=== PATIENT | female | born 1970 | race Caucasian/White ===

== ENCOUNTER → 2017-11-30 14:57 | Outpatient (CLI) | payer OTHER, SELFPAY ==
--- NOTE | 2017-11-30 14:59 | BI_ITS ---
MAMMOGRAPHY - BILATERAL DIAGNOSTIC REASON FOR EXAM: Female, 47 years old. History of left breast lump. Decrease in size since recent menses. PERTINENT HISTORY: Aunt with breast cancer. TECHNIQUE: Digital bilateral breast geovanna (3D mammographic acquisition) in the CC and MLO projections. 2-D mediolateral oblique (MLO) and craniocaudad (CC) views of both breasts were obtained. CAD: Full Field Digital Mammography with Computer Added Detection was performed. COMPARISON: Comparison is made with prior study dated December 21, 2016 and December 12, 2015. FINDINGS: Breast Composition: The breasts are heterogeneously dense, which may obscure small masses. There is a 3 cm x 2.2 cm well-defined nodular density in the inferior medial retroareolar region of the left breast. This is essentially unchanged. Prior sonogram demonstrated this to be a cyst. Follow-up sonogram is recommended. No other significant abnormalities are identified. There has been no significant change since the prior study. BI/DIAG MAMM W/CAD, BILAT IMPRESSION: Stable bilateral diagnostic mammogram. Follow-up ultrasound of the left breast is recommended. ASSESSMENT CATEGORY: BIRADS Category 0: Incomplete. Need additional imaging evaluation. A letter regarding these results will be sent to the patient by the facility within 30 days. Approximately 10% of breast cancers are not detected by mammography. A normal mammogram should not delay biopsy of a clinically suspicious abnormality. Electronically Signed: Ilir Lyon MD at 8:35 EDT Tel [phone], Service support ,
--- NOTE | 2017-11-30 16:05 | US_ITS ---
STUDY: ULTRASOUND BREAST - LEFT REASON FOR EXAM: Female, 47 years old. Palpable lump left breast. TECHNIQUE: Axial and longitudinal images of the LEFT breast were performed with a high resolution ultrasound transducer. COMPARISON: Comparison is made with prior mammogram done earlier in the day as well as prior ultrasound of the left breast dated December 24, 2016. FINDINGS: LEFT Breast: 3 cysts are seen in the lower half of the left breast. The largest measures 2.1 cm x 3.1 cm x 1.5 cm. This is at the 7:00 position breast at 3 cm from the nipple. This also evidence of a 1 cm x 0.9 cm x 1 cm cyst at the 9:00 position breast at 3 cm from nipple as well as a 0.8 cm x 0.8 cm x 0.6 m cyst at the 5:00 position breast at 1 cm from nipple. US/Breast Limited Unilateral IMPRESSION: 3 cysts seen in the inferior aspect of the left breast. Routine annual mammographic follow-up is recommended. ASSESSMENT CATEGORY: BIRADS Category 2: Benign. A letter regarding these results will be sent to the patient by the facility within 30 days. Electronically Signed: Ilir Lyon MD at 8:45 EDT Tel [phone], Service support ,
== END ==
PROVIDERS: Family Provider Family Medicine; PCP Family Medicine; Visit Provider Advanced Practice Midwife
DX: N63.20 Unspecified lump in the left breast, unspecified quadrant (principal)
CPT/HCPCS: 76642; 77062; 77066; G0279

== ENCOUNTER → 2018-02-21 10:35 | Outpatient (CLI) | payer OTHER, SELFPAY ==
[2018-02-21 11:40] LABS: Hemoglobin A1c 6.3 % (4.2-6.3)
== END ==
PROVIDERS: Family Provider Family Medicine; PCP Family Medicine; Visit Provider Nurse Practitioner
DX: E10.9 Type 1 diabetes mellitus without complications (principal)
CPT/HCPCS: 36415; 83036

== ENCOUNTER → 2018-05-08 10:33 | Outpatient (CLI) | payer OTHER, SELFPAY ==
[2018-05-08 12:29] LABS: AST(SGOT) 18 U/L (15-37); Alanine Aminotransfer ALT/SGPT 19 U/L (13-56); Albumin, Serum 3.5 g/dL (3.2-5.0); Alkaline Phosphatase 54 U/L (45-117); Anion Gap 4 (5-15); BUN 11 mg/dL (7-18); BUN/Creat Ratio 14.6 RATIO (10-20); Calcium,Total 8.7 mg/dL (8.5-10.1); Chloride 103 mmol/L (98-107); Creatinine, Serum 0.75 mg/dL (0.55-1.02); EST Glomerular Filtration Rate 87 mL/min (>60); Est Glom Filt Rate - Afr Amer 105 mL/min (>60); Globulin 3.4 g/dL (2.2-4.2); Glucose 143 mg/dL (74-106); Potassium 3.9 mmol/L (3.5-5.1); Protein, Total 6.9 g/dL (6.4-8.2); Sodium Level 138 mmol/L (136-145)
[2018-05-08 12:39] LABS: Hemoglobin A1c 6.4 % (4.2-6.3)
== END ==
PROVIDERS: Family Provider Family Medicine; PCP Family Medicine; Referring Provider Nurse Practitioner; Visit Provider Nurse Practitioner
DX: E10.9 Type 1 diabetes mellitus without complications (principal)
CPT/HCPCS: 36415; 80053; 83036

== ENCOUNTER → 2018-12-01 13:54 | Outpatient (CLI) | payer OTHER, SELFPAY ==
[2018-09-12 16:00] VITALS: BMI 30.9
--- NOTE | 2018-12-01 14:01 | BI_ITS ---
MAMMOGRAPHY - BILATERAL SCREENING REASON FOR EXAM: Female, 48 years old. Routine annual screening examination. PERTINENT HISTORY: Aunt with breast cancer. History of bilateral breast cysts. TECHNIQUE: Digital bilateral breast geovanna (3D mammographic acquisition) in the CC and MLO projections. 2-D mediolateral oblique (MLO) and craniocaudad (CC) views of both breasts were obtained. CAD: Full Field Digital Mammography with Computer Added Detection was performed. COMPARISON: Comparison is made with prior study dated December 21, 2016 and November 30, 2017. FINDINGS: Breast Composition: The breasts are heterogeneously dense, which may obscure small masses. There are no dominant masses or suspicious calcifications. The previously seen well-defined nodule in the inferior medial aspect of the left breast has decreased in size. No new mass lesion or clustering calcification is seen. No other significant abnormalities are identified. BI/SCREENING MAMM (CAD), BILAT IMPRESSION: Interval decrease in size of the previously seen nodule in the left breast.. Yearly follow-up mammogram recommended. (A) ASSESSMENT CATEGORY: BIRADS Category 2: Benign. A letter regarding these results will be sent to the patient by the facility within 30 days. Approximately 10% of breast cancers are not detected by mammography. A normal mammogram should not delay biopsy of a clinically suspicious abnormality. [id number] Electronically Signed: Ilir Lyon, at 8:30 EDT , Service support ,
== END ==
PROVIDERS: Family Provider Family Medicine; PCP Family Medicine; Referring Provider Advanced Practice Midwife; Visit Provider Advanced Practice Midwife
DX: Z12.31 Encounter for screening mammogram for malignant neoplasm of breast (principal)
CPT/HCPCS: 77063; 77067

== ENCOUNTER 2019-10-27 12:06 | Emergency (ER) | payer OTHER, SELFPAY ==
[2018-09-12 16:00] VITALS: BMI 30.9
[2019-10-27 12:09] VITALS: BP 131/77; PULSE 102; RESP 17; TEMP 36.7; O2SAT 98; BMI 31.4
--- NOTE | 2019-10-27 12:34 | EKG12_ITS ---
Test Reason : UPPER EXTEMETY Blood Pressure : / mmHG Vent. Rate : 077 BPM Atrial Rate : 077 BPM P-R Int : 166 ms QRS Dur : 088 ms QT Int : 392 ms P-R-T Axes : 061 048 058 degrees QTc Int : 443 ms Normal sinus rhythm Normal ECG Confirmed by YUDELKA BERKOWITZ, OKSANA ([id number]), acquisitions editor RITA ROBINS ([id number]) on 10/30/2019 1:52:57 PM Referred By: KATT Confirmed By:OKSANA JHA MD
[2019-10-27 12:51] VITALS: BP 123/80; PULSE 80; RESP 12; O2SAT 99
[2019-10-27 12:59] LABS: Absolute Lymphocyte Count 1.14 X10^3/uL (0.83-4.51); Absolute Neutrophil Count 4.4 X10^3/uL (2.0-7.7); Basophil# 0.06 X10^3/uL; Eosinophil# 0.07 X10^3/uL; Eosinophils% 1.1 % (0-5); Hematocrit 41.3 % (37-47); Hemoglobin 13.6 g/dL (12.0-15.0); Lymphocyte # 1.14 X10^3/ul (4.0); Lymphocyte % 18.1 % (19-41); Mean Corp Hgb Conc 32.9 g/dL (32-36); Mean Corpuscular Volume 88.1 fL (81-99); Mean Platelet Vol. 10.6 fl (6.2-12.0); Monocyte% 9.5 % (0-10); NRBC Flagged by Analyzer 0 % (0-5); Neutrophil # 4.41 X10^3/uL (2.7-7.7); Neutrophil % 69.8 % (47-70); Platelet Count 267 K/mm3 (150-450); RBC Distribution Width CV 14.4 % (11.6-14.6); RBC Distribution Width SD 45.9 fl (35.1-43.9); Red Blood Count 4.69 M/mm3 (4.2-5.4); White Blood Count 6.3 K/mm3 (4.4-11.0)
--- NOTE | 2019-10-27 13:06 | RAD_ITS ---
STUDY: X-RAY - CERVICAL SPINE REASON FOR EXAM: Female, 49 years old. Neck pain, NKI, radiating down left arm TECHNIQUE: 3 view(s) of the cervical spine were obtained. COMPARISON: None FINDINGS: Normal anterior atlantoaxial articulation. Normal odontoid process. Normal cervical lordosis. Normal vertebral bodies and endplates. Normal disc space heights. There is no acute fracture. The soft tissue structures are unremarkable. RAD/Cerv Spine 2 or 3 Views IMPRESSION: Normal x-ray examination of the visualized cervical spine. Electronically Signed: Ant Sapp MD at 13:51 EDT , Service support ,
--- NOTE | 2019-10-27 13:06 | RAD_ITS ---
STUDY: X-RAY CHEST REASON FOR EXAM: Female, 49 years old. Neck pain, NKI, radiating down left arm TECHNIQUE: Single AP portable view of the chest. COMPARISON: August 14, 2013. FINDINGS: There are monitoring devices. The lungs are clear and expanded. There is no demonstrated pleural abnormality. Normal size heart. Normal mediastinum and michael. Normal visualized pulmonary arteries. Normal visualized aortic arch and descending thoracic aorta. Normal visualized thoracic spine. Normal visualized ribs, clavicles, and shoulders. There is no demonstrated abnormality of the visualized soft tissue structures of the upper abdomen. RAD/Chest 1 View (Portable) IMPRESSION: Normal x-ray examination of the chest. Electronically Signed: Ant Sapp MD at 13:50 EDT , Service support ,
[2019-10-27 13:11] LABS: Anion Gap 4 (5-15); BUN 14 mg/dL (7-18); BUN/Creat Ratio 17.5 RATIO (10-20); Calcium,Total 9.8 mg/dL (8.5-10.1); Chloride 104 mmol/L (98-107); EST Glomerular Filtration Rate 80 mL/min (>60); Est Glom Filt Rate - Afr Amer 97 mL/min (>60); Estimated Creatinine Clearance 74.86 ml/min; Glucose 158 mg/dL (74-106); Potassium 3.7 mmol/L (3.5-5.1); Sodium Level 140 mmol/L (136-145)
--- NOTE | 2019-10-27 15:29 | ED.DCSUM_ITS ---
- ER Visit Summary Date of Service: 10/27/19 Chief Complaint: Left arm and neck pain History of Present Illness: The patient is a 49 F who presents with left neck, arm, and shoulder pain that is been constant for the past 6 days. Patient states it is gradually gotten worse. Patient describes the pain is aching. Patient states the pain started in the left side of her neck and left trapezius area. Patient states she had noted some bruising and swelling over the lateral aspect of her left upper arm. Patient states her pain is worse with movement. Patient denies any paresthesias. Patient states her arm feels weak whenever she tries to use it. Patient denies any numbness or tingling. Patient denies any chest pain or shortness of breath. Patient denies any nausea or vomiting. Patient states she talked to the nurse at her primary care physician's office and was referred to the emergency department for possible cardiac evaluation. Physical Examination: Vital signs are stable. Patient is afebrile. Patient is in no acute distress. Oral mucosa is pink and moist. Neck is supple. Trachea is midline. There is no JVD noted. Heart was regular rate and rhythm. Lungs are clear and equal bilaterally. Abdomen is soft. Bowel sounds are normal. There is no tenderness. There is no rebound or guarding noted. Skin is warm dry. Cranial nerves II through XII are intact. There are no focal motor or sensory deficits noted. Musculoskeletal exam reveals tenderness and spasm of the left cervical paraspinal muscles and left trapezius muscle. There is also some tenderness with mild edema and ecchymosis over the lateral aspect of the left upper arm. There is no bony crepitance or step-off. There is good range of motion. There is no laxity appreciated. Radial pulses are equal bilaterally. Test Results: EKG showed a normal sinus rhythm with a rate of 77. There are no acute ST or T wave changes. Portable chest x-ray was obtained. There is no acute cardiopulmonary process. X-rays of the cervical spine were obtained. There is no acute fracture or spondylolisthesis. These were interpreted by the radiologist and reviewed by myself. CBC, basic metabolic profile, and troponin were obtained and were all within normal limits. Emergency Department Course and Treatment: Patient was feeling somewhat better on reevaluation. Patient was given a prescription for ibuprofen. Patient was instructed use ice to the area. Patient was instructed to do range of motion exercises. Patient was instructed to follow-up with her primary care physician in 5 to 7 days. Patient understood and was agreeable with the plan. All questions were answered. Disposition: Discharge home Impression: Muscle strain left shoulder This note was generated with [employer] dictation software. It may contain incorrect words, spelling, and punctuation that were not noted in review of the chart prior to signing ED Disposition - Plan for ED Patient: Disposition: Home or Assisted Living Diagnosis: Muscle strain of left shoulder Instructions: ED Strain Muscle Ext Prescriptions: Ibuprofen [Motrin] 800 mg PO TID PRN PRN #20 tab PRN Reason: Pain Score 1-10/10 Prescription Printed Referrals: Bob aPtel III, MD [Primary Care Provider] - 5-7 Days
[2019-10-27 15:46] VITALS: BP 113/78; PULSE 66; RESP 15; O2SAT 97
== END 2019-10-27 15:47 | disposition home or self-care (01) ==
PROVIDERS: Emergency Provider Emergency Medicine; PCP Family Medicine
DX: S46.912A Strain of unspecified muscle, fascia and tendon at shoulder and upper arm level, left arm, initial encounter (principal); X58.XXXA Exposure to other specified factors, initial encounter; Y93.9 Activity, unspecified; Y99.9 Unspecified external cause status; E10.9 Type 1 diabetes mellitus without complications; E03.9 Hypothyroidism, unspecified; K21.9 Gastro-esophageal reflux disease without esophagitis; Z79.4 Long term (current) use of insulin; Z79.899 Other long term (current) drug therapy
CPT/HCPCS: 71045; 72040; 80048; 84484; 85025; 93005; 99285; A4216

== ENCOUNTER → 2020-01-11 12:51 | Outpatient (CLI) | payer OTHER, SELFPAY ==
[2019-12-17 19:48] VITALS: BMI 31.4
--- NOTE | 2020-01-11 12:58 | BI_ITS ---
MAMMOGRAPHY - BILATERAL SCREENING REASON FOR EXAM: Female, 49 years old. Routine annual screening examination. PERTINENT HISTORY: Aunt with breast cancer. TECHNIQUE: Digital bilateral breast greer (3D mammographic acquisition) in the CC and MLO projections. 2-D mediolateral oblique (MLO) and craniocaudad (CC) views of both breasts were obtained. CAD: Full Field Digital Mammography with Computer Added Detection was performed. COMPARISON: Comparison is made with prior examination dated December 01, 2018 and November 30, 2017. FINDINGS: Breast Composition: The breasts are heterogeneously dense, which may obscure small masses. There are no dominant masses or suspicious calcifications. Stable benign appearing bilateral axillary lymph nodes. No other significant abnormalities are identified. There has been no significant change since the prior study. BI/SCREEN MAMM (CAD) W/GREER BILAT IMPRESSION: Stable bilateral screening mammogram. Yearly follow-up mammogram recommended. (A) ASSESSMENT CATEGORY: BIRADS Category 2: Benign. A letter regarding these results will be sent to the patient by the facility within 30 days. Approximately 10% of breast cancers are not detected by mammography. A normal mammogram should not delay biopsy of a clinically suspicious abnormality. [id number] Electronically Signed: Ilir Lyon, at 14:16 EDT , Service support ,
== END ==
PROVIDERS: PCP Family Medicine; Referring Provider Advanced Practice Midwife; Visit Provider Advanced Practice Midwife
DX: Z12.31 Encounter for screening mammogram for malignant neoplasm of breast (principal)
CPT/HCPCS: 77063; 77067

== ENCOUNTER → 2021-01-27 16:00 | Outpatient (CLI) | payer OTHER, SELFPAY ==
[2020-06-16 16:15] VITALS: BMI 30.7
--- NOTE | 2021-01-27 16:03 | BI_ITS ---
MAMMOGRAPHY - BILATERAL SCREENING REASON FOR EXAM: Female, 50 years old. Routine annual screening examination. PERTINENT HISTORY: Aunt with breast cancer. TECHNIQUE: Digital bilateral breast greer (3D mammographic acquisition) in the CC and MLO projections. 2-D mediolateral oblique (MLO) and craniocaudad (CC) views of both breasts were obtained. CAD: Full Field Digital Mammography with Computer Added Detection was performed. COMPARISON: Comparison is made with prior study dated the 2019 and 12/01/2018. FINDINGS: Breast Composition: The breasts are heterogeneously dense, which may obscure small masses. There are no dominant masses or suspicious calcifications. No other significant abnormalities are identified. There has been no significant change since the prior study. BI/SCRN MAMM (CAD)W/GREER BILAT IMPRESSION: Stable bilateral screening mammogram. Yearly follow-up mammogram recommended. (A) ASSESSMENT CATEGORY: BIRADS Category 1: Negative. A letter regarding these results will be sent to the patient by the facility within 30 days. Approximately 10% of breast cancers are not detected by mammography. A normal mammogram should not delay biopsy of a clinically suspicious abnormality. [id number] Electronically Signed: Ilir Lyon MD at 8:02 EDT , Service support ,
== END ==
PROVIDERS: PCP Family Medicine; Referring Provider Nurse Practitioner Family; Visit Provider Nurse Practitioner Family
DX: Z12.31 Encounter for screening mammogram for malignant neoplasm of breast (principal)
CPT/HCPCS: 77063; 77067

== ENCOUNTER 2021-02-26 10:01 | Day surgery (SDC) | payer OTHER, SELFPAY ==
[2021-02-09 16:06] VITALS: BMI 30.7
--- NOTE | 2021-02-25 12:10 | HP.PCM_ITS ---
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 Signed Encounter Date: 02/25/2021 Expand AllCollapse All Expand All by Default Hide copied text Hover for details Pre-Op History and Physical ? HPI: The patient is a 50 year old female presenting for discussion regarding endometrial polyp. Patient was scheduled with me to discuss surgical intervention. Patient states her last menstrual period was February 2020. Patient states prior to that time she had some irregular bleeding. Patient states that on her Pap smear endometrial cells were present so she had an endometrial biopsy performed which showed likely endometrial polyp. Ultrasound showed endometrial polyp as well. Patient here for discussion about removal of this polyp. Patient offers no other concerns today. ? Pre-operative visit. She is scheduled for Hysteroscopy D&C, polypectomy for endometrial polyp on 02/26/21. Procedure discussed along with risks, benefits and complications. Other alternatives discussed for management. Consent form signed? Yes. ? ? PAST MEDICAL HISTORY PAST MEDICAL HISTORY Diagnosis Date ? Esophageal reflux ? ? Gastroesophageal reflux ? Hyperlipidemia LDL goal < 100 07/17/2013 ? Type I (juvenile type) diabetes mellitus without mention of complication, not stated as uncontrolled (HCC) ? ? Dx age 24 ? Unspecified asthma(493.90) ? ? prn albuterol ? Unspecified hypothyroidism ? ? Hypothyroidism ? ? PAST SURGICAL HISTORY PAST SURGICAL HISTORY Procedure Laterality Date ? 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 1992 ? For abn pap and paps since normal ? COLONOSCOPY ? 07/20/2018 ? 5 yr interval, benign polyp ? EGD ? 07/20/2018 ? EGD W/O OR W/BRUSH/WASH ? ? ? EGD done 2 times ? [facility] COVID-19 VACCINE ? 10/02/2020 ? ? ? CURRENT MEDICATIONS Current Outpatient Medications Medication Sig Dispense Refill ? albuterol HFA (PROAIR HFA) 90 mcg/actuation inhaler Inhale 2 Puffs as instructed every 4 hours as needed. 18 g 5 ? pantoprazole DR (PROTONIX) 40 mg tablet Take 1 tablet by mouth daily before breakfast. Take on empty stomach, 1/2 hr before meal. 90 tablet 3 ? montelukast (SINGULAIR) 10 mg tablet Take 1 tablet by mouth once daily. 90 tablet 3 ? levothyroxine (LEVOXYL) 125 mcg tablet Take by mouth, 6 days per week. Skip dose on 7th day. Take on empty stomach. Fill as generic, not CHERELLE 90 tablet 3 ? SYNTHROID 125 mcg tablet 6 per week, CHERELLE 78 tablet 3 ? cyclobenzaprine (FLEXERIL) 10 mg tablet Take 1 tablet by mouth three times daily as needed. 30 tablet 4 ? nystatin-triamcinolone (MYCOLOG II) cream Apply 1 application to affected area twice daily as needed. 30 g 1 ? insulin aspart U-100 (NOVOLOG U-100 INSULIN ASPART) 100 unit/mL use as directed with insulin pump up to 60 units daily 6 Vial 3 ? cranberry fruit extract (CRANBERRY EXTRACT ORAL) Take by mouth. ? ? ? COMPOUNDED PRESCRIPTION one touch ultra test strips blue 50's test 8 times daily 15 Container 4 ? rosuvastatin (CRESTOR) 5 mg tablet Take 1 tablet by mouth daily at bedtime. (Patient taking differently: Take 5 mg by mouth daily before breakfast.) 90 tablet 3 ? enalapril (VASOTEC) 5 mg tablet Take 1 tablet by mouth once daily. 90 tablet 3 ? Magnesium 250 mg tab Take 250 mg by mouth once daily. ? ? ? UBIDECARENONE (COQ-10 ORAL) Take by mouth. ? ? ? FLAXSEED OIL (OMEGA 3 ORAL) Take by mouth as directed. ? ? ? COMPOUNDED PRESCRIPTION Ultimate eye support, with zeaxanthin ? ? ? MULTIVITAMIN TAB Take one(1) tablet daily. ? 0 ? VITAMIN D 400 UNIT CAP ? ? 0 ? miSOPROStol (CYTOTEC) 200 mcg tablet Insert 2 tablets vaginally night prior to procedure and 2 tablets morning of procedure. Each dose should be in vagina for 6-8 hours. (Patient not taking: Reported on 02/20/2021 ) 4 tablet 0 ? ASPIRIN 81 MG TAB Take one (1) tablet daily . (Patient not taking: ) ? 0 ? No current facility-administered medications for this visit. ? ? ALLERGIES: Apples, Bactrim [Sulfamethoxazole-Trimethoprim], Bananas [Other], Environmental [Other], and Lovastatin ? PERSONAL HISTORY: SOCIAL HISTORY Social History ? Tobacco Use ? Smoking status: Former Smoker ? ? Quit date: 05/11/1999 ? ? Years since quittin.8 ? Smokeless tobacco: Never Used Vaping Use ? Vaping Use: Never used Substance Use Topics ? Alcohol use: No ? Drug use: No ? FAMILY HISTORY: FAMILY HISTORY FAMILY HISTORY Problem Relation Age of Onset ? Cancer Mother ? ? leukemia ? Diabetes Father ? ? Type 2 ? No Known Problems Sister ? ? other (Dementia) Maternal Grandmother ? ? No Known Problems Paternal Grandmother ? ? No Known Problems Paternal Grandfather ? ? Arthritis Son ? ? other (epilepsy) Son ? ? other (ADHD) Son ? ? other (Asperger's) Son ? ? Breast Cancer Paternal Aunt ? ? ? REVIEW OF SYMPTOMS: negative except as noted above PHYSICAL EXAMINATION: ? VITALS: Blood pressure 102/64, height 5' 5 (1.651 m), weight 194 lb (88 kg), last menstrual period 02/23/2020. ? GENERAL: The patient is well nourished, well hydrated in no acute distress. , The patient is oriented to time, place, and person. NECK: full range of motion NEURO: alert and oriented x 3 ? IMPRESSION: Endometrial polyp ? PLAN: Hysteroscopy, D&C, Polypectomy ? Pt has been counseled on risks/benefits and alternatives of surgery including but not limited to anesthesia, bleeding, infection, uterine perforation with injury to pelvic structures including bowel, bladder, ureters and vessels. Pt wishes to proceed with surgery at this time. ? I discussed with the patient that if she has no irregular bleeding and she does not want to proceed with the procedure that is her decision. We discussed that endometrial polyps later could cause postmenopausal bleeding. Patient at this time would like to proceed with removal of the endometrial polyp. ? Pre and Post op instructions reviewed EKG to be done prior to surgery- h/o DM, HGA1c controlled 6.5 . CBC and BMP ordered Motrin for post op pain- can use OTC. ? ? ? I have reviewed and updated past medical and surgical history, medications and allergies Tigist Botello MD Office Visit on 02/25/2021 Office Visit on 02/25/2021 Note shared with patient
[2021-02-26 10:34] LABS: Internal QC Validated? YES +Cl - CLEAR BKGD; Pregnancy, Urine Negative Negative
--- NOTE | 2021-02-26 10:52 | EKG12_ITS ---
Test Reason : PREOP Blood Pressure : / mmHG Vent. Rate : 077 BPM Atrial Rate : 077 BPM P-R Int : 168 ms QRS Dur : 092 ms QT Int : 382 ms P-R-T Axes : 035 042 055 degrees QTc Int : 432 ms Normal sinus rhythm Normal ECG Confirmed by KB BERKOWITZ, TEMI ([id number]), state editor MACIEL NAZARIO ([id number]) on 03/04/2021 10:50:04 AM Referred By: Tigist Cruz Confirmed By:TEMI QUILES MD
[2021-02-26 10:58] VITALS: BP 119/64; PULSE 78; RESP 18; TEMP 37.3; O2SAT 98; BMI 32.3
[2021-02-26 11:08] LABS: Hematocrit 40.2 % (37-47); Hemoglobin 13.2 g/dL (12.0-15.0); Mean Corp Hgb Conc 32.8 g/dL (32-36); Mean Corpuscular Hgb 28.3 pg (27.0-32.0); Mean Corpuscular Volume 86.1 fL (81-99); Mean Platelet Vol. 10.5 fl (6.2-12.0); Platelet Count 274 K/mm3 (150-450); RBC Distribution Width CV 13.2 % (11.6-14.6); RBC Distribution Width SD 40.9 fl (35.1-43.9); Red Blood Count 4.67 M/mm3 (4.2-5.4); White Blood Count 5.2 K/mm3 (4.4-11.0)
[2021-02-26] MEDS: Lactated Ringers 1,000 ML 100 ML IV (11:08)
[2021-02-26 11:21] LABS: Anion Gap 7 (5-15); BUN 13 mg/dL (7-18); BUN/Creat Ratio 17.4 RATIO (10-20); Calcium,Total 9.5 mg/dL (8.5-10.1); Chloride 104 mmol/L (98-107); Creatinine, Serum 0.75 mg/dL (0.55-1.02); EST Glomerular Filtration Rate 86 mL/min (>60); Est Glom Filt Rate - Afr Amer 104 mL/min (>60); Estimated Creatinine Clearance 78.96 ml/min; Glucose 131 mg/dL (74-106); Sodium Level 141 mmol/L (136-145)
--- NOTE | 2021-02-26 11:30 | EMB_PTH ---
PATIENT: RICHIE KELLEY LOC: [facility] U#:[id number] AGE/SX: 50/F ROOM: RE02/26/[address]: Dr. Tigist Cruz, MDDOB: 1970 BED: DIS: 02/26/2021 SPEC #: [id number] RECD: 02/26/21 12:03 STATUS: SEVERINO RILEY #: [id number] SANGEETA: 02/26/21 11:[address]: Tigist Cruz DEPT: SURGICAL PATHOLOGY RECD BY: Sola Stephenson ENTERED: 02/26/21 12:26 SP TYPE: ENDOM BX/C YESSI DR: No Primary Care Phys Tissues: Endometrium, NOS Procedures: Surgery Specimen Level IV HEADER OPERATION: Hysteroscopy, D & C Symphion, polypectomy PRE-OP DIAGNOSIS: Benign polyp TISSUE SUBMITTED: Endometrial curettings MICROSCOPIC DIAGNOSIS Endometrial curettings: Proliferative endometrium. See comment. SARABJIT:marcin 02/27/2021 COMMENT Obvious changes consistent with polyp are not seen. MICROSCOPIC DESCRIPTION Slides are reviewed. GROSS DESCRIPTION Received in fixative is one container labeled with the patient's name and designated endometrial curettings. The specimen consists of multiple fragments of hemorrhagic soft tissue that in aggregate measure 1.5 x 1 x 0.1 cm. The specimen is totally submitted in one cassette. / SARABJIT:maricn 02/26/21 TC:4 CPT: 81039
--- NOTE | 2021-02-26 11:38 | OP.PCM_ITS ---
Problems Associated Problem List Diagnoses (1) Endometrial polyp: Report of Operation Date of Procedure: 02/26/21 Pre-Operative Diagnosis: Endometrial polyp Post-Operative Diagnosis: normal Endometrium Surgery/Procedure Performed:: Hysteroscopy, D&C Description of Surgical Findings:: Normal endometrium, one area of tissue noted on fundal aspect. no polyps. both tubal ostia visualized. Surgeon: Tigist Cruz Type of Anesthesia: MAC Specimen's removed: endometrial curettings Drains: none Estimated Blood Loss (mL): <5cc Fluids Replaced: 600 Description of Procedure: Informed consent was obtained the patient was taken the operating room she was placed in supine position. She was given anesthesia. She was then placed in the [facility] where she was prepped and draped in the normal sterile fashion. bladder drained prior to start of procedure. At this time the weighted speculum was placed in the posterior fornix of vagina. Single-tooth tenaculum was used to gently grasp the anterior lip the cervix. At this time the uterine cavity was sounded to approximately 7 cm. Gentle dilatation was performed once adequate dilatation of the cervix was achieved the hysteroscope using normal saline as a distention medium was placed. Tubal ostia visualized no gross abnormalities, no polypoid tissue. one area on fundal aspect with tissue present. This time hysteroscopy was complete. gentle sharp curettage performed. small amount of tissue was evacuated when using aspiration on symphion this too will be sent for evaluation. Tissue will be sent to pathology for evaluation. Tenaculum removed. Good hemostasis. Instrument, lap count correct x 2. Vaginal Sweep was negative. Grafts/Implants Used: none Procedure Start Time: 11:33 Procedure Stop Time: 11:38 Complications none Admit VTE Documentation VTE Present on Admission: Yes VTE Mechan Device Prophylaxis: SCD's VTE Pharm Prophylaxis ordered?: No
--- NOTE | 2021-02-26 11:43 | EX.PCM.DISCH ---
Discharge Instructions Procedure D&C Diet Discharge Diet: No restrictions Activity May resume sexual activity in: 1 week Dressing / Incision Call your doctor if you observe: Fever of 101 or Higher, Inability to urinate, Using more than 1 pad per hour and Uncontrolled pain Follow Up Care Please Follow Up With: Tigist Cruz MD When: 1-2 weeks post OP if you need an appointment please call [phone] Test Results: Test results from this visit will be discussed in further detail at your follow-up appointment, if applicable. Discharge Plan Admission Attending Provider: Tigist Cruz Primary Care Provider: Care Physician,No Primary Discharge Orders/Prescriptions Prescriptions: No Action albuterol sulfate 90 mcg/actuation HFA aerosol inhaler 2 puff INHALATION Q4H PRN (Reason: Sob &/Or Wheezing) RF: 0 multivitamin Tablet 1 tab PO DAILY RF: 0 pantoprazole 40 mg tablet,delayed release (DR/EC) 40 mg PO DAILY RF: 0 cyclobenzaprine 10 mg tablet 10 tablet PO DAILY PRN PRN (Reason: muscle spasms) RF: 0 rosuvastatin 5 mg tablet 5 mg PO DAILY Qty: 90 RF: 3 levothyroxine 125 mcg capsule 125 mcg capsule See Rx Instructions PO .6 pills q week Qty: 90 RF: 3 insulin aspart U-100 [Novolog U-100 Insulin aspart] 100 unit/mL solution 100 unit subcut DAILY Qty: 90 RF: 3 montelukast 10 MG tablet 10 mg PO QHS RF: 0 ibuprofen 800 MG tablet 800 mg PO TID PRN PRN (Reason: Pain Score 1-10/10) Qty: 20 RF: 0 enalapril maleate 5 mg tablet 5 mg PO QHS RF: 0 Disposition Discharge Orders: Discharge Patient (Routine); Ordered 02/26/21 Ordered By: Dr. Tigist Cruz
[2021-02-26 11:48] VITALS: BP 114/73; BP 119/64; PULSE 79; RESP 16; TEMP 36.6; O2SAT 92
[2021-02-26 11:55] VITALS: BP 119/64; BP 121/74; PULSE 79; RESP 16; O2SAT 93
[2021-02-26 12:00] VITALS: BP 113/73; BP 119/64; PULSE 72; RESP 16; O2SAT 94
[2021-02-26 12:06] VITALS: BP 116/70; BP 119/64; PULSE 68; RESP 16; TEMP 36.1; O2SAT 93
[2021-02-26 13:01] VITALS: BP 119/64; BP 127/67; PULSE 59; RESP 16; TEMP 36.7; O2SAT 100
== END 2021-02-26 13:04 | disposition home or self-care (01) ==
LOC: SDC 10:03 → AC 10:05
PROVIDERS: Referring Provider Obstetrics & Gynecology; Visit Provider Obstetrics & Gynecology
PROC: 0UB98ZZ Excision of Uterus, Via Natural or Artificial Opening Endoscopic (ICD-10-PCS; CPT 58558; principal; 2021-02-26 11:15)
DX: N84.0 Polyp of corpus uteri (principal); E10.9 Type 1 diabetes mellitus without complications; E78.5 Hyperlipidemia, unspecified; E03.9 Hypothyroidism, unspecified; J45.909 Unspecified asthma, uncomplicated; K21.9 Gastro-esophageal reflux disease without esophagitis; E66.9 Obesity, unspecified; Z96.41 Presence of insulin pump (external) (internal); Z79.4 Long term (current) use of insulin; Z79.82 Long term (current) use of aspirin; Z79.890 Hormone replacement therapy; Z79.899 Other long term (current) drug therapy; Z86.73 Personal history of transient ischemic attack (TIA), and cerebral infarction without residual deficits; Z87.891 Personal history of nicotine dependence
CPT/HCPCS: 00952; 58558; 80048; 81025; 85027; 88305; 93005; J7120; J2405

== ENCOUNTER → 2022-01-23 | Outpatient (CLI) | payer OTHER, SELFPAY ==
[2022-01-23 09:17] LABS: Hemoglobin A1c 6.1 % (3.8-5.6)
[2022-01-23 09:29] LABS: Microalbumin,Random Urine < 5.0 mg/L (NO RANGE EST.)
[2022-01-23 09:35] LABS: ALB/GLOB Ratio 1.1 RATIO (0.9-2.4); AST(SGOT) 21 U/L (15-37); Alanine Aminotransfer ALT/SGPT 24 U/L (13-56); Albumin, Serum 3.5 g/dL (3.2-5.0); Alkaline Phosphatase 53 U/L (45-117); BUN 11 mg/dL (7-18); Calcium,Total 9.2 mg/dL (8.5-10.1); Cholesterol 165 mg/dL (200); Creatinine, Serum 0.78 mg/dL (0.55-1.02); EST Glomerular Filtration Rate 82 mL/min (>60); Est Glom Filt Rate - Afr Amer 99 mL/min (>60); Globulin 3.3 g/dL (2.2-4.2); Glucose 136 mg/dL (74-106); Protein, Total 6.8 g/dL (6.4-8.2); Sodium Level 139 mmol/L (136-145); Triglycerides 64 mg/dL
[2022-01-23 09:36] LABS: Anion Gap 6 (5-15); Chloride 104 mmol/L (98-107); High Density Lipoprotein 60 mg/dL; Thyroid Stim Hormone (TSH) 1.09 uIU/mL (0.358-3.74); Very Low Density Lipoprotein 13 mg/dL (5-40)
[2022-01-25 08:07] LABS: Vitamin D,25 Hydroxy 54.8 ng/mL
== END | disposition home or self-care (01) ==
LOC: RAD 08:16
PROVIDERS: PCP Family Medicine; Referring Provider Internal Medicine Endocrinology, Diabetes & Metabolism; Visit Provider Internal Medicine Endocrinology, Diabetes & Metabolism
DX: E10.9 Type 1 diabetes mellitus without complications (principal); E03.9 Hypothyroidism, unspecified; E78.5 Hyperlipidemia, unspecified; E55.9 Vitamin D deficiency, unspecified
CPT/HCPCS: 36415; 80053; 80061; 82043; 82306; 82570; 83036; 84443

== ENCOUNTER → 2022-01-27 | Outpatient (CLI) | payer OTHER, SELFPAY ==
--- NOTE | 2022-01-27 13:51 | BI_ITS ---
MAMMOGRAPHY - BILATERAL SCREENING REASON FOR EXAM: Female, 51 years old. Routine annual screening examination. PERTINENT HISTORY: Aunt with breast cancer. TECHNIQUE: Digital bilateral breast greer (3D mammographic acquisition) in the CC and MLO projections. 2-D mediolateral oblique (MLO) and craniocaudad (CC) views of both breasts were obtained. CAD: Full Field Digital Mammography with Computer Added Detection was performed. COMPARISON: Comparison is made with prior study dated 01/27/2021 and 01/11/2020. FINDINGS: Breast Composition: The breasts are heterogeneously dense, which may obscure small masses. There are no dominant masses or suspicious calcifications. Stable small benign-appearing bilateral axillary lymph nodes. No other significant abnormalities are identified. There has been no significant change since the prior study. BI/SCRN MAMM (CAD)W/GREER BILAT IMPRESSION: Stable bilateral screening mammogram. Yearly follow-up mammogram recommended. (A) ASSESSMENT CATEGORY: BIRADS Category 2: Benign. A letter regarding these results will be sent to the patient by the facility within 30 days. Approximately 10% of breast cancers are not detected by mammography. A normal mammogram should not delay biopsy of a clinically suspicious abnormality. [id number] Electronically Signed: Ilir Lyon MD at 14:42 EDT ,
== END | disposition home or self-care (01) ==
LOC: OPBI 13:49
PROVIDERS: PCP Family Medicine; Referring Provider Nurse Practitioner Family; Visit Provider Nurse Practitioner Family
DX: Z12.31 Encounter for screening mammogram for malignant neoplasm of breast (principal)
CPT/HCPCS: 77063; 77067

== ENCOUNTER → 2023-01-28 | Outpatient (CLI) | payer OTHER, SELFPAY ==
--- NOTE | 2023-01-28 15:02 | BI_ITS ---
MAMMOGRAPHY - BILATERAL SCREENING REASON FOR EXAM: Female, 52 years old. Routine annual screening examination. PERTINENT HISTORY: Aunt with breast cancer. TECHNIQUE: Digital bilateral breast greer (3D mammographic acquisition) in the CC and MLO projections. 2-D mediolateral oblique (MLO) and craniocaudad (CC) views of both breasts were obtained. CAD: Full Field Digital Mammography with Computer Added Detection was performed. COMPARISON: Comparison is made with prior study dated January 27, 2022 and January 27, 2021. FINDINGS: Breast Composition: The breasts are heterogeneously dense, which may obscure small masses. There are no dominant masses or suspicious calcifications. Stable small benign-appearing bilateral axillary lymph nodes. No other significant abnormalities are identified. There has been no significant change since the prior study. BI/SCRN MAMM (CAD)W/GREER BILAT IMPRESSION: Stable bilateral screening mammogram. Yearly follow-up mammogram recommended. (A) ASSESSMENT CATEGORY: BIRADS Category 2: Benign. A letter regarding these results will be sent to the patient by the facility within 30 days. Approximately 10% of breast cancers are not detected by mammography. A normal mammogram should not delay biopsy of a clinically suspicious abnormality. [id number] Electronically Signed: Ilir Lyon MD at 8:52 EDT ,
== END | disposition home or self-care (01) ==
LOC: OPBI 15:00
PROVIDERS: PCP Family Medicine; Referring Provider Nurse Practitioner Family; Visit Provider Nurse Practitioner Family
DX: Z12.31 Encounter for screening mammogram for malignant neoplasm of breast (principal)
CPT/HCPCS: 77063; 77067

== ENCOUNTER → 2023-02-05 | Outpatient (CLI) | payer OTHER, SELFPAY ==
[2023-02-05 08:46] LABS: Hemoglobin A1c 6.6 % (3.8-5.6)
[2023-02-05 08:49] LABS: Microalbumin,Random Urine < 5.0 mg/L (NO RANGE EST.)
[2023-02-05 09:10] LABS: AST(SGOT) 19 U/L (15-37); Alanine Aminotransfer ALT/SGPT 19 U/L (13-56); Albumin, Serum 3.3 g/dL (3.2-5.0); Alkaline Phosphatase 62 U/L (45-117); Anion Gap 3 (5-15); BUN 12 mg/dL (7-18); BUN/Creat Ratio 14.8 RATIO (10-20); Calcium,Total 9.1 mg/dL (8.5-10.1); Chloride 104 mmol/L (98-107); Cholesterol 142 mg/dL (200); Creatinine, Serum 0.81 mg/dL (0.55-1.02); EST Glomerular Filtration Rate 78 mL/min (>60); Est Glom Filt Rate - Afr Amer 94 mL/min (>60); Globulin 3.3 g/dL (2.2-4.2); Glucose 69 mg/dL (74-106); High Density Lipoprotein 59 mg/dL; Potassium 3.6 mmol/L (3.5-5.1); Protein, Total 6.6 g/dL (6.4-8.2); Sodium Level 139 mmol/L (136-145); T4 Free Direct 1.32 ng/dL (0.76-1.46); Thyroid Stim Hormone (TSH) 2.11 uIU/mL (0.358-3.74); Triglycerides 24 mg/dL; Very Low Density Lipoprotein 5 mg/dL (5-40)
[2023-02-07 08:05] LABS: Vitamin D,25 Hydroxy 69.8 ng/mL
== END | disposition home or self-care (01) ==
LOC: LAB 08:02
PROVIDERS: PCP Family Medicine; Referring Provider Nurse Practitioner Family; Visit Provider Nurse Practitioner Family
DX: E10.9 Type 1 diabetes mellitus without complications (principal); E03.9 Hypothyroidism, unspecified
CPT/HCPCS: 36415; 80053; 80061; 82043; 82306; 82570; 83036; 84439; 84443

== ENCOUNTER → 2024-01-27 | Outpatient (CLI) | payer OTHER, SELFPAY ==
[2024-01-27 18:51] LABS: Microalbumin,Random Urine < 5.0 mg/L (NO RANGE EST.)
== END | disposition home or self-care (01) ==
LOC: LAB 16:17
PROVIDERS: PCP Family Medicine; Referring Provider Internal Medicine Endocrinology, Diabetes & Metabolism; Visit Provider Internal Medicine Endocrinology, Diabetes & Metabolism
DX: E10.9 Type 1 diabetes mellitus without complications (principal); E78.2 Mixed hyperlipidemia; E03.9 Hypothyroidism, unspecified
CPT/HCPCS: 82043; 82570

== ENCOUNTER → 2024-01-30 | Outpatient (CLI) | payer OTHER, SELFPAY ==
--- NOTE | 2024-01-30 07:39 | BI_ITS ---
MAMMOGRAPHY - BILATERAL SCREENING REASON FOR EXAM: Female, 53 years old. Routine annual screening examination. PERTINENT HISTORY: Aunt with breast cancer. TECHNIQUE: Digital bilateral breast greer (3D mammographic acquisition) in the CC and MLO projections. 2-D mediolateral oblique (MLO) and craniocaudad (CC) views of both breasts were obtained. CAD: Full Field Digital Mammography with Computer Added Detection was performed. COMPARISON: Comparison is made with prior study dated January 28, 2023 and January 27, 2022. FINDINGS: Breast Composition: The breasts are heterogeneously dense, which may obscure small masses. There are no dominant masses or suspicious calcifications. Stable small benign-appearing lateral axillary lymph nodes. No other significant abnormalities are identified. There has been no significant change since the prior study. BI/SCRN MAMM (CAD)W/GREER BILAT IMPRESSION: Stable bilateral screening mammogram. Yearly follow-up mammogram recommended. (A) ASSESSMENT CATEGORY: BIRADS Category 2: Benign. A letter regarding these results will be sent to the patient by the facility within 30 days. Approximately 10% of breast cancers are not detected by mammography. A normal mammogram should not delay biopsy of a clinically suspicious abnormality. [id number] Electronically Signed: Ilir Lyon MD at 9:33 EDT ,
== END | disposition home or self-care (01) ==
LOC: OPBI 07:37
PROVIDERS: PCP Family Medicine; Referring Provider Nurse Practitioner Family; Visit Provider Nurse Practitioner Family
DX: Z12.31 Encounter for screening mammogram for malignant neoplasm of breast (principal); Z80.3 Family history of malignant neoplasm of breast
CPT/HCPCS: 77063; 77067

== ENCOUNTER → 2024-07-11 | Outpatient (CLI) | payer OTHER, SELFPAY ==
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
== END | disposition home or self-care (01) ==
PROVIDERS: PCP Family Medicine; Referring Provider Nurse Practitioner Acute Care; Visit Provider Nurse Practitioner Acute Care
DX: K21.9 Gastro-esophageal reflux disease without esophagitis (principal); R10.13 Epigastric pain
CPT/HCPCS: 76705

== ENCOUNTER 2024-09-07 12:17 | Day surgery (SDC) | payer OTHER, SELFPAY ==
[2024-09-07] VITALS (8 sets, daily range): BP systolic 101–123; BP diastolic 67–88; PULSE 85–89; RESP 16; TEMP 36.6–37.2; O2SAT 95–100; BMI 23.4
--- NOTE | 2024-09-07 13:15 | EGD_PTH ---
PATIENT: RICHIE KELLEY LOC: EN U#:[id number] AGE/SX: 54/F ROOM: RE09/07/[address]: Dr. Rambo Martin DO : 1970 BED: DIS: 09/07/2024 SPEC #: [id number] RECD: 09/07/24 16:42 STATUS: SEVERINO REMihir #: [id number] SANGEETA: 09/07/24 13:[address]: Rambo Martin DEPT: SURGICAL PATHOLOGY RECD BY: Shantel Adams ENTERED: 09/10/24 09:30 SP TYPE: EGD BIOPSY YESSI DR: Dr. Sánchez Posada MD Tissues: Esophagus, NOS Procedures: Special Stain Group I Surgery Specimen Level IV Alcian Blue/PAS (control) HEADER OPERATION: EGD and biopsy PRE-OP DIAGNOSIS: Epigastric pain and GERD TISSUE SUBMITTED: Distal esophagus biopsy MICROSCOPIC DIAGNOSIS Distal esophagus, biopsy: Squamous and glandular mucosa with focal chronic inflammation. Fragment of squamous mucosa, minute and showing no significant pathologic findings. No definitive intestinal metaplasia / Morton's esophagus. Negative for dysplasia. Negative for eosinophilic esophagitis. See comment. 09/11/2024 COMMENT Alcian blue/PAS stain with matched control is used in the evaluation of the specimen. Deeper sections are done interpreted. MICROSCOPIC DESCRIPTION Slides are reviewed. GROSS DESCRIPTION Received in fixative is one container labeled with the patient's name and designated Distal esophagus biopsy. The specimen consists of multiple irregular fragments of light trotter soft tissue that in aggregate measure 1.2 x 0.4 x 0.1 cm. The specimen is totally submitted in one cassette. 09/10/2024 TC:3 CPT:55174,21608
--- NOTE | 2024-09-07 13:28 | PCM.PRE.AN2 ---
ASA Classification* ASA Classification ASA Classification: 2 Assessment & Plan Anesthesia* Anesthesia Assessment Anesthesia Assessment: Discussed sedation and/or anesthesia options, risks, benefits, and alternatives with patient/parents/legal guardian/POA. Questions invited. The patient/parents/legal guardian/POA seems to understand and agrees to proceed with anesthesia plan. Reviewed the physical assessment, medical history, allergy history and patient home medications list prior to surgery/procedure/anesthetic and documented any changes. Performed airway and anesthesia risk assessments. Anesthesia Type Anesthesia Type: MAC History Source History Obtained from:: Patient and Chart Anesthesia Focused Assessment* Temperature: 97.8 F Pulse Rate: 89 Blood Pressure: 123/82 Respiratory Rate: 16 Pulse Ox: 100 Oxygen Delivery Method: Room Air Airway Assessment Mouth opens: >3 cm Mallampati Score: I Teeth Condition: Intact Neck Range of motion (ROM): Full ROM Focused Labs Anesthesia Preop lab: CBC WBC 5.2 K/mm3 (4.4-11.0) 02/26/21 10:30 02/26/21 RBC 4.67 M/mm3 (4.2-5.4) 02/26/21 10:30 02/26/21 Hgb 13.2 g/dL (12.0-15.0) 02/26/21 10:30 02/26/21 Hct 40.2 % (37-47) 02/26/21 10:30 02/26/21 Plt Count 274 K/mm3 (150-450) 02/26/21 10:30 02/26/21 CHEMISTRY Potassium 3.6 mmol/L (3.5-5.1) 02/05/23 08:04 02/05/23 Sodium 139 mmol/L (136-145) 02/05/23 08:04 02/05/23 BUN 12 mg/dL (7-18) 02/05/23 08:04 02/05/23 Creatinine 0.81 mg/dL (0.55-1.02) 02/05/23 08:04 02/05/23 Glucose 69 mg/dL (74-106) L 02/05/23 08:04 02/05/23 POC Glucose 140 mg/dL (70-110) H 08/15/13 11:27 08/15/13 TSH 2.11 uIU/mL (0.358-3.74) 02/05/23 08:04 02/05/23 COAG Urine Test Negative Negative 02/26/21 10:00 02/26/21 Pre-Assessment Diagnosis/Proposed Procedure Planned Operative Procedure(s): EGD Anesthesia History 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 When Was Last Pacemaker Check QUESTION #4 FULL TEXT: You/Your Family Experience fever (hyperthermia) with Anesthesia Last Oral Intake Last Oral intake: Last Oral Intake NPO since 08:15 09/07/24 12:44 Meds taken in AM with sips of water? Meds patient instructed to take am of surgery Any additional information?: Yes NPO since: 08:15 (Patient water 8:15 AM.) PONV PONV - help desk engineer: PONV - help desk engineer Female Yes 09/05/24 13:09 HX of Motion Sickness No 09/05/24 13:09 HX of N/V After Surgery No 09/05/24 13:09 Non-Smoker Yes 09/05/24 13:09 Duration of Surgery greater No 09/05/24 13:09 than 60 minutes Number of Risk Factors 2 09/05/24 13:09 PONV Score Moderate Risk 09/05/24 13:09 Height & Weight Height & Weight: Anesthesia: Height & Weight Height 5 ft 5 in 09/07/24 12:44 Weight: 63.957 kg 09/07/24 12:44 Body Mass Index (BMI) 23.4 09/07/24 12:44 Respiratory Assessment Respiratory Assessment - help desk engineer: Respiratory Tract Infection Hx - help desk engineer Hx Respiratory Tract Infection No 09/05/24 13:09 STOP Sleep Apnea STOP Sleep Apnea - help desk engineer: STOP Sleep Apnea - help desk engineer Hx Hypertension No 09/05/24 13:09 Hx Sleep Apnea No 09/05/24 13:09 CPAP No 08/14/13 13:09 BIPAP No 08/14/13 13:09 Do you snore loudly (louder No 09/05/24 13:09 than talking or can be heard Do you often feel tired/ No 09/05/24 13:09 fatigued/ sleepy during daytime? Has anyone observed you stop No 09/05/24 13:09 breathing during sleep? STOP Results Negative 09/05/24 13:09 QUESTION #5 FULL TEXT : Do you snore loudly (louder than talking or can be heard through closed doors)? 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 Specify any problems Hx of Preganancy in last 3 N/A 09/05/24 13:09 Months Nurse Filling Out Transfusion NBUCHER 09/05/24 13:09 & Questions: Date: 09/05/24 09/05/24 13:09 Time: 13:11 09/05/24 13:09 Patient unable to answer at this time (ie. confused, unrespo /Reproduction History /Reproductive History - help desk engineer: /Reproductive Hx- help desk engineer Hx Now No 09/05/24 13:09 Gestational Age (in weeks): EDC: Hx Hx Para Hx Section SAB No 09/05/24 13:09 PFSH Medical History Post-menopausal History of echocardiogram Arthritis Insulin dependent diabetes mellitus Diabetes High cholesterol History of IBS Mixed hyperlipidemia Wears contact lenses Bite from insect TIA (transient ischemic attack) History of hiatal hernia Hives History of breast lump Thyroid disorder IBS (irritable bowel syndrome) Hypoglycemia Hyperlipidemia Breast lump UTI (urinary tract infection) Back problem GERD (gastroesophageal reflux disease) Diabetes type 1, controlled Asthma Seasonal allergies Home Medications ?Medication ?Instructions ?Recorded ?Last Taken ?Type montelukast 10 mg tablet 10 mg PO QHS 08/14/13 10/27/19 History albuterol sulfate 90 mcg/actuation 2 puff inhalation Q4H PRN Sob &/Or 07/20/17 Unknown History aerosol inhaler Wheezing multivitamin 1 tab PO DAILY 12/14/19 Unknown History pantoprazole 40 mg tablet,delayed 40 mg PO DAILY 02/09/21 09/07/24 History release Novolog U-100 Insulin aspart 100 100 unit subcut DAILY #90 mL 01/27/24 Unknown Rx unit/mL subcutaneous solution (insulin aspart U-100) enalapril maleate 5 mg tablet 5 mg PO QHS #90 tabs 01/27/24 Unknown Rx Green Foods complex PO 07/02/24 Unknown History Healthy hairs, skin, nails PO 07/02/24 Unknown History PC liver and brain PO 07/02/24 Unknown History beet powder human N PO 07/02/24 Unknown History calcium 300 mg-D3 20 mcg-magnesium 1 tab PO QDAY 07/02/24 Unknown History 25 mg-coppr 0.5 [id number] tablet cholestacar PO 07/02/24 Unknown History elderberry fruit 350 mg capsule mg PO 07/02/24 Unknown History free range tommy peptides PO 07/02/24 Unknown History fruitful antioxidants PO 07/02/24 Unknown History glutathione 500 mg capsule mg PO 07/02/24 Unknown History glyciine 600 PO 07/02/24 Unknown History greens blend amazing Grass PO 07/02/24 Unknown History memory and brain PO 07/02/24 Unknown History vitamin K2 MK-7 PO 07/02/24 Unknown History rosuvastatin 5 mg tablet 5 mg PO DAILY #90 tabs 08/13/24 09/06/24 Rx levothyroxine 125 mcg tablet 125 mcg PO MOTUWETHFRSA 09/05/24 09/07/24 History Allergy/AdvReac Type Severity Reaction Status Date / Time banana Allergy Severe Anaphylaxis Verified 09/07/24 12:43 lovastatin Allergy PT UNSURE Verified 09/07/24 12:43 OF REACTION Family History Mother Cancer Father Diabetes Grandmother Arthritis Aunt Breast cancer Son Arthritis Epilepsy ADHD Aspergers' syndrome Surgical History History of wisdom tooth extraction History of cervical polypectomy H/O endoscopy H/O colonoscopy Social History Smoking Status: Former smoker second hand exposure: No alcohol intake: never substance use type: does not use what type of physical activity do you participate in: walking and bicycling frequency: daily Review of Systems (Anesthesia) ROS Narrative System reviewed and no additional complaints, except as documented.
[2024-09-07 13:44] LABS: Bedside Glucose 123 mg/dL (74-106)
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
--- NOTE | 2024-09-07 15:02 | PCM.POST.ANE ---
Anesthesia: Postop Eval I Current Vital Signs Temperature: 98 F Pulse Rate: 86 Blood Pressure: 101/67 Respiratory Rate: 16 Pulse Ox: 97 Oxygen Delivery Method: Room Air Assessment Airway patent: Yes Spontaneous unlabored respirations: Yes Mental status: Awake and Calm nausea: No Vomiting: No Anesthesia Complication: No Fluid Hydration Crystalloid volume administer (ml): 30 Total IV fluid infused: 30 Progress Note Anesthesia document: Postop Eval 1 completed: Yes
--- NOTE | 2024-09-07 15:04 | OP.EGD_ITS ---
Patient Name: Earline Hernandez Procedure Date: 09/07/2024 2:48 PM Date of : 1970 Age: 54 Procedure: Upper GI endoscopy Indications: Heartburn Providers: Rambo Martin DO Medicines: Monitored Anesthesia Care Patient Profile: This is a 54 year old female. Refer to note in patient chart for documentation of history and physical. Patient has symptoms of acute heartburn. Complications: No immediate complications. Procedure: Pre-Anesthesia Assessment: - Prior to the procedure, a History and Physical was performed, and patient medications and allergies were reviewed. The patient is competent. The risks and benefits of the procedure and the sedation options and risks were discussed with the patient. All questions were answered and informed consent was obtained. Patient identification and proposed procedure were verified by the physician in the pre-procedure area. Mental Status Examination: alert and oriented. Airway Examination: normal oropharyngeal airway and neck mobility. Respiratory Examination: clear to auscultation. CV Examination: normal. Prophylactic Antibiotics: The patient does not require prophylactic antibiotics. Prior Anticoagulants: The patient has taken no anticoagulant or antiplatelet agents except for NSAID medication. ASA Grade Assessment: II - A patient with mild systemic disease. After reviewing the risks and benefits, the patient was deemed in satisfactory condition to undergo the procedure. The anesthesia plan was to use monitored anesthesia care (MAC). Immediately prior to administration of medications, the patient was re-assessed for adequacy to receive sedatives. The heart rate, respiratory rate, oxygen saturations, blood pressure, adequacy of pulmonary ventilation, and response to care were monitored throughout the procedure. The physical status of the patient was re-assessed after the procedure. After obtaining informed consent, the endoscope was passed under direct vision. Throughout the procedure, the patient's blood pressure, pulse, and oxygen saturations were monitored continuously. The gastroscope was introduced through the mouth, and advanced to the second part of duodenum. The upper GI endoscopy was accomplished without difficulty. The patient tolerated the procedure well. Scope In: 2:51:45 PM Scope Out: 2:54:34 PM Total Procedure Duration Time 0 hours 2 minutes 49 seconds Findings: The Z-line was irregular and was found 40 cm from the incisors. Biopsies were taken with a cold forceps for histology. Verification of patient identification for the specimen was done. Estimated blood loss was minimal. No gross lesions were noted in the entire examined stomach. The second portion of the duodenum was normal. Impression: - Z-line irregular, 40 cm from the incisors. Biopsied. - No gross lesions in the entire stomach. - Normal second portion of the duodenum. Recommendation: - Discharge patient to home. - Resume previous diet. - Continue present medications. - Await pathology results. Procedure Code(s): --- Professional --- 34991, Esophagogastroduodenoscopy, flexible, transoral; with biopsy, single or multiple CPT copyright 2021 [employer]. All rights reserved. The codes documented in this report are preliminary and upon crane crew supervisor review may be revised to meet current compliance requirements. Rambo Martin DO 09/07/2024 3:03:43 PM This report has been signed electronically. Number of Addenda: 0 Note Initiated On: 09/07/2024 2:48 PM
--- NOTE | 2024-09-07 15:04 | OP.CCLET_ITS ---
09/07/2024 Sánchez Posada Re : Upper GI endoscopy procedure for Earline Hernandez Dear Albino This procedure was performed on Saturday, September 07, 2024. My impressions and recommendations are as follows: Impressions : - Z-line irregular, 40 cm from the incisors. Biopsied. - No gross lesions in the entire stomach. - Normal second portion of the duodenum. Recommendations : - Discharge patient to home. - Resume previous diet. - Continue present medications. - Await pathology results. My findings are described in the full procedure note, which is enclosed. If I can be of further assistance, please feel free to contact me at . Sincerely, Rambo Martin, 09/07/2024 3:03:43 PM This report has been signed electronically.
--- NOTE | 2024-09-07 21:28 | PCM.POSTANE2 ---
Anesthesia Postop Eval I Sum Postop Eval Completion status Anesthesia document: Postop Eval 1 completed: Yes Anesthesia Postop Eval I Summary Anesthesia Postop Eval I Summary: Anesthesia Postop Eval I: Assessment Summary Airway patent Yes 09/07/24 15:03 [email or web address] Spontaneous unlabored Yes 09/07/24 15:03 [email or web address] respirations Mental status Awake,Calm 09/07/24 15:03 [email or web address] nausea No 09/07/24 15:03 [email or web address] Vomiting No 09/07/24 15:03 [email or web address] Anesthesia Postop Eval I: Fluid Summary Crystalloid volume administer 30 09/07/24 15:03 [email or web address] (ml) Colloids volume administered ( ml) Blood Product volume administered (ml) Total IV fluid infused 30 09/07/24 15:03 [email or web address] Anesthesia Postop Eval I: Summary Notes Anesthesia Complication No 09/07/24 15:03 [email or web address] Anesthesia Complication Comment: Post-operative progress note Anesthesia: Postop Eval II Evaluation Mental status: Awake and Calm Pain Level: 0 nausea: No Vomiting: No Complications Anesthesia Complication: No
== END 2024-09-07 15:37 | disposition home or self-care (01) ==
LOC: EN 12:18 → AC 12:20
PROVIDERS: PCP Family Medicine; Referring Provider Family Medicine; Visit Provider Internal Medicine Gastroenterology
PROC: 0DJ08ZZ Inspection of Upper Intestinal Tract, Via Natural or Artificial Opening Endoscopic (ICD-10-PCS; CPT 43235; principal; 2024-09-07 13:10)
DX: K21.9 Gastro-esophageal reflux disease without esophagitis (principal); E10.9 Type 1 diabetes mellitus without complications; Z79.4 Long term (current) use of insulin; R10.13 Epigastric pain; J45.909 Unspecified asthma, uncomplicated; E78.2 Mixed hyperlipidemia; Z78.0 Asymptomatic menopausal state; Z79.890 Hormone replacement therapy; Z79.899 Other long term (current) drug therapy; Z87.891 Personal history of nicotine dependence; Z86.73 Personal history of transient ischemic attack (TIA), and cerebral infarction without residual deficits
CPT/HCPCS: 43239; 82962; 88305; 88312; A4216; J2405

== ENCOUNTER → 2024-09-20 | Outpatient (CLI) | payer OTHER, SELFPAY ==
[2024-09-21 05:07] LABS: Hepatitis A AB, Total Negative (Negative); Hepatitis B Core Ab Total Negative (Negative)
== END | disposition home or self-care (01) ==
LOC: LAB 08:46
PROVIDERS: PCP Family Medicine; Referring Provider Nurse Practitioner Acute Care; Visit Provider Nurse Practitioner Acute Care
DX: K76.0 Fatty (change of) liver, not elsewhere classified (principal); E10.9 Type 1 diabetes mellitus without complications; R10.13 Epigastric pain; E03.9 Hypothyroidism, unspecified; E78.2 Mixed hyperlipidemia; K21.9 Gastro-esophageal reflux disease without esophagitis
CPT/HCPCS: 86704; 86708

== ENCOUNTER 2025-01-11 06:30 | Outpatient (CLI) | payer OTHER, SELFPAY ==
--- OUTSIDE RECORDS SUMMARY | 2025-01-11 06:34 | XMS RPT_ITS | CCD ---
Author Organization [facility] Care Team Providers Care Forestry Extension Specialist Name Role Phone Marco Antonio Dave Unavailable Sánchez Tabares MD Primary Care Provider DANAE HERNANDEZ Admitting Unavailable DANAE HERNANDEZ Attending Unavailable MACIEL MAE Referring Unavailable SÁNCHEZ TABARES Primary Care Unavailable Marco Antonio Dave Unavailable Sánchez Tabares MD Primary Care Provider Sánchez Tabares MD Primary Care Provider SÁNCHEZ TABARES Primary Care Unavailable CHINTAN RAMIREZ Referring Unavailable Amanda WOLF MD, Bob Flores Primary Care Provider Alecia vailable Karina COMPOSITION TILE LAYER.Nargis HOWELL Unavailable Petr COMPOSITION TILE LAYER.Karolyn HOWELL Unavailable 1( [phone] SÁNCHEZ TABARES Primary Care Unavailable JUSTIN BURROWS Attending Unavailable DESHAWN BARON Referring Unavailable SÁNCHEZ TABARES Primary Care Unavailable JUSTIN BURROWS Attending Unavailable DESHAWN BARON Referring Unavailable SÁNCHEZ TABARES Primary Care Unavailable SÁNCHEZ TABARES Attending Unavailable SÁNCHEZ TABARES Attending Unavailable RAYSA, SÁNCHEZ Clay Primary Care Unavailable Raysa, Sánchez Primary Care Unavailable Raysa, Sánchez Referring Unavailable Rambo Martin Attending Unavailable Antonieta Hernandez Referring Unavailable Raysa, Sánchez Primary Care Unavailable Antonieta Hernandez Attending Unavailable DavidAntonieta alvares Referring Unavailable Raysa, Sánchez Primary Care Unavailable Antonieta Hernandez Attending Unavailable Raysa, Sánchez Primary Care Unavailable Chintan Ramirez Attending Unavailable Raysa, Sánchez Referring Unavailable Antonieta Hernandez Attending Unavailable Raysa, Sánchez Referring Unavailable Raysa, Sánchez Primary Care Unavailable Chintan Ramirez Attending Unavailable Raysa, Sánchez Referring Unavailable Raysa, Sánchez Primary Care Unavailable Chintan Ramirez Attending Unavailable Chintan Ramirez Referring Unavailable [place], Sánchez Primary Care Unavailable Jesús OUTSOLES CHANNEL OPENER, Shira Attending Unavailable Jesús OUTSOLES CHANNEL OPENER, Shira Referring Unavailable Raysa, Sánchez Referring Unavailable [place], Sánchez Primary Care Unavailable Antonieta Hernandez Attending Unavailable Raysa, Sánchez Referring Unavailable [place], Sánchze Primary Care Unavailable Friend, Rambo Consulting Unavailable Friend, Rambo Attending Unavailable Suppan COMPOSITION TILE LAYER.POLE INCISOR OPERATOR, Karolyn A Unavailable Allergies Allergy Classification Reported Allergen(s) Allergy Type Date of Onset Reaction(s) Facility (20 sources) Apples; Translations: [APPLES] Propensity to adverse reactions 05-03-20 05 [facility] Work Phone: (20 sources) Lovastatin; Translations: [LOVASTATIN] Drug Allergy 05-11-20 05 Other: See Comments [facility] (20 sources) Sulfamethoxazole / Trimethoprim; Translations: [SULFAMETHOXAZOLE-T RIMETHOPRIM] Drug Allergy 05-24-20 18 Diarrhea [facility] (16 sources) bananas [Other] Propensity to adverse reactions 05-03-20 05 [facility] Work Phone: (16 sources) environmental [Other] Propensity to adverse reactions 05-03-20 05 [facility] Work Phone: (18 sources) Banana Extract; Translations: [BANANA] Drug Allergy 02-25-20 21 Swelling [facility] (15 sources) Seasonal allergy; Translations: [SEASONAL ALLERGIES] Propensity to adverse reactions (disorder) 06-02-20 23 Itching [facility] Other [facility] (1 source) Banana Extract Drug Allergy 09-20-19 25 [facility] Repository (1 source) Lovastatin Drug Allergy 09-20-19 25 [facility] Repository Medications Current Medications Medication Drug Class(es) Dates Sig (Normalized) Sig (Original) COMPOUNDED PRESCRIPTION (20 sources) COMPOUNDED PRESC RIPTION Ultimate eye support, with zeaxanthin Active COMPOUNDED PRESC RIPTION Ultimate eye support, with zeaxanthin 0 Active Comment on above: Ultimate eye support , with zeaxanthin cranberry fruit extract (CRANBERRY EXTRACT ORAL) (20 sources) cranberry fruit extract (CRANBERRY EXTRACT ORAL) Take by mouth. Active cranberry fruit extract (CRANBERRY EXTRACT ORAL) Take by mouth. 0 Active Comment on above: Take by mouth. cyclobenzaprine hydrochloride 10 mg oral tablet (20 sources) Muscle Relaxant Start: 02-10-20 take 1 tablet by mouth once daily as needed Cyclobenzaprine Active 10 TAB PO DAILY NEEDED February 09, 2021 12:00am Start: 04-21-2020 take 1 tablet by jacqueline th three times daily as needed cyclobenzaprine (FLEXERIL) 10 mg tablet Indications: Cervical radiculopathy Take 1 tablet by mouth three times daily as needed. 30 tablet 4 04/21/2020 Active Comment on above: Take 1 tablet by jacqueline th three times daily as needed. enalapril maleate 5 mg oral tablet (20 sources) Angiotensin Converting Enzyme Inhibitor Start: 02-16-2016 End: 08-10-2022 take 1 tablet by mouth once daily enalapril (VASOTEC) 5 mg tablet Take 1 tablet by mouth once daily. 90 tablet 3 02/16/2016 Active Start: 08-14-2013 End: 07-20-2017 take 10 mg by mouth once daily Enalapril Maleate Disco ntinued 10 MG PO DAILY August 14, 2013 1:00am July 20, 2017 9:06am Comment on above: Take 1 tablet by jacqueline th once daily. Ergocalciferol (20 sources) Provitamin D2 Compound Start: 05-03-2005 VITAMIN D 400 UNIT CAP 0 05/03/2005 Active Start: 05-03-2005 VITAMIN D 400 UNIT CAP ferrous fumarate/ascorbic ac id (LILLIAN-SEQUELS, IRON-VIT C, ORAL) (3 sources) ferrous fumarate /ascorbic acid (LILLIAN-SEQUELS, IRON-VIT C, ORAL) Take by mouth. Iron with Vitamin C Active FLAXSEED OIL (OMEGA 3 ORAL) (20 sources) FLAXSEED OIL (OM EGA 3 ORAL) Take by mouth as directed. Active FLAXSEED OIL (OM EGA 3 ORAL) Take by mouth as directed. 0 Active Comment on above: Take by mouth as dir ected. ibuprofen 800 mg oral tablet (3 sources) Nonsteroidal Anti-inflammatory Drug Start: 10-27-2019 take 800 mg by mouth three times daily as needed Ibuprofen Active 800 MG PO 3 TIMES DAILY NEEDED October 27, 2019 12:00am insulin aspart, human 100 unt/ml injectable solution (20 sources) Insulin Analog Start: 11-18-2020 End: 08-10-2022 Insulin Aspart U-100 (Novolog U-100 Insulin Aspart) 100 unit/mL solution Active 100 UNIT SC DAILY August 10, 2022 5:53pm via insulin pump Start: 11-08-2019 insulin aspart U-100 (NOVOLOG U-100 INSULIN ASPART) 100 unit/mL Indications: Diabetes mellitus type 1, controlled, without complications (HCC) use as directed with insulin pump up to 60 units daily 6 Vial 3 11/08/2019 Active Start: 09-25-2018 End: 11-18-2020 Insulin Aspart U-100 (Novolo g U-100 Insulin Aspart) 100 unit/mL solution Discontinued 0 SC daily 60 September 25, 2018 9:31am November 18, 2020 1:07pm uses 15U daily as background and bolus with meals in pump SC QDAY Start: 09-25-2018 End: 09-25-2018 Insulin Aspart U-100 (Novolo g U-100 Insulin Aspart) 100 unit/mL solution Discontinued 0 SC daily 60 September 25, 2018 9:26am September 25, 2018 9:31am uses 60U daily in pump SC QDAY Start: 12-14-2017 End: 09-25-2018 Insulin Aspart U-100 (Novolo g U-100 Insulin Aspart) 100 unit/mL solution Discontinued 0 SC daily 60 February 21, 2018 2:21pm September 25, 2018 9:28am uses 60U daily in pump SC QDAY Start: 07-20-2017 End: 12-14-2017 Insulin Aspart U-100 (Novolo g U-100 Insulin Aspart) 100 unit/mL solution Discontinued 0 SC daily July 20, 2017 1:00am December 14, 2017 10:42am uses 60U daily in pump SC QDAY Comment on above: use as directed with insulin pump up to 60 units daily levothyroxine sodium 0.125 mg oral tablet (20 sources) l-Thyroxine Start: 0 End: 3 take 1 tablet by mouth six times weekly levothyroxine (LEVOXYL) 125 mcg tablet Take by mouth, 6 days per week. Skip dose on 7th day. Take on empty stomach. Fill as generic, not CHERELLE 90 tablet 3 05/26/2020 Active Start: 05-05-2020 End: 11-26-2022 SYNTHROID 125 mcg tablet Ind ications: Unspecified hypothyroidism 6 per week, CHERELLE 78 tablet 3 05/05/2020 11/26/2022 Discontinued Start: 09-21-2017 End: 09-24-2021 levothyroxine 125 mcg capsul e Discontinued 0 PO .6 pills q week 90 July 12, 2018 5:01pm February 09, 2021 4:52pm Take one pill daily except, Do not take one on Tuesday Start: 09-21-2017 End: 09-21-2017 take 0.6 capsule by mouth every week levothyroxine 125 mcg capsule Discontinued PO .6 pills q week September 21, 2017 1:00am September 21, 2017 6:32pm Start: 08-14-2013 End: 09-21-2017 take 125 ug by mouth once daily Synthroid Discontinued 125 MCG PO DAILY August 14, 2013 1:00am September 21, 2017 4:57pm Comment on above: 6 per week, CHERELLE Take by mouth, 6 day s per week. Skip dose on 7th day. Take on empty stomach. Fill as generic, not CHERELLE Magnesium (20 sources) take 1 tablet by mouth once daily Magnesium 250 mg tab Take 250 mg by mouth once daily. Active take 1 tablet by mouth once helena y Magnesium 250 mg tab Take 250 mg by mouth once daily. 0 Active Comment on above: Take 250 mg by mouth once daily. montelukast 10 mg oral tablet (20 sources) Leukotriene Receptor Antagonist Start: 014 End: 025 take 1 tablet by mouth once daily montelukast (SINGULAIR) 10 mg tablet Indications: Mild intermittent asthma without complication (HCC) Take 1 tablet by mouth once daily. 90 tablet 1 12/05/2024 Active Comment on above: Take 1 tablet by jacqueline th once daily. Multivitamin preparation (3 sources) Start: 020 take 1 tablet by mouth once daily Multivitamin Active 1 TABLET PO DAILY December 14, 2019 12:00am MULTIVITAMIN TAB (20 sources) Start: 005 MULTIVITAMIN TAB Take one(1) tablet daily. 0 05/03/2005 Active Comment on above: Take one(1) tablet d aily. nystatin [id number] unt/ml / triamcinolone acetonide 1 mg/ml topical cream (20 sources) Polyene Antifungal, Corticosteroid Start: End: nystatin-triamcinolon e (MYCOLOG II) cream Indications: Vulvovaginitis Apply 1 application to affected area twice daily as needed. 30 g 1 06/08/2022 Active Comment on above: Apply 1 application to affected area twice daily as needed. pantoprazole 40 mg delayed release oral tablet (20 sources) Proton Pump Inhibitor Start: 023 End: take 1 tablet by mouth once daily before breakfast pantoprazole DR (PROTONIX) 40 mg tablet Take 1 tablet by mouth daily before breakfast. Take on empty stomach, 1/2 hr before meal. 90 tablet 3 04/09/2024 Active Start: 08-06-2020 End: 07-02-2021 take 1 tablet by mouth once daily before breakfast pantoprazole DR (PROTONIX) 40 mg tablet Take 1 tablet by mouth daily before breakfast. Take on empty stomach, 1/2 hr before meal. 90 tablet 3 03/09/2022 Active Start: 08-14-2013 End: 05-22-2018 take 20 mg by mouth once daily Protonix Discontinued 2 0 MG PO DAILY August 14, 2013 1:00am May 22, 2018 1:26pm Comment on above: Take 1 tablet by jacqueline th daily before breakfast. Take on empty stomach, 1/2 hr before meal. rosuvastatin calcium 5 mg oral tablet (20 sources) HMG-CoA Reductase Inhibitor Start: 016 End: take 1 tablet by mouth once daily at bedtime rosuvastatin (CRESTOR) 5 mg tablet Indications: Pure hypercholesterolemia Take 1 tablet by mouth daily at bedtime. 90 tablet 3 02/16/2016 Active Start: 08-14-2013 End: 09-25-2018 take 5 mg by mouth once daily Crestor Discontinued 5 M G PO DAILY 90 December 14, 2017 4:25pm September 25, 2018 9:27am Comment on above: Take 1 tablet by jacqueline th daily at bedtime. UBIDECARENONE (COQ-10 ORAL) (20 sources) UBIDECARENONE (C OQ-10 ORAL) Take by mouth. Active UBIDECARENONE (C OQ-10 ORAL) Take by mouth. 0 Active Comment on above: Take by mouth. Completed/Discontinued Medications Medication Drug Class(es) Dates Sig (Normalized) Sig (Original) [id number] 200 actuat albuterol 0.09 mg/actuat metered dose inhaler (20 sources) beta2-Adrenergic Agonist Start: 08-07-2020 End: 11-01-2023 take 2 puff(s) by inhalation every four hours as needed albuterol HFA (PROAIR HFA) 90 mcg/actuation inhaler Inhale 2 Puffs as instructed every 4 hours as needed. 18 g 5 08/07/2020 11/01/2023 Discontinued Start: 07-20-2017 take 1 puff(s) by in halation every four hours Albuterol Sulfate Active 2 PUFF INHALATION Q4H July 20, 2017 1:00am Comment on above: Inhale 2 Puffs as in structed every 4 hours as needed. amoxicillin 500 mg / clavulanate 125 mg oral tablet (3 sources) Penicillin-class Antibacterial Start: 08-24-19 18 End: 07-31-19 19 take 1 tablet by mouth twice daily Amoxicillin-Pot Clavulanate (Augmentin) 500-125 mg tablet Discontinued 1 TABLET PO TWICE A DAY August 24, 2017 1:00am July 31, 2018 5:06pm aspirin 81 mg oral tablet (1 source) Platelet Aggregation Inhibitor, Nonsteroidal Anti-inflammatory Drug Start: 01-13-20 06 End: 09-24-19 22 ASPIRIN 81 MG TAB Take one (1) tablet daily . 0 01/12/2006 09/23/2021 Discontinued insulin, regular, human 100 unt/ml injectable solution (3 sources) Insulin Start: 08-14-19 14 End: 07-20-20 17 Insulin Regular Human Discontinued 0 UNIT SC August 14, 2013 1:00am July 20, 2017 9:06am raNITIdine 150 mg oral tablet (3 sources) Histamine-2 Receptor Antagonist Start: 05-22-20 18 End: 07-31-19 19 take 1 capsule by mouth once daily ranitidine 150 mg capsule Discontinued 150 MG PO DAILY May 22, 2018 12:00am July 31, 2018 5:06pm Start: 05-22-2018 End: 07-31-2018 take 1 capsule by mouth once daily ranitidine 150 mg capsule Discontinued 150 MG PO DAILY May 22, 2018 12:00am July 31, 2018 5:06pm Problems Active Problems Problem Classification Problem Date Documented Date Episodic/Chronic Abdominal pain (2 sources) Epigastric pain; Translations: [Epigastric pain] Onset: 09-19-2024 Episodic Acquired foot deformities (20 sources) Acquired right hallux valgus; Translations: [Hallux valgus (acquired), right foot] Onset: 02-23-2021 02-23-2021 Chronic Acquired foot deformities (1 source) Hallux valgus; Translations: [Hallux valgus (acquired), left foot] Chronic Anxiety disorders (20 sources) Anxiety; Translations: [Other specified anxiety disorders] Onset: 09-02-2018 09-02-2018 Chronic Asthma (20 sources) Asthma; Translations: [Unspecified asthma, uncomplicated] Onset: 06-04-2016 06-04-2016 Chronic Conditions associated with dizziness or vertigo (3 sources) Vertigo; Translations: [Dizziness and giddiness] 08-14-2013 Episodic Diabetes mellitus without complication (20 sources) Type 1 diabetes mellitus without complication; Translations: [Type 1 diabetes mellitus without complications] Onset: 06-04-2016 09-23-2021 Chronic Diabetes mellitus without complication (4 sources) Insulin pump present; Translations: [Presence of insulin pump (external) (internal)] Onset: 08-13-2024 12-17-2019 Episodic Disorders of lipid metabolism (20 sources) Hyperlipidemia; Translations: [Hyperlipidemia, unspecified] Onset: 02-12-2006 Resolved: 07-15-2014 02-19-2015 Chronic Esophageal disorders (20 sources) Gastroesophageal reflux disease; Translations: [Gastro-esophageal reflux disease without esophagitis] Onset: 09-19-2024 05-20-2005 Chronic Genitourinary symptoms and ill-defined conditions (20 sources) Incontinence; Translations: [Mixed incontinence] Onset: 06-24-2005 06-24-2005 Chronic Inflammatory diseases of female pelvic organs (1 source) Vulvovaginitis; Translations: [Acute vaginitis] Episodic Menopausal disorders (2 sources) Atrophic vaginitis; Translations: [Postmenopausal atrophic vaginitis] Chronic Nausea and vomiting (3 sources) Nausea and vomiting; Translations: [Nausea with vomiting, unspecified] 08-14-2013 Episodic Other and unspecified benign neoplasm (1 source) Personal history of colonic polyps; Translations: [History of colonic polyps] Onset: 06-02-2023 Episodic Other congenital anomalies (1 source) Porokeratosis; Translations: [Other specified congenital malformations of skin] 03-01-2023 Chronic Other connective tissue disease (1 source) Tibialis posterior tendinitis ; Translations: [Posterior tibial tendinitis, unspecified leg] Episodic Other ear and sense organ disorders (1 source) Impacted cerumen of bilateral ears; Translations: [Impacted cerumen, bilateral] 11-01-2023 Episodic Other female genital disorders (3 sources) Polyp of corpus uteri; Translations: [Polyp of corpus uteri] 02-26-2021 Episodic Other female genital disorders (1 source) Burning sensation of vagina; Translations: [Unspecified condition associated with female genital organs and menstrual cycle] Episodic Other injuries and conditions due to external causes (1 source) Other injury of unspecified muscle, fascia and tendon at shoulder and upper arm level, unspecified arm, initial encounter; Translations: [Shoulder and upper arm injury] 09-15-2020 Episodic Other liver diseases (1 source) Fatty (change of) liver, not elsewhere classified; Translations: [Fatty (change of) liver, not elsewhere classified] Onset: 10-02-2024 Chronic Other non-traumatic joint disorders (1 source) Chronic pain of right upper limb; Translations: [Pain in right shoulder] 09-15-2020 Episodic Other nutritional; endocrine; and metabolic disorders (20 sources) Obese class I; Translations: [Obesity, unspecified] Onset: 11-26-2022 Chronic Other nutritional; endocrine; and metabolic disorders (1 source) Obesity, unspecified; Translations: [Obesity, Class I, BMI 30-34.9] Onset: 11-26-2022 Chronic Other screening for suspected conditions (not mental disorders or infectious disease) (3 sources) Encounter for screening for malignant neoplasm of colon; Translations: [Encounter for screening mammogram for malignant neoplasm of breast] Onset: 06-02-2023 01-09-2025 Episodic Prolapse of female genital organs (20 sources) Midline cystocele; Translations: [Cystocele, midline] Onset: 03-08-2012 03-08-2012 Chronic Sprains and strains (3 sources) Strain of muscle of upper limb; Translations: [Strain of unspecified muscle, fascia and tendon at shoulder and upper arm level, left arm, initial encounter] 10-28-2019 Episodic Syncope (3 sources) Syncope; Translations: [Syncope and collapse] 08-14-2013 Episodic Thyroid disorders (20 sources) Acquired hypothyroidism; Translations: [Hypothyroidism, unspecified] Onset: 09-15-2015 Resolved: 09-15-2015 09-15-2015 Chronic Past or Other Problems Problem Classification Problem Date Documented Date Episodic/Chronic Diabetes mellitus with complications (11 sources) Type 1 diabetes mellitus; Translations: [Uncontrolled type 1 diabetes mellitus] Onset: 05-03-2005 Resolved: 01-28-2016 01-28-2016 Chronic Other and unspecified benign neoplasm (12 sources) History of polyp of colon; Translations: [Personal history of colonic polyps] Onset: 06-02-2023 06-02-2023 Episodic Other connective tissue disease (20 sources) Tendinitis of right supraspinatus tendon; Translations: [Shoulder lesion, unspecified, right shoulder] Onset: 09-08-2009 08-11-2020 Episodic Other connective tissue disease (20 sources) Tendinitis of bilateral posterior tibialis muscles; Translations: [Posterior tibial tendinitis, right leg] Onset: 02-23-2021 02-23-2021 Episodic Other connective tissue disease (11 sources) Plantar fascial fibromatosis; Translations: [Plantar fascial fibromatosis] Onset: 01-28-2010 Resolved: 03-01-2017 03-01-2017 Episodic Other ear and sense organ disorders (1 source) Impacted cerumen, bilateral; Translations: [Bilateral impacted cerumen] Onset: 11-01-2023 Episodic Other female genital disorders (11 sources) Postcoital bleeding; Translations: [Postcoital and contact bleeding] Onset: 05-23-2012 Resolved: 03-01-2017 03-01-2017 Chronic Spondylosis; intervertebral disc disorders; other back problems (20 sources) Cervical radiculopathy; Translations: [Radiculopathy, cervical region] Onset: 11-12-2019 11-12-2019 Episodic Unclassified (1 source) Patient encounter status 01-09-2025 Results Test Name Value Interpretation Reference Range Facility Hepatitis A AB, Totalon - HEPATITIS A,TOT Negative Normal Negative [facility] Comment on above: Result Comment: Comm ent: The HAV total antibody assay detects both IgG and IgM but does not differentiate between them. A negative result suggests susceptibility to infection. A positive result could be due to vaccination, previously resolved infection or active infection. Testing for HAV IgM should be performed if active HAV infection is suspected. [facility] offers profiles that will automatically reflex positive HAV total antibody results to IgM (e.g., panel #[id number] HAV Antibody w/ Rfx). Performed at: [address] [id number] Blood Bank Order Control Clerk: Lon Manzo PhD, Phone: [phone] Performed By: #### L 500.4050, L100.0100, L3100.0300, L3100.0460 #### [facility] [address] [place], [address] Hepatitis B Core Ab Totalon 09-21-2024 HEP B CORE,TOT Negative Normal Negative [facility] Comment on above: Performed By: #### L 500.4050, L100.0100, L3100.0300, L3100.0460 #### [facility] [address] [place], [address] CBC W/Diff, Automatedon 02- Absolute Neut Normal 2.0-7.7 [facility] Comment on above: Result Comment: PT R EFUSED AF Performed By: #### L 500.4050, L100.0100, L3100.0300, [id number] #### [facility] [address] [place], [address] HCT Normal 37-47 [facility] Comment on above: Result Comment: PT R EFUSED AF Performed By: #### L 500.4050, L100.0100, L3100.0300, [id number] #### [facility] [address] [place], [address] HGB Normal 12.0-15.0 [facility] Comment on above: Result Comment: PT R EFUSED AF Performed By: #### L 500.4050, L100.0100, L3100.0300, [id number] #### [facility] [address] [place], [address] MCH Normal 27.0-32.0 [facility] Comment on above: Result Comment: PT R EFUSED AF Performed By: #### L [id number], L100.0100, L3100.0300, [id number] #### [facility] [address] [place], [address] MCHC Normal 32-36 [facility] Comment on above: Result Comment: PT R EFUSED AF Performed By: #### L 500.4050, L100.0100, L3100.0300, [id number] #### [facility] [address] [place], [address] MCV Normal 81-99 [facility] Comment on above: Result Comment: PT R EFUSED AF Performed By: #### L [id number], L100.0100, L3100.0300, [id number] #### [facility] [address] [place], [address] NEUT% Normal 47-70 [facility] Comment on above: Result Comment: PT R EFUSED AF Performed By: #### L 500.4050, L100.0100, L3100.0300, [id number] #### [facility] [address] [place], [address] PLT Normal 150-450 [facility] Comment on above: Result Comment: PT R EFUSED AF Performed By: #### L 500.4050, L100.0100, L3100.0300, [id number] #### [facility] [address] [place], [address] RBC Normal 4.2-5.4 [facility] Comment on above: Result Comment: PT R EFUSED AF Performed By: #### L 500.4050, L100.0100, L3100.0300, [id number] #### [facility] [address] [place], [address] RDW CV Normal 11.6-14.6 [facility] Comment on above: Result Comment: PT R EFUSED AF Performed By: #### L 500.4050, L100.0100, L3100.0300, [id number] #### [facility] [address] [place], [address] RDW SD Normal 35.1-43.9 [facility] Comment on above: Result Comment: PT R EFUSED AF Performed By: #### L 500.4050, L100.0100, L3100.0300, [id number] #### [facility] [address] [place], [address] WBC Normal 4.4-11.0 [facility] Comment on above: Result Comment: PT R EFUSED AF Performed By: #### L 500.4050, L100.0100, L3100.0300, L3100.0460 #### [facility] [address] [place], [address] Comprehensive Metabolic Prof ilon 09-20-2024 ALB Normal 3.5-5.0 [facility] Comment on above: Result Comment: PT R EFUSED AF Performed By: #### L 500.4050, L100.0100, L3100.0300, L3100.0460 #### [facility] [address] [place], [address] ALK PHOS Normal 35-104 [facility] Comment on above: Result Comment: PT R EFUSED AF Performed By: #### L 500.4050, L100.0100, L3100.0300, L3100.0460 #### [facility] [address] [place], [address] ALT Normal <=34 [facility] Comment on above: Result Comment: PT R EFUSED AF Performed By: #### L 500.4050, L100.0100, L3100.0300, L3100.0460 #### [facility] [address] [place], [address] Anion Gap Normal 5-15 [facility] Comment on above: Result Comment: PT R EFUSED AF Performed By: #### L 500.4050, L100.0100, L3100.0300, L3100.0460 #### [facility] [address] [place], [address] AST Normal <=31 [facility] Comment on above: Result Comment: PT R EFUSED AF Performed By: #### L 500.4050, L100.0100, L3100.0300, L3100.0460 #### [facility] [address] [place], [address] BUN Normal 4-19 [facility] Comment on above: Result Comment: PT R EFUSED AF Performed By: #### L 500.4050, L100.0100, L3100.0300, L3100.0460 #### [facility] [address] [place], [address] BUN/CRE Normal 10-20 [facility] Comment on above: Result Comment: PT R EFUSED AF Performed By: #### L 500.4050, L100.0100, L3100.0300, L3100.0460 #### [facility] [address] [place], [address] Calcium Normal 7.6-11.0 [facility] Comment on above: Result Comment: PT R EFUSED AF Performed By: #### L 500.4050, L100.0100, L3100.0300, L3100.0460 #### [facility] [address] [place], [address] Chloride Normal 96-108 [facility] Comment on above: Result Comment: PT R EFUSED AF Performed By: #### L 500.4050, L100.0100, L3100.0300, L3100.0460 #### [facility] [address] [place], [address] CO2 Normal 22.0-29.0 [facility] Comment on above: Result Comment: PT R EFUSED AF Performed By: #### L 500.4050, L100.0100, L3100.0300, L3100.0460 #### [facility] [address] [place], [address] CREAT,SERUM Normal 0.6-1.0 [facility] Comment on above: Result Comment: PT R EFUSED AF Performed By: #### L 500.4050, L100.0100, L3100.0300, L3100.0460 #### [facility] [address] [place], [address] eGFR Normal >60 [facility] Comment on above: Result Comment: PT R EFUSED AF Performed By: #### L 500.4050, L100.0100, L3100.0300, L3100.0460 #### [facility] [address] [place], [address] GLU Normal 70-99 [facility] Comment on above: Result Comment: PT R EFUSED AF Performed By: #### L 500.4050, L100.0100, L3100.0300, L3100.0460 #### [facility] [address] [place], [address] Potassium Normal 3.3-5.1 [facility] Comment on above: Result Comment: PT R EFUSED AF Performed By: #### L 500.4050, L100.0100, L3100.0300, L3100.0460 #### [facility] [address] [place], [address] Sodium Normal 133-145 [facility] Comment on above: Result Comment: PT R EFUSED AF Performed By: #### L 500.4050, L100.0100, L3100.0300, L3100.0460 #### [facility] [address] [place], [address] T BILI Normal 0.00-1.30 [facility] Comment on above: Result Comment: PT R EFUSED AF Performed By: #### L 500.4050, L100.0100, L3100.0300, L3100.0460 #### [facility] [address] [place], [address] T PROT Normal 5.9-8.4 [facility] Comment on above: Result Comment: PT R EFUSED AF Performed By: #### L 500.4050, L100.0100, L3100.0300, L3100.0460 #### [facility] [address] [place], [address] Gastroenterology Visit Repor ton 09-20-2024 Gastroenterology Visit Report [facility] [address] 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 Is patient in pain?: No Allergies banana Allergy (Severe, Verified 09/20/24 08:03) Anaphylaxis lovastatin Allergy (Verified 09/20/24 08:03) PT UNSURE OF REACTION Medications ???Medication ???Instructions ???Recorded ???Confirmed ???Type montelukast 10 mg tablet 10 mg PO QHS 08/14/13 09/20/24 His tory albuterol sulfate 90 mcg/actuation 2 puff inhalation Q4H PRN Sob / Or 07/20/17 09/20/24 History aerosol inhaler Wheezing multivitamin 1 tab PO DAILY 12/14/19 09/20/24 H istory pantoprazole 40 mg tablet,delayed 40 mg PO DAILY 02/09/21 09/20/24 History release Novolog U-100 Insulin aspart 100 100 unit subcut DAILY #90 mL 01/2609/20/24 Rx unit/mL subcutaneous solution (insulin aspart U-100) enalapril maleate 5 mg tablet 5 mg PO QHS #90 tabs 01/27/2408/26 Rx Green Foods complex PO 07/02/24 09/20/24 History Healthy hairs, skin, nails PO 07/02/24 09/20/24 History PC liver and brain PO 07/02/24 09/20/24 History beet powder human N PO 07/02/24 09/20/24 History calcium 300 mg-D3 20 mcg-magnesium 1 tab PO QDAY 07/02/24 09/20/24 History 25 mg-coppr 0.5 fa-tfil-pkzs tablet cholestacar PO 07/02/24 09/20/24 History elderberry fruit 350 mg capsule mg PO 07/02/24 09/20/24 History free range tommy peptides PO 07/02/24 09/20/24 History fruitful antioxidants PO 07/02/24 09/20/24 History glutathione 500 mg capsule mg PO 07/02/24 09/20/24 History glyciine 600 PO 07/02/24 09/20/24 History greens blend amazing Grass PO 07/02/24 09/20/24 History memory and brain PO 07/02/24 09/20/24 History vitamin K2 MK-7 PO 07/02/24 09/20/24 History levothyroxine 125 mcg tablet 125 mcg PO MOTUWETHFRSA 09/05/24 0 09/20/24 History rosuvastatin 5 mg tablet 5 mg PO DAILY #90 tabs 09/14/24 Rx PFSH Medical History (Updated 09/20/24 @ 08:32 by Antonieta Hernandez NP-C) GERD (gastroesophageal reflux disease) Steatosis, liver Post-menopausal History of echocardiogram Arthritis Insulin dependent diabetes mellitus Diabetes High cholesterol History of IBS Mixed hyperlipidemia Wears contact lenses Bite from insect TIA (transient ischemic attack) History of hiatal hernia Hives History of breast lump Thyroid disorder IBS (irritable bowel syndrome) Hypoglycemia Hyperlipidemia Breast lump UTI (urinary tract infection) Back problem GERD (gastroesophageal reflux disease) Diabetes type 1, controlled Asthma Seasonal allergies Surgical History History of wisdom tooth extraction History of cervical polypectomy H/O endoscopy H/O colonoscopy Family History Mother Cancer Father Diabetes Grandmother Arthritis Aunt Breast cancer Son Arthritis Epilepsy ADHD Aspergers' syndrome Social History Smoking Status: Former smoker second hand exposure: No alcohol intake: never substance use type: does not use what type of physical activity do you participate in: walking and bicycling frequency: daily HPI HPI Chief Complaint: DM Details: EARLINE HERNANDEZ, is a 54 F who presents to the office today for OV 07/02/2024 54y/o female presents for consultation with complaints of GERD despite taking pantoprazole 40mg daily. She reports EGD's in the past revealed HH, gastritis, negative for H. pylori. She complains of constant epigastric burning over the past few weeks. She denies any weight loss, N/V or dysphagia. She reports taking naproxen on occasion for shoulder pain which she believes may of benefitted epigastric pain as well. I have scheduled her for an ABD US an EGD. We will keep you apprised of our findings. Patient Instructions: 1. Schedule ABD US 2. Schedule EGD 3. Continue pantoprazole 40mg Qday 4. Limit use of NSAIDS EGD: 09/07/2024 biopsies consistent with mild esophagitis, negative for Morton's and EoE HAV Total Ab: HBVsAg: HBVsAb: HBV Core Ab Total: HCV Ab: CBC: CMP: ELF: ABD US: 07/11/2024 liver steatosis and multiple gallstones FibroScan: 07/24/2024 (more content not included)... Normal [facility] Bedside Glucoseon 09-07-2024 FINGERSTICK GLU 123 mg/dL High 74-106 [facility] Comment on above: Result Comment: JOCELINE SLATER OF PATIENT CARE PER NURSING PROTOCOL Performed By: #### L 501.080 #### [facility] [address] [place], [address] EGD Reporton 09-07-2024 EGD Report [facility] Medical Records Department [address] [place] [address] EGD Report MR#: [id number] Acct: [id number] Name: EARLINE HERNANDEZ Rep #: [id number] : 1970 54 From: Rambo Martin DO PCP: Dr. Sánchez Tabares MD Status:[facility] Patient Name: Earline Hernandez Procedure Date: 09/07/2024 2:48 PM Date of : 1970 Age: 54 Procedure: Upper GI endoscopy Indications: Heartburn Providers: Rambo Martin DO Medicines: Monitored Anesthesia Care Patient Profile: This is a 54 year old female. Refer to note in patient chart for documentation of history and physical. Patient has symptoms of acute heartburn. Complications: No immediate complications. Procedure: Pre-Anesthesia Assessment: - Prior to the procedure, a History and Physical was performed, and patient medications and allergies were reviewed. The patient is competent. The risks and benefits of the procedure and the sedation options and risks were discussed with the patient. All questions were answered and informed consent was obtained. Patient identification and proposed procedure were verified by the physician in the pre-procedure area. Mental Status Examination: alert and oriented. Airway Examination: normal oropharyngeal airway and neck mobility. Respiratory Examination: clear to auscultation. CV Examination: normal. Prophylactic Antibiotics: The patient does not require prophylactic antibiotics. Prior Anticoagulants: The patient has taken no anticoagulant or antiplatelet agents except for NSAID medication. ASA Grade Assessment: II - A patient with mild systemic disease. After reviewing the risks and benefits, the patient was deemed in satisfactory condition to undergo the procedure. The anesthesia plan was to use monitored anesthesia care (MAC). Immediately prior to administration of medications, the patient was re-assessed for adequacy to receive sedatives. The heart rate, respiratory rate, oxygen saturations, blood pressure, adequacy of pulmonary ventilation, and response to care were monitored throughout the procedure. The physical status of the patient was re-assessed after the procedure. After obtaining informed consent, the endoscope was passed under direct vision. Throughout the procedure, the patient's blood pressure, pulse, and oxygen saturations were monitored continuously. The gastroscope was introduced through the mouth, and advanced to the second part of duodenum. The upper GI endoscopy was accomplished without difficulty. The patient tolerated the procedure well. Scope In: 2:51:45 PM Scope Out: 2:54:34 PM Total Procedure Duration Time 0 hours 2 minutes 49 seconds Findings: The Z-line was irregular and was found 40 cm from the incisors. Biopsies were taken with a cold forceps for histology. Verification of patient identification for the specimen was done. Estimated blood loss was minimal. No gross lesions were noted in the entire examined stomach. The second portion of the duodenum was normal. Impression: - Z-line irregular, 40 cm from the incisors. Biopsied. - No gross lesions in the entire stomach. - Normal second portion of the duodenum. Recommendation: - Discharge patient to home. - Resume previous diet. - Continue present medications. - Await pathology results. Procedure Code(s): --- Professional --- 69300, Esophagogastroduodeno scopy, flexible, transoral; with biopsy, single or multiple CPT copyright 2021 [employer]. All rights reserved. The codes documented in this report are preliminary and upon poultry hatchery laborer review may be revised to meet current compliance requirements. Rambo Martin DO 09/07/2024 3:03:43 PM This report has been signed electronically. Number of Addenda: 0 Note Initiated On: 09/07/2024 2:48 PM 09/07/24 1504 Date Rambo Johnson Signature: Date (if indicated) CC: Dr. Sánchez Tabares MD; Rambo Martin DO Date Dictated: 09/07/24 1448 Date Transcribed: Cardiac Sonographer: RF Signed [facility] MR/POSTOP.ANEon 09-07-2024 MR/POSTOP.[facility] Medical Records Department [address] [place] [address] Anesthesia Postop Eval I 09/07/24 1502 MR#: [id number] Acct: [id number] Name: EARLINE HERNANDEZ Rep #: [id number] : 1970 54 From: Nader Elizalde PCP: Dr. Sánchez Tabares MD Status:REG [facility] Y Race: C Location: [place] [address] Anesthesia: Postop Eval I Current Vital Signs Temperature: 98 F Pulse Rate: 86 Blood Pressure: 101/67 Respiratory Rate: 16 Pulse Ox: 97 Oxygen Delivery Method: Room Air Assessment Airway patent: Yes Spontaneous unlabored respirations: Yes Mental status: Awake and Calm nausea: No Vomiting: No Anesthesia Complication: No Fluid Hydration Crystalloid volume administer (ml): 30 Total IV fluid infused: 30 Progress Note Anesthesia document: Postop Eval 1 completed: Yes 09/07/241502 Date Nader Jenkinsignmonica Signature: Date CC: Signed [facility] MR/NBBRESPR1ak 09-07-2024 MR/POST[address] Medical Records Department [address] [place] [address] Anesthesia Postop Eval II 09/07/242127 MR#: [id number] Acct: [id number] Name: EARLINE HERNANDEZ Rep #: [id number] : 1970 54 From: Nilson Puga MD PCP: Dr. Sánchez Tabares MD Status:DEP [facility] Y Race: C Location: EN Anesthesia Postop Eval I Sum Postop Eval Completion status Anesthesia document: Postop Eval 1 completed: Yes Anesthesia Postop Eval I Summary Anesthesia Postop Eval I Summary: Anesthesia Postop Eval I: Assessment Summary Airway patent Yes 09/07/24 15:03 [email or web address] Spontaneous unlabored Yes 09/07/24 15:03 [email or web address] respirations Mental status Awake,Calm 09/07/24 15:03 [email or web address] nausea No 09/07/24 15:03 [email or web address] Vomiting No 09/07/24 15:03 [email or web address] Anesthesia Postop Eval I: Fluid Summary Crystalloid volume administer 30 09/07/24 15:03 [email or web address] (ml) Colloids volume administered ( ml) Blood Product volume administered (ml) Total IV fluid infused 30 09/07/24 15:03 [email or web address] Anesthesia Postop Eval I: Summary Notes Anesthesia Complication No 09/07/24 15:03 [email or web address] Anesthesia Complication Comment: Post-operative progress note Anesthesia: Postop Eval II Evaluation Mental status: Awake and Calm Pain Level: 0 nausea: No Vomiting: No Complications Anesthesia Complication: No 09/07/242128 Date Nilson Puga MD Cosigner Signature: Date CC: Signed Normal [facility] Special Stain Group Ion 08-25 Special Stain Group I --- -------- Patient Age/Sex Location Account Attending Physician -------- EARLINE HERNANDEZ 54/F EN [id number] Rambo Martin DO -------- Specimen: [id number] Received: 09/07/24 Status: SEVERINO Barton Num: [id number] Spec Type: EGD BIOPSY Subm Dr: Rambo Martin DO HEADER OPERATION: EGD and biopsy PRE-OP DIAGNOSIS: Epigastric pain and GERD TISSUE SUBMITTED: Distal esophagus biopsy -------- MICROSCOPIC DIAGNOSIS Distal esophagus, biopsy: Squamous and glandular mucosa with focal chronic inflammation. Fragment of squamous mucosa, minute and showing no significant pathologic findings. No definitive intestinal metaplasia / Morton's esophagus. Negative for dysplasia. Negative for eosinophilic esophagitis. See comment. 09/11/2024 COMMENT Alcian blue/PAS stain with matched control is used in the evaluation of the specimen. Deeper sections are done interpreted. MICROSCOPIC DESCRIPTION Slides are reviewed. GROSS DESCRIPTION Received in fixative is one container labeled with the patient's name and designated Distal esophagus biopsy. The specimen consists of multiple irregular fragments of light trotter soft tissue that in aggregate measure 1.2 x 0.4 x 0.1 cm. The specimen is totally submitted in one cassette. 09/10/2024 TC:3 [facility]:[id number] -------- Patient Age/Sex Location Account Attending Physician -------- EARLINE HERNANDEZ 54/F EN [id number] Rambo Martin, DO -------- Signed (signature on file) Dr. Madhuri Crum MD 09/11/24 1346 -------- [facility] Comment on above: Performed By: #### P SSI #### [facility] [address] [place], [place], [address] Endocrinology Visit Reporton 08-13-2024 Endocrinology Visit Report [facility] [address] [place] [address] OFFICE VISIT Date of Service: 08/13/24 MR#: [id number] Acct: [id number] Name: EARLINE HERNANDEZ Rep #: [id number] : 1970 Provider: Raghavendra Corcoran Age/Sex: 54/F Location: [facility] Status: Signed Intake Vital Signs 08/09/23 16:02 01/27/24 15:24 08/13/24 08:58 Height 5 ft 5 in 5 ft 5 in 5 ft 5 in Weight: 195 lb 8 oz BMI 32.5 BP 121/79 H Blood Pressure Location Lt brachial Position Sitting Pulse 80 Pulse Source Monitor Pulse Oximetry (%) 98 Oxygen Delivery Method room air Intake Visit Reasons: 6 M FU Chief Complaint: DM Is patient in pain?: No Allergies banana Allergy (Severe, Verified 08/13/24 09:04) Anaphylaxis lovastatin Allergy (Verified 08/13/24 09:04) PT UNSURE OF REACTION Medications ???Medication ???Instructions ???Recorded ???Confirmed ???Type montelukast 10 mg tablet 10 mg PO QHS 08/14/13 08/13/24 History albuterol sulfate 90 mcg/actuation 2 puff inhalation Q4H PRN Sob /Or 07/20/17 08/13/24 History aerosol inhaler Wheezing multivitamin 1 tab PO DAILY 12/14/19 08/13/24 History pantoprazole 40 mg tablet,delayed 40 mg PO DAILY 02/09/21 08/13/24 History release Novolog U-100 Insulin aspart 100 100 unit subcut DAILY #90 mL 01/27/24 08/13/24 Rx unit/mL subcutaneous solution (insulin aspart U-100) enalapril maleate 5 mg tablet 5 mg PO QHS #90 tabs 01/27/24 08/13/24 Rx levothyroxine 125 mcg tablet 125 mcg PO .Mon-Sat #90 tabs 01/27/24 08/13/24 Rx Green Foods complex PO 07/02/24 08/13/24 History Healthy hairs, skin, nails PO 07/02/24 08/13/24 History PC liver and brain PO 07/02/24 08/13/24 History beet powder human N PO 07/02/24 08/13/24 History calcium 300 mg-D3 20 mcg-magnesium 1 tab PO QDAY 07/02/24 08/13/24 History 25 mg-coppr 0.5 xy-lhjm-cxls tablet cholestacar PO 07/02/24 08/13/24 History elderberry fruit 350 mg capsule mg PO 07/02/24 08/13/24 History free range tommy peptides PO 07/02/24 08/13/24 History fruitful antioxidants PO 07/02/24 08/13/24 History glutathione 500 mg capsule mg PO 07/02/24 08/13/24 History glyciine 600 PO 07/02/24 08/13/24 History greens blend amazing Grass PO 07/02/24 08/13/24 History memory and brain PO 07/02/24 08/13/24 History vitamin K2 MK-7 PO 07/02/24 08/13/24 History rosuvastatin 5 mg tablet 5 mg PO DAILY #90 tabs 08/13/24 08/13/24 Rx PFSH Medical History Mixed hyperlipidemia Wears contact lenses Bite from insect TIA (transient ischemic attack) History of hiatal hernia Hives History of breast lump Thyroid disorder IBS (irritable bowel syndrome) Hypoglycemia Hyperlipidemia Breast lump UTI (urinary tract infection) Back problem GERD (gastroesophageal reflux disease) Diabetes type 1, controlled Asthma Seasonal allergies Surgical History H/O endoscopy H/O colonoscopy Family History Mother Cancer Father Diabetes Grandmother Arthritis Aunt Breast cancer Son Arthritis Epilepsy ADHD Aspergers' syndrome Social History Smoking Status: Former smoker second hand exposure: No alcohol intake: never substance use type: does not use what type of physical activity do you participate in: walking and bicycling frequency: daily HPI HPI Chief Complaint: DM Details: EARLINE HERNANDEZ, is a 54 F who presents to the office today for follow up. A1C is 5.9% She is using Medtronic 780G insulin pump with Guardian CGM and auto mode. Upload shows controlled blood sugars. She has hypothyroidism and is taking levothyroxine. She is on statin and JOSE. She is feeling well Labs are up to date. She has endoscopy scheduled due to chronic GERD. ROS Const Constitutional: No fatigue, weight change or change in appetite Eyes Eyes: No change in vision ENT ENT: No dizziness/vertigo or difficulty swallowing Cardio Cardiology: No chest pain at rest, chest pain with exertion, shortness of breath or palpitations Musc Musculoskeletal: No abnormal gait, joint pain, numbness or tingling Neuro Neurology: No abnormal gait, memory loss, numbness or tingling Psych Psychiatric: No change in appetite, No memory loss and No Thoughts of harming yourself/Others Resp Respiratory: No cough, chest congestion or shortness of breath Gastro GI: No abdominal pain, constipation, diarrhea or difficulty swallowing Genitourinary-Female: No burning urination Skin Skin: No itchy eyes or wounds Endo Endocrine: No fatigue or weight change Aller/Imm Allergy/Immunolog (more content not included)... Normal [facility] Abdomen Limitedon 07-11-2024 Abdomen Limited [facility] Imaging Services [address] [place] [address] Abdomen Limited MR#: [id number] Acct: [id number] Name: EARLINE HERNANDEZ Rep #: [id number] : 1970 F 54 From: Ilir mccarthy MD PCP: Dr. Sánchez Tabares MD Status: REG CLI Study: Abdomen Limited Date of Exam: 07/11/24 Exam# [id number] Ordering Dr: Antonieta Hernandez OUTSOLES CHANNEL OPENER- C [id number] STUDY: ABDOMINAL ULTRASOUND - RIGHT UPPER QUADRANT REASON FOR VISIT: Female, 54 years old epigastric pain -- HEARTBURN TECHNIQUE: Ultrasound evaluation of the right upper quadrant was performed with real-time and static washburn-scale imaging. TECHNICAL QUALITY: Adequate. COMPARISON: None. FINDINGS: Liver: The liver measures 14.3 cm. There is increased echogenicity consistent with fatty infiltration. The bile ducts are within normal limits. There is hepatic color flow. The direction of portal flow is hepatopetal. There is no demonstrated mass lesion. Gallbladder: Normal distended gallbladder. The gallbladder wall measures 2.5 mm. There is a negative sonographic Franco''s sign. There is no pericholecystic fluid. There are multiple echogenic structures within the gallbladder, consistent with multiple small gallstones. Sludge is also seen in the gallbladder lumen. Common Bile Duct (C.B.D.): The common bile duct measures 3.7 mm. Pancreas: Normal size of the head, body and tail of the pancreas. There is normal echogenicity of the pancreas. There is no demonstrated pancreatic mass or cyst. Right Kidney: Normal size of the right kidney. The right kidney measures 10.8 cm x 5.4 cm x 6 cm. Normal renal cortex. The right cortex measures 1.4 cm. There is no demonstrated renal mass or cyst. There is no right hydronephrosis. US/Abdomen Limited IMPRESSION: Fatty infiltration of the liver. Multiple small gallstones with sludge. Electronically Signed: Ilir Lyon MD at 14:18 [facility] , CC: MILAGROS Hernandez; Dr. Sánchez Tabares MD Cardiac Sonographer: Signed Normal [facility] CNOVon 07-09-2024 CNOV Office Visit (FAMPWS ) EARLINE HERNANDEZ ([id number]) 1970 F Date Time Provider Department 07/09/24 7:40 PM SÁNCHEZ TABARES During your visit today, we recorded the following information about you: Pulse Blood pressure Weight 93/minute 112/72 88.5 kg Sánchez Tabares MD 07/09/2024 8:22 PM Signed Patient presents with: 6 Month Exam HPI: Patient presents today for office visit for follow up . Endo: Per Dr Ramirez. She watches her Vitamin D as well as her diabetes and thyroid. She is managing most of her issues. She would like seen once a year. Saw Dr Martin's office. Having reflux. Is getting a ruq us. No bloody stools. Is on protonix. A1c is 6.0. Patient denies chest pain, shortness of breath, headaches, or dizziness. MEDICATIONS: Current Outpatient Medications Medication Sig montelukast (SINGULAIR) 10 mg tablet Take 1 tablet by mouth once daily. pantoprazole DR (PROTONIX) 40 mg tablet Take 1 tablet by mouth daily before breakfast. Take on empty stomach, 1/2 hr before meal. levothyroxine (LEVOXYL) 125 mcg tablet Take by mouth, 6 days per week. Skip dose on 7th day. Take on empty stomach. Fill as generic, not CHERELLE insulin aspart U-100 (NOVOLOG U-100 INSULIN ASPART) 100 unit/mL use as directed with insulin pump up to 60 units daily cranberry fruit extract (CRANBERRY EXTRACT ORAL) Take by mouth. rosuvastatin (CRESTOR) 5 mg tablet Take 1 tablet by mouth daily at bedtime. (Patient taking differently: Take 5 mg by mouth daily before breakfast.) enalapril (VASOTEC) 5 mg tablet Take 1 tablet by mouth once daily. UBIDECARENONE (COQ-10 ORAL) Take by mouth. FLAXSEED OIL (OMEGA 3 ORAL) Take by mouth as directed. COMPOUNDED PRESCRIPTION Ultimate eye support, with zeaxanthin MULTIVITAMIN TAB Take one(1) tablet daily. nystatin-triamcinolon e (MYCOLOG II) cream Apply 1 application to affected area twice daily as needed. cyclobenzaprine (FLEXERIL) 10 mg tablet Take 1 tablet by mouth three times daily as needed. COMPOUNDED PRESCRIPTION one touch ultra test strips blue 50's test 8 times daily Magnesium 250 mg tab Take 250 mg by mouth once daily. VITAMIN D 400 UNIT CAP No current facility-administered medications for this visit. ALLERGIES: ALLERGIES Allergen Reactions Apples Bactrim [Sulfametho* Diarrhea Banana Swelling Lovastatin Other: See Comments poor sleep, excessive dreaming Seasonal Allergies Itching PAST MEDICAL HISTORY Diagnosis Date Esophageal reflux Gastroesophageal reflux Hyperlipidemia LDL goal < 100 07/17/2013 Type I (juvenile type) diabetes mellitus without mention of complication, not stated as uncontrolled (HCC) Dx age 24 Unspecified asthma(493.90) prn albuterol Unspecified hypothyroidism Hypothyroidism PAST SURGICAL HISTORY Procedure Laterality Date CAUTERY CERVIX CRYOCAUTERY INITIAL/REPEAT 1992 For abn pap and paps since normal COLONOSCOPY 07/20/2018 5 yr interval, benign polyp DILATION AND CURETTAGE DXAND/THER NONOBSTETRIC 02/26/2021 hysteroscopy DANDC EGD 07/20/2018 ESOPHAGOGASTRODUODENO SCOPY TRANSORAL DIAGNOSTIC EGD done 2 times [facility] COVID-19 VACCINE, AGE 12+ YR (PURPLE TOP) 10/02/2020 FAMILY HISTORY Problem Relation Age of Onset Cancer Mother leukemia Diabetes Father Type 2 No Known Problems Sister other (Dementia) Maternal Grandmother No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 Speci men Type: BLOOD SPECIMEN Ordering Facility: [facility] Address: [address] [place] [address] Performed By: #### 5 7021-8 #### [facility] CLIA [id number] [address] [place] [address] [place] RBC (Bld) [#/Vol] 3.97 10*6/uL Normal 3.90-5.20 [facility] Comment on above: Order Comment: Speci men Type: BLOOD SPECIMEN Ordering Facility: [facility] Address: [address] [place] [address] Performed By: #### 5 7021-8 #### [facility] CLIA [id number] [address] [place] WBC (Bld) [#/Vol] 4.57 10*3/uL Normal 3.70-11.00 [facility] Comment on above: Order Comment: Speci men Type: BLOOD SPECIMEN Ordering Facility: [facility] Address: [address] [place] [address] Performed By: #### 5 7021-8 #### [facility] CLIA [id number] [address] OF [facility] Comprehensive metabolic 2000 panelon 01-21-2024 Albumin [Mass/Vol] 4.3 g/dL Normal 3.9-4.9 [facility] Comment on above: Order Comment: Speci men Type: BLOOD SPECIMEN Ordering Facility: [facility] Address: [address] [place] [address] Performed By: #### 2 4323-8, 3016-3, 02302-1 #### [facility] CLIA [id number] [address] OF [facility] ALP [Catalytic activity/Vol] 69 U/L Normal 34-123 [facility] Comment on above: Order Comment: Speci men Type: BLOOD SPECIMEN Ordering Facility: [facility] Address: [address] [place] [address] Performed By: #### 2 4323-8, 3016-3, 43572-3 #### [facility] CLIA [id number] [address] ALT [Catalytic activity/Vol] 15 U/L Normal 7-38 [facility] Comment on above: Order Comment: Speci men Type: BLOOD SPECIMEN Ordering Facility: [facility] Address: [address] [facility], [place] [address] Performed By: #### 2 4323-8, 3016-3, 01870-4 #### [facility] CLIA [id number] [address] [place] [address] [place] [facility] Anion gap [Moles/Vol] 7 mmol/L Low 8-15 [facility] Comment on above: Order Comment: Speci men Type: BLOOD SPECIMEN Ordering Facility: [facility] Address: [address] [facility], [place] [address] Performed By: #### 2 4323-8, 6-3, 17951-5 #### [facility] CLIA [id number] [address] [place] AST [Catalytic activity/Vol] 21 U/L Normal 13-35 [facility] Comment on above: Order Comment: Speci men Type: BLOOD SPECIMEN Ordering Facility: [facility] Address: [address] [place] [address], [place] [address] Performed By: #### 2 4323-8, 3, 23456-6 #### [facility] CLIA [id number] [address] [place] Bilirubin [Mass/Vol] 0.3 mg/dL Normal 0.2-1.3 [facility] Comment on above: Order Comment: Speci men Type: BLOOD SPECIMEN Ordering Facility: [facility] Address: [address] [place] [address], [place] [address] Performed By: #### 2 4323-8, 63, 63468-1 #### [facility] CLIA [id number] [address] [place] Calcium [Mass/Vol] 9.7 mg/dL Normal 8.5-10.2 [facility] Comment on above: Order Comment: Speci men Type: BLOOD SPECIMEN Ordering Facility: [facility] Address: [address] [facility], [place] [address] Performed By: #### 2 4323-8, 6-3, 45383-8 #### [facility] CLIA [id number] [address] [place] Chloride [Moles/Vol] 102 mmol/L Normal 98-107 [facility] Comment on above: Order Comment: Laci gandhi Type: BLOOD SPECIMEN Ordering Facility: [facility] Address: [address] [place] [address] Performed By: #### 2 4323-8, 3016-3, 04679-2 #### [facility] CLIA [id number] [address] CO2 [Moles/Vol] 31 mmol/L High 22-30 [facility] Comment on above: Order Comment: Laci gandhi Type: BLOOD SPECIMEN Ordering Facility: [facility] Address: [address] [place] [address] Performed By: #### 2 4323-8, 3016-3, 44417-6 #### [facility] CLIA [id number] [address] Creatinine [Mass/Vol] 0.83 mg/dL Normal 0.58-0.96 [facility] Comment on above: Order Comment: Laci gandhi Type: BLOOD SPECIMEN Ordering Facility: [facility] Address: [address] [place] [address] Performed By: #### 2 4323-8, 6-3, 74378-5 #### [facility] CLIA [id number] [address] Creatinine and Glomerular filtration rate.predicted panel (S/P/Bld) 83 mL/min/1.73m??? Normal >=60 [facility] Comment on above: Order Comment: Laci gandhi Type: BLOOD SPECIMEN Ordering Facility: [facility] Address: [address] [place] [address] Result Comment: Marion mated Glomerular Filtration Rate (eGFR) is calculated using the 2020 CKD-EPI creatinine equation. This equation utilizes serum creatinine, sex, and age as parameters. The creatinine assay has traceable calibration to isotope dilution-mass spectrometry. Refer to KDIGO guidelines for clinical interpretation. In patients with unstable renal function, e.g. those with acute kidney injury, the eGFR may not accurately reflect actual GFR. Performed By: #### 2 4323-8, 3016-3, 97030-1 #### [facility] CLIA [id number] [address] [place] [address] [place] Glucose [Mass/Vol] 116 mg/dL High 74-99 [facility] Comment on above: Order Comment: Laci gandhi Type: BLOOD SPECIMEN Ordering Facility: [facility] Address: [address] [place] [address] Result Comment: The [employer] Diabetes Association (ADA) provides guidance for cutoff values for fasting glucose and random glucose. The ADA defines fasting as no caloric intake for at least 8 hours. Fasting plasma glucose results between 100 to 125 mg/dL indicate increased risk for diabetes (prediabetes). Fasting plasma glucose results greater than or equal to 126 mg/dL meet the criteria for diagnosis of diabetes. In the absence of unequivocal hyperglycemia, results should be confirmed by repeat testing. In a patient with classic symptoms of hyperglycemia or hyperglycemic crisis, random plasma glucose results greater than or equal to 200 mg/dL meet the criteria for diagnosis of diabetes. Reference: Standards of Medical Care in Diabetes 2016, Indian Diabetes Association. Diabetes Care. 2016.39(Suppl 1). Performed By: #### 2 4323-8, 3016-3, 92464-5 #### [facility] CLIA [id number] [address] [place] [address] [place] Potassium [Moles/Vol] 4.8 mmol/L Normal 3.7-5.1 [facility] Comment on above: Order Comment: Laci gandhi Type: BLOOD SPECIMEN Ordering Facility: [facility] Address: [address] [place] [address] Performed By: #### 2 4323-8, 3016-3, 03519-9 #### [facility] CLIA [id number] [address] [place] [address] [place] Protein [Mass/Vol] 6.6 g/dL Normal 6.3-8.0 [facility] Comment on above: Order Comment: Laci gandhi Type: BLOOD SPECIMEN Ordering Facility: [facility] Address: [address] [place] [address] Performed By: #### 2 4323-8, 3016-3, 75574-3 #### [facility] CLIA [id number] [address] [place] [address] [place] Sodium [Moles/Vol] 140 mmol/L Normal 136-144 [facility] Comment on above: Order Comment: Speci men Type: BLOOD SPECIMEN Ordering Facility: [facility] Address: [address] [place] [address] Performed By: #### 2 4323-8, 3016-3, 36348-7 #### [facility] CLIA [id number] [address] [place] [address] [place] Urea nitrogen [Mass/Vol] 17 mg/dL Normal 7-21 [facility] Comment on above: Order Comment: Speci men Type: BLOOD SPECIMEN Ordering Facility: [facility] Address: [address] [place] [address] Performed By: #### 2 4323-8, 3016-3, 26311-2 #### [facility] CLIA [id number] [address] [place] [address] [place] Creatinine Unsp time (U) [Ma ss/Vol]on 01-21-2024 Creatinine (U) [Mass/Vol] 48.4 mg/dL Normal 20.0-300.0 [facility] Comment on above: Order Comment: Speci men Type: URINE SPECIMEN Ordering Facility: [facility] Address: [address] [place] [address] Performed By: #### 3 5674-1 #### [facility] CLIA [id number] [address] [place] [address] [place] Lipid 1996 panelon 4 Cholesterol [Mass/Vol] 152 mg/dL Normal <200 [facility] Comment on above: Order Comment: Speci men Type: BLOOD SPECIMEN Ordering Facility: [facility] Address: [address] [place] [address] Result Comment: <200 mg/dL, Desirable 200-239 mg/dL, Borderline high >239 mg/dL, High Performed By: #### 2 4323-8, 3016-3, 23480-0 #### [facility] CLIA [id number] [address] [place] [address] [place] Cholesterol in HDL [Mass/Vol] 56 mg/dL Normal >39 [facility] Comment on above: Order Comment: Speci men Type: BLOOD SPECIMEN Ordering Facility: [facility] Address: [address] [place], [place] [address] Result Comment: 40-5 9 mg/dL, Acceptable >59 mg/dL, High: Negative risk factor for coronary heart disease <40 mg/dL, Low: Positive risk factor for coronary heart disease Performed By: #### 2 4323-8, 6-3, 99180-1 #### [facility] CLIA [id number] [address] Cholesterol in LDL [Mass/Vol] 84 mg/dL Normal <100 [facility] Comment on above: Order Comment: Laci gandhi Type: BLOOD SPECIMEN Ordering Facility: [facility] Address: [address] [place] [address] Result Comment: <100 mg/dL, Optimal 100-129 mg/dL, Near optimal/above optimal 130-159 mg/dL, Borderline high 160-189 mg/dL, High >189 mg/dL, Very high Secondary prevention optimal LDL Cholesterol levels are recommended to be < 70 mg/dL Performed By: #### 2 4323-8, 6-3, 35017-7 #### [facility] CLIA [id number] [address] Cholesterol in LDL/Cholesterol in HDL [Mass ratio] 1.50 {ratio} Normal <2.54 [facility] Comment on above: Order Comment: Laci gandhi Type: BLOOD SPECIMEN Ordering Facility: [facility] Address: [address] [place] [address] Result Comment: Refe rence: 1. National Cholesterol Education Program ATP III Guideline At-A-Glance Quick Desk Reference: National Heart, Lung, and Blood [place]. National Institutes of Health. 2001: NIH Publication No. 01-3305. 2. An International Atherosclerosis Society position paper: global recommendations for the management of dyslipidemia: executive summary, Atherosclerosis. 2014: 232(2):410-413. Performed By: #### 2 4323-8, 6-3, 14956-2 #### [facility] CLIA [id number] [address] Cholesterol in VLDL [Mass/Vol] 12 mg/dL Normal <30 [facility] Comment on above: Order Comment: Laci gandhi Type: BLOOD SPECIMEN Ordering Facility: [facility] Address: [address] [place] [address] Performed By: #### 2 4323-8, 3016-3, 44939-3 #### [facility] CLIA [id number] [address] Cholesterol non HDL [Mass/Vol] 96 mg/dL Normal <130 [facility] Comment on above: Order Comment: Speci men Type: BLOOD SPECIMEN Ordering Facility: [facility] Address: [address] [place] [address] Result Comment: <130 mg/dL, Optimal 130-159 mg/dL, Near optimal/above optimal 160-189 mg/dL, Borderline high 190-219 mg/dL, High >219 mg/dL, Very high Secondary prevention optimal non HDL Cholesterol levels are recommended to be <100 mg/dL Performed By: #### 2 4323-8, 3016-3, 73622-6 #### [facility] CLIA [id number] [address] Cholesterol.total/Chasity sterol in HDL [Mass ratio] 2.71 {ratio} Normal <5.10 [facility] Comment on above: Order Comment: Speci men Type: BLOOD SPECIMEN Ordering Facility: [facility] Address: [address] [place] [address] Performed By: #### 2 4323-8, 6-3, 27124-4 #### [facility] CLIA [id number] [address] FASTING TIME 8 hrs Normal [facility] Comment on above: Order Comment: Speci men Type: BLOOD SPECIMEN Ordering Facility: [facility] Address: [address] [place] [address] Performed By: #### 2 4323-8, 3016-3, 67644-7 #### [facility] CLIA [id number] [address] Triglyceride [Mass/Vol] 59 mg/dL Normal <150 [facility] Comment on above: Order Comment: Lexusi men Type: BLOOD SPECIMEN Ordering Facility: [facility] Address: [address] [place] [address] Result Comment: <150 mg/dL, Normal 150-199 mg/dL, Borderline high 200-499 mg/dL, High >499 mg/dL, Very high Performed By: #### 2 4323-8, 3016-3, 72574-5 #### [facility] CLIA [id number] [address] [place] [id number] [facility] [place] TSH SerPl-aCncon 01-21-2024 TSH Qn 2.200 m[IU]/L Normal 0.270-4.200 [facility] Comment on above: Order Comment: Speci men Type: BLOOD SPECIMEN Ordering Facility: [facility] Address: [address] [place] [address] Performed By: #### 2 4323-8, 3016-3, 39059-6 #### [facility] CLIA [id number] [address] [place] [id number] [facility] CNOVon 11-01-2023 CNOV Office Visit (FAMWS ) EARLINE HERNANDEZ ([id number]) 1970 Date Time Provider Department 11/01/23 4:40 PM SÁNCHEZ [facility] During your visit today, we recorded the following information about you: Pulse Respiration Blood pressure Weight 89/minute 16/minute 122/78 88.7 kg Sánchez Tabares MD 11/02/2023 8:03 AM Signed Patient presents with: Follow Up: Pressure is right ear HPI: Patient presents today for office visit for follow up. Complains of stuffiness in her ears on and off in alternating ears. Last week both ears were stuffy. Used an ear wax softening kit. Did not get any results. No drainage. No fever or chills. Right side is still congested. No fever No sore throat or cough. Seeing Dr Ramirez. Sugars have been good. A1c was 7.0 on her machine. She things her CGM was close to 6.5 She was told she was fabulous. She will be doing labs in December or January. Will likely be done her at [facility]. They will be checking her lipids and thyroid as well. Thyroid is doing well. Energy is good. Rare gerd. No issues with crestor. Breathing is doing well. Not using albuterol. Singulair is doing well. No chest pain or shortness of breath. Seeing [facility] for her shoulder. MEDICATIONS: Current Outpatient Medications Medication Sig montelukast (SINGULAIR) 10 mg tablet Take 1 tablet by mouth once daily. pantoprazole DR (PROTONIX) 40 mg tablet Take 1 tablet by mouth daily before breakfast. Take on empty stomach, 1/2 hr before meal. nystatin-triamcinolon e (MYCOLOG II) cream Apply 1 application to affected area twice daily as needed. albuterol HFA (PROAIR HFA) 90 mcg/actuation inhaler Inhale 2 Puffs as instructed every 4 hours as needed. levothyroxine (LEVOXYL) 125 mcg tablet Take by mouth, 6 days per week. Skip dose on day. Take on empty stomach. Fill as generic, not CHERELLE cyclobenzaprine (FLEXERIL) 10 mg tablet Take 1 tablet by mouth three times daily as needed. insulin aspart U-100 (NOVOLOG U-100 INSULIN ASPART) 100 unit/mL use as directed with insulin pump up to 60 units daily cranberry fruit extract (CRANBERRY EXTRACT ORAL) Take by mouth. COMPOUNDED PRESCRIPTION one touch ultra test strips blue 50's test 8 times daily rosuvastatin (CRESTOR) 5 mg tablet Take 1 tablet by mouth daily at bedtime. (Patient taking differently: Take 5 mg by mouth daily before breakfast.) enalapril (VASOTEC) 5 mg tablet Take 1 tablet by mouth once daily. Magnesium 250 mg tab Take 250 mg by mouth once daily. UBIDECARENONE (COQ-10 ORAL) Take by mouth. FLAXSEED OIL (OMEGA 3 ORAL) Take by mouth as directed. COMPOUNDED PRESCRIPTION Ultimate eye support, with zeaxanthin MULTIVITAMIN TAB Take one(1) tablet daily. VITAMIN D 400 UNIT CAP No current facility-administered medications for this visit. ALLERGIES: ALLERGIES Allergen Reactions Apples Bactrim [Sulfametho* Diarrhea Banana Swelling Lovastatin Other: See Comments poor sleep, excessive dreaming Seasonal Allergies Itching PAST MEDICAL HISTORY Diagnosis Date Esophageal reflux Gastroesophageal reflux Hyperlipidemia LDL goal < 100 07/17/2013 Type I (juvenile type) diabetes mellitus without mention of complication, not stated as uncontrolled (HCC) Dx age 24 Unspecified asthma(493.90) prn albuterol Unspecified hypothyroidism Hypothyroidism PAST SURGICAL HISTORY Procedure Laterality Date CAUTERY CERVIX CRYOCAUTERY INITIAL/REPEAT 1992 For abn pap and paps since normal COLONOSCOPY 07/20/2018 5 yr interval, benign polyp DILATION AND CURETTAGE DXAND/THER NONOBSTETRIC 02/26/2021 hysteroscopy DANDC EGD 07/20/2018 ESOPHAGOGASTRODUODENO SCOPY TRANSORAL DIAGNOSTIC EGD done 2 times [facility] COVID-19 VACCINE, AGE 12+ YR (PURPLE TOP) 10/02/2020 FAMILY HISTORY Problem Relation Age of Onset Cancer Mother leukemia Diabetes Father Type 2 No Known Problems Sister other (Dementia) Maternal Grandmother No Known Problems Paternal Grandmother No Known Problems Paternal Grandfather Arthritis Son other (epilepsy) Son other (ADHD) Son other (Asperger's) Son Breast Cancer Paternal Aunt Social History Tobacco Use Smoking status: Former Types: Cigarettes Quit date: 05/11/1999 Years since quittin.4 Smokeless tobacco: Never Vaping Use Vaping Use: Never used Substance Use Topics Alcohol use: No Drug use: No Reviewed current medications, allergies, past medical history, surgical history, family history and social history today. REVIEW OF SYSTEMS All other reviewed and negative other than HPI. HEALTH MAINTENANCE: Reviewed health maintenance issues today and recommended the following in detail. LDL Cholesterol due on 02/05/2022 Diabetic Foot Exam - per endo. Colorectal Cancer Screening done in Nov. Told to repeat in five years due to polyps. Behavioral Health Screening Never do (more content not included)... Normal [facility] ANES POSTPROC EVALon 023 ANES POSTPROC EVAL HNO ID: [id number] Author: Lawrence Saleh APRN.SUBGRADE TESTER Service: Anesthesiology Author Type: Nurse Meat Manager Type: Anesthesia Postprocedure Evaluation Filed: 06/02/2023 8:26 AM Note Text: POST ANESTHESIA EVALUATION NOTE : 1970 Procedure Summary Date: 06/02/23 Room / Location: SURGERY Anesthesia Start: 753 Anesthesia Stop: 824 Procedure: COLONOSCOPY SCREENING Diagnosis: History of colonic polyps History of colonic polyps Scheduled Providers: Danae Hernandez MD; Lawrence Saleh APRN.SUBGRADE TESTER Responsible Provider: Lawrence Saleh APRN.SUBGRADE TESTER Anesthesia Type: MAC ASA Status: 3 Anesthesia Type: MAC Last Vitals Vitals Value Taken Time BP 06/02/23 0825 Temp 06/02/23 0825 Pulse 06/02/23 0825 Resp 06/02/23 0825 SpO2 06/02/23 0825 Post Anesthesia Patient Status Patient Evaluation: PACU. Anticipated Disposition: phase 2 then home. Neurological Status: aware and responsive. Pulmonary Status: breathing comfortably on room air Airway Control: returned to baseline unsupported. Cardiovascular Status: stable. Pain Management: clinically adequate Postoperative Hydration: acceptable. Intraoperative Events: no significant anesthesia events Post Operative Nausea/Vomiting Status: no significant post operative nausea or vomiting Recommendation: continue current plan of care. Anesthesia Observations No Documentation SIGNATURE: Lawrence Saleh APRN.SUBGRADE TESTER PATIENT NAME: Earline Hernandez DATE: June 02, 2023 TIME: 8:25 AM CSN: [id number] [facility] ANES PRE-OPon 06-02-2023 ANES PRE-OP HNO ID: [id number] Author: Lawrence Saleh APRN.SUBGRADE TESTER Service: Anesthesiology Author Type: Nurse Meat Manager Type: Anesthesia Preprocedure Evaluation Filed: 06/02/2023 7:38 AM Note Text: ANESTHESIOLOGY DAY OF SURGERY NOTE : 1970 Procedure Information Date/Time: 06/02/23 0800 Scheduled providers: Danae Hernandez MD; Lawrence Saleh APRN.SUBGRADE TESTER Procedure: COLONOSCOPY SCREENING Location: LD SURGERY Estimated body mass index is 32.62 kg/m? as calculated from the following: Height as of 05/18/23: 165.1 cm (5' 5). Weight as of 05/18/23: 88.9 kg (196 lb). Most recent hematocrit and potassium results: Hematocrit 35.1 05/24/2018 K 4.1 02/05/2021 Relevant Problems ENDO (+) Acquired hypothyroidism (+) Diabetes mellitus type 1, controlled, without complications (HCC) GI (+) Esophageal reflux PULMONARY (+) Asthma I - PHYSICAL EVALUATION AIRWAY Patient intubated: No. Tracheostomy tube not present Mallampati: II. TM distance: >3 FB. Neck ROM: full ROM without neurological symptoms. Mouth opening: adequate. Short neck: no. Thick neck: no Poole present: no Lip Bite Test: I Microretrognathia/Inderjit ronagthia/Recessed Chin: No DENTAL Dental findings: teeth intact. Additional exam findings: no II - ANESTHESIA PLAN ASA Score: 3 Anesthetic Plan: MAC The patient is not a current smoker. NPO Status: adequate Beta Reza Administration of chronic beta reza medication not planned. Reasons for not administering beta reza perioperatively: bradycardia Monitoring Plan Monitoring plan: standard ASA. Post Procedure Analgesic Plan Postoperative analgesic plan: per surgical service. Informed Consent Anesthetic risks, benefits, alternatives, personnel and consent discussed: yes. Patient / Responsible Republican agrees to proceed: yes Patient / Surrogate agrees to blood products: Yes DNR status reviewed with patient and/or family prior to surgery. patient elects to suspend DNR status in the perioperative setting (Full Code). Significant changes in the patient condition since the History and Physical, not otherwise documented in primary service progress note: no. Potential Anesthesia issues that may suggest increased risk of complications or contraindication to planned procedure: none. Discussed the possibility of lip / dental damage: yes No vitals data found for the desired time range. No current facility-administered medications on file as of 06/02/2023. Outpatient Medications as of 06/02/2023 Medication Sig - pantoprazole DR (PROTONIX) 40 mg tablet Take 1 tablet by mouth daily before breakfast. Take on empty stomach, 1/2 hr before meal. - montelukast (SINGULAIR) 10 mg tablet Take 1 tablet by mouth once daily. - albuterol HFA (PROAIR HFA) 90 mcg/actuation inhaler Inhale 2 Puffs as instructed every 4 hours as needed. - levothyroxine (LEVOXYL) 125 mcg tablet Take by mouth, 6 days per week. Skip dose on 7th day. Take on empty stomach. Fill as generic, not CHERELLE - rosuvastatin (CRESTOR) 5 mg tablet Take 1 tablet by mouth daily at bedtime. (Patient taking differently: Take 5 mg by mouth daily before breakfast.) - enalapril (VASOTEC) 5 mg tablet Take 1 tablet by mouth once daily. - COMPOUNDED PRESCRIPTION Ultimate eye support, with zeaxanthin - nystatin-triamcinolon e (MYCOLOG II) cream Apply 1 application to affected area twice daily as needed. - cyclobenzaprine (FLEXERIL) 10 mg tablet Take 1 tablet by mouth three times daily as needed. - insulin aspart U-100 (NOVOLOG U-100 INSULIN ASPART) 100 unit/mL use as directed with insulin pump up to 60 units daily - cranberry fruit extract (CRANBERRY EXTRACT ORAL) Take by mouth. - COMPOUNDED PRESCRIPTION one touch ultra test strips blue 50's test 8 times daily - Magnesium 250 mg tab Take 250 mg by mouth once daily. - UBIDECARENONE (COQ-10 ORAL) Take by mouth. - FLAXSEED OIL (OMEGA 3 ORAL) Take by mouth as directed. - MULTIVITAMIN TAB Take one(1) tablet daily. - VITAMIN D 400 UNIT CAP I have interviewed and examined the patient. I have reviewed the medical record and/or the pre-anesthesia evaluation, pertinent labs, and test results. This contains updated information obtained within 48 hours of Surgery/Procedure. SIGNATURE: Lawrence Saleh APRN.SUBGRADE TESTER PATIENT NAME: Earline Hernandez DATE: June 02, 2023 TIME: 7:37 AM CSN: [id number] [facility] BRIEF OP NOTon 06-02-2023 BRIEF OP NOT HNO ID: [id number] Author: Danae Hernandez MD Service: General Surgery Author Type: Physician Type: Brief Op Note Filed: 06/02/2023 8:23 AM Note Text: BRIEF OPERATIVE NOTE SURGERY DATE: 06/02/2023 Incision/Procedure Start Time: 08:00 cecal intubation time: 8:11 Incision Close/Procedure End Time: 8:20 Surgeon(s)/Procedural ist(s) and Financial Investigator(s): dora Procedures: Colonoscopy, screening high risk Anesthesia: MAC Findings: hemorrhoids Estimated Blood Loss: 0 ml Specimens: None Complications: None Closure Technique: na Preop Diagnosis: history of colon polyps, last colonoscopy 2017 withpolyp Postop Diagnosis: hemorrhoids SIGNATURE: Danae Hernandez MD PATIENT NAME: Earline Barbadimitris DATE: June 02, 2023 TIME: 8:21 AM Acct: [id number] [facility] HISTORY PHYSICALon HISTORY PHYSICAL HNO ID: [id number] Author: Danae Hernandez MD Service: General Surgery Author Type: Physician Type: HANDP Filed: 06/02/2023 7:51 AM Note Text: HISTORY AND PHYSICAL Earline Hernandez 1970 REFERRING PHYSICIAN: Sánchez Tabares MD CHIEF COMPLAINT: Consult (colonoscopy) HPI: The patient is a 53 year old female referred for endoscopy. Earline notes no colon complaints currently. Patient denies any change in bowel habits, weight changes, blood in stools, black tarry stools or abdominal pain. Denies family history of colon issues. The patient notes no upper GI complaints. Earline has undergone prior endoscopy. Last colonoscopy 07/20/[address] Hernandez under conscious sedation with removal of adenomatous polyps Notation of recommendation for MAC endo in future by surgeon-discussed with patient, patient states was not aware of this recommendation. PAST MEDICAL HISTORY Diagnosis Date Esophageal reflux Gastroesophageal reflux Hyperlipidemia LDL goal < 100 07/17/2013 Type I (juvenile type) diabetes mellitus without mention of complication, not stated as uncontrolled (HCC) Dx age 24 Unspecified asthma(493.90) prn albuterol Unspecified hypothyroidism Hypothyroidism PAST SURGICAL HISTORY Procedure Laterality Date CAUTERY CERVIX CRYOCAUTERY INITIAL/REPEAT 1992 For abn pap and paps since normal COLONOSCOPY 07/20/2018 5 yr interval, benign polyp DILATION AND CURETTAGE DXAND/THER NONOBSTETRIC [facility]26[facility]20[facility] ESOPHAGOGASTRODUODENO SCOPY TRANSORAL DIAGNOSTIC EGD done 2 times [facility] COVID-19 VACCINE, AGE 12+ YR (PURPLE TOP) 10/02/2020 Current Outpatient Medications Medication Sig pantoprazole DR (PROTONIX) 40 mg tablet Take 1 tablet by mouth daily before breakfast. Take on empty stomach, 1/2 hr before meal. montelukast (SINGULAIR) 10 mg tablet Take 1 tablet by mouth once daily. nystatin-triamcinolon e (MYCOLOG II) cream Apply 1 application to affected area twice daily as needed. albuterol HFA (PROAIR HFA) 90 mcg/actuation inhaler Inhale 2 Puffs as instructed every 4 hours as needed. levothyroxine (LEVOXYL) 125 mcg tablet Take by mouth, 6 days per week. Skip dose on 7th day. Take on empty stomach. Fill as generic, not CHERELLE cyclobenzaprine (FLEXERIL) 10 mg tablet Take 1 tablet by mouth three times daily as needed. insulin aspart U-100 (NOVOLOG U-100 INSULIN ASPART) 100 unit/mL use as directed with insulin pump up to 60 units daily cranberry fruit extract (CRANBERRY EXTRACT ORAL) Take by mouth. COMPOUNDED PRESCRIPTION one touch ultra test strips blue 50's test 8 times daily rosuvastatin (CRESTOR) 5 mg tablet Take 1 tablet by mouth daily at bedtime. (Patient taking differently: Take 5 mg by mouth daily before breakfast.) enalapril (VASOTEC) 5 mg tablet Take 1 tablet by mouth once daily. Magnesium 250 mg tab Take 250 mg by mouth once daily. UBIDECARENONE (COQ-10 ORAL) Take by mouth. FLAXSEED OIL (OMEGA 3 ORAL) Take by mouth as directed. COMPOUNDED PRESCRIPTION Ultimate eye support, with zeaxanthin MULTIVITAMIN TAB Take one(1) tablet daily. VITAMIN D 400 UNIT CAP No current facility-administered medications for this visit. ALLERGIES: Apples, Bactrim [Sulfamethoxazole-Tri methoprim], Bananas [Other], Environmental [Other], and Lovastatin PERSONAL HISTORY: Social History Tobacco Use Smoking status: Former Types: Cigarettes Quit date: 05/11/1999 Years since quittin.0 Smokeless tobacco: Never Vaping Use Vaping Use: Never used Substance Use Topics Alcohol use: No Drug use: No FAMILY HISTORY: FAMILY HISTORY Problem Relation Age of Onset Cancer Mother leukemia Diabetes Father Type 2 No Known Problems Sister other (Dementia) Maternal Grandmother No Known Problems Paternal Grandmother No Known Problems Paternal Grandfather Arthritis Son other (epilepsy) Son other (ADHD) Son other (Asperger's) Son Breast Cancer Paternal Aunt REVIEW OF SYMPTOMS: The review of systems data was entered by the nurse and reviewed by nh Nursing Notes: Carla Montero LPN 05/11/2023 1:12 PM Signed REVIEW OF SYSTEMS: General: The patient denies fatigue, denies weight loss, denies weight gain, denies feeling hot, and denies feelings of cold. Eyes: The patient denies glaucoma, denies eye injury/surgery, wears glasses or contacts. Ear/Nose/Throat: The patient NOTES allergies, NOTES hayfever, denies ear infections, and denies bloody noses. Cardiovascular: The patient denies chest pain, denies heart disease, denies high blood pressure,denies cardiac stent, denies prior heart attack, denies irregular heart beat, NOTES high cholesterol, denies poor circulation, denies heart failure, other cardiac issues, denies claudication, denies cold feet, denies peripheral arterial stent. Respiratory: The patient denies tuberculosis, denies pneumonia, denies frequent cough, denies pulmonary embolism, (more content not included)... Normal [facility] OPERATIVE NOon 06-02-2023 OPERATIVE NO HNO ID: [id number] Author: Danae Hernandez MD Service: General Surgery Author Type: Physician Type: Operative Report Filed: 06/02/2023 6:13 PM Note Text: [facility] - Operative Report - EARLINE Cortes : 1970 AGE: 53. SEX: F PATIENT TYPE: O HOSP SVC: GNS LOCATION: [facility] ATTENDING PHYSICIAN: Danae Hernandez MD CSN NUMBER: [id number] DATE OF SURGERY/PROCEDURE: 06/02/2023 INCISION/PROCEDURE START TIME: 8:00 AM INCISION CLOSE/PROCEDURE END TIME: 8:20 AM PREOPERATIVE DIAGNOSIS: History of colon polyps. POSTOPERATIVE DIAGNOSIS: Hemorrhoids. SURGEON: Danae Hernandez MD MANAGER STRATEGIC: No Additional Staff SURGERY/PROCEDURE: Colonoscopy. ANESTHESIA: Monitored anesthesia care. LOCATION: [facility]. INDICATIONS: The patient is a 53-year-old white female, who is status post a colonoscopy in 2018 with findings of a tubular adenoma. She therefore presents for followup surveillance colonoscopy today. She has been counseled of the risks of procedure including, but not limited to infection, bleeding, perforation, GI tract, inability to complete the procedure, injury to any internal organs, etc. The patient understands and agrees to proceed to proceed. DESCRIPTION OF PROCEDURE: After informed consent was given, the patient was brought to the endoscopy suite. Appropriate time-out protocol was followed. The patient was then placed in left lateral decubitus position. She was given IV anesthesia by the anesthesia provider. The endoscope was lubricated, carefully inserted in the patient's anus and advanced into the rectum. It was then advanced into the sigmoid colon, then the left colon, past the splenic flexure into the transverse colon, past the hepatic flexure down the right colon to the cecum. The cecum was identified by confluence of teniae coli, identification of ileocecal valve, appendiceal orifice, and external palpation. The colon cleansing preparation was adequate. There was no evidence of any masses, polyps, or lesions in the right colon. There was no evidence of any masses, polyps, or lesions in the transverse colon. There was no evidence of any masses, polyps, or lesions in the left colon. There was no evidence of any masses, polyps, or lesions in the sigmoid colon. There was no evidence of any masses or polyps in the rectum. Retroflexed view in the rectum revealed hemorrhoidal changes, but no active inflammation or bleeding. The endoscope was removed intact. Digital examination revealed no palpable anal canal lesions. The patient tolerated the procedure well, was brought to recovery room in stable condition. ESTIMATED BLOOD LOSS: None. SPECIMENS: None. COMPLICATIONS: None. RECOMMENDATIONS: Surveillance colonoscopy in 5 years. Danae Hernandez MD LW:[id number] /[id number] Normal [facility] NURSING PROGon 05-18-2023 NURSING PROG HNO ID: [id number] Author: Sonia Mackey RN Service: ? Author Type: Registered Nurse Type: Nursing Progress Note Filed: 05/18/2023 2:25 PM Note Text: Pre-Procedure Checklist Earline Hernandez [phone] (home) 1970 53 year old Body mass index is 32.62 kg/m?. 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 No Recent EKG/Cardiac Testing: No Chest pain in the last 6 months (<6 months cardiac clearance needed): No History of: Heart Attack/Stroke/Blood Clot?: denies Shortness of Breath: No Asthma: Yes Inhalers: No Any Outstanding Consults?: No If yes, list: N/A Additional Notes: Patient has an insulin pump, spouse will be bringing patient to procedure. Normal [facility] Basophil percentageOrdered B y: Shruthi Mark on 02-05-2023 Bilirubin [Mass/Vol] 0.30 mg/dL 0.20-1.00 [facility] Comment on above: For patients on eltr ombopag therapy, use of Dimension [place] TBIL is not recommended. Chloride [Moles/Vol] 104 mmol/L 98-107 [facility] Cholesterol [Mass/Vol] 142 mg/dL <200 [facility] Comment on above: <200 mg/dL Desirable 200-240 mg/dL Borderline >240 mg/dL High Risk Glucose [Mass/Vol] 69 mg/dL 74-106 [facility] Potassium [Moles/Vol] 3.6 mmol/L 3.5-5.[address] [facility] Protein [Mass/Vol] 6.6 g/dL 6.4-8.2 [facility] Sodium [Moles/Vol] 139 mmol/L 136-145 [facility] Triglyceride [Mass/Vol] 24 mg/dL <199 [facility] Comment on above: The drugs N-Acetylcy steine and Metamizole may falsely depress this assay.Serum Triglycerides Reference Interval Normal <150 mg/dL Borderline high 150 - 199 mg/dL High 200 - 499 mg/dL Very High > or = 500 mg/dL Laboratory - Chemistry and C hemistry - challengeOrdered By: Shruthi Flores on 02-05-2023 ALP [Catalytic activity/Vol] 62 U/L 45-117 [facility] ALT [Catalytic activity/Vol] 19 U/L 13-56 [facility] CO2 [Moles/Vol] 32.0 mmol/L 21.0-32.0 [facility] Free T4 [Mass/Vol] 1.32 ng/dL 0.76-1.46 [facility] Globulin (S) [Mass/Vol] 3.3 g/dL 2.2-4.2 [facility] Urea nitrogen/Creatinine [Mass ratio] 14.8 mg/mg 10-20 [facility] MICROALBUMIN/CREATININE UR W RATIO (EXTERNAL)on 02-05-2023 Albumin/Creat Ratio [facility] Creatinine Urine 23.10 [facility] Microalbumin, Random urine [facility] No Panel InformationOrdered By: Shruthi Flores on 02-05-2023 Estimated GFR (MDRD) Amer 94 mL/min >60 [facility] Comment on above: GFR Calc Estimated GFR (MDRD) Non-Af Amer 78 mL/min >60 [facility] Comment on above: Non- GFR Calc Thyroid Stimulating Hormone (TSH) 2.11 uIU/mL 0.358-3.74 [facility] Urine Microalbumin/Creatinine Ratio TNP [facility] Comment on above: Test not performed Vitamin D 25-Hydroxy 69.8 ng/mL [facility] Comment on above: Vitamin D 25(OH) Sta tus Range Deficiency <20 ng/mL (50nmol/L) Insufficiency 20 - 30 ng/mL (50 - 75 nmol/L) Sufficiency 30 - 100 ng/mL (75 - 250 nmol/L) Toxicity >100 ng/mL (>250 nmol/L) Serum or plasma albumin delio urement (mass/volume)Ordered By: Shruthi Flores on 02-05-2023 Albumin [Mass/Vol] 3.3 g/dL 3.2-5.0 [facility] Serum or plasma albumin/glob ulin mass ratioOrdered By: Shruthi Flores on 02-05-2023 Albumin/Globulin [Mass ratio] 1.0 {ratio} 0.9-2.4 [facility] Serum or plasma calcium delio urement (mass/volume)Ordered By: Shruthi Flores on 02-05-2023 Calcium [Mass/Vol] 9.1 mg/dL 8.5-10.1 [facility] Serum or plasma cholesterol in HDL measurement (mass/volume)Ordered By: Shruthi Flores on 02-05-2023 Cholesterol in HDL [Mass/Vol] 59 mg/dL >40 [facility] Comment on above: The drugs N-Acetylcy steine and Metamizole may falsely depress this assay. Reference Range HDL <40 mg/dL Low HDL Cholesterol HDL >or= 60 mg/dL High HDL Cholesterol Serum or plasma cholesterol in VLDL measurement (mass/volume)Ordered By: Shruthi Flores on 02-05-2023 Cholesterol in VLDL [Mass/Vol] 5 mg/dL 5-40 [facility] Serum or plasma creatinine m easurement (mass/volume)Ordered By: Shruthi Flores on 02-05-2023 Creatinine [Mass/Vol] 0.81 mg/dL 0.55-1.[address] [facility] Comment on above: The validity of the calculated GFR & GFRAA in patients over 70 years has not been determined. Clinical correlation is essential. Serum or plasma low density lipoprotein (LDL) cholesterol measurement (mass/volume)Ordered By: Shruthi Flores on 02-05-2023 Cholesterol in LDL [Mass/Vol] 78 mg/dL 0-130 [facility] Serum or plasma urea nitroge n measurement (mass/volume)Ordered By: Shruthi Flores on 02-05-2023 Urea nitrogen [Mass/Vol] 12 mg/dL 7-18 [facility] Thin prep Papanicolaou smear with manual screeningOrdered By: Shruthi Flores on 02-05-2023 Thin prep Papanicolaou smear with manual screening 19 U/L 15-37 [facility] Thin prep Papanicolaou smear with manual screening 3 5-15 [facility] Thin prep Papanicolaou smear with manual screening < 5.0 mg/L NO RANGE EST. [facility] Urine creatinine measurement (mass/volume)Ordered By: Shruthi Flores on 02-05-2023 Creatinine (U) [Mass/Vol] 23.10 mg/dL NO RANGE EST. [facility] Whole blood hemoglobin A1c/t otal hemoglobin ratio (mass fraction)Ordered By: Shruthi Flores on 02-05-2023 HbA1c (Bld) [Mass fraction] 6.6 % 3.8-5.6 [facility] Comment on above: Normal < 5.7 % Predi abetic 5.7 - 6.4 % Diabetic >or= 6.5 % Please note range changes. HBA1C (OUTSIDE)on 08-10-2022 HbA1c (Bld) [Mass fraction] 6.2 % [facility] ALBUMIN/CREAT RATIO (UACR) ( FOR [facility] USE)on 01-26-2022 Creatinine (U) [Mass/Vol] 51.50 mg/dL 10 - 300 mg/dL [facility] Microalbumin, Random urine 5.0 [facility] HbA1c (Bld)on 01-26-2022 HbA1c (Bld) [Mass fraction] 6.1 % Abnormal 4 - 6 % [facility] LIPID PANEL (EXTERNAL)on Cholesterol [Mass/Vol] 165 mg/dL 0 - 200 MG/DL [facility] HDC-L 60 mg/dL Abnormal 41 mg/dL [facility] LDL Chol, calculated 92 MG/DL 130 MG/DL [facility] Triglyceride [Mass/Vol] 64 mg/dL 149 mg/dL [facility] Basophil percentageon 2021 Bilirubin [Mass/Vol] 0.40 mg/dL 0.20-1.00 [facility] Work Phone: Comment on above: For patients on eltr ombopag therapy, use of Dimension [place] TBIL is not recommended. Chloride [Moles/Vol] 104 mmol/L 98-107 [facility] Work Phone: Cholesterol [Mass/Vol] 165 mg/dL <200 [facility] Work Phone: Comment on above: <200 mg/dL Desirable 200-240 mg/dL Borderline >240 mg/dL High Risk Glucose [Mass/Vol] 136 mg/dL 74-106 [facility] Work Phone: Comment on above: Fasting Glucose resu lt greater than or equal to 126 mg/dL suggests DIABETES MELLITUS per A.D.A. criteria. Potassium [Moles/Vol] 4.0 mmol/L 3.5-5.[address] [facility] Work Phone: Protein [Mass/Vol] 6.8 g/dL 6.4-8.2 [facility] Work Phone: Sodium [Moles/Vol] 139 mmol/L 136-145 [facility] Work Phone: Triglyceride [Mass/Vol] 64 mg/dL <199 [facility] Work Phone: Comment on above: The drugs N-Acetylcy steine and Metamizole may falsely depress this assay.Serum Triglycerides Reference Interval Normal <150 mg/dL Borderline high 150 - 199 mg/dL High 200 - 499 mg/dL Very High > or = 500 mg/dL Laboratory - Chemistry and C hemistry - challengeon 01-23-2022 ALP [Catalytic activity/Vol] 53 U/L 45-117 [facility] Work Phone: ALT [Catalytic activity/Vol] 24 U/L 13-56 [facility] Work Phone: CO2 [Moles/Vol] 29.0 mmol/L 21.0-32.0 [facility] Work Phone: Globulin (S) [Mass/Vol] 3.3 g/dL 2.2-4.2 [facility] Work Phone: Urea nitrogen/Creatinine [Mass ratio] 14.0 mg/mg 10-20 [facility] Work Phone: No Panel Informationon 01-23 Estimated GFR (MDRD) Amer 99 mL/min >60 [facility] Work Phone: Comment on above: GFR Calc Estimated GFR (MDRD) Non-Af Amer 82 mL/min >60 [facility] Work Phone: Comment on above: Non- GFR Calc Thyroid Stimulating Hormone (TSH) 1.09 uIU/mL 0.358-3.74 [facility] Work Phone: Urine Microalbumin/Creatinine Ratio TNP [facility] Work Phone: Comment on above: Test not performed Vitamin D 25-Hydroxy 54.8 ng/mL [facility] Work Phone: Comment on above: Vitamin D 25(OH) Sta tus Range Deficiency <20 ng/mL (50nmol/L) Insufficiency 20 - 30 ng/mL (50 - 75 nmol/L) Sufficiency 30 - 100 ng/mL (75 - 250 nmol/L) Toxicity >100 ng/mL (>250 nmol/L) Serum or plasma albumin delio urement (mass/volume)on 01-23-2022 Albumin [Mass/Vol] 3.5 g/dL 3.2-5.0 [facility] Work Phone: Serum or plasma albumin/glob ulin mass ratioon 01-23-2022 Albumin/Globulin [Mass ratio] 1.1 {ratio} 0.9-2.4 [facility] Work Phone: Serum or plasma calcium delio urement (mass/volume)on 01-23-2022 Calcium [Mass/Vol] 9.2 mg/dL 8.5-10.1 [facility] Work Phone: Serum or plasma cholesterol in HDL measurement (mass/volume)on 01-23-2022 Cholesterol in HDL [Mass/Vol] 60 mg/dL >40 [facility] Work Phone: Comment on above: The drugs N-Acetylcy steine and Metamizole may falsely depress this assay. Reference Range HDL <40 mg/dL Low HDL Cholesterol HDL >or= 60 mg/dL High HDL Cholesterol Serum or plasma cholesterol in VLDL measurement (mass/volume)on 01-23-2022 Cholesterol in VLDL [Mass/Vol] 13 mg/dL 5-40 [facility] Work Phone: Serum or plasma creatinine m easurement (mass/volume)on 01-23-2022 Creatinine [Mass/Vol] 0.78 mg/dL 0.55-1.[address] [facility] Work Phone: Comment on above: The validity of the calculated GFR & GFRAA in patients over 70 years has not been determined. Clinical correlation is essential. Serum or plasma low density lipoprotein (LDL) cholesterol measurement (mass/volume)on 01-23-2022 Cholesterol in LDL [Mass/Vol] 92 mg/dL 0-130 [facility] Work Phone: Serum or plasma urea nitroge n measurement (mass/volume)on 01-23-2022 Urea nitrogen [Mass/Vol] 11 mg/dL 7-18 [facility] Work Phone: Thin prep Papanicolaou smear with manual screeningon 01-23-2022 Thin prep Papanicolaou smear with manual screening 21 U/L 15-37 [facility] Work Phone: Thin prep Papanicolaou smear with manual screening 6 5-15 [facility] Work Phone: Thin prep Papanicolaou smear with manual screening < 5.0 mg/L NO RANGE EST. [facility] Work Phone: Urine creatinine measurement (mass/volume)on 01-23-2022 Creatinine (U) [Mass/Vol] 51.50 mg/dL NO RANGE EST. [facility] Work Phone: Whole blood hemoglobin A1c/t otal hemoglobin ratio (mass fraction)on 01-23-2022 HbA1c (Bld) [Mass fraction] 6.1 % 3.8-5.6 [facility] Work Phone: Comment on above: Normal < 5.7 % Predi abetic 5.7 - 6.4 % Diabetic >or= 6.5 % Please note range changes. HGB A1Con 08-10-2021 HbA1c (Bld) [Mass fraction] 6.1 % Abnormal 4 - 6 % [facility] XR Shoulder - right 3 Viewso n 09-15-2020 IMPRESSION: Minimal reactive changes of the AC joint, otherwise no significant bony process is identified. Cardiac Sonographer: [facility] Antonio Transcribe Date/Time: Sep 15 2020 7:09P Dictated by : QUYNH ARCE MD This examination was interpreted and the report reviewed and electronically signed by: QUYNH ARCE MD on Sep 15 2020 7:11PM [facility] DIVISION OF RADIOLOGY * * *Final Report* * * DATE OF EXAM: Sep 15 2020 5:20PM WOX [id number] - XR SHLDR >/=3V AP/ASCENCION AP/OTHR RT / PROCEDURE REASON: multiple diagnoses * * * * Physician Interpretation * * * * HISTORY: Anterior right shoulder pain that radiates down upper arm. Limited range of motion x 2 months. Other injury of unspecified muscle, fascia and tendon at shoulder and upper arm level, unspecified arm, initial encounter Chronic right shoulder pain Chronic right shoulder pain . TECHNIQUE: XR SHLDR >/=3V AP/ASCENCION AP/OTHR RT Laterality: RIGHT Number of different views (projections): 3 COMPARISON: None RESULT: Normal alignment of the proximal humerus. No fracture identified. Benign reactive irregularity of the AC joint which is well-maintained. Glenohumeral articulation subacromial space are preserved. DIVISION OF RADIOLOGY Provider, Shweta Ferrisrobin [facility] - 09/15/2020 * * *Final Report* * * DATE OF EXAM: Sep 15 2020 5:20PM WOX [id number] - XR SHLDR >/=3V AP/ASCENCION AP/OTHR RT / PROCEDURE REASON: multiple diagnoses * * * * Physician Interpretation * * * * HISTORY: Anterior right shoulder pain that radiates down upper arm. Limited range of motion x 2 months. Other injury of unspecified muscle, fascia and tendon at shoulder and upper arm level, unspecified arm, initial encounter Chronic right shoulder pain Chronic right shoulder pain . TECHNIQUE: XR SHLDR >/=3V AP/ASCENCION AP/OTHR RT Laterality: RIGHT Number of different views (projections): 3 COMPARISON: None RESULT: Normal alignment of the proximal humerus. No fracture identified. Benign reactive irregularity of the AC joint which is well-maintained. Glenohumeral articulation subacromial space are preserved. IMPRESSION IMPRESSION: Minimal reactive changes of the AC joint, otherwise no significant bony process is identified. Cardiac Sonographer: [facility] Transcribe Date/Time: Sep 15 2020 7:09P Dictated by : QUYNH ARCE MD This examination was interpreted and the report reviewed and electronically signed by: QUYNH ARCE MD on Sep 15 2020 7:11PM [facility] Radiology Study observation (narrative) Archana ball [facility] XR Shoulder - right 3 ViewsO rdered By: Cc Provider on 09-15-2020 [facility] Hemoglobin A1Con 07-16-2019 HbA1c (Bld) [Mass fraction] 108 mg/dl Normal [facility] Comment on above: Performed By: #### L A1C #### [place] [address] HbA1c (Bld) [Mass fraction] 5.4 % Normal 4.5-6.2 [facility] Comment on above: Performed By: #### L A1C #### [place] [address] Comprehensive Panelon 2018 Bilirubin [Mass/Vol] 0.4 mg/dL Normal 0.2-1.0 [facility] Comment on above: Performed By: #### P 14 #### [facility] [address] [place], [place] [address] ALT [Catalytic activity/Vol] 24 U/L Normal 12-78 [facility] Comment on above: Performed By: #### P 14 #### [facility] [address] [place], [place] [address] AST [Catalytic activity/Vol] 17 U/L Normal 15-37 [facility] Comment on above: Performed By: #### P 14 #### [facility] [address] [place], [place] [address] ALP [Catalytic activity/Vol] 55 U/L Normal 45-117 [facility] Comment on above: Performed By: #### P 14 #### [facility] [address] [place], [place] [address] Creatinine [Mass/Vol] 0.77 mg/dL Normal 0.51-0.95 [facility] Comment on above: Performed By: #### P 14 #### [facility] [address] [place], [place] [address] Protein [Mass/Vol] 6.4 g/dL Normal 6.4-8.2 [facility] Comment on above: Performed By: #### P 14 #### [facility] [address] [place], [place] [address] Glucose [Mass/Vol] 117 mg/dL High 70-99 [facility] Comment on above: Performed By: #### P 14 #### [facility] [address] [place], [place] [address] Albumin [Mass/Vol] 3.5 g/dL Normal 3.4-5.0 [facility] Comment on above: Performed By: #### P 14 #### [facility] [address] [place], [place] [address] Anion gap [Moles/Vol] 8 mmol/L Normal 8-16 [facility] Comment on above: Performed By: #### P 14 #### [facility] [address] [place], [place] [address] CO2 [Moles/Vol] 30 mmol/L Normal 21-32 [facility] Comment on above: Performed By: #### P 14 #### [facility] [address] [place], [place] [address] Urea nitrogen [Mass/Vol] 11 mg/dL Normal 7-18 [facility] Comment on above: Performed By: #### P 14 #### [facility] [address] [place], [place] [address] Calcium [Mass/Vol] 9.0 mg/dL Normal 8.5-10.1 [facility] Comment on above: Performed By: #### P 14 #### [facility] [address] [place], [place] [address] Chloride [Moles/Vol] 103 mmol/L Normal 98-107 [facility] Comment on above: Performed By: #### P 14 #### [facility] [address] [place], [place] [address] Potassium [Moles/Vol] 4.2 mmol/L Normal 3.5-5.1 [facility] Comment on above: Performed By: #### P 14 #### [facility] [address] [place], [place] [address] Sodium [Moles/Vol] 137 mmol/L Normal 136-145 [facility] Comment on above: Performed By: #### P 14 #### [facility] [address] [place], [place] [address] Hemoglobin A1Con 03-09-2019 HbA1c (Bld) [Mass fraction] 140 mg/dl Normal [facility] Comment on above: Performed By: #### L A1C #### [facility] [address] [place], [place] [address] HbA1c (Bld) [Mass fraction] 6.5 % High 4.5-6.2 [facility] Comment on above: Performed By: #### L A1C #### [facility] [address] [place], [place] [address] Lipid Profileon 03-09-2019 Cholesterol [Mass/Vol] 152 mg/dL Normal 0-199 [facility] Comment on above: Performed By: #### L LIPD #### [facility] [address] [place], [place] [address] Cholesterol in HDL [Mass/Vol] 60 mg/dL Normal >40 [facility] Comment on above: Performed By: #### L LIPD #### [facility] [address] [place] [address] Cholesterol in LDL [Mass/Vol] 85 mg/dL Normal 0-150 [facility] Comment on above: Performed By: #### L LIPD #### [facility] [address] [place] [address] Cholesterol.total/Chasity sterol in HDL [Mass ratio] 2.5 {ratio} Normal 1.8-5.3 [facility] Comment on above: Performed By: #### L LIPD #### [facility] [address] [place] [address] Triglyceride Blood 34 mg/dL Normal 0-149 [facility] Comment on above: Performed By: #### L LIPD #### [facility] [address] [place] [address] Risk Factor See Below Normal [facility] Comment on above: Result Comment: Card iac Risk Factor The CHD risk factor is based on the total Chol/HDL ratio. Other factors affect CHD risk such as hypertension, smoking, diabetes, severe obesity and premature CHD. Cardiac Risk Total Chol/HDL ratio Men Women 1/2 avg risk 3.4-4.9 3.3-6.3 Avg risk 5.0-9.5 6.4-7.0 2x avg risk 9.6-23.3 7.1-10.9 3x avg risk >23.4 >11.0 Performed By: #### L LIPD #### [facility] [address] [place] [address] MDRD GFRon 03-09-2019 GFR/1.73 sq M predicted among non-blacks MDRD (S/P/Bld) [Vol rate/Area] mL/min/{1.73_m2} Normal >60mL/min/1.7 3m2 [facility] Comment on above: Result Comment: If t he patient is , multiply the result by 1.210. Performed By: #### G FR #### [facility] [address] [place] [address] Comprehensive Panelon 2018 ALP [Catalytic activity/Vol] 56 U/L Normal 46-116 [facility] Comment on above: Performed By: #### P 14 #### [facility] [address] [place] [address] Bilirubin [Mass/Vol] 0.3 mg/dL Normal 0.2-1.0 [facility] Comment on above: Performed By: #### P 14 #### [facility] [address] [place] [address] Protein [Mass/Vol] 6.9 g/dL Normal 6.4-8.2 [facility] Comment on above: Performed By: #### P 14 #### [facility] [address] [place] [address] Creatinine [Mass/Vol] 0.62 mg/dL Normal 0.51-0.95 [facility] Comment on above: Performed By: #### P 14 #### [facility] [address] [place] [address] ALT [Catalytic activity/Vol] 17 U/L Normal 12-78 [facility] Comment on above: Performed By: #### P 14 #### [facility] [address] [place], [place] [address] AST [Catalytic activity/Vol] 14 U/L Normal 9-37 [facility] Comment on above: Performed By: #### P 14 #### [facility] [address] [place], [place] [address] Albumin [Mass/Vol] 3.4 g/dL Normal 3.4-5.0 [facility] Comment on above: Performed By: #### P 14 #### [facility] [address] [place], [place] [address] Anion gap [Moles/Vol] 6 mmol/L Low 8-16 [facility] Comment on above: Performed By: #### P 14 #### [facility] [address] [place], [place] [address] CO2 [Moles/Vol] 32 mmol/L Normal 21-32 [facility] Comment on above: Performed By: #### P 14 #### [facility] [address] [place], [place] [address] Glucose [Mass/Vol] 72 mg/dL Normal 70-99 [facility] Comment on above: Performed By: #### P 14 #### [facility] [address] [place], [place] [address] Urea nitrogen [Mass/Vol] 7 mg/dL Normal 7-18 [facility] Comment on above: Performed By: #### P 14 #### [facility] [address] [place], [place] [address] Calcium [Mass/Vol] 8.9 mg/dL Normal 8.5-10.1 [facility] Comment on above: Performed By: #### P 14 #### [facility] [address] [place], [place] [address] Chloride [Moles/Vol] 103 mmol/L Normal 98-107 [facility] Comment on above: Performed By: #### P 14 #### [facility] [address] [place], [place] [address] Potassium [Moles/Vol] 3.6 mmol/L Normal 3.5-5.1 [facility] Comment on above: Performed By: #### P 14 #### [facility] [address] [place], [place] [address] Sodium [Moles/Vol] 137 mmol/L Normal 136-145 [facility] Comment on above: Performed By: #### P 14 #### [facility] [address] [place], [place] [address] Hemoglobin A1Con 09-15-2018 HbA1c (Bld) [Mass fraction] 148 mg/dl Normal [facility] Comment on above: Performed By: #### L A1C #### [facility] [address] [place], [place] [address] HbA1c (Bld) [Mass fraction] 6.8 % High 4.5-6.2 [facility] Comment on above: Performed By: #### L A1C #### [facility] [address] [place], [place] [address] MDRD GFRon 09-15-2018 GFR/1.73 sq M predicted among non-blacks MDRD (S/P/Bld) [Vol rate/Area] mL/min/{1.73_m2} Normal >60mL/min/1.7 3m2 [facility] Comment on above: Result Comment: If t he patient is , multiply the result by 1.210. Performed By: #### G FR #### [facility] [address] [place], [place] [address] Vital Signs Date Time Vital Sign Value Performing Clinician Maury pablo 01-09-2025 07:20-0400 Body height 167.6 cm Alicia Lyles APRN.POLE INCISOR OPERATOR Work Phone: [facility] 01-09-2025 07:20-0400 Body mass index (BMI) [Ratio] 26.79 kg/m2 Alicia Lyles APRN.POLE INCISOR OPERATOR Work Phone: [facility] 01-09-2025 07:20-0400 Body weight 75.3 kg Alicia Lyles APRN.POLE INCISOR OPERATOR Work Phone: [facility] 01-09-2025 07:20-0400 Diastolic blood pressure 60 mm[Hg] Alicia Lyles APRN.POLE INCISOR OPERATOR Work Phone: [facility] 01-09-2025 07:20-0400 Systolic blood pressure 120 mm[Hg] Alicia Lyles APRN.POLE INCISOR OPERATOR Work Phone: [facility] 07-09-2024 19:48-0500 Body mass index (BMI) [Ratio] 32.45 kg/m2 Sánchez Tabares MD Work Phone: [facility] 07-09-2024 19:48-0500 Body weight 88.45 kg Sánchez Tabares MD Work Phone: [facility] 07-09-2024 19:48-0500 Diastolic blood pressure 72 mm[Hg] Sánchez Tabares MD Work Phone: [facility] 07-09-2024 19:48-0500 Heart rate 93 /min Sánchez Tabares MD Work Phone: [facility] 07-09-2024 19:48-0500 SaO2% (BldA) [Mass fraction] 100 % Sánchez Tabares MD Work Phone: [facility] 07-09-2024 19:48-0500 Systolic blood pressure 112 mm[Hg] Sánchez Tabares MD Work Phone: [facility] 11-01-2023 16:45-0400 Body weight 88.72 kg Sánchez Tabares MD Work Phone: [facility] 11-01-2023 16:45-0400 Diastolic blood pressure 78 mm[Hg] Sánchez Tabares MD Work Phone: [facility] 11-01-2023 16:45-0400 Heart rate 89 /min Sánchez Tabares MD Work Phone: [facility] 11-01-2023 16:45-0400 Respiratory rate 16 /min Sánchez Tabares MD Work Phone: [facility] 11-01-2023 16:45-0400 SaO2% (BldA) [Mass fraction] 100 % Sánchez Tabares MD Work Phone: [facility] 11-01-2023 16:45-0400 Systolic blood pressure 122 mm[Hg] Sánchez Tabares MD Work Phone: [facility] 11-26-2022 16:48-0400 Body weight 90.72 kg Sánchez Tabares MD Work Phone: [facility] 11-26-2022 16:48-0400 Diastolic blood pressure 72 mm[Hg] Sánchez Tabares MD Work Phone: [facility] 11-26-2022 16:48-0400 Heart rate 89 /min Sánchez Tabares MD Work Phone: [facility] 11-26-2022 16:48-0400 SaO2% (BldA) [Mass fraction] 98 % Sánchez Tabares MD Work Phone: [facility] 11-26-2022 16:48-0400 Systolic blood pressure 138 mm[Hg] Sánchez Tabares MD Work Phone: [facility] 06-02-2022 07:00-0500 Body weight 87.09 kg Shira Espinosa APRN.POLE INCISOR OPERATOR Work Phone: [facility] 06-02-2022 07:00-0500 Diastolic blood pressure 68 mm[Hg] Shira Espinosa APRN.POLE INCISOR OPERATOR Work Phone: [facility] 06-02-2022 07:00-0500 Systolic blood pressure 114 mm[Hg] Shira Espinosa APRN.POLE INCISOR OPERATOR Work Phone: [facility] Encounters Encounter Date Encounter Type Care Provider Facility Start: 01-09-2025 End: 01-09-2025 Patient encounter procedure Alicia Lyles APRN.POLE INCISOR OPERATOR Work Phone: OB/Gynecology Comment on above: Encounter for gyneco logical examination (general) (routine) without abnormal findings (Primary Dx); Encounter for screening mammogram for breast cancer; Genitourinary syndrome of menopause Start: 01-09-2025 End: 01-09-2025 Patient encounter status Alicia Lyles APRN.POLE INCISOR OPERATOR Work Phone: [facility] Start: 12-04-2024 End: 12-05-2024 Refill Karolyn Humphreys APRN.POLE INCISOR OPERATOR Work Phone: [facility] Comment on above: Refill Request Start: 09-20-2024 End: 09-20-2024 ambulatory [facility] Start: 09-20-2024 End: 09-20-[facility] Start: 09-07-2024 ambulatory [facility] Start: 09-07-2024 End: 09-07-2024 ambulatory [facility] Facility:[facility] Start: 08-13-2024 End: 08-13-2024 ambulatory [facility] Facility:[facility] Start: 07-11-2024 End: 07-11-2024 ambulatory [facility] Facility:[facility] Start: 07-09-2024 End: 07-09-2024 Patient encounter procedure Sánchez Tabares MD Work Phone: [facility] Comment on above: Diabetes mellitus ty pe 1, controlled, without complications (HCC) (Primary Dx); Acquired hypothyroidism; Hyperlipidemia with target LDL less than 100; Mild intermittent asthma without complication Start: 07-09-2024 End: 07-09-2024 ambulatory SÁNCHEZ Obed RAYSA Facility:[facility] Start: 07-02-2024 End: 07-02-2024 ambulatory Antonieta Searsony Facility:[facility] Start: 06-27-2024 End: 06-28-2024 Refill Sánchez Tabares MD Work Phone: [facility] Comment on above: Refill Request Start: 04-09-2024 End: 04-09-2024 Refill Sánchez Tabares MD Work Phone: [facility] Comment on above: Refill Request Start: 02-24-2024 End: 02-24-2024 ambulatory Justin Golias PT Work Phone: [facility] Comment on above: Posterior tibialis t endinitis of both lower extremities (Primary Dx); Acquired hallux valgus of right foot; Acquired hammer toe Start: 02-07-2024 End: 02-07-2024 ambulatory Justin Golias PT Work Phone: [facility] Comment on above: Posterior tibialis t endinitis of both lower extremities (Primary Dx); Acquired hallux valgus of right foot; Acquired hammer toe Start: 01-30-2024 Chart abstracting Sánchez Tran MD Work Phone: [facility] Start: 01-30-2024 End: 01-30-2024 ambulatory [facility] Facility:[facility] Start: 01-27-2024 End: 01-27-2024 ambulatory [facility] Facility:[facility] Start: 01-27-2024 End: 01-27-2024 ambulatory [facility] Facility:[facility] Start: 01-21-2024 End: 01-21-2024 ambulatory [facility] Facility:[facility] Start: 01-17-2024 Get Medical Advice Shira ortega APRN.POLE INCISOR OPERATOR Work Phone: OB/Gynecology Comment on above: Mammogram order Reorder a pair of or thotic inserts. Start: 11-01-2023 End: 11-01-2023 ambulatory SÁNCHEZ TABARES Facility:[facility] Start: 11-01-2023 End: 11-01-2023 Patient encounter procedure Sánchez Tabares MD Work Phone: [facility] Comment on above: Hyperlipidemia with target LDL less than 100 (Primary Dx); Acquired hypothyroidism; Diabetes mellitus type 1, controlled, without complications (HCC); Obesity, Class I, BMI 30-34.9; Bilateral impacted cerumen Start: 06-14-2023 Refill Sánchez Tabares MD Work Phone: [facility] Comment on above: Refill Request Start: 06-02-2023 End: 06-02-2023 ambulatory DANAE MANDO DORA Facility:[facility] Start: 03-01-2023 End: 03-01-2023 Patient encounter procedure Deshawn Baron Work Phone: Podiatry Comment on above: Porokeratosis (Prima ry Dx); Diabetes mellitus type 1, controlled, without complications (HCC) Start: 02-06-2023 Chart abstracting Sánchez Tran MD Work Phone: [facility] Start: 02-05-2023 End: 02-05-2023 ambulatory [facility] Work Phone: Start: 02-05-2023 End: 02-05-2023 Patient encounter procedure [facility]-Laboratory Work Phone: Start: 01-28-2023 End: 01-28-2023 Patient encounter procedure [facility]-Outpatient Breast Imaging Work Phone: Start: 01-17-2023 Telephone encounter Shira weiss APRN.CNP Work Phone: OB/Gynecology Comment on above: Orders Start: 11-26-2022 End: 11-26-2022 Patient encounter procedure Sánchez Tabares MD Work Phone: [facility] Comment on above: Diabetes mellitus ty pe 1, controlled, without complications (HCC) (Primary Dx); Acquired hypothyroidism; Anxiety with somatic features; Cervical radiculopathy; Hyperlipidemia with target LDL less than 100; Mild intermittent asthma without complication; Gastroesophageal reflux disease without esophagitis; Obesity, Class I, BMI 30-34.9 Start: 09-03-2022 Chart abstracting Sánchez Tran MD Work Phone: [facility] Start: 07-20-2022 Refill Sánchez Tabares MD Work Phone: [facility] Comment on above: Refill Request Start: 06-07-2022 ambulatory Shira DARDEN RN.POLE INCISOR OPERATOR Work Phone: OB/Gynecology Comment on above: Prescription Start: 06-02-2022 End: 06-02-2022 Patient encounter procedure Shira Espinosa APRN.POLE INCISOR OPERATOR Work Phone: OB/Gynecology Comment on above: Vaginal burning (Kanwal sumaya Dx); Postmenopausal atrophic vaginitis Start: 05-26-2022 End: 05-26-2022 ambulatory Justin Golias PT Work Phone: [facility] Physical Therapy Comment on above: Posterior tibialis t endinitis of both lower extremities (Primary Dx); Acquired hallux valgus of right foot; Acquired hammer toe Start: 05-16-2022 ambulatory Justin Golias P T Work Phone: [facility] Comment on above: New orthotics Start: 05-14-2022 End: 05-14-2022 ambulatory Justin Golias PT Work Phone: [facility] Therapy Comment on above: Posterior tibialis t endinitis of both lower extremities (Primary Dx); Acquired hallux valgus of right foot; Acquired hammer toe Start: 03-12-2022 End: 03-12-2022 Patient encounter procedure Deshawn Baron Work Phone: Podiatry Comment on above: Tibialis posterior t endinitis, unspecified laterality (Primary Dx); Diabetes mellitus type 1, controlled, without complications (HCC); Hammer toe, unspecified laterality; Hallux valgus of left foot Start: 01-27-2022 End: 01-27-2022 Patient encounter procedure [facility]-Outpatient Breast Imaging Start: 01-26-2022 Chart abstracting Sharita Santanalynne SCHILLING [facility] y Medicine [place] Start: 01-23-2022 End: 01-23-2022 Patient encounter procedure [facility]-Radiology, [facility] Start: 01-18-2022 Telephone encounter Shira weiss BIN Work Phone: OB/Gynecology Comment on above: Orders Start: 09-23-2021 Telephone encounter Sánchez Tabares MD Work Phone: Family Medicine [place] Comment on above: Patient Update Start: 09-15-2020 End: 09-15-2020 Subsequent hospital visit by physician [facility] Work Phone: Radiology Comment on above: Other injury of unsp ecified muscle, fascia and tendon at shoulder and upper arm level, unspecified arm, initial encounter [S46.999A] Procedures Date Procedure Procedure Detail Performing Clinician Start: 01-27-2024 Hemoglobin A1c/Hemoglobin.total in Blood [facility] Provider Start: 01-27-2024 MICROALBUMIN/CREATIN INE UR W RATIO (EXTERNAL) [facility] Provider Start: 06-02-2023 Colonoscopy Sánchez Tran MD Work Phone: Start: 02-05-2023 Hemoglobin A1c/Hemoglobin.total in Blood [facility] Provider Start: 02-05-2023 MICROALBUMIN/CREATIN INE UR W RATIO (EXTERNAL) [facility] Provider Start: 01-31-2023 Mammography Sánchez Tran MD Work Phone: Start: 01-28-2023 Screening mammography Start: 08-10-2022 Hemoglobin A1c/Hemoglobin.total in Blood Chintan Ramirez MD Work Phone: Start: 01-27-2022 End: 01-27-2022 Screening mammography Start: 01-23-2022 ALBUMIN/CREAT RATIO (UACR) (FOR [facility]) [facility] Provider Start: 01-23-2022 Hemoglobin A1c/Hemoglobin.total in Blood [facility] Provider Start: 01-23-2022 Lipid panel [facility] Provid er Start: 09-23-2021 Adult depression scr eening assessment Sánchez Tabares MD Work Phone: Start: 08-10-2021 Hemoglobin A1c/Hemoglobin.total in Blood [facility] Provider Start: 01-27-2021 Mammography Sánchez Tran MD Work Phone: Start: 09-15-2020 Radex shoulder compl ete minimum 2 views Bob Patel MD Start: 07-20-2018 Colonoscopy Sánchez Tran MD Work Phone: Plan of Treatment Date Care Activity Detail Author Start: 07-05-2031 Urine microalbumin profile [facility] Start: 06-02-2028 Screening for malign ant neoplasm of colon [facility] Start: 01-16-2026 HPV TESTING HPV TESTING [facility] Start: 01-16-2026 PAP TESTING PAP TESTING [facility] Start: 01-16-2026 Screening for malign ant neoplasm of cervix [facility] Start: 01-10-2026 End: 01-10-2026 Patient encounter procedure 01/10/2026 7:15 AM EDT Office Visit OB/Gynecology [address] [place], [place] [id number] Alicia Lyles APRN.POLE INCISOR OPERATOR [address] [place] [place] [address] Annual OB/Gynecology Comment on above: Annual Start: 07-09-2025 Annual PCP Team Pyrotechnician joaquina Disease Visit Annual PCP Team Chronic Disease Visit [facility] Start: 03-02-2025 Glaucoma screening Dilated Retinal E xam [facility] Start: 01-29-2025 Screening for malign ant neoplasm of breast Mammogram Screening [facility] Start: 01-26-2025 Hepatitis B screening Urine Albumin:Creatinine Ratio [facility] Start: 01-20-2025 Hepatitis B surface antibody level LDL Cholesterol [facility] Start: 10-31-2024 Annual PCP Team Pyrotechnician joaquina Disease Visit Annual PCP Team Chronic Disease Visit [facility] Start: 08-09-2024 Diabetic foot examination Diabetic Foot Exam [facility] Start: 07-29-2024 Hemoglobin A1c measurement HbA1C [facility] Start: 07-24-2024 Behavioral Health Screening Behavioral Health Screening [facility] Comment on above: Postponed from 07/25 (Declined at this time) Start: 07-09-2024 Depression Screening Depression Scre ening [facility] Comment on above: Postponed from 04/30 (Declined at this time) Start: 03-25-2024 Covid-19 Vaccine ( season) Covid-19 Vaccine () [facility] Start: 03-25-2024 Influenza vaccination Influenza Vacc ine (#1) [facility] Start: 03-11-2024 Glaucoma screening Dilated Retinal E xam [facility] Start: 03-11-2024 Hepatitis C antibody , confirmatory test Dilated Retinal Exam [facility] Start: 02-06-2024 Hepatitis B screening URINE ALBUMIN:CREATININE RATIO [facility] Start: 02-01-2024 Mammography [facility] Start: 02-01-2024 Screening for malign ant neoplasm of breast Mammogram Screening [facility] Start: 01-21-2024 End: 01-21-2024 Results Only 01/21/2024 9:45 AM EDT Results Only [facility] [address] [place] [address] PT WILL BRING IN OUTSIDE LAB ORDERS [facility] Comment on above: PT WILL BRING IN OUT SIDE LAB ORDERS Start: 11-27-2023 ANNUAL PCP TEAM CONDUIT REAMER OPERATOR JOAQUINA DISEASE VISIT ANNUAL PCP TEAM CHRONIC DISEASE VISIT [facility] Start: 11-27-2023 PNEUMOCOCCAL (2 - PCV) PNEUMOCOCCAL (2 - PCV) [facility] Comment on above: Postponed from 09/07 (Declined at this time) Start: 11-27-2023 Pneumococcal vaccination [facility] Comment on above: Postponed from 09/07 (Declined at this time) Start: 08-08-2023 Hemoglobin A1c measurement HbA1C [facility] Start: 08-08-2023 Hemoglobin A1c/Hemoglobin.total in Blood HBA1C [facility] Start: 07-24-2023 DEPRESSION ASSESSMENT DEPRESSION ASS ESSMENT [facility] Comment on above: Postponed from 07/25 (Declined at this time) Start: 07-20-2023 Colonoscopy COLONOSCOPY [facility] Start: 07-20-2023 COLORECTAL CANCER SCREENING COLORECTAL CANCER SCREENING [facility] Start: 03-25-2023 Influenza vaccination INFLUENZA (#1) [facility] Start: 03-02-2023 3 comp foot exam completed DIABETIC FOOT EXAM [facility] Start: 02-07-2023 Hemoglobin A1c/Hemoglobin.total in Blood HBA1C [facility] Start: 01-27-2023 Mammography MAMMOGRAM [facility] Start: 01-26-2023 Hepatitis C antibody , confirmatory test DILATED RETINAL EXAM [facility] Start: 01-23-2023 Hepatitis B screening URINE ALBUMIN:CREATININE RATIO [facility] Start: 09-23-2022 3 comp foot exam completed DIABETIC FOOT EXAM [facility] Start: 09-23-2022 Adult depression screening assessment DEPRESSION SCREENING [facility] Start: 09-23-2022 ANNUAL PCP TEAM CONDUIT REAMER OPERATOR JOAQUINA DISEASE VISIT ANNUAL PCP TEAM CHRONIC DISEASE VISIT [facility] Start: 07-26-2022 Hemoglobin A1c/Hemoglobin.total in Blood HBA1C [facility] Start: 07-25-2022 DEPRESSION ASSESSMENT DEPRESSION ASS ESSMENT [facility] Start: 03-25-2022 Influenza vaccination INFLUENZA (#1) [facility] Start: 02-07-2022 Hemoglobin A1c/Hemoglobin.total in Blood HBA1C [facility] Start: 02-06-2022 Hepatitis C antibody , confirmatory test DILATED RETINAL EXAM [facility] Start: 02-05-2022 Hepatitis B screening URINE ALBUMIN:CREATININE RATIO [facility] Start: 02-05-2022 Hepatitis B surface antibody level LDL CHOLESTEROL [facility] Start: 01-27-2022 Mammography MAMMOGRAM [facility] Start: 09-22-2021 COVID-19 VACCINE (4 - Booster for Pfizer series) COVID-19 VACCINE (4 - Booster for Pfizer series) [facility] Start: 07-25-2021 DEPRESSION ASSESSMENT DEPRESSION ASS ESSMENT [facility] Start: 2013 COLOGUARD (FIT-DNA) COLOGUARD (FIT-D NA) [facility] Start: [address] COLONOGRAPHY [facility] Start: 2013 FECAL OCCULT BLOOD FECAL OCCULT BLOO D [facility] Start: 2013 Screening for malign ant neoplasm of colon [facility] Start: 2013 SIGMOIDOSCOPY SIGMOIDOSCOPY [facility] Start: 09-07-2005 PNEUMOCOCCAL (2 - PCV) PNEUMOCOCCAL (2 - PCV) [facility] Start: 09-07-2005 Pneumococcal vaccination Pneum ococcal Vaccine (2 of 2 - PCV) [facility] Start: 09-07-2005 Pneumococcal Vaccine : 50+ (2 of 2 - PCV) Pneumococcal Vaccine: 50+ (2 of 2 - PCV) [facility] Start: 1987 HEPATITIS B (1 of 3 - Risk 3-dose series) HEPATITIS B (1 of 3 - Risk 3-dose series) [facility] Start: 1986 Depression Screening Depression Scre ening [facility] Start: 1968 HEPATITIS B (1 of 3 - 3-dose series) HEPATITIS B (1 of 3 - 3-dose series) [facility] BACTERIAL VAGINOSIS AMPLIFICATION BACTERIAL VAGINOSIS AMPLIFICATION Lab Routine Vaginal burning Ordered: 06/02/2022 [facility] Work Phone: Comment on above: Ordered: 06/02/2022 ROXIE / TRICHOMONA S AMPLIFICATION ROXIE / TRICHOMONAS AMPLIFICATION Microbiology Routine Vaginal burning Ordered: 06/02/2022 [facility] Work Phone: Comment on above: Ordered: 06/02/2022 End: 02-08-2026 DBT Breast - bilateral screening SHIRA SCREENING W GREER Radiology Routine Encounter for gynecological examination (general) (routine) without abnormal findings 1 Occurrences starting 01/09/2025 until 02/08/2026 [facility] Work Phone: Comment on above: 1 Occurrences starti ng 01/09/2025 until 02/08/2026 Removal impacted cer umen irrigation/lvg unilat AMBULATORY EAR LAVAGE/IRRIGATION Procedures Routine Bilateral impacted cerumen Ordered: 11/01/2023 [facility] Work Phone: Comment on above: Ordered: 11/01/2023 [facility] Immun[facility] Immunization Date Immunization Notes Care Provider Josue cerrato 04-23-2024 COVID-19 vaccine, ag e 12+ yr (PFIZER-BIONTrestorgenex corp [facility]) Sánchez Taabres MD Work Phone: [facility] 04-09-2024 influenza, seasonal, injectable Sánchez Tabares MD Work Phone: [facility] 04-18-2023 Influenza, injectabl e, Madin [place] Canine Kidney, preservative free, quadrivalent Sánchez Tabares MD Work Phone: [facility] 04-18-2023 influenza virus vacc ine, unspecified formulation Sánchez Taabres MD Work Phone: [facility] 05-07-2022 Influenza, injectabl e, Madin [place] Canine Kidney, preservative free, quadrivalent Sánchez Tabares MD Work Phone: [facility] 07-05-2021 tetanus toxoid, redu denisse diphtheria toxoid, and acellular pertussis vaccine, adsorbed Sánchez Tabares MD Work Phone: [facility] Work Phone: 04-13-2021 influenza, injectabl e, quadrivalent, contains preservative Sánchez Tabares MD Work Phone: [facility] 04-13-2021 influenza, injectabl e, quadrivalent, preservative free Sánchez Tabares MD Work Phone: [facility] Work Phone: 10-23-2020 COVID-19 vaccine, ag e 12+ yr (PFIZER-BIONTECH - PURPLE TOP) Sánchez Tabares MD Work Phone: [facility] Work Phone: 10-02-2020 COVID-19 vaccine, ag e 12+ yr (PFIZER-BIONTECH - PURPLE TOP) Sánchez Tabares MD Work Phone: [facility] 05-15-2020 zoster vaccine recombinant Sánchez Tabares MD Work Phone: [facility] 04-11-2020 influenza, injectabl e, quadrivalent, contains preservative Sánchez Tabares MD Work Phone: [facility] 04-11-2020 influenza, injectabl e, quadrivalent, preservative free Sánchez Tabares MD Work Phone: [facility] Work Phone: 03-14-2020 zoster vaccine recombinant Sánchez Tabares MD Work Phone: [facility] 04-06-2019 Influenza, injectabl e, Madin [place] Canine Kidney, preservative free, quadrivalent Sánchez Tabares MD Work Phone: [facility] Work Phone: 04-06-2019 influenza, seasonal, injectable Sánchez Tabares MD Work Phone: [facility] 04-20-2018 influenza, injectabl e, quadrivalent, preservative free Sánchez Tabares MD Work Phone: [facility] Work Phone: 04-20-2018 influenza, seasonal, injectable Sánchez Tabares MD Work Phone: [facility] 04-25-2017 influenza, injectabl e, quadrivalent, preservative free Sánchez Tabares MD Work Phone: [facility] Work Phone: 04-25-2017 influenza, seasonal, injectable Sánchez Tabares MD Work Phone: [facility] 04-06-2016 influenza, injectabl e, quadrivalent, preservative free Sánchez Tabares MD Work Phone: [facility] Work Phone: 04-06-2016 influenza, seasonal, injectable Sánchez Tabares MD Work Phone: [facility] 01-14-2016 hepatitis B immune globulin Sánchez Tabares MD Work Phone: [facility] 08-15-2015 hepatitis B immune globulin Sánchez Tabares MD Work Phone: [facility] 07-15-2015 hepatitis B immune globulin Sánchez Tabares MD Work Phone: [facility] 2015 influenza, injectabl e, quadrivalent, contains preservative Sánchez Tabares MD Work Phone: [facility] Work Phone: 2015 influenza, seasonal, injectable Deshawn Tod Work Phone: [facility] 05-02-2014 influenza, seasonal, injectable Sánchez Tabares MD Work Phone: [facility] Work Phone: 04-24-2013 Influenza virus vaccine [facility] 04-24-2013 influenza, seasonal, injectable, preservative free Sánchez Tabares MD Work Phone: [facility] Work Phone: 04-19-2013 influenza virus vacc ine, unspecified formulation Sánchez Tabares MD Work Phone: [facility] 04-24-2011 influenza virus vacc ine, unspecified formulation Sánchez Tabares MD Work Phone: [facility] Work Phone: 12-30-2010 tetanus toxoid, redu denisse diphtheria toxoid, and acellular pertussis vaccine, adsorbed Sánchez Tabares MD Work Phone: [facility] Work Phone: 04-28-2010 influenza virus vacc ine, unspecified formulation Sánchez Tabares MD Work Phone: [facility] 05-28-2009 novel influenza-H1N1 -09, all formulations Sánchez Tabares MD Work Phone: [facility] Work Phone: 04-26-2009 influenza virus vacc ine, unspecified formulation Sánchez Tabares MD Work Phone: [facility] Work Phone: 06-08-2008 influenza virus vacc ine, unspecified formulation Sánchez Tabares MD Work Phone: [facility] Work Phone: 09-07-2004 pneumococcal polysaccharide vaccine, 23 valent Sánchez Tabares MD Work Phone: [facility] Work Phone: 09-07-2004 Pneumococcal Vaccine [facility] Work Phone: 09-07-2004 pneumococcal vaccine , unspecified formulation [facility] 06-24-2003 pneumococcal polysaccharide vaccine, 23 valent Sánchez Tabares MD Work Phone: [facility] Work Phone: 10-18-2000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 melena, nausea, odynophagia, rectal bleeding, tenesmus, vomiting or weight changes Vital Signs Vital Signs Vital Signs: 09/07/24 12:44 09/07/24 12:44 09/07/24 13:34 Temperature 97.8 F 97.8 F Temperature Source Temporal Pulse Rate 89 89 Respiratory Rate 16 16 Respiratory Pat (more content not included)... [facility] 07-09-2024 Note HNO ID: [id number] Author: SÁNCHEZ TABARES MD Service: ? Author Type: Physician Type: Progress Notes Filed: 07/09/2024 20:22 Note Text: Patient presents with: 6 Month Exam HPI: Patient presents today for office visit for follow up . Endo: Per Dr Ramirez. She watches her Vitamin D as well as her diabetes and thyroid. She is managing most of her issues. She would like seen once a year. Saw Dr Martin's office. Having reflux. Is getting a ruq us. No bloody stools. Is on protonix. A1c is 6.0. Patient denies chest pain, shortness of breath, headaches, or dizziness. MEDICATIONS: Current Outpatient Medications Medication Sig montelukast (SINGULAIR) 10 mg tablet Take 1 tablet by mouth once daily. pantoprazole DR (PROTONIX) 40 mg tablet Take 1 tablet by mouth daily before breakfast. Take on empty stomach, 1/2 hr before meal. levothyroxine (LEVOXYL) 125 mcg tablet Take by mouth, 6 days per week. Skip dose on 7th day. Take on empty stomach. Fill as generic, not CHERELLE insulin aspart U-100 (NOVOLOG U-100 INSULIN ASPART) 100 unit/mL use as directed with insulin pump up to 60 units daily cranberry fruit extract (CRANBERRY EXTRACT ORAL) Take by mouth. rosuvastatin (CRESTOR) 5 mg tablet Take 1 tablet by mouth daily at bedtime. (Patient taking differently: Take 5 mg by mouth daily before breakfast.) enalapril (VASOTEC) 5 mg tablet Take 1 tablet by mouth once daily. UBIDECARENONE (COQ-10 ORAL) Take by mouth. FLAXSEED OIL (OMEGA 3 ORAL) Take by mouth as directed. COMPOUNDED PRESCRIPTION Ultimate eye support, with zeaxanthin MULTIVITAMIN TAB Take one(1) tablet daily. nystatin-triamcinolone (MYCOLOG II) cream Apply 1 application to affected area twice daily as needed. cyclobenzaprine (FLEXERIL) 10 mg tablet Take 1 tablet by mouth three times daily as needed. COMPOUNDED PRESCRIPTION one touch ultra test strips blue 50's test 8 times daily Magnesium 250 mg tab Take 250 mg by mouth once daily. VITAMIN D 400 UNIT CAP No current facility-administered medications for this visit. ALLERGIES: ALLERGIES Allergen Reactions Apples Bactrim [Sulfametho* Diarrhea Banana Swelling Lovastatin Other: See Comments poor sleep, excessive dreaming Seasonal Allergies Itching PAST MEDICAL HISTORY Diagnosis Date Esophageal reflux Gastroesophageal reflux Hyperlipidemia LDL goal < 100 07/17/2013 Type I (juvenile type) diabetes mellitus without mention of complication, not stated as uncontrolled (HCC) Dx age 24 Unspecified asthma(493.90) prn albuterol Unspecified hypothyroidism Hypothyroidism PAST SURGICAL HISTORY Procedure Laterality Date CAUTERY CERVIX CRYOCAUTERY INITIAL/REPEAT 1993 For abn pap and paps since normal COLONOSCOPY 07/20/2018 5 yr interval, benign polyp DILATION AND CURETTAGE DXAND/THER NONOBSTETRIC 02/26/2021 hysteroscopy DANDC EGD 07/20/2018 ESOPHAGOGASTRODUODENOSCOPY TRANSORAL DIAGNOSTIC EGD done 2 times [facility] ([place]) COVID-19 VACCINE, AGE 12+ YR (PURPLE TOP) 10/02/2020 FAMILY HISTORY Problem Relation Age of Onset Cancer Mother leukemia Diabetes Father Type 2 No Known Problems Sister other (Dementia) Maternal Grandmother No Known Problems Paternal Grandmother No Known Problems Paternal Grandfather Arthritis Son other (epilepsy) Son other (ADHD) Son other (Asperger's) Son Breast Cancer Paternal Aunt Social History Tobacco Use Smoking status: Former Current packs/day: 0.00 Types: Cigarettes Quit date: 05/11/1999 Years since quittin.1 Smokeless tobacco: Never Vaping Use Vaping status: Never Used Substance Use Topics Alcohol use: No Drug use: No Reviewed current medications, allergies, past medical history, surgical history, family history and social history today. REVIEW OF SYSTEMS All other reviewed and negative other than HPI. HEALTH MAINTENANCE: Reviewed health maintenance issues today and recommended the following in detail. Depression Screening Never done Pneumococcal Vaccine: 50+(2 of 2 - PCV) due on 09/07/2005 HbA1C due on 08/08/2023 Influenza Vaccine(1) due on 03/25/2024 Covid-19 Vaccine( season) due on 03/25/2024 Diabetic Foot Exam due on 08/09/2024 VITALS: BP 112/72 Pulse 93 Wt 88.5 kg (195 lb) LMP 02/23/2020 SpO2 100% BMI 32.45 kg/m? Last 4 Encounter Wt Readings: Date: Wt: 11/01/2023 88.7 kg (195 lb 9.6 oz) 05/18/2023 88.9 kg (196 lb) 05/11/2023 89 kg (196 lb 3.2 oz) 11/26/2022 90.7 kg (200 lb) PHYSICAL EXAMINATION: General appearance: Well appearing, alert, in no acute distress, well-hydrated, well nourished. Skin: Skin color, texture, turgor normal, no suspicious rashes or lesions Head: Normocephalic, no masses, lesions, tenderness or abnormalities Lungs: Lungs clear to auscultation. No wheezing, rhonchi, rales Heart: RRR without murmur, gallop, or rubs. No ectopy Abdomen: Normal abdominal exam, Abdomen soft, non-tender. Bowel sounds no (more content not included)... [facility] 07-09-2024 History of Presen t illness Narrative Patient presents with: 6 Month Exam HPI: Patient presents today for office visit for follow up . Endo: Per Dr Ramirez. She watches her Vitamin D as well as her diabetes and thyroid. She is managing most of her issues. She would like seen once a year. Saw Dr Martin's office. Having reflux. Is getting a ruq us. No bloody stools. Is on protonix. A1c is 6.0. Patient denies chest pain, shortness of breath, headaches, or dizziness. MEDICATIONS: Current Outpatient Medications Medication Sig montelukast (SINGULAIR) 10 mg tablet Take 1 tablet by mouth once daily. pantoprazole DR (PROTONIX) 40 mg tablet Take 1 tablet by mouth daily before breakfast. Take on empty stomach, 1/2 hr before meal. levothyroxine (LEVOXYL) 125 mcg tablet Take by mouth, 6 days per week. Skip dose on 7th day. Take on empty stomach. Fill as generic, not CHERELLE insulin aspart U-100 (NOVOLOG U-100 INSULIN ASPART) 100 unit/mL use as directed with insulin pump up to 60 units daily cranberry fruit extract (CRANBERRY EXTRACT ORAL) Take by mouth. rosuvastatin (CRESTOR) 5 mg tablet Take 1 tablet by mouth daily at bedtime. (Patient taking differently: Take 5 mg by mouth daily before breakfast.) enalapril (VASOTEC) 5 mg tablet Take 1 tablet by mouth once daily. UBIDECARENONE (COQ-10 ORAL) Take by mouth. FLAXSEED OIL (OMEGA 3 ORAL) Take by mouth as directed. COMPOUNDED PRESCRIPTION Ultimate eye support, with zeaxanthin MULTIVITAMIN TAB Take one(1) tablet daily. nystatin-triamcinolone (MYCOLOG II) cream Apply 1 application to affected area twice daily as needed. cyclobenzaprine (FLEXERIL) 10 mg tablet Take 1 tablet by mouth three times daily as needed. COMPOUNDED PRESCRIPTION one touch ultra test strips blue 50's test 8 times daily Magnesium 250 mg tab Take 250 mg by mouth once daily. VITAMIN D 400 UNIT CAP No current facility-administered medications for this visit. ALLERGIES: ALLERGIES Allergen Reactions Apples Bactrim [Sulfametho* Diarrhea Banana Swelling Lovastatin Other: See Comments poor sleep, excessive dreaming Seasonal Allergies Itching PAST MEDICAL HISTORY Diagnosis Date Esophageal reflux Gastroesophageal reflux Hyperlipidemia LDL goal < 100 07/17/2013 Type I (juvenile type) diabetes mellitus without mention of complication, not stated as uncontrolled (HCC) Dx age 24 Unspecified asthma(493.90) prn albuterol Unspecified hypothyroidism Hypothyroidism PAST SURGICAL HISTORY Procedure Laterality Date CAUTERY CERVIX CRYOCAUTERY INITIAL/REPEAT 1992 For abn pap and paps since normal COLONOSCOPY 07/20/2018 5 yr interval, benign polyp DILATION & CURETTAGE DX&/THER NONOBSTETRIC 02/26/2021 hysteroscopy D&C EGD 07/20/2018 ESOPHAGOGASTRODUODENOSCOPY TRANSORAL DIAGNOSTIC EGD done 2 times [facility] ([place]) COVID-19 VACCINE, AGE 12+ YR (PURPLE TOP) 10/02/2020 FAMILY HISTORY Problem Relation Age of Onset Cancer Mother leukemia Diabetes Father Type 2 No Known Problems Sister other (Dementia) Maternal Grandmother No Known Problems Paternal Grandmother No Known Problems Paternal Grandfather Arthritis Son other (epilepsy) Son other (ADHD) Son other (Asperger's) Son Breast Cancer Paternal Aunt Social History Tobacco Use Smoking status: Former Current packs/day: 0.00 Types: Cigarettes Quit date: 05/11/1999 Years since quittin.1 Smokeless tobacco: Never Vaping Use Vaping status: Never Used Substance Use Topics Alcohol use: No Drug use: No Reviewed current medications, allergies, past medical history, surgical history, family history and social history today. REVIEW OF SYSTEMS All other reviewed and negative other than HPI. HEALTH MAINTENANCE: Reviewed health maintenance issues today and recommended the following in detail. Depression Screening Never done Pneumococcal Vaccine: 50+(2 of 2 - PCV) due on 09/07/2005 HbA1C due on 08/08/2023 Influenza Vaccine(1) due on 03/25/2024 Covid-19 Vaccine( season) due on 03/25/2024 Diabetic Foot Exam due on 08/09/2024 VITALS: BP 112/72 Pulse 93 Wt 88.5 kg (195 lb) LMP 02/23/2020 SpO2 100% BMI 32.45 kg/m Last 4 Encounter Wt Readings: Date: Wt: 11/01/2023 88.7 kg (195 lb 9.6 oz) 05/18/2023 88.9 kg (196 lb) 05/11/2023 89 kg (196 lb 3.2 oz) 11/26/2022 90.7 kg (200 lb) PHYSICAL EXAMINATION: General appearance: Well appearing, alert, in no acute distress, well-hydrated, well nourished. Skin: Skin color, texture, turgor normal, no suspicious rashes or lesions Head: Normocephalic, no masses, lesions, tenderness or abnormalities Lungs: Lungs clear to auscultation. No wheezing, rhonchi, rales Heart: RRR without murmur, gallop, or rubs. No ectopy Abdomen: Normal abdominal exam, Abdomen soft, non-tender. Bowel sounds normal. No masses, organomegaly Extremities: No deformities, edema, skin discoloration, clubbing or cyanosis. Good capillary refill. ASSESSMENT/PLAN: 1. Diabetes mellitus type 1, controlled, without complications (HCC) - ICD9: 250.01, ICD10: E10.9 (primary diagnosis) - per endo. 2. Acquired hypothyroidism - ICD9: 244.9, ICD10: E03.9 - per endo. 3. Hyperlipidemia with target LDL less than 100 - ICD9: 272.4, ICD10: E78.5 - Controlled - Continue current medications - Counseled on healthy diet and regular exercise 4. Mild intermittent asthma without complication - ICD9: 493.90, ICD10: J45.20 - continue meds. Sánchez Tabares MD Since Dr Ramirez is managing most issues. Can see me in one year. documented in this encounter [facility] 06-28-2024 Telephone encounter Note The following approved medication requests have been transmitted electronically. Requested Prescriptions Pending Prescriptions Disp Refills montelukast (SINGULAIR) 10 mg tablet 90 tablet 1 Sig: Take 1 tablet by mouth once daily. Karolyn Humphreys APRN.CNP [facility] 06-28-2024 Miscellaneous Notes The following approved medication requests have been transmitted electronically. Requested Prescriptions Pending Prescriptions Disp Refills montelukast (SINGULAIR) 10 mg tablet 90 tablet 1 Sig: Take 1 tablet by mouth once daily. Karolyn Humphreys APRN.CNP Prescription Refill Information The patient has been identified by name and date of : Yes Caregiver verified no other encounters exist for this prescription request: Yes Caregiver confirmed with patient/requestor that no other refills are due, in the near future, with this provider at this time: Yes The last office visit in the department: 11/01/23 Does the patient have a future office visit with this provider/department: No Requested Prescriptions Pending Prescriptions Disp Refills montelukast (SINGULAIR) 10 mg tablet 90 tablet 3 Sig: Take 1 tablet by mouth once daily. Karrie Mungiua LPN June 28, 2024 2:25 PM documented in this encounter [facility] 06-28-2024 Telephone encounter Note Prescription Refill Information The patient has been identified by name and date of : Yes Caregiver verified no other encounters exist for this prescription request: Yes Caregiver confirmed with patient/requestor that no other refills are due, in the near future, with this provider at this time: Yes The last office visit in the department: 11/01/23 Does the patient have a future office visit with this provider/department: No Requested Prescriptions Pending Prescriptions Disp Refills montelukast (SINGULAIR) 10 mg tablet 90 tablet 3 Sig: Take 1 tablet by mouth once daily. Karrie Munguia LPN June 28, 2024 2:25 PM [facility] 04-09-2024 Telephone encounter Note Prescription Refill Information The patient has been identified by name and date of : Yes Caregiver verified no other encounters exist for this prescription request: Yes Caregiver confirmed with patient/requestor that no other refills are due, in the near future, with this provider at this time: Yes The last office visit in the department: 11/01/23 Does the patient have a future office visit with this provider/department: No Requested Prescriptions Pending Prescriptions Disp Refills pantoprazole DR (PROTONIX) 40 mg tablet 90 tablet 3 Sig: Take 1 tablet by mouth daily before breakfast. Take on empty stomach, 1/2 hr before meal. Enrrique Tompkins LPN April 09, 2024 11:41 AM [facility] 04-09-2024 Miscellaneous Notes Prescription Refill Information The patient has been identified by name and date of : Yes Caregiver verified no other encounters exist for this prescription request: Yes Caregiver confirmed with patient/requestor that no other refills are due, in the near future, with this provider at this time: Yes The last office visit in the department: 11/01/23 Does the patient have a future office visit with this provider/department: No Requested Prescriptions Pending Prescriptions Disp Refills pantoprazole DR (PROTONIX) 40 mg tablet 90 tablet 3 Sig: Take 1 tablet by mouth daily before breakfast. Take on empty stomach, 1/2 hr before meal. Enrrique Tompkins LPN April 09, 2024 11:41 AM documented in this encounter [facility] 02-24-2024 Note HNO ID: [id number] Author: JUSTIN BURROWS PT Service: ? Author Type: Physical Therapist Type: Progress Notes Filed: 02/24/2024 17:41 Note Text: Pt called and asked to have her newest pair of orthotics examined. She was concerned that the pair she received on 02/07/24 was not fitting correctly. She said that the L great toe cutout felt different from her previous pairs. She has been trying to wear the new pair for 2+ weeks. She reports that the proximal ridge of the cutout has become less uncomfortable but is still uncomfortable. Therapist asked her to bring her old and new pairs today for comparison. After a lengthy discussion, comparison of old and new and test fittings to assess the location of cutouts, pt chose not to send the new pair back for re-positioning of cut out. The cutout in older pairs was 1 cm more proximal compared to new pair. When fit was tested, it was determined that the placement of cutout in newest pair did the best job of offloading plantar pad of L great toe. Therapist explained the options to patient and she decided to keep the new pair instead of sending them back to re-position cutout. Pt understood and agreed with this plan Previous order number for old/original pair RX-A: #[id number] Previous order number for second pair RX-B: [id number] Order number for most recent pair RX-A: [id number] Justin Burrows PT No charge for time [facility] 02-24-2024 History of Presen t illness Narrative Pt called and asked to have her newest pair of orthotics examined. She was concerned that the pair she received on 02/07/24 was not fitting correctly. She said that the L great toe cutout felt different from her previous pairs. She has been trying to wear the new pair for 2+ weeks. She reports that the proximal ridge of the cutout has become less uncomfortable but is still uncomfortable. Therapist asked her to bring her old and new pairs today for comparison. After a lengthy discussion, comparison of old and new and test fittings to assess the location of cutouts, pt chose not to send the new pair back for re-positioning of cut out. The cutout in older pairs was 1 cm more proximal compared to new pair. When fit was tested, it was determined that the placement of cutout in newest pair did the best job of offloading plantar pad of L great toe. Therapist explained the options to patient and she decided to keep the new pair instead of sending them back to re-position cutout. Pt understood and agreed with this plan Previous order number for old/original pair RX-A: #[id number] Previous order number for second pair RX-B: [id number] Order number for most recent pair RX-A: [id number] Justin Burrows PT No charge for time documented in this encounter [facility] 02-07-2024 Note HNO ID: [id number] Author: JUSTIN BURROWS PT Service: ? Author Type: Physical Therapist Type: Progress Notes Filed: 02/07/2024 16:19 Note Text: [facility] DME ISSUE NOTE Patient identified by name and date: Yes Subjective: Earline Hernandez is a 53 year old female seen today for fitting and seed cone picker of duplicate pair of custom foot orthotics. Equipment Owned: custom foot orthotics DME Delivery: Pt was educated on wear schedule and care of custom foot orthotics. Pt was educated on the option of having orthotics refurbished as needed in the future as long as shell is performing it's intended function well. Pt was educated on approximate cost of refurbishing orthotics and an approximate time frame when this might be necessary. The fit of orthotics was assessed with pt standing, with and without shoes. The comfort of orthotics was assessed with pt standing and walking with orthotics in shoes. Pt denied any rubbing or pinching and felt that fit of custom orthotics was correct. Contact information for this therapist was provided to patient. Pt did report that the cutout on the L orthotic was fitting her foot different than her old pair. When the old pair was compared tothe new pair, the cutout was in a slightly different spot. She will try to accommodate and if she has any problems, she will call. Custom biomechanical foot orthotics with serial number: #[id number] were issued to patient. All specifications for custom foot orthotics can be found in orthotic evaluation visit note. Planned Interventions: Follow up as needed for brace fitting/issues. Billing:[facility]: Equipment: [id number] x2 pair of custom foot orthotics No charge for time. Total time: 13 minutes Justin Burrows PT [facility] 02-07-2024 History of Presen t illness Narrative [facility] DME ISSUE NOTE Patient identified by name and date: Yes Subjective: Earline Hernandez is a 53 year old female seen today for fitting and seed cone picker of duplicate pair of custom foot orthotics. Equipment Owned: custom foot orthotics DME Delivery: Pt was educated on wear schedule and care of custom foot orthotics. Pt was educated on the option of having orthotics refurbished as needed in the future as long as shell is performing it's intended function well. Pt was educated on approximate cost of refurbishing orthotics and an approximate time frame when this might be necessary. The fit of orthotics was assessed with pt standing, with and without shoes. The comfort of orthotics was assessed with pt standing and walking with orthotics in shoes. Pt denied any rubbing or pinching and felt that fit of custom orthotics was correct. Contact information for this therapist was provided to patient. Pt did report that the cutout on the L orthotic was fitting her foot different than her old pair. When the old pair was compared to the new pair, the cutout was in a slightly different spot. She will try to accommodate and if she has any problems, she will call. Custom biomechanical foot orthotics with serial number: #[id number] were issued to patient. All specifications for custom foot orthotics can be found in orthotic evaluation visit note. Planned Interventions: Follow up as needed for brace fitting/issues. Billing:[facility]: Equipment: [id number] x2 pair of custom foot orthotics No charge for time. Total time: 13 minutes Justin Burrows PT documented in this encounter [facility] 01-17-2024 Telephone encounter Note Order sheet to provider for signature. Estrella Barbosa LPN [facility] 01-17-2024 Miscellaneous Notes Order sheet to provider for signature. Estrella Barbosa LPN documented in this encounter [facility] 11-02-2023 Nurse Note Ambulatory Ear Lavage Pre-treatment: No pre-treatment Treatment: Both ears Equipment and Irrigation solution and Volume used: Single use syringe with single use irrigation tip Water Return flow appearance: Brown Yellow Patient tolerated procedure: yes Tympanic membrane assessment: Tympanic membrane assessed by LIP pre and post procedure documented in this encounter [facility] 11-01-2023 Note HNO ID: [id number] Author: SÁNCHEZ TABARES MD Service: ? Author Type: Physician Type: Progress Notes Filed: 11/02/2023 08:03 Note Text: Patient presents with: Follow Up: Pressure is right ear HPI: Patient presents today for office visit for follow up. Complains of stuffiness in her ears on and off in alternating ears. Last week both ears were stuffy. Used an ear wax softening kit. Did not get any results. No drainage. No fever or chills. Right side is still congested. No fever No sore throat or cough. Seeing Dr Ramirez. Sugars have been good. A1c was 7.0 on her machine. She things her CGM was close to 6.5 She was told she was fabulous. She will be doing labs in December or January. Will likely be done her at [facility]. They will be checking her lipids and thyroid as well. Thyroid is doing well. Energy is good. Rare gerd. No issues with crestor. Breathing is doing well. Not using albuterol. Singulair is doing well. No chest pain or shortness of breath. Seeing Som sykes for her shoulder. MEDICATIONS: Current Outpatient Medications Medication Sig montelukast (SINGULAIR) 10 mg tablet Take 1 tablet by mouth once daily. pantoprazole DR (PROTONIX) 40 mg tablet Take 1 tablet by mouth daily before breakfast. Take on empty stomach, 1/2 hr before meal. nystatin-triamcinolone (MYCOLOG II) cream Apply 1 application to affected area twice daily as needed. albuterol HFA (PROAIR HFA) 90 mcg/actuation inhaler Inhale 2 Puffs as instructed every 4 hours as needed. levothyroxine (LEVOXYL) 125 mcg tablet Take by mouth, 6 days per week. Skip dose on 7th day. Take on empty stomach. Fill as generic, not CHERELLE cyclobenzaprine (FLEXERIL) 10 mg tablet Take 1 tablet by mouth three times daily as needed. insulin aspart U-100 (NOVOLOG U-100 INSULIN ASPART) 100 unit/mL use as directed with insulin pump up to 60 units daily cranberry fruit extract (CRANBERRY EXTRACT ORAL) Take by mouth. COMPOUNDED PRESCRIPTION one touch ultra test strips blue 50's test 8 times daily rosuvastatin (CRESTOR) 5 mg tablet Take 1 tablet by mouth daily at bedtime. (Patient taking differently: Take 5 mg by mouth daily before breakfast.) enalapril (VASOTEC) 5 mg tablet Take 1 tablet by mouth once daily. Magnesium 250 mg tab Take 250 mg by mouth once daily. UBIDECARENONE (COQ-10 ORAL) Take by mouth. FLAXSEED OIL (OMEGA 3 ORAL) Take by mouth as directed. COMPOUNDED PRESCRIPTION Ultimate eye support, with zeaxanthin MULTIVITAMIN TAB Take one(1) tablet daily. VITAMIN D 400 UNIT CAP No current facility-administered medications for this visit. ALLERGIES: ALLERGIES Allergen Reactions Apples Bactrim [Sulfametho* Diarrhea Banana Swelling Lovastatin Other: See Comments poor sleep, excessive dreaming Seasonal Allergies Itching PAST MEDICAL HISTORY Diagnosis Date Esophageal reflux Gastroesophageal reflux Hyperlipidemia LDL goal < 100 07/17/2013 Type I (juvenile type) diabetes mellitus without mention of complication, not stated as uncontrolled (HCC) Dx age 24 Unspecified asthma(493.90) prn albuterol Unspecified hypothyroidism Hypothyroidism PAST SURGICAL HISTORY Procedure Laterality Date CAUTERY CERVIX CRYOCAUTERY INITIAL/REPEAT 1992 For abn pap and paps since normal COLONOSCOPY 07/20/2018 5 yr interval, benign polyp DILATION AND CURETTAGE DXAND/THER NONOBSTETRIC 02/26/2021 hysteroscopy DANDC EGD 07/20/2018 ESOPHAGOGASTRODUODENOSCOPY TRANSORAL DIAGNOSTIC EGD done 2 times [facility] ([place]) COVID-19 VACCINE, AGE 12+ YR (PURPLE TOP) 10/02/2020 FAMILY HISTORY Problem Relation Age of Onset Cancer Mother leukemia Diabetes Father Type 2 No Known Problems Sister other (Dementia) Maternal Grandmother No Known Problems Paternal Grandmother No Known Problems Paternal Grandfather Arthritis Son other (epilepsy) Son other (ADHD) Son other (Asperger's) Son Breast Cancer Paternal Aunt Social History Tobacco Use Smoking status: Former Types: Cigarettes Quit date: 05/11/1999 Years since quittin.4 Smokeless tobacco: Never Vaping Use Vaping Use: Never used Substance Use Topics Alcohol use: No Drug use: No Reviewed current medications, allergies, past medical history, surgical history, family history and social history today. REVIEW OF SYSTEMS All other reviewed and negative other than HPI. HEALTH MAINTENANCE: Reviewed health maintenance issues today and recommended the following in detail. LDL Cholesterol due on 02/05/2022 Diabetic Foot Exam - per endo. Colorectal Cancer Screening done in May. Told to repeat in five years due to polyps. Behavioral Health Screening Never done VITALS: BP 122/78 (BP Site: Left Arm, BP Position: Sitting, BP Cuff Size: Regular Adult) Pulse 89 Resp 16 Wt 88.7 kg (195 lb 9.6 oz) LMP 02/23/2020 SpO2 100% BMI 32.55 kg/m? Last 4 Encounter Wt Readings: Date: Wt: 11/01/2023 88.7 kg (195 lb 9.6 oz) (more content not included)... [facility] 11-01-2023 History of Presen t illness Narrative Patient presents with: Follow Up: Pressure is right ear HPI: Patient presents today for office visit for follow up. Complains of stuffiness in her ears on and off in alternating ears. Last week both ears were stuffy. Used an ear wax softening kit. Did not get any results. No drainage. No fever or chills. Right side is still congested. No fever No sore throat or cough. Seeing Dr Ramirez. Sugars have been good. A1c was 7.0 on her machine. She things her CGM was close to 6.5 She was told she was fabulous. She will be doing labs in December or January. Will likely be done her at [facility]. They will be checking her lipids and thyroid as well. Thyroid is doing well. Energy is good. Rare gerd. No issues with crestor. Breathing is doing well. Not using albuterol. Singulair is doing well. No chest pain or shortness of breath. Seeing Som sykes for her shoulder. MEDICATIONS: Current Outpatient Medications Medication Sig montelukast (SINGULAIR) 10 mg tablet Take 1 tablet by mouth once daily. pantoprazole DR (PROTONIX) 40 mg tablet Take 1 tablet by mouth daily before breakfast. Take on empty stomach, 1/2 hr before meal. nystatin-triamcinolone (MYCOLOG II) cream Apply 1 application to affected area twice daily as needed. albuterol HFA (PROAIR HFA) 90 mcg/actuation inhaler Inhale 2 Puffs as instructed every 4 hours as needed. levothyroxine (LEVOXYL) 125 mcg tablet Take by mouth, 6 days per week. Skip dose on 7th day. Take on empty stomach. Fill as generic, not CHERELLE cyclobenzaprine (FLEXERIL) 10 mg tablet Take 1 tablet by mouth three times daily as needed. insulin aspart U-100 (NOVOLOG U-100 INSULIN ASPART) 100 unit/mL use as directed with insulin pump up to 60 units daily cranberry fruit extract (CRANBERRY EXTRACT ORAL) Take by mouth. COMPOUNDED PRESCRIPTION one touch ultra test strips blue 50's test 8 times daily rosuvastatin (CRESTOR) 5 mg tablet Take 1 tablet by mouth daily at bedtime. (Patient taking differently: Take 5 mg by mouth daily before breakfast.) enalapril (VASOTEC) 5 mg tablet Take 1 tablet by mouth once daily. Magnesium 250 mg tab Take 250 mg by mouth once daily. UBIDECARENONE (COQ-10 ORAL) Take by mouth. FLAXSEED OIL (OMEGA 3 ORAL) Take by mouth as directed. COMPOUNDED PRESCRIPTION Ultimate eye support, with zeaxanthin MULTIVITAMIN TAB Take one(1) tablet daily. VITAMIN D 400 UNIT CAP No current facility-administered medications for this visit. ALLERGIES: ALLERGIES Allergen Reactions Apples Bactrim [Sulfametho* Diarrhea Banana Swelling Lovastatin Other: See Comments poor sleep, excessive dreaming Seasonal Allergies Itching PAST MEDICAL HISTORY Diagnosis Date Esophageal reflux Gastroesophageal reflux Hyperlipidemia LDL goal < 100 07/17/2013 Type I (juvenile type) diabetes mellitus without mention of complication, not stated as uncontrolled (HCC) Dx age 24 Unspecified asthma(493.90) prn albuterol Unspecified hypothyroidism Hypothyroidism PAST SURGICAL HISTORY Procedure Laterality Date CAUTERY CERVIX CRYOCAUTERY INITIAL/REPEAT 1992 For abn pap and paps since normal COLONOSCOPY 07/20/2018 5 yr interval, benign polyp DILATION & CURETTAGE DX&/THER NONOBSTETRIC 02/26/2021 hysteroscopy D&C EGD 07/20/2018 ESOPHAGOGASTRODUODENOSCOPY TRANSORAL DIAGNOSTIC EGD done 2 times [facility] ([place]) COVID-19 VACCINE, AGE 12+ YR (PURPLE TOP) 10/02/2020 FAMILY HISTORY Problem Relation Age of Onset Cancer Mother leukemia Diabetes Father Type 2 No Known Problems Sister other (Dementia) Maternal Grandmother No Known Problems Paternal Grandmother No Known Problems Paternal Grandfather Arthritis Son other (epilepsy) Son other (ADHD) Son other (Asperger's) Son Breast Cancer Paternal Aunt Social History Tobacco Use Smoking status: Former Types: Cigarettes Quit date: 05/11/1999 Years since quittin.4 Smokeless tobacco: Never Vaping Use Vaping Use: Never used Substance Use Topics Alcohol use: No Drug use: No Reviewed current medications, allergies, past medical history, surgical history, family history and social history today. REVIEW OF SYSTEMS All other reviewed and negative other than HPI. HEALTH MAINTENANCE: Reviewed health maintenance issues today and recommended the following in detail. LDL Cholesterol due on 02/05/2022 Diabetic Foot Exam - per endo. Colorectal Cancer Screening done in May. Told to repeat in five years due to polyps. Behavioral Health Screening Never done VITALS: BP 122/78 (BP Site: Left Arm, BP Position: Sitting, BP Cuff Size: Regular Adult) Pulse 89 Resp 16 Wt 88.7 kg (195 lb 9.6 oz) LMP 02/23/2020 SpO2 100% BMI 32.55 kg/m Last 4 Encounter Wt Readings: Date: Wt: 11/01/2023 88.7 kg (195 lb 9.6 oz) 05/18/2023 88.9 kg (196 lb) 05/11/2023 89 kg (196 lb 3.2 oz) 11/26/2022 90.7 kg (200 lb) PHYSICAL EXAMINATION: General appearance: Well appearing, alert, in no acute distress, well-hydrated, well nourished. Skin: Skin color, texture, turgor normal, no suspicious rashes or lesions Head: Normocephalic, no masses, lesions, tenderness or abnormalities Ears: soft cerumen in both ears. Neck: Supple, no adenopathy; thyroid symmetric, normal size, no bruits Lungs: Lungs clear to auscultation. No wheezing, rhonchi, rales Heart: RRR without murmur, gallop, or rubs. No ectopy Abdomen: Normal abdominal exam, Abdomen soft, non-tender. Bowel sounds normal. No masses, organomegaly Extremities: No deformities, edema, skin discoloration, clubbing or cyanosis. Good capillary refill. ASSESSMENT/PLAN: 1. Hyperlipidemia with target LDL less than 100 - ICD9: 272.4, ICD10: E78.5 (primary diagnosis) - followed by endo. Tolerating meds. 2. Acquired hypothyroidism - ICD9: 244.9, ICD10: E03.9 Doing well. Tsh per endo 3. Diabetes mellitus type 1, controlled, without complications (HCC) - ICD9: 250.01, ICD10: E10.9 - sugars have been stable. 4. Obesity, Class I, BMI 30-34.9 - ICD9: 278.00, ICD10: E66.9 - followiing. 5. Bilateral impacted cerumen - ICD9: 380.4, ICD10: H61.23 -irrigated by wastewater treatment engineer with warm tap water. Large amount of debris removed. Tms are clear afterward on visulization. Sánchez Tabares MD documented in this encounter [facility] 06-14-2023 Miscellaneous Notes Patient has been identified by name and date of : Yes Patient phones for refill(s): Requested Prescriptions Pending Prescriptions Disp Refills montelukast (SINGULAIR) 10 mg tablet 90 tablet 3 Sig: Take 1 tablet by mouth once daily. Date of last office visit in primary care: 11/26/2022 Date of next office visit in primary care: Visit date not found Please advise. Thank you. Karolyn Funez LPN. documented in this encounter [facility] 03-01-2023 Instructions Deshawn Baron - 03/01/2023 1:22 PM EDT Diabetes Foot Care Instructions When you have diabetes, proper foot care is very important. Poor foot care may lead to amputation of a foot or leg. As a person with diabetes, you are more vulnerable to foot problems, because diabetes can damage your nerves and reduce blood flow to your feet. Here are some diabetes foot care tips to follow: Wash and Dry Your Feet Daily Use mild soaps Use warm water Pat your skin dry; do not rub. Thoroughly dry your feet. After washing, use lotion on your feet to prevent cracking. Do not put lotion between your toes. Examine Your Feet Each Day Check the tops and bottoms of your feet. Have someone else look at your feet if you cannot see them. Check for dry, cracked skin. Look for blisters, cuts, scratches, or other sores. Check for redness, increased warmth, or tenderness when touching any area of your feet. Check for ingrown toenails, corns, and calluses. If you get a blister or sore from your shoes, do not pop it. Apply a bandage and wear a different pair of shoes. Take Care of Your Toenails Cut toenails after bathing, when they are soft. Cut toenails straight across and smooth with a nail file. Avoid cutting into the corners of toes. Do not cut cuticles. If you have neuropathy (or decreased sensation in your feet) a lamp stack developer should always cut your toenails. Be Careful When Exercising Walk and exercise in comfortable shoes. Do not exercise when you have open sores on your feet. Protect Your Feet With Shoes and Socks Never go barefoot. Always protect your feet by wearing shoes or hard-soled slippers or footwear. Avoid shoes with high heels and pointed toes. Avoid shoes that expose your toes or heels (such as open-toed shoes or sandals). These types of shoes increase your risk for injury and potential infections. Try on new footwear with the type of socks you usually wear. Do not wear new shoes for more than an hour at a time. Change your socks daily. Look and feel inside your shoes before putting them on to make sure there are no foreign objects or rough areas. Avoid tight socks. Wear natural-fiber socks (cotton, wool, or a cotton-wool blend). Wear special shoes if your health care provider recommends them. Wear shoes/boots that will protect your feet from various weather conditions (cold, moisture, etc.). Make sure your shoes fit properly. If you have neuropathy (nerve damage), you may not notice that your shoes are too tight. Perform the footwear test described below. Footwear Test Use this simple test to see if your shoes fit correctly: Stand on a piece of paper. (Make sure you are standing and not sitting, because your foot changes shape when you stand.) Trace the outline of your foot. Trace the outline of your shoe. Compare the tracings: Is the shoe too narrow? Is your foot crammed into the shoe? The shoe should be at least 1/2 inch longer than your longest toe and as wide as your foot. Proper Shoe Choices The following types of shoes are best for people with diabetes Closed toes and heels Leather uppers without a seam inside At least 1/2 inch extra space at the end of your longest toe Inside of shoe should be soft with no rough areas Outer sole should be made of stiff material Shoes should be at least as wide as your feet Tips for Foot Care in Diabetes Don't wait to treat a minor foot problem if you have diabetes. Follow your health care provider's guidelines and first aid guidelines. Report foot injuries and infections to your health care provider immediately. Check water temperature with your elbow, not your foot. Do not use a heating pad on your feet. Do not cross your legs. Do not self-treat your corns, calluses, or other foot problems. Go to your health care provider or lamp stack developer to treat these conditions. documented in this encounter [facility] 03-01-2023 History of Presen t illness Narrative Images from the original note were not included. Subjective: This 52 year old female presents to clinic for diabetic foot check. Patient has the following complaints: soreness of left foot. Patient states that she has soreness on the plantar lateral aspect of left forefoot. She states she recently stepped on some cat liter. She states there is pain and some slow healing. She wanted to have this evaluated as she is unsure if this is a callus vs wart or if will eventually go away. Patient admits to being diabetic for multiple years now. Patient -B/T/N in feet at this time. Patient -pain in legs when walking. No other pedal complaints at this time. No change in medications or medical history since last visit. PAIN EVALUATION 02/25/2023 1855 03/01/2023 1258 Pain Level: 3 -- Pain Location: Foot-Left Foot-Left Description: Sore -- Duration Amount of Time: -- 2 Duration Units: -- Months Frequency: Intermittent Intermittent Comments: -- pain comes and goes with no cause or intervention Hemoglobin A1C Date Value 02/05/2023 6.6 08/10/2022 6.2 01/23/2022 6.1 % 08/10/2021 6.1 % 12/08/2019 6.4 % 07/14/2019 5.4 % 03/09/2019 6.5 % PCP: Sánchez Tabares MD PAST MEDICAL HISTORY Diagnosis Date Esophageal reflux Gastroesophageal reflux Hyperlipidemia LDL goal < 100 07/17/2013 Type I (juvenile type) diabetes mellitus without mention of complication, not stated as uncontrolled (HCC) Dx age 24 Unspecified asthma(493.90) prn albuterol Unspecified hypothyroidism Hypothyroidism Current Outpatient Medications Medication Sig montelukast (SINGULAIR) 10 mg tablet Take 1 tablet by mouth once daily. nystatin-triamcinolone (MYCOLOG II) cream Apply 1 application to affected area twice daily as needed. pantoprazole DR (PROTONIX) 40 mg tablet Take 1 tablet by mouth daily before breakfast. Take on empty stomach, 1/2 hr before meal. levothyroxine (LEVOXYL) 125 mcg tablet Take by mouth, 6 days per week. Skip dose on 7th day. Take on empty stomach. Fill as generic, not CHERELLE cyclobenzaprine (FLEXERIL) 10 mg tablet Take 1 tablet by mouth three times daily as needed. insulin aspart U-100 (NOVOLOG U-100 INSULIN ASPART) 100 unit/mL use as directed with insulin pump up to 60 units daily cranberry fruit extract (CRANBERRY EXTRACT ORAL) Take by mouth. COMPOUNDED PRESCRIPTION one touch ultra test strips blue 50's test 8 times daily rosuvastatin (CRESTOR) 5 mg tablet Take 1 tablet by mouth daily at bedtime. (Patient taking differently: Take 5 mg by mouth daily before breakfast.) enalapril (VASOTEC) 5 mg tablet Take 1 tablet by mouth once daily. Magnesium 250 mg tab Take 250 mg by mouth once daily. UBIDECARENONE (COQ-10 ORAL) Take by mouth. FLAXSEED OIL (OMEGA 3 ORAL) Take by mouth as directed. COMPOUNDED PRESCRIPTION Ultimate eye support, with zeaxanthin MULTIVITAMIN TAB Take one(1) tablet daily. VITAMIN D 400 UNIT CAP albuterol HFA (PROAIR HFA) 90 mcg/actuation inhaler Inhale 2 Puffs as instructed every 4 hours as needed. No current facility-administered medications for this visit. ALLERGIES Allergen Reactions Apples Bactrim [Sulfametho* Diarrhea Bananas [Other] Environmental [Othe* Lovastatin Other: See Comments poor sleep, excessive dreaming PAST SURGICAL HISTORY Procedure Laterality Date CAUTERY CERVIX CRYOCAUTERY INITIAL/REPEAT 1993 For abn pap and paps since normal COLONOSCOPY 07/20/2018 5 yr interval, benign polyp DILATION & CURETTAGE DX&/THER NONOBSTETRIC 02/26/2021 hysteroscopy D&C EGD 07/20/2018 ESOPHAGOGASTRODUODENOSCOPY TRANSORAL DIAGNOSTIC EGD done 2 times [facility] ([place]) COVID-19 VACCINE, AGE 12+ YR (PURPLE TOP) 10/02/2020 FAMILY HISTORY Problem Relation Age of Onset Cancer Mother leukemia Diabetes Father Type 2 No Known Problems Sister other (Dementia) Maternal Grandmother No Known Problems Paternal Grandmother No Known Problems Paternal Grandfather Arthritis Son other (epilepsy) Son other (ADHD) Son other (Asperger's) Son Breast Cancer Paternal Aunt Social History Tobacco Use Smoking status: Former Types: Cigarettes Quit date: 05/11/1999 Years since quittin.8 Smokeless tobacco: Never Vaping Use Vaping Use: Never used Substance Use Topics Alcohol use: No Drug use: No REVIEW OF SYSTEMS GENERAL: Negative for Malaise, significant weight loss, fever RESPIRATORY: Negative for cough, wheezing and shortness of breath CARDIOVASCULAR: Negative for chest pain, leg swelling and palpitations GI: Negative for abdominal discomfort, blood in stools or black stools and change in bowel habits : Negative for dysuria, frequency and incontinence MUSCULOSKELETAL: Negative for joint pain or swelling, back pain, and muscle pain. SKIN: Negative for lesions, rash, and itching. HEMATOLOGY/LYMPHOLOGY Negative for prolonged bleeding, bruising easily, and swollen nodes. ENDOCRINE: Negative for cold or heat intolerance, polyuria, polydipsia and goiter. NEURO: negative The remainder of the review of systems is noncontributory. Objective: Patient presents to clinic ambulating in [place] Constitutional: Pt is a well developed 52 year old female who is alert, oriented, cooperative and in no apparent distress. Eyes: Following during examination. No redness or drainage. Respiratory: RR normal and nonlabored. Even breathing. No evidence of distress. Psychology: Patient is engaged during conversation. Normal affect and mood. Does not appear depressed or anxious. Vasc: DP and PT pulses are palpable bilateral. CFT is less than 5 seconds bilateral. Skin temperature is warm to warm proximal to distal bilateral. There is no edema or varicosities noted. Hair growth present. Neuro: Protective sensation is intact to the foot and toes when tested with the 5.07 SWM bilateral. Vibratory sensation is intact at the hallux bilateral. No Significant neurological defecits. Derm: Inspection and palpation performed. Nails 1-5 b/l are normal in length and thickness. Skin is of normal turgor and texture. Hyperkeratosis noted to b/l hallux. [place] present to left forefoot laterally. NO ulcerations, scars, verruca or other lesions noted. Ortho: Ankle joint DF is full with the knee extended and full with knee flexed. No pain or crepitus noted. STJ, MTJ ROM are full and free of pain or crepitus. Muscle strength is 5/5 for dorsiflexors, plantarflexors, inverters, everters. Digital deformities include none. Assessment: (Q82.8) Porokeratosis (primary encounter diagnosis) (E10.9) Diabetes mellitus type 1, controlled, without complications ([facility]) Plan: 1. Patient was seen and evaluated. 2. Patient was instructed on the continued importance of diabetic foot care along with proper diet and keeping their blood sugar under control to prevent complications. Instructions given both oral and written. 3. Discussed lesion of left forefoot. Suspect porokeratosis although she did walk barefoot and have cat hair coming from foot recently. I debrided this with 15 blade and dremmel. Debridement was necessary to rule out foreign body. I did not see any foreign body. Offered xray. She declined. If pain persists, would recommend xray. In order to perform a complete physical exam, limited shaving of corn area was performed. This incidental service is integral to the evaluation and management visit in order to appropriately manage and treat the patient (for their complaint or for this visit). 4. Can use padding to offload area of pain. Deshawn Baron DPM Patient presents with: Left Foot - Established Patient, Pain: Bottom of foot AMB ROOMING INTAKE FLOWSHEET DATA Pain Pain Level: 3 Pain Location: Foot-Left Description: Sore Duration Amount of Time: 2 Duration Units: Months Frequency: Intermittent Comments: pain comes and goes with no cause or intervention documented in this encounter [facility] 01-18-2023 Miscellaneous Notes Order faxed to [facility] and filed in [facility] nurses station. Estrella Barbosa LPN Order signed and given to nursing. Shira Espinosa APRN.POLE INCISOR OPERATOR Patient requesting mammogram order be faxed to [facility]. Order to AG to sign. No need to call patient back once completed. Luz Soto RN documented in this encounter [facility] 11-26-2022 History of Presen t illness Narrative Patient presents with: Follow Up HPI: Patient presents today for office visit for follow up. Seeing Dr. Ramirez this summer. She is getting her labs including thyroid. She will be checking cholesterol also. Sugars have been doing well. Last a1c was 6.2. Bp is good. No chest pain or shortness of breath. No edema. No dizziness. Her asthma is doing well. Can't recall last time she used it. Has seen podiatry. They did treat her with therapy. Has been doing stretches. MEDICATIONS: Current Outpatient Medications Medication Sig montelukast (SINGULAIR) 10 mg tablet Take 1 tablet by mouth once daily. pantoprazole DR (PROTONIX) 40 mg tablet Take 1 tablet by mouth daily before breakfast. Take on empty stomach, 1/2 hr before meal. levothyroxine (LEVOXYL) 125 mcg tablet Take by mouth, 6 days per week. Skip dose on 7th day. Take on empty stomach. Fill as generic, not CHERELLE cyclobenzaprine (FLEXERIL) 10 mg tablet Take 1 tablet by mouth three times daily as needed. insulin aspart U-100 (NOVOLOG U-100 INSULIN ASPART) 100 unit/mL use as directed with insulin pump up to 60 units daily cranberry fruit extract (CRANBERRY EXTRACT ORAL) Take by mouth. rosuvastatin (CRESTOR) 5 mg tablet Take 1 tablet by mouth daily at bedtime. (Patient taking differently: Take 5 mg by mouth daily before breakfast.) enalapril (VASOTEC) 5 mg tablet Take 1 tablet by mouth once daily. UBIDECARENONE (COQ-10 ORAL) Take by mouth. FLAXSEED OIL (OMEGA 3 ORAL) Take by mouth as directed. MULTIVITAMIN TAB Take one(1) tablet daily. VITAMIN D 400 UNIT CAP nystatin-triamcinolone (MYCOLOG II) cream Apply 1 application to affected area twice daily as needed. albuterol HFA (PROAIR HFA) 90 mcg/actuation inhaler Inhale 2 Puffs as instructed every 4 hours as needed. SYNTHROID 125 mcg tablet 6 per week, CHERELLE COMPOUNDED PRESCRIPTION one touch ultra test strips blue 50's test 8 times daily Magnesium 250 mg tab Take 250 mg by mouth once daily. COMPOUNDED PRESCRIPTION Ultimate eye support, with zeaxanthin No current facility-administered medications for this visit. ALLERGIES: ALLERGIES Allergen Reactions Apples Bactrim [Sulfametho* Diarrhea Bananas [Other] Environmental [Othe* Lovastatin Other: See Comments poor sleep, excessive dreaming PAST MEDICAL HISTORY Diagnosis Date Esophageal reflux Gastroesophageal reflux Hyperlipidemia LDL goal < 100 07/17/2013 Type I (juvenile type) diabetes mellitus without mention of complication, not stated as uncontrolled (HCC) Dx age 24 Unspecified asthma(493.90) prn albuterol Unspecified hypothyroidism Hypothyroidism PAST SURGICAL HISTORY Procedure Laterality Date CAUTERY CERVIX CRYOCAUTERY INITIAL/REPEAT 1992 For abn pap and paps since normal COLONOSCOPY 07/20/2018 5 yr interval, benign polyp DILATION & CURETTAGE DX&/THER NONOBSTETRIC 02/26/2021 hysteroscopy D&C EGD 07/20/2018 ESOPHAGOGASTRODUODENOSCOPY TRANSORAL DIAGNOSTIC EGD done 2 times [facility] ([place]) COVID-19 VACCINE, AGE 12+ YR (PURPLE TOP) 10/02/2020 FAMILY HISTORY Problem Relation Age of Onset Cancer Mother leukemia Diabetes Father Type 2 No Known Problems Sister other (Dementia) Maternal Grandmother No Known Problems Paternal Grandmother No Known Problems Paternal Grandfather Arthritis Son other (epilepsy) Son other (ADHD) Son other (Asperger's) Son Breast Cancer Paternal Aunt Social History Tobacco Use Smoking status: Former Types: Cigarettes Quit date: 05/11/1999 Years since quittin.5 Smokeless tobacco: Never Vaping Use Vaping Use: Never used Substance Use Topics Alcohol use: No Drug use: No Reviewed current medications, allergies, past medical history, surgical history, family history and social history today. REVIEW OF SYSTEMS All other reviewed and negative other than HPI. HEALTH MAINTENANCE: Reviewed health maintenance issues today and recommended the following in detail. HEPATITIS B(1 of 3 - 3-dose series) Never done PNEUMOCOCCAL(2 - PCV) due on 09/07/2005 LDL CHOLESTEROL - done via endo. DEPRESSION ASSESSMENT Never done DIABETIC FOOT EXAM -saw podiatry. MAMMOGRAM-gut sorter ordered. Will be getting colonoscopy end of the year. Has a hx of colon polyps. VITALS: BP 138/72 Pulse 89 Wt 90.7 kg (200 lb) LMP 02/23/2020 SpO2 98% BMI 33.32 kg/m Last 4 Encounter Wt Readings: Date: Wt: 11/26/2022 90.7 kg (200 lb) 06/02/2022 87.1 kg (192 lb) 09/23/2021 85.5 kg (188 lb 6.4 oz) 02/25/2021 88 kg (194 lb) PHYSICAL EXAMINATION: General appearance: Well appearing, alert, in no acute distress, well-hydrated, well nourished. Skin: Skin color, texture, turgor normal, no suspicious rashes or lesions Head: Normocephalic, no masses, lesions, tenderness or abnormalities Eyes: Anicteric sclera. Pupils are equally round and reactive to light. Extraocular movements are intact. Neck: Supple, no adenopathy; thyroid symmetric, normal size, no bruits Lungs: Lungs clear to auscultation. No wheezing, rhonchi, rales Heart: RRR without murmur, gallop, or rubs. No ectopy Abdomen: Normal abdominal exam, Abdomen soft, non-tender. Bowel sounds normal. No masses, organomegaly Extremities: No deformities, edema, skin discoloration, clubbing or cyanosis. Good capillary refill. ASSESSMENT/PLAN: 1. Diabetes mellitus type 1, controlled, without complications (HCC) - ICD9: 250.01, ICD10: E10.9 (primary diagnosis) - follow with endo 2. Acquired hypothyroidism - ICD9: 244.9, ICD10: E03.9 - per endo 3. Anxiety with somatic features - ICD9: 300.00, ICD10: F41.8 - doing well. 4. Cervical radiculopathy - ICD9: 723.4, ICD10: M54.12 - stable. 5. Hyperlipidemia with target LDL less than 100 - ICD9: 272.4, ICD10: E78.5 - stable. 6. Mild intermittent asthma without complication - ICD9: 493.90, ICD10: J45.20 - no issues. 7. Gastroesophageal reflux disease without esophagitis - ICD9: 530.81, ICD10: K21.9 - overall doing well. 8. Obesity, Class I, BMI 30-34.9 - ICD9: 278.00, ICD10: E66.9 - is stable. Sánchez Tabares RTO in one year or prn documented in this encounter [facility] 07-20-2022 Miscellaneous Notes Last Office Visit: 09/23/2021 Future Office Visit: None Requested Prescriptions Pending Prescriptions Disp Refills montelukast (SINGULAIR) 10 mg tablet 90 tablet 3 Sig: Take 1 tablet by mouth once daily. Date of Last Labs: 01/23/2022 documented in this encounter [facility] 06-08-2022 Miscellaneous Notes RX pending Requested Prescriptions Pending Prescriptions Disp Refills nystatin-triamcinolone (MYCOLOG II) cream 30 g 1 Sig: Apply 1 application to affected area twice daily as needed. documented in this encounter [facility] 06-02-2022 Beti Espinosa APRN.POLE INCISOR OPERATOR - 06/02/2022 7:35 AM EST Silicone based lubricant Replens, Revaree, vaginal estrogen - treatment options of vaginal atrophy documented in this encounter [facility] 06-02-2022 History of Presen t illness Narrative Silk Weaver offered: Patient declines. Earline Hernandez is a 52 year old female who presents for vaginal burning and irritation for 3 week(s). Had Covid vaccine in April followed by left sided aching that resolved a couple of weeks later. She then had SI - painful because has ED - and this was only SI for this year. SI is always painful and causes pain and trauma due to the effort to insert penis into vagina. Used vaginal Replens afterwards for vaginal irritation and nystatin cream for vulvar irritation. Continues to have vaginal symptoms but they are much improved - almost cancelled this appointment. Did not have any vaginal/vulvar symptoms prior to SI but does have frequent mild vaginal irritation. T2DM - A1C 6.1 4 months ago Vaginal discharge: none. Itching: No Fever/chills: No Abdominal pain: No Bladder: Negative for dysuria or frequency Bowel: No blood in stool, pain with BM, tarry stool, persistent diarrhea or constipation Any new sexual partners or concern for STD exposure: No Any history of STDs: None Does your partner have any new complaints: No Are you currently taking any medications to treat vaginitis: Yes, Replens once 3 weeks ago Do you use feminine sprays, douches or deodorants: No Menstrual cycle: postmenopausal Last pap: 2020, endometrial cells, EMB benign Past medical, surgical, social history, medications and allergies reviewed and updated. OBJECTIVE: BP 114/68 Wt 192 lb (87.1kg) LMP 02/23/2020 GENERAL: Well developed, well nourished in no apparent distress PELVIC: external genitalia normal, normal Bartholin's glands, urethra, [place]'s glands, no vulvar lesions, no cervical lesions, small amount clear discharge present, normal appearing perineal body and perianal region, + vaginal atrophy with loss of rugae and erythema to vaginal corrales. Healing abrasion to fourchette. BIMANUAL: uterus normal size, shape and consistency, no adnexal masses, and non-tender. ASSESSMENT/PLAN: 1. Vaginal burning - ICD9: 625.8, ICD10: N94.9 (primary diagnosis) - ROXIE / TRICHOMONAS AMPLIFICATION - BACTERIAL VAGINOSIS AMPLIFICATION 2. Postmenopausal atrophic vaginitis - ICD9: 627.3, ICD10: N95.2 Discussed treatment options of vaginal atrophy - Replens, Revaree, vaginal estrogen. Pt will consider. Use silicone based lubricant for intercourse. Will notify of results. Follow- up as needed. Shira Espinosa APRN.CNP Medical Decision Making: Problems: Low: Acute, uncomplicated illness or injury Data: Unique test(s) ordered: 2 Medical Decision Making Level: 3 - Low documented in this encounter [facility] 05-26-2022 History of Presen t illness Narrative Pt arrived to have the fit of her dulplicate pair of custom foot orthotics assessed. She is also requesting assistance with modification to improve the fit. She received the orthotics on 05/14/2022 and wore them for several hours immediately after receiving them. After those hours, she developed pain at medial aspect of L great toe where orthotic top cover rolled up and rubbed the medial aspect of L great toe. She notices that the forefoot portion of new L orthotic is slightly larger than original pair and therefore the cutout for L great toe was not properly located. Therapist was able to confirm all of the above and decided to trace the forefoot of old orthotic on the new one and trim the excess material from the lateral border of L orthotic forefoot. This decision was made to preserve the size of the cutout. Trimming the medial border would have made the cutout smaller and even less effective. After trimming, it appeared that the fit was much improved and pt agreed. She will call with any future issues or concerns. Billing: Total Treatment Time Minutes (timed/untimed) 20 Orthotic/Prosthetic Adjustment and Training (Subsequent) ([id number]): 1:1 time: 20 minutes (1 unit: 8-22 mins) Justin Burrows PT documented in this encounter [facility] 05-14-2022 History of Presen t illness Narrative [facility] DME ISSUE NOTE Patient identified by name and date: Yes Subjective: Earline Hernandez is a 52 year old female seen today for fitting and seed cone picker of duplicate pair of custom foot orthotics with change from Performance RX-A to Performance RX-B. Equipment Owned: custom foot orthotics DME Delivery: Pt was educated on wear schedule and care of custom foot orthotics. Pt was educated on the option of having orthotics refurbished as needed in the future as long as shell is performing it's intended function well. Pt was educated on approximate cost of refurbishing orthotics and an approximate time frame when this might be necessary. The fit of orthotics was assessed with pt standing, with and without shoes. The comfort of orthotics was assessed with pt standing and walking with orthotics in shoes. Pt denied any rubbing or pinching and felt that fit of custom orthotics was correct. Contact information for this therapist was provided to patient. Custom biomechanical foot orthotics with serial number: #[id number] were issued to patient and proof of receipt form signed by pt and therapist. All specifications for custom foot orthotics can be found in orthotic evaluation visit note. Planned Interventions: Follow up as needed for brace fitting/issues. Billing:[facility]: Orthotics Management and Training ([id number]): 1:1 time: 15 minutes (1 unit: 8-22 mins) Equipment: [id number] pair of custom foot orthotics Total time: 15 minutes Justin Burrows PT documented in this encounter [facility] 03-12-2022 History of Presen t illness Narrative FOLLOW UP PODIATRIC OFFICE VISIT Chief Complaint: This 51 year old who presents for follow up:b/l flatfoot Patient prsents to clinic for follow-up flatfoot. She uses custom orthotics and is interested in getting new pair She states that she does on occasion develop pain in left heel and she feels the orthotics help She is diabetic and states that her sugars are doing well. PAIN EVALUATION 03/12/2022 1105 Pain Level: 3 Pain Location: Foot-Left Description: Sore Duration Amount of Time: 2 Duration Units: Weeks Frequency: Intermittent Intervention/Comfort measure: Reposition;Relaxation Hemoglobin A1C Date Value Ref Range Status 01/23/2022 6.1 (A) 4 - 6 % Final Comment: Dr. Ramirez PCP: Sánchez Tabares MD PAST MEDICAL HISTORY Diagnosis Date Esophageal reflux Gastroesophageal reflux Hyperlipidemia LDL goal < 100 07/17/2013 Type I (juvenile type) diabetes mellitus without mention of complication, not stated as uncontrolled (HCC) Dx age 24 Unspecified asthma(493.90) prn albuterol Unspecified hypothyroidism Hypothyroidism Current Outpatient Medications Medication Sig pantoprazole DR (PROTONIX) 40 mg tablet Take 1 tablet by mouth daily before breakfast. Take on empty stomach, 1/2 hr before meal. montelukast (SINGULAIR) 10 mg tablet Take 1 tablet by mouth once daily. albuterol HFA (PROAIR HFA) 90 mcg/actuation inhaler Inhale 2 Puffs as instructed every 4 hours as needed. levothyroxine (LEVOXYL) 125 mcg tablet Take by mouth, 6 days per week. Skip dose on 7th day. Take on empty stomach. Fill as generic, not CHERELLE cyclobenzaprine (FLEXERIL) 10 mg tablet Take 1 tablet by mouth three times daily as needed. nystatin-triamcinolone (MYCOLOG II) cream Apply 1 application to affected area twice daily as needed. insulin aspart U-100 (NOVOLOG U-100 INSULIN ASPART) 100 unit/mL use as directed with insulin pump up to 60 units daily cranberry fruit extract (CRANBERRY EXTRACT ORAL) Take by mouth. COMPOUNDED PRESCRIPTION one touch ultra test strips blue 50's test 8 times daily rosuvastatin (CRESTOR) 5 mg tablet Take 1 tablet by mouth daily at bedtime. (Patient taking differently: Take 5 mg by mouth daily before breakfast.) enalapril (VASOTEC) 5 mg tablet Take 1 tablet by mouth once daily. Magnesium 250 mg tab Take 250 mg by mouth once daily. UBIDECARENONE (COQ-10 ORAL) Take by mouth. FLAXSEED OIL (OMEGA 3 ORAL) Take by mouth as directed. COMPOUNDED PRESCRIPTION Ultimate eye support, with zeaxanthin MULTIVITAMIN TAB Take one(1) tablet daily. VITAMIN D 400 UNIT CAP SYNTHROID 125 mcg tablet 6 per week, CHERELLE No current facility-administered medications for this visit. ALLERGIES Allergen Reactions Apples Bactrim [Sulfametho* Diarrhea Bananas [Other] Environmental [Othe* Lovastatin Other: See Comments poor sleep, excessive dreaming PAST SURGICAL HISTORY Procedure Laterality Date CAUTERY CERVIX CRYOCAUTERY INITIAL/REPEAT 1992 For abn pap and paps since normal COLONOSCOPY 07/20/2018 5 yr interval, benign polyp DILATION & CURETTAGE DX&/THER NONOBSTETRIC 02/26/2021 hysteroscopy D&C EGD 07/20/2018 ESOPHAGOGASTRODUODENOSCOPY TRANSORAL DIAGNOSTIC EGD done 2 times [facility] ([place] COVID-19 VACCINE, AGE 12+ YR (PURPLE TOP) 10/02/2020 Physical Exam: OBJECTIVE: Constitutional: Pt is a well developed 51 year old female who is alert, oriented, cooperative and in no apparent distress. Eyes: Following during examination. No redness or drainage. Respiratory: RR normal and nonlabored. Even breathing. No evidence of distress. Psychology: Patient is engaged during conversation. Normal affect and mood. Does not appear depressed or anxious. NVSI unchanged from previous visit. Dermatological: Nails 1-5 b/l are normal. Webspaces clean and dry 1-4 b/l. Skin appears well hydrated and supple. good color, texture, turgor. No open lesions present. No callosities present. Musculoskeletal/Orthopaedic: Patient has no pain to palpation of b/l feet There is collapse of medial arch b/l L>R Mild bunion of b/l feet ASSESSMENT: (M76.829) Tibialis posterior tendinitis, unspecified laterality (primary encounter diagnosis) (E10.9) Diabetes mellitus type 1, controlled, without complications (HCC (M20.12) Hallux valgus of left foot PLAN: 1. Patient doing very well with inserts for flatfoot. Will provide her with order for custom orthotics 2. Diabetic foot edcuation performed 3. Bunion is not bothering her and is very subtle. Continue with inserts. Deshawn Baron DPM AMB ROOMING INTAKE FLOWSHEET DATA Risk Screening Do you have concerns about personal safety or safety in the home?: No Pain Pain Level: 3 Pain Location: Foot-Left Description: Sore Duration Amount of Time: 2 Duration Units: Weeks Frequency: Intermittent Intervention/Comfort measure: Reposition, Relaxation Patient presents with: Left Foot - Established Patient, Follow Up, Pain Right Foot - Established Patient, Follow Up, Pain Samra Lofton LPN documented in this encounter [facility] 01-18-2022 Miscellaneous Notes Patient called requesting mammogram order be faxed to [facility]. Order signed by and faxed. Luz Soto RN documented in this encounter [facility] 09-15-2020 History of Presen t illness Narrative Radiology Service Progress Note PATIENT NAME: Earline Heranndez DATE OF SERVICE: September 15, 2020 TIME: 5:06 PM PATIENT IDENTITY VERIFICATION COMPLETED USING TWO (2) IDENTIFIERS: Name and Date of confirmed by patient verbally. FALL SCREENING: Has the patient had 2 falls in the last year or 1 fall with injury or currently using an Ambulatory Assistive Device (Walker, Cane, Wheelchair, Crutches, etc.)? No PATIENT GENDER DATA: Female. status: : No status: NO. PATIENT RELEVANT IMPLANT DATA REVIEWED: Yes RADIOLOGY DEPARTMENT: General X-ray: Exam(s) Completed: Upper Extremity X-Ray(s): Shoulder, AP / TRUE AP / AXILLARY right : PERIPHERAL IV DATA: Not applicable SIGNED BY: RT Gosia September 15, 2020 5:06 PM documented in this encounter [facility] 09-15-2020 Miscellaneous Notes Lester Bianchi--there is not any evidence of significant arthritis in the shoulder region. This soft tissue injury should be improvable with PT. I wish you well. Bob Patel III MD documented in this encounter [facility] 09-15-2020 Progress note Formatting of t his note might be different from the original. Arias, Good news--there is not any evidence of significant arthritis in the shoulder region. This soft tissue injury should be improvable with PT. I wish you well. Bob Patel III MD [facility] 05-23-2012 History of Past i llness Narrative Problem Noted Date Resolved Date Postcoital bleeding 05/23/2012 03/01/2017 Plantar fascial fibromatosis 01/28/201002/2017 PURE HYPERCHOLESTEROLEM 02/12/2006 07/15/20 14 Uncontrolled type 1 diabetes mellitus 05/03/2005 01/28/2016 Overview: * Type (07/25/1991): dx diabetes, KUMAR? (has marked FHx diabetes both sides). Oral agents x 1yr, then insulin. * Control hx (): OfX0n=4.5 (): WjF9i=6.8% (06/02/07): JdO4m=3.7% (): OgX9r=1.7% (): WnM5y=4.3% (12/10/09): XdC3h=8.2% (05/25/10): VdD5c=3.3% * Eye hx (): exam Ervin Karg OD, no diabetic hemorrhages noted on dilated fundus exam. () exam Ervin Karg OD, no DM changes. (): exam Ervin Kark OD, no DM changes (05/25/10): exam Ervin Kark, OD, no DM changes * Neuro hx (): no resting acral dysesthesias. Shaky sweaty with lows, but has to get down to 60s. No need for help from others with lows. (06/01/10): no resting acral dysesthesias. Continues to get shaky sweaty with lows, needs to be 60s to feel, and 50s to have strong sx. * Renal hx (): urine albumin=17 mcg/mg creat (): urine albumin=3 mcg/mg creat (): urine albumin <8 mcg/mg creat (05/25/10): urine albumin <4 mcg/mg creat * Vascular hx (): dkho=016, TG=53, HDL=45, dLDL=84 (): zcef=613, TG=42, HDL=47, iJRO=597, CK=43 (05/25/10): inkh=519, TG=48, HDL=59, pYWH=835 Hypothyroidism 09/15/2015 Overview: Hypothyroidism documented as of this encounter (statuses as of 12/31/2021) [facility] History of Past illness Narrative* Problem Noted Date Resolved Date Postcoital bleeding 05/23/2012 03/01/2017 Plantar fascial fibromatosis 01/28/201002/2017 PURE HYPERCHOLESTEROLEM 02/12/2006 07/15/20 14 Uncontrolled type 1 diabetes mellitus 05/03/2005 01/28/2016 Overview: * Type (07/25/1991): dx diabetes, KUMAR? (has marked FHx diabetes both sides). Oral agents x 1yr, then insulin. * Control hx (): OtP7s=0.5 (): GqE1s=2.8% (06/02/07): SuB3s=1.7% (): GeT4q=7.7% (): TkM4d=1.3% (12/10/09): BsK6p=5.2% (05/25/10): ArL6i=4.3% * Eye hx (): exam Ervin Karg OD, no diabetic hemorrhages noted on dilated fundus exam. () exam Ervin Karg OD, no DM changes. (): exam Ervin Kark OD, no DM changes (05/25/10): exam Ervin Kark, OD, no DM changes * Neuro hx (): no resting acral dysesthesias. Shaky sweaty with lows, but has to get down to 60s. No need for help from others with lows. (06/01/10): no resting acral dysesthesias. Continues to get shaky sweaty with lows, needs to be 60s to feel, and 50s to have strong sx. * Renal hx (): urine albumin=17 mcg/mg creat (): urine albumin=3 mcg/mg creat (): urine albumin <8 mcg/mg creat (05/25/10): urine albumin <4 mcg/mg creat * Vascular hx (): oatp=999, TG=53, HDL=45, dLDL=84 (): hsgi=770, TG=42, HDL=47, nGWS=426, CK=43 (05/25/10): xgdd=188, TG=48, HDL=59, wBNV=906 Hypothyroidism 09/15/2015 Overview: Hypothyroidism documented as of this encounter (statuses as of 01/18/2022) [facility] History of Past illness Narrative* Problem Noted Date Resolved Date Postcoital bleeding 05/23/2012 03/01/2017 Plantar fascial fibromatosis 01/28/201002/2017 PURE HYPERCHOLESTEROLEM 02/12/2006 07/15/20 14 Uncontrolled type 1 diabetes mellitus 05/03/2005 01/28/2016 Overview: * Type (07/25/1991): dx diabetes, KUMAR? (has marked FHx diabetes both sides). Oral agents x 1yr, then insulin. * Control hx (): NwR7s=5.5 (): YkF6q=7.8% (06/02/07): YeF8i=7.7% (): DkY6u=3.7% (): LuG5c=2.3% (12/10/09): SxB2j=0.2% (05/25/10): YtQ5o=2.3% * Eye hx (): exam Ervin Whiting OD, no diabetic hemorrhages noted on dilated fundus exam. () exam Ervin Karg OD, no DM changes. (): exam Ervin Castellanos OD, no DM changes (05/25/10): exam Ervin Castellanos, OD, no DM changes * Neuro hx (): no resting acral dysesthesias. Shaky sweaty with lows, but has to get down to 60s. No need for help from others with lows. (06/01/10): no resting acral dysesthesias. Continues to get shaky sweaty with lows, needs to be 60s to feel, and 50s to have strong sx. * Renal hx (): urine albumin=17 mcg/mg creat (): urine albumin=3 mcg/mg creat (): urine albumin <8 mcg/mg creat (05/25/10): urine albumin <4 mcg/mg creat * Vascular hx (): hmcz=055, TG=53, HDL=45, dLDL=84 (): dkwz=932, TG=42, HDL=47, fBQI=102, CK=43 (05/25/10): vyzs=127, TG=48, HDL=59, qYFU=524 Hypothyroidism 09/15/2015 Overview: Hypothyroidism documented as of this encounter (statuses as of 01/26/2022) [facility] History of Past illness Narrative* Problem Noted Date Resolved Date Postcoital bleeding 05/23/2012 03/01/2017 Plantar fascial fibromatosis 01/28/201002/2017 PURE HYPERCHOLESTEROLEM 02/12/2006 07/15/20 14 Uncontrolled type 1 diabetes mellitus 05/03/2005 01/28/2016 Overview: * Type (07/25/1991): dx diabetes, KUMAR? (has marked FHx diabetes both sides). Oral agents x 1yr, then insulin. * Control hx (): RqP2b=8.5 (): AaQ5g=8.8% (06/02/07): ShT5j=9.7% (): KbE9g=4.7% (): UwU6d=6.3% (12/10/09): DdV0h=7.2% (05/25/10): WoQ9t=5.3% * Eye hx (): exam Ervin Karg OD, no diabetic hemorrhages noted on dilated fundus exam. () exam Ervin Karg OD, no DM changes. (): exam Ervin Kark OD, no DM changes (05/25/10): exam Ervin Kark, OD, no DM changes * Neuro hx (): no resting acral dysesthesias. Shaky sweaty with lows, but has to get down to 60s. No need for help from others with lows. (06/01/10): no resting acral dysesthesias. Continues to get shaky sweaty with lows, needs to be 60s to feel, and 50s to have strong sx. * Renal hx (): urine albumin=17 mcg/mg creat (): urine albumin=3 mcg/mg creat (): urine albumin <8 mcg/mg creat (05/25/10): urine albumin <4 mcg/mg creat * Vascular hx (): cybz=695, TG=53, HDL=45, dLDL=84 (): kdog=643, TG=42, HDL=47, uCXR=800, CK=43 (05/25/10): agfn=991, TG=48, HDL=59, xPYE=500 Hypothyroidism 09/15/2015 Overview: Hypothyroidism documented as of this encounter (statuses as of 03/12/2022) [facility] History of Past illness Narrative* Problem Noted Date Resolved Date Postcoital bleeding 05/23/2012 03/01/2017 Plantar fascial fibromatosis 01/28/201002/2017 PURE HYPERCHOLESTEROLEM 02/12/2006 07/15/20 14 Uncontrolled type 1 diabetes mellitus 05/03/2005 01/28/2016 Overview: * Type (07/25/1991): dx diabetes, KUMAR? (has marked FHx diabetes both sides). Oral agents x 1yr, then insulin. * Control hx (): KfU0s=6.5 (): QoH2q=4.8% (06/02/07): CnY0a=7.7% (): EcJ7c=0.7% (): GxL6e=7.3% (12/10/09): KtI1q=5.2% (05/25/10): JhM1w=8.3% * Eye hx (): exam Ervin Karg OD, no diabetic hemorrhages noted on dilated fundus exam. () exam Ervin Karg OD, no DM changes. (): exam Ervin Kark OD, no DM changes (05/25/10): exam Ervin Kark, OD, no DM changes * Neuro hx (): no resting acral dysesthesias. Shaky sweaty with lows, but has to get down to 60s. No need for help from others with lows. (06/01/10): no resting acral dysesthesias. Continues to get shaky sweaty with lows, needs to be 60s to feel, and 50s to have strong sx. * Renal hx (): urine albumin=17 mcg/mg creat (): urine albumin=3 mcg/mg creat (): urine albumin <8 mcg/mg creat (05/25/10): urine albumin <4 mcg/mg creat * Vascular hx (): esmu=331, TG=53, HDL=45, dLDL=84 (): qjin=203, TG=42, HDL=47, nJPG=305, CK=43 (05/25/10): dwbp=140, TG=48, HDL=59, tRAI=971 Hypothyroidism 09/15/2015 Overview: Hypothyroidism documented as of this encounter (statuses as of 05/14/2022) [facility] History of Past illness Narrative* Problem Noted Date Resolved Date Postcoital bleeding 05/23/2012 03/01/2017 Plantar fascial fibromatosis 01/28/201002/2017 PURE HYPERCHOLESTEROLEM 02/12/2006 07/15/20 14 Uncontrolled type 1 diabetes mellitus 05/03/2005 01/28/2016 Overview: * Type (07/25/1991): dx diabetes, KUMAR? (has marked FHx diabetes both sides). Oral agents x 1yr, then insulin. * Control hx (): KyH6r=3.5 (): YxC0e=6.8% (06/02/07): DpX4o=6.7% (): ZjK3m=0.7% (): YlO4a=3.3% (12/10/09): EhN2q=2.2% (05/25/10): PaT6h=4.3% * Eye hx (): exam Ervin Karg OD, no diabetic hemorrhages noted on dilated fundus exam. () exam Ervin Karg OD, no DM changes. (): exam Ervin Kark OD, no DM changes (05/25/10): exam Ervin Kark, OD, no DM changes * Neuro hx (): no resting acral dysesthesias. Shaky sweaty with lows, but has to get down to 60s. No need for help from others with lows. (06/01/10): no resting acral dysesthesias. Continues to get shaky sweaty with lows, needs to be 60s to feel, and 50s to have strong sx. * Renal hx (): urine albumin=17 mcg/mg creat (): urine albumin=3 mcg/mg creat (): urine albumin <8 mcg/mg creat (05/25/10): urine albumin <4 mcg/mg creat * Vascular hx (): bgrm=216, TG=53, HDL=45, dLDL=84 (): jsrv=093, TG=42, HDL=47, wDMW=346, CK=43 (05/25/10): vsbi=775, TG=48, HDL=59, iNLF=278 Hypothyroidism 09/15/2015 Overview: Hypothyroidism documented as of this encounter (statuses as of 05/17/2022) [facility] History of Past illness Narrative* Problem Noted Date Resolved Date Postcoital bleeding 05/23/2012 03/01/2017 Plantar fascial fibromatosis 01/28/201002/2017 PURE HYPERCHOLESTEROLEM 02/12/2006 07/15/20 14 Uncontrolled type 1 diabetes mellitus 05/03/2005 01/28/2016 Overview: * Type (07/25/1991): dx diabetes, KUMAR? (has marked FHx diabetes both sides). Oral agents x 1yr, then insulin. * Control hx (): JiL6c=8.5 (): GxD2s=8.8% (06/02/07): HtC8x=2.7% (): NpF0w=1.7% (): VcW6j=1.3% (12/10/09): LbQ0t=3.2% (05/25/10): PqC6s=3.3% * Eye hx (): exam Ervin Karg OD, no diabetic hemorrhages noted on dilated fundus exam. () exam Ervin Karg OD, no DM changes. (): exam Ervin Kark OD, no DM changes (05/25/10): exam Ervin Kark, OD, no DM changes * Neuro hx (): no resting acral dysesthesias. Shaky sweaty with lows, but has to get down to 60s. No need for help from others with lows. (06/01/10): no resting acral dysesthesias. Continues to get shaky sweaty with lows, needs to be 60s to feel, and 50s to have strong sx. * Renal hx (): urine albumin=17 mcg/mg creat (): urine albumin=3 mcg/mg creat (): urine albumin <8 mcg/mg creat (05/25/10): urine albumin <4 mcg/mg creat * Vascular hx (): lnze=431, TG=53, HDL=45, dLDL=84 (): rlqf=323, TG=42, HDL=47, qOOF=753, CK=43 (05/25/10): juku=971, TG=48, HDL=59, uIRD=180 Hypothyroidism 09/15/2015 Overview: Hypothyroidism documented as of this encounter (statuses as of 05/26/2022) [facility] History of Past illness Narrative* Problem Noted Date Resolved Date Postcoital bleeding 05/23/2012 03/01/2017 Plantar fascial fibromatosis 01/28/201002/2017 PURE HYPERCHOLESTEROLEM 02/12/2006 07/15/20 14 Uncontrolled type 1 diabetes mellitus 05/03/2005 01/28/2016 Overview: * Type (07/25/1991): dx diabetes, KUMAR? (has marked FHx diabetes both sides). Oral agents x 1yr, then insulin. * Control hx (): HmD9a=0.5 (): WzC3x=7.8% (06/02/07): TgW4y=0.7% (): SkM1i=8.7% (): VaQ3o=2.3% (12/10/09): MoH4m=4.2% (05/25/10): MeX8e=5.3% * Eye hx (): exam Ervin Karg OD, no diabetic hemorrhages noted on dilated fundus exam. () exam Ervin Karg OD, no DM changes. (): exam Ervin Kark OD, no DM changes (05/25/10): exam Ervin Kark, OD, no DM changes * Neuro hx (): no resting acral dysesthesias. Shaky sweaty with lows, but has to get down to 60s. No need for help from others with lows. (06/01/10): no resting acral dysesthesias. Continues to get shaky sweaty with lows, needs to be 60s to feel, and 50s to have strong sx. * Renal hx (): urine albumin=17 mcg/mg creat (): urine albumin=3 mcg/mg creat (): urine albumin <8 mcg/mg creat (05/25/10): urine albumin <4 mcg/mg creat * Vascular hx (): vrld=457, TG=53, HDL=45, dLDL=84 (): ghnz=698, TG=42, HDL=47, aKZL=603, CK=43 (05/25/10): swso=521, TG=48, HDL=59, mONM=949 Hypothyroidism 09/15/2015 Overview: Hypothyroidism documented as of this encounter (statuses as of 06/02/2022) [facility] History of Past illness Narrative* Problem Noted Date Resolved Date Postcoital bleeding 05/23/2012 03/01/2017 Plantar fascial fibromatosis 01/28/201002/2017 PURE HYPERCHOLESTEROLEM 02/12/2006 07/15/20 14 Uncontrolled type 1 diabetes mellitus 05/03/2005 01/28/2016 Overview: * Type (07/25/1991): dx diabetes, KUMAR? (has marked FHx diabetes both sides). Oral agents x 1yr, then insulin. * Control hx (): RmC6q=4.5 (): MnF2i=1.8% (06/02/07): WtK3n=8.7% (): WhQ9y=0.7% (): HnT0m=1.3% (12/10/09): ZzG4d=0.2% (05/25/10): NxF0x=4.3% * Eye hx (): exam Ervin Whiting OD, no diabetic hemorrhages noted on dilated fundus exam. () exam Ervin Whiting OD, no DM changes. (): exam Ervin Castellanos OD, no DM changes (05/25/10): exam Ervin Castellanos, OD, no DM changes * Neuro hx (): no resting acral dysesthesias. Shaky sweaty with lows, but has to get down to 60s. No need for help from others with lows. (06/01/10): no resting acral dysesthesias. Continues to get shaky sweaty with lows, needs to be 60s to feel, and 50s to have strong sx. * Renal hx (): urine albumin=17 mcg/mg creat (): urine albumin=3 mcg/mg creat (): urine albumin <8 mcg/mg creat (05/25/10): urine albumin <4 mcg/mg creat * Vascular hx (): inly=744, TG=53, HDL=45, dLDL=84 (): gzge=488, TG=42, HDL=47, gJTW=722, CK=43 (05/25/10): vqde=032, TG=48, HDL=59, xTCT=723 Hypothyroidism 09/15/2015 Overview: Hypothyroidism documented as of this encounter (statuses as of 06/08/2022) [facility] History of Past illness Narrative* Problem Noted Date Resolved Date Postcoital bleeding 05/23/2012 03/01/2017 Plantar fascial fibromatosis 01/28/201002/2017 PURE HYPERCHOLESTEROLEM 02/12/2006 07/15/20 14 Uncontrolled type 1 diabetes mellitus 05/03/2005 01/28/2016 Overview: * Type (07/25/1991): dx diabetes, KUMAR? (has marked FHx diabetes both sides). Oral agents x 1yr, then insulin. * Control hx (): RtW3q=3.5 (): EqD2f=4.8% (06/02/07): DgQ9k=6.7% (): IeS3d=0.7% (): CuQ1t=8.3% (12/10/09): XsJ6o=9.2% (05/25/10): HkS1u=6.3% * Eye hx (): exam Ervin Karg OD, no diabetic hemorrhages noted on dilated fundus exam. () exam Ervin Karg OD, no DM changes. (): exam Ervin Kark OD, no DM changes (05/25/10): exam Ervin Kark, OD, no DM changes * Neuro hx (): no resting acral dysesthesias. Shaky sweaty with lows, but has to get down to 60s. No need for help from others with lows. (06/01/10): no resting acral dysesthesias. Continues to get shaky sweaty with lows, needs to be 60s to feel, and 50s to have strong sx. * Renal hx (): urine albumin=17 mcg/mg creat (): urine albumin=3 mcg/mg creat (): urine albumin <8 mcg/mg creat (05/25/10): urine albumin <4 mcg/mg creat * Vascular hx (): quwi=017, TG=53, HDL=45, dLDL=84 (): gtrh=734, TG=42, HDL=47, tZTY=144, CK=43 (05/25/10): hmub=929, TG=48, HDL=59, aYBU=193 Hypothyroidism 09/15/2015 Overview: Hypothyroidism documented as of this encounter (statuses as of 07/26/2022) [facility] History of Past illness Narrative* Problem Noted Date Resolved Date Postcoital bleeding 05/23/2012 03/01/2017 Plantar fascial fibromatosis 01/28/201002/2017 PURE HYPERCHOLESTEROLEM 02/12/2006 07/15/20 14 Uncontrolled type 1 diabetes mellitus 05/03/2005 01/28/2016 Overview: * Type (07/25/1991): dx diabetes, KUMAR? (has marked FHx diabetes both sides). Oral agents x 1yr, then insulin. * Control hx (): AmC7y=1.5 (): UxW1w=4.8% (06/02/07): KuF2x=6.7% (): LyZ3f=8.7% (): RhB4b=2.3% (12/10/09): EcX8v=3.2% (05/25/10): TbW8k=7.3% * Eye hx (): exam Ervin Karg OD, no diabetic hemorrhages noted on dilated fundus exam. () exam Ervin Karg OD, no DM changes. (): exam Ervin Kark OD, no DM changes (05/25/10): exam Ervin Kark, OD, no DM changes * Neuro hx (): no resting acral dysesthesias. Shaky sweaty with lows, but has to get down to 60s. No need for help from others with lows. (06/01/10): no resting acral dysesthesias. Continues to get shaky sweaty with lows, needs to be 60s to feel, and 50s to have strong sx. * Renal hx (): urine albumin=17 mcg/mg creat (): urine albumin=3 mcg/mg creat (): urine albumin <8 mcg/mg creat (05/25/10): urine albumin <4 mcg/mg creat * Vascular hx (): caey=351, TG=53, HDL=45, dLDL=84 (): smag=364, TG=42, HDL=47, bGKK=579, CK=43 (05/25/10): nhij=663, TG=48, HDL=59, eMKH=429 Hypothyroidism 09/15/2015 Overview: Hypothyroidism documented as of this encounter (statuses as of 09/03/2022) [facility] History of Past illness Narrative* Problem Noted Date Resolved Date Postcoital bleeding 05/23/2012 03/01/2017 Plantar fascial fibromatosis 01/28/201002/2017 PURE HYPERCHOLESTEROLEM 02/12/2006 07/15/20 14 Uncontrolled type 1 diabetes mellitus 05/03/2005 01/28/2016 Overview: * Type (07/25/1991): dx diabetes, KUMAR? (has marked FHx diabetes both sides). Oral agents x 1yr, then insulin. * Control hx (): UpE4z=5.5 (): DwY9e=1.8% (06/02/07): XhO9n=9.7% (): SkV6l=7.7% (): ZaW4g=9.3% (12/10/09): PjL1x=2.2% (05/25/10): DmO3n=4.3% * Eye hx (): exam Ervin Karg OD, no diabetic hemorrhages noted on dilated fundus exam. () exam Ervin Karg OD, no DM changes. (): exam Ervin Kark OD, no DM changes (05/25/10): exam Ervin Kark, OD, no DM changes * Neuro hx (): no resting acral dysesthesias. Shaky sweaty with lows, but has to get down to 60s. No need for help from others with lows. (06/01/10): no resting acral dysesthesias. Continues to get shaky sweaty with lows, needs to be 60s to feel, and 50s to have strong sx. * Renal hx (): urine albumin=17 mcg/mg creat (): urine albumin=3 mcg/mg creat (): urine albumin <8 mcg/mg creat (05/25/10): urine albumin <4 mcg/mg creat * Vascular hx (): fceo=697, TG=53, HDL=45, dLDL=84 (): sgxu=181, TG=42, HDL=47, dHSX=550, CK=43 (05/25/10): toyq=783, TG=48, HDL=59, eSFY=985 Hypothyroidism 09/15/2015 Overview: Hypothyroidism documented as of this encounter (statuses as of 11/27/2022) [facility] History of Past illness Narrative* Problem Noted Date Resolved Date Postcoital bleeding 05/23/2012 03/01/2017 Plantar fascial fibromatosis 01/28/201002/2017 PURE HYPERCHOLESTEROLEM 02/12/2006 07/15/20 14 Uncontrolled type 1 diabetes mellitus 05/03/2005 01/28/2016 Overview: * Type (07/25/1991): dx diabetes, KUMAR? (has marked FHx diabetes both sides). Oral agents x 1yr, then insulin. * Control hx (): RtP1l=4.5 (): ZdP7r=9.8% (06/02/07): DmI4j=9.7% (): BxQ7u=5.7% (): FbN1s=3.3% (12/10/09): RhH1r=1.2% (05/25/10): LyN2t=3.3% * Eye hx (): exam Ervin Karg OD, no diabetic hemorrhages noted on dilated fundus exam. () exam Ervin Karg OD, no DM changes. (): exam Ervin Kark OD, no DM changes (05/25/10): exam Ervin Kark, OD, no DM changes * Neuro hx (): no resting acral dysesthesias. Shaky sweaty with lows, but has to get down to 60s. No need for help from others with lows. (06/01/10): no resting acral dysesthesias. Continues to get shaky sweaty with lows, needs to be 60s to feel, and 50s to have strong sx. * Renal hx (): urine albumin=17 mcg/mg creat (): urine albumin=3 mcg/mg creat (): urine albumin <8 mcg/mg creat (05/25/10): urine albumin <4 mcg/mg creat * Vascular hx (): xndv=090, TG=53, HDL=45, dLDL=84 (): icci=181, TG=42, HDL=47, tCIK=989, CK=43 (05/25/10): zvno=267, TG=48, HDL=59, oNEX=406 Hypothyroidism 09/15/2015 Overview: Hypothyroidism documented as of this encounter (statuses as of 01/18/2023) [facility] History of Past illness Narrative* Problem Noted Date Diagnosed Date Resolved Date Postcoital bleeding 05/23/2012 03/01/20 17 Plantar fascial fibromatosis 01/28/2010 03/01/2017 PURE HYPERCHOLESTEROLEM 02/12/200606/25 Uncontrolled type 1 diabetes mellitus 05/03/2005 01/28/2016 Overview: * Type (07/25/1991): dx diabetes, KUMAR? (has marked FHx diabetes both sides). Oral agents x 1yr, then insulin. * Control hx (): OiD1a=0.5 (): SkP8n=9.8% (06/02/07): TpK0m=8.7% (): EfL3p=7.7% (): TyW4x=3.3% (12/10/09): XsU8n=6.2% (05/25/10): XkB6u=9.3% * Eye hx (): exam Ervin Karg OD, no diabetic hemorrhages noted on dilated fundus exam. () exam Ervin Karg OD, no DM changes. (): exam Ervin Kark OD, no DM changes (05/25/10): exam Ervin Kark, OD, no DM changes * Neuro hx (): no resting acral dysesthesias. Shaky sweaty with lows, but has to get down to 60s. No need for help from others with lows. (06/01/10): no resting acral dysesthesias. Continues to get shaky sweaty with lows, needs to be 60s to feel, and 50s to have strong sx. * Renal hx (): urine albumin=17 mcg/mg creat (): urine albumin=3 mcg/mg creat (): urine albumin <8 mcg/mg creat (05/25/10): urine albumin <4 mcg/mg creat * Vascular hx (): fojk=298, TG=53, HDL=45, dLDL=84 (): uunt=214, TG=42, HDL=47, hBST=711, CK=43 (05/25/10): bsxl=880, TG=48, HDL=59, nCZH=856 Hypothyroidism 09/15/2015 Overview: Hypothyroidism documented as of this encounter (statuses as of 02/06/2023) [facility] History of Past illness Narrative* Problem Noted Date Diagnosed Date Resolved Date Postcoital bleeding 05/23/2012 03/01/20 17 Plantar fascial fibromatosis 01/28/2010 03/01/2017 PURE HYPERCHOLESTEROLEM 02/12/200606/25 Uncontrolled type 1 diabetes mellitus 05/03/2005 01/28/2016 Overview: * Type (07/25/1991): dx diabetes, KUMAR? (has marked FHx diabetes both sides). Oral agents x 1yr, then insulin. * Control hx (): YjM6k=9.5 (): MeO6n=1.8% (06/02/07): CkN3u=4.7% (): GnS7b=2.7% (): PgK9q=1.3% (12/10/09): KfW8o=2.2% (05/25/10): FlN3d=1.3% * Eye hx (): exam Ervin Whiting OD, no diabetic hemorrhages noted on dilated fundus exam. () exam Ervin Whiting OD, no DM changes. (): exam Ervin Kark OD, no DM changes (05/25/10): exam Ervin Castellanos, OD, no DM changes * Neuro hx (): no resting acral dysesthesias. Shaky sweaty with lows, but has to get down to 60s. No need for help from others with lows. (06/01/10): no resting acral dysesthesias. Continues to get shaky sweaty with lows, needs to be 60s to feel, and 50s to have strong sx. * Renal hx (): urine albumin=17 mcg/mg creat (): urine albumin=3 mcg/mg creat (): urine albumin <8 mcg/mg creat (05/25/10): urine albumin <4 mcg/mg creat * Vascular hx (): cyaa=057, TG=53, HDL=45, dLDL=84 (): qazj=310, TG=42, HDL=47, gLMU=388, CK=43 (05/25/10): krud=712, TG=48, HDL=59, fJAF=437 Hypothyroidism 09/15/2015 Overview: Hypothyroidism documented as of this encounter (statuses as of 03/01/2023) [facility] History of Past illness Narrative* Problem Noted Date Diagnosed Date Resolved Date Postcoital bleeding 05/23/2012 03/01/20 17 Plantar fascial fibromatosis 01/28/2010 03/01/2017 PURE HYPERCHOLESTEROLEM 02/12/200606/25 Uncontrolled type 1 diabetes mellitus 05/03/2005 01/28/2016 Overview: * Type (07/25/1991): dx diabetes, KUMAR? (has marked FHx diabetes both sides). Oral agents x 1yr, then insulin. * Control hx (): WxX0f=1.5 (): UnJ6o=0.8% (06/02/07): JzY5w=4.7% (): KsN7z=5.7% (): UnL8q=3.3% (12/10/09): MlU2t=5.2% (05/25/10): DtT8x=7.3% * Eye hx (): exam Ervin Karg OD, no diabetic hemorrhages noted on dilated fundus exam. () exam Ervin Karg OD, no DM changes. (): exam Ervin Kark OD, no DM changes (05/25/10): exam Ervin Kark, OD, no DM changes * Neuro hx (): no resting acral dysesthesias. Shaky sweaty with lows, but has to get down to 60s. No need for help from others with lows. (06/01/10): no resting acral dysesthesias. Continues to get shaky sweaty with lows, needs to be 60s to feel, and 50s to have strong sx. * Renal hx (): urine albumin=17 mcg/mg creat (): urine albumin=3 mcg/mg creat (): urine albumin <8 mcg/mg creat (05/25/10): urine albumin <4 mcg/mg creat * Vascular hx (): rjyo=589, TG=53, HDL=45, dLDL=84 (): avnm=601, TG=42, HDL=47, sGXG=275, CK=43 (05/25/10): dxoe=184, TG=48, HDL=59, tKXE=411 Hypothyroidism 09/15/2015 Overview: Hypothyroidism documented as of this encounter (statuses as of 06/15/2023) [facility] History of Past illness Narrative* Problem Noted Date Diagnosed Date Resolved Date Postcoital bleeding 05/23/2012 03/01/20 17 Plantar fascial fibromatosis 01/28/2010 03/01/2017 PURE HYPERCHOLESTEROLEM 02/12/200606/25 Uncontrolled type 1 diabetes mellitus 05/03/2005 01/28/2016 Overview: * Type (07/25/1991): dx diabetes, KUMAR? (has marked FHx diabetes both sides). Oral agents x 1yr, then insulin. * Control hx (): JkW7q=2.5 (): ErG3t=0.8% (06/02/07): CvB7p=0.7% (): MhI0f=2.7% (): AzQ0y=5.3% (12/10/09): VnU5i=3.2% (05/25/10): QvR3f=3.3% * Eye hx (): exam Ervin Karg OD, no diabetic hemorrhages noted on dilated fundus exam. () exam Ervin Karg OD, no DM changes. (): exam Ervin Kark OD, no DM changes (05/25/10): exam Ervin Kark, OD, no DM changes * Neuro hx (): no resting acral dysesthesias. Shaky sweaty with lows, but has to get down to 60s. No need for help from others with lows. (06/01/10): no resting acral dysesthesias. Continues to get shaky sweaty with lows, needs to be 60s to feel, and 50s to have strong sx. * Renal hx (): urine albumin=17 mcg/mg creat (): urine albumin=3 mcg/mg creat (): urine albumin <8 mcg/mg creat (05/25/10): urine albumin <4 mcg/mg creat * Vascular hx (): bjwo=601, TG=53, HDL=45, dLDL=84 (): hemt=440, TG=42, HDL=47, jTKC=839, CK=43 (05/25/10): agnp=996, TG=48, HDL=59, xGCC=633 Hypothyroidism 09/15/2015 Overview: Hypothyroidism documented as of this encounter (statuses as of 11/02/2023) [facility] noteNo assessment information availableW[facility]* Diagnosis Tibialis posterior tendinitis, unspecified laterality- Primary Diabetes mellitus type 1, controlled, without complications (HCC) Type I (juvenile type) diabetes mellitus without mention of complication, not stated as uncontrolled Hammer toe, unspecified laterality Hallux valgus of left foot documented in this encounter [facility] note* Diagnosis Posterior tibialis tendinitis of both lower extremities- Primary Acquired hallux valgus of right foot Hallux valgus (acquired) Acquired hammer toe Other hammer toe (acquired) documented in this encounter [facility] note* Diagnosis Posterior tibialis tendinitis of both lower extremities- Primary Acquired hallux valgus of right foot Hallux valgus (acquired) Acquired hammer toe Other hammer toe (acquired) documented in this encounter [facility] note* Diagnosis Vaginal burning- Primary Other specified symptom associated with female genital organs Postmenopausal atrophic vaginitis documented in this encounter [facility] note* Diagnosis Vulvovaginitis Vaginitis and vulvovaginitis, unspecified documented in this encounter [facility] note* Diagnosis Mild intermittent asthma without complication Unspecified asthma [facility]* Diagnosis Diabetes mellitus type 1, controlled, without complications (HCC)- Primary Type I (juvenile type) diabetes mellitus without mention of complication, not stated as uncontrolled Acquired hypothyroidism Unspecified hypothyroidism Anxiety with somatic features Anxiety state, unspecified Cervical radiculopathy Brachial neuritis or radiculitis nos Hyperlipidemia with target LDL less than 100 Other and unspecified hyperlipidemia Mild intermittent asthma without complication Unspecified asthma Gastroesophageal reflux disease without esophagitis Esophageal reflux Obesity, Class I, BMI 30-34.9 Obesity, unspecified [facility]* Diagnosis Porokeratosis- Primary Other specified congenital anomaly of skin Diabetes mellitus type 1, controlled, without complications (HCC) Type I (juvenile type) diabetes mellitus without mention of complication, not stated as uncontrolled [facility]* Diagnosis Mild intermittent asthma without complication Unspecified asthma [facility]* Diagnosis Hyperlipidemia with target LDL less than 100- Primary Other and unspecified hyperlipidemia Acquired hypothyroidism Unspecified hypothyroidism Diabetes mellitus type 1, controlled, without complications (HCC) Type I (juvenile type) diabetes mellitus without mention of complication, not stated as uncontrolled Obesity, Class I, BMI 30-34.9 Obesity, unspecified Bilateral impacted cerumen Impacted cerumen [facility]* Diagnosis Posterior tibialis tendinitis of both lower extremities- Primary Acquired hallux valgus of right foot Hallux valgus (acquired) Acquired hammer toe Other hammer toe (acquired) [facility]* Diagnosis Other injury of unspecified muscle, fascia and tendon at shoulder and upper arm level, unspecified arm, initial encounter Chronic right shoulder pain Pain in joint, shoulder region [facility]* Diagnosis Diabetes mellitus type 1, controlled, without complications (HCC)- Primary Type I (juvenile type) diabetes mellitus without mention of complication, not stated as uncontrolled Acquired hypothyroidism Unspecified hypothyroidism Hyperlipidemia with target LDL less than 100 Other and unspecified hyperlipidemia Mild intermittent asthma without complication Unspecified asthma [facility]* Diagnosis Mild intermittent asthma without complication (HCC) Unspecified asthma [facility]* Diagnosis Encounter for gynecological examination (general) (routine) without abnormal findings- Primary Encounter for screening mammogram for breast cancer Genitourinary syndrome of menopause documented in this encounter [facility] Summary Purpose Family History Relationship Condition Age at Onset Recorded Date/T ashely mother Malignant neoplasm Unknown father Diabetes mellitus Unknown grandmother Arthritis Unknown Advance Directives Documents on File Type Date Recorded Patient 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 Advance Directive(s) 07/20/2018 6:35 AM Advance Directive(s) 05/24/2018 1:37 AM Advance Directive Response Recorded Date/ Time Advance Directives No August 14, 2013 2:09pm Living Will No February 24, 2021 3:17pm Power of Marble Machine Operator No February 24 3:17pm Chief Complaint and Reason for Visit Chief Complaint SCREENING Additional Source Comments INFORMATION SOURCE (unrecogn ized section and content) DATE CREATED AUTHOR 07/16/2019 [facility] DATE CREATED AUTHOR AUTHOR'S ORGANIZ ATION 06/03/2023 [facility] DATE CREATED AUTHOR AUTHOR'S ORGANIZ ATION 01/22/2024 [facility] DATE CREATED AUTHOR AUTHOR'S ORGANIZ ATION 07/16/2024 [facility] DATE CREATED AUTHOR AUTHOR'S ORGANIZ ATION 10/04/2024 [facility] Source Comments (unrecognize d section and content) In the event this informatio n is protected by the Federal Confidentiality of Alcohol and Drug Abuse Patient Records regulations: The Federal rules restrict any use of the information to criminally investigate or prosecute any alcohol or drug abuse patient.[facility] the event this information is protected by the Federal Confidentiality of Alcohol and Drug Abuse Patient Records regulations: The Federal rules restrict any use of the information to criminally investigate or prosecute any alcohol or drug abuse patient.[facility] HealthIn the event this information is protected by the Federal Confidentiality of Alcohol and Drug Abuse Patient Records regulations: The Federal rules restrict any use of the information to criminally investigate or prosecute any alcohol or drug abuse patient.[facility] HealthIn the event this information is protected by the Federal Confidentiality of Alcohol and Drug Abuse Patient Records regulations: The Federal rules restrict any use of the information to criminally investigate or prosecute any alcohol or drug abuse patient.[facility]In the event this information is protected by the Federal Confidentiality of Alcohol and Drug Abuse Patient Records regulations: The Federal rules restrict any use of the information to criminally investigate or prosecute any alcohol or drug abuse patient.[facility]In the event this information is protected by the Federal Confidentiality of Alcohol and Drug Abuse Patient Records regulations: The Federal rules restrict any use of the information to criminally investigate or prosecute any alcohol or drug abuse patient.[facility]In the event this information is protected by the Federal Confidentiality of Alcohol and Drug Abuse Patient Records regulations: The Federal rules restrict any use of the information to criminally investigate or prosecute any alcohol or drug abuse patient.[facility]In the event this information is protected by the Federal Confidentiality of Alcohol and Drug Abuse Patient Records regulations: The Federal rules restrict any use of the information to criminally investigate or prosecute any alcohol or drug abuse patient.[facility]In the event this information is protected by the Federal Confidentiality of Alcohol and Drug Abuse Patient Records regulations: The Federal rules restrict any use of the information to criminally investigate or prosecute any alcohol or drug abuse patient.[facility] HealthIn the event this information is protected by the Federal Confidentiality of Alcohol and Drug Abuse Patient Records regulations: The Federal rules restrict any use of the information to criminally investigate or prosecute any alcohol or drug abuse patient.[facility]In the event this information is protected by the Federal Confidentiality of Alcohol and Drug Abuse Patient Records regulations: The Federal rules restrict any use of the information to criminally investigate or prosecute any alcohol or drug abuse patient.[facility]In the event this information is protected by the Federal Confidentiality of Alcohol and Drug Abuse Patient Records regulations: The Federal rules restrict any use of the information to criminally investigate or prosecute any alcohol or drug abuse patient.[facility]In the event this information is protected by the Federal Confidentiality of Alcohol and Drug Abuse Patient Records regulations: The Federal rules restrict any use of the information to criminally investigate or prosecute any alcohol or drug abuse patient.[facility]In the event this information is protected by the Federal Confidentiality of Alcohol and Drug Abuse Patient Records regulations: The Federal rules restrict any use of the information to criminally investigate or prosecute any alcohol or drug abuse patient.[facility]In the event this information is protected by the Federal Confidentiality of Alcohol and Drug Abuse Patient Records regulations: The Federal rules restrict any use of the information to criminally investigate or prosecute any alcohol or drug abuse patient.[facility]In the event this information is protected by the Federal Confidentiality of Alcohol and Drug Abuse Patient Records regulations: The Federal rules restrict any use of the information to criminally investigate or prosecute any alcohol or drug abuse patient.[facility]In the event this information is protected by the Federal Confidentiality of Alcohol and Drug Abuse Patient Records regulations: The Federal rules restrict any use of the information to criminally investigate or prosecute any alcohol or drug abuse patient.[facility] HealthIn the event this information is protected by the Federal Confidentiality of Alcohol and Drug Abuse Patient Records regulations: The Federal rules restrict any use of the information to criminally investigate or prosecute any alcohol or drug abuse patient.[facility]In the event this information is protected by the Federal Confidentiality of Alcohol and Drug Abuse Patient Records regulations: The Federal rules restrict any use of the information to criminally investigate or prosecute any alcohol or drug abuse patient.[facility]In the event this information is protected by the Federal Confidentiality of Alcohol and Drug Abuse Patient Records regulations: The Federal rules restrict any use of the information to criminally investigate or prosecute any alcohol or drug abuse patient.[facility]In the event this information is protected by the Federal Confidentiality of Alcohol and Drug Abuse Patient Records regulations: The Federal rules restrict any use of the information to criminally investigate or prosecute any alcohol or drug abuse patient.[facility]In the event this information is protected by the Federal Confidentiality of Alcohol and Drug Abuse Patient Records regulations: The Federal rules restrict any use of the information to criminally investigate or prosecute any alcohol or drug abuse patient.[facility] HealthIn the event this information is protected by the Federal Confidentiality of Alcohol and Drug Abuse Patient Records regulations: The Federal rules restrict any use of the information to criminally investigate or prosecute any alcohol or drug abuse patient.[facility] ClinicIn the event this information is protected by the Federal Confidentiality of Alcohol and Drug Abuse Patient Records regulations: The Federal rules restrict any use of the information to criminally investigate or prosecute any alcohol or drug abuse patient.[facility] HealthIn the event this information is protected by the Federal Confidentiality of Alcohol and Drug Abuse Patient Records regulations: The Federal rules restrict any use of the information to criminally investigate or prosecute any alcohol or drug abuse patient.[facility]In the event this information is protected by the Federal Confidentiality of Alcohol and Drug Abuse Patient Records regulations: The Federal rules restrict any use of the information to criminally investigate or prosecute any alcohol or drug abuse patient.[facility] HealthIn the event this information is protected by the Federal Confidentiality of Alcohol and Drug Abuse Patient Records regulations: The Federal rules restrict any use of the information to criminally investigate or prosecute any alcohol or drug abuse patient.[facility] HealthIn the event this information is protected by the Federal Confidentiality of Alcohol and Drug Abuse Patient Records regulations: The Federal rules restrict any use of the information to criminally investigate or prosecute any alcohol or drug abuse patient.[facility] HealthIn the event this information is protected by the Federal Confidentiality of Alcohol and Drug Abuse Patient Records regulations: The Federal rules restrict any use of the information to criminally investigate or prosecute any alcohol or drug abuse patient.[facility] Reason for Visit (unrecogniz ed section and content) Reason Comments Patient Update Reason Comments Orders Reason Comments Established Patient Follow Up Pain Reason Comments PT Discharge Specialty Diagnoses / Procedures Referred By Contac t Referred To Contact Physical Therapy / PHYSICAL THERAPY Diagnoses pt requesting ORThOTICS INSERTS and a BUNIONS CHECK f/u Procedures PHYSICAL THERAPY EVALUATION HIGH COMPLEX 45 MINS THERAPEUTIC EXERCISES RE, EA 15 MIN. NEW RS PT ORTHOTIC Deshawn Baron [address] [place] [address] Justin Burrows PT [address] [place] [address] Referral ID Status Reason Start Date Expiration Date V isits Requested Visits Authorized [id number] Authorized 04/09/2022 07/24/2022 120 117 Reason Comments Vaginal Problem Reason Onset Date Comments Refill Request 07/20/2022 Reason Comments Follow Up Reason Comments Established Patient Bottom of foot Pain Bottom of foot Reason Onset Date Comments Refill Request 06/14/2023 Reason Comments Follow Up Pressure is right ea r Reason Onset Date Comments Refill Request 04/09/2024 Reason Onset Date Comments Refill Request 06/27/2024 Reason Comments 6 Month Exam Reason Onset Date Comments Refill Request 12/04/2024 Reason Comments [facility] Care Teams (unrecognized sec tion and content) Forestry Extension Specialist Relationship Specialty Start Date End Date Sánchez Tabares MD [address] [facility] [place] [address] PCP - General Family Practice 09/23/21 Marco Antonio Dave [address] [facility] [address] [place] [address] Rent And Housing Investigator Endocrinology 05/15/20 Forestry Extension Specialist Relationship Specialty Start Date End Date Sánchez Tabares MD [address] [place] [address] PCP - General Family Practice 09/23/21 Marco Antonio Dave [address] [facility] [address] [place] [address] Rent And Housing Investigator Endocrinology 05/15/20 Forestry Extension Specialist Relationship Specialty Start Date End Date Sánchez Tabares MD [address] [place] [place] [address] PCP - General Family Practice 09/23/21 Marco Antonio Dave [address] [facility] [address] [place] [address] Rent And Housing Investigator Endocrinology 05/15/20 Forestry Extension Specialist Relationship Specialty Start Date End Date Sánchez Tabares MD [address] [place] [address] PCP - General Family Medicine 09/23/21 Marco Antonio Dave [address] [facility] [address] [place] [address] Rent And Housing Investigator Endocrinology 05/15/20 Forestry Extension Specialist Relationship Specialty Start Date End Date Sánchez Tabares MD [address] [place] [address] PCP - General Family Medicine 09/23/21 Marco Antonio Dave [address] [facility] [address] [place] [address] Rent And Housing Investigator Endocrinology 05/15/20 Forestry Extension Specialist Relationship Specialty Start Date End Date Sánchez Tabares MD [address] [place] [address] PCP - General Family Medicine 09/23/21 Marco Antonio Dave [address] [facility] [address] [place] [address] Rent And Housing Investigator Endocrinology 05/15/20 Forestry Extension Specialist Relationship Specialty Start Date End Date Sánchez Tabares MD [address] [place] [address] PCP - General Family Medicine 09/23/21 Marco Antonio Dave [address] [facility] [address] [place] [address] Rent And Housing Investigator Endocrinology 05/15/20 Forestry Extension Specialist Relationship Specialty Start Date End Date Sánchez Tabares MD [address] [place] [address] PCP - General Family Medicine 09/23/21 Marco Antonio Dave [address] [facility] [address] [place] [address] Rent And Housing Investigator Endocrinology 05/15/20 Forestry Extension Specialist Relationship Specialty Start Date End Date Sánchez Tabares MD [address] [facility] [place] [address] PCP - General Family Medicine 09/23/21 Marco Antonio Dave [address] [facility] [address] [place] [phone] Rent And Housing Investigator Endocrinology 05/15/20 Forestry Extension Specialist Relationship Specialty Start Date End Date Sánchez Tabares MD [address] [facility] [place] [address] PCP - General Family Medicine 09/23/21 Marco Antonio Dave [address] [facility] [address] [place] [address] Rent And Housing Investigator Endocrinology 05/15/20 Forestry Extension Specialist Relationship Specialty Start Date End Date Sánchez Tabares MD [address] [facility] [place] [address] PCP - General Family Medicine 09/23/21 Marco Antonio Dave [address] [facility] [address] [place] [phone] Rent And Housing Investigator Endocrinology 05/15/20 Team Status: Active Member Role Status Dates Dr. Bob Patel III, MD Family Provider Active Dr. Sánchez Tabares MD Primary Care Provider Active Team Status: Inactive Member Role Status Dates Dr. Sánchez Tabares MD Primary Care Provider Active Shira Espinosa NP, CONNIE-C Attending Provider, Referring Pro vider Active Team Status: Inactive Member Role Status Dates Dr. Sánchez Tabares MD Primary Care Provider Active Shruthi Flores NP-C Attending Provider, Referring Pr ovider Active Forestry Extension Specialist Relationship Specialty Start Date End Date Sánchez Tabares MD [address] [facility] [place] [address] PCP - General Family Medicine 09/23/21 Marco Antonio Dave [address] [facility] [address] [place] [phone] Rent And Housing Investigator Endocrinology 05/15/20 Forestry Extension Specialist Relationship Specialty Start Date End Date Sánchez Tabares MD [address] [facility], [place] [address] PCP - General Family Medicine 09/23/21 Marco Antonio Dave [address] [facility] [address] [place] [phone] Rent And Housing Investigator Endocrinology 05/15/20 Forestry Extension Specialist Relationship Specialty Start Date End Date Sánchez Tabares MD [address] [facility], [place] [address] PCP - General Family Medicine 09/23/21 Marco Antonio Dave [address] [facility] [address] [place] [phone] Rent And Housing Investigator Endocrinology 05/15/20 Forestry Extension Specialist Relationship Specialty Start Date End Date Sánchez Tabares MD [address] [facility], [place] [address] PCP - General Family Medicine 09/23/21 Marco Antonio Dave [address] [facility] [address] [place] [phone] Rent And Housing Investigator Endocrinology 05/15/20 Forestry Extension Specialist Relationship Specialty Start Date End Date Sánchez Tabares MD [address] [facility], [place] [address] PCP - General Family Medicine 09/23/21 Marco Antonio Dave [address] [place] [phone] Rent And Housing Investigator Endocrinology 05/15/20 Forestry Extension Specialist Relationship Specialty Start Date End Date Bob Patel III, MD NO FORWARDING ADDRESS PCP - General 05/18/02 06/15/21 Marco Antonio Dave [address] [facility] [address] [place] [address] Rent And Housing Investigator Endocrinology 05/15/20 Forestry Extension Specialist Relationship Specialty Start Date End Date Sánchez Tabares MD [address] [facility] [place] [address] PCP - General Family Medicine 09/23/21 Marco Antonio Dave [address] [facility] [address] [place] [phone] Rent And Housing Investigator Endocrinology 05/15/20 Nargis Collins APRN.POLE INCISOR OPERATOR [address] [place] [address] Production Statistical Clerk Family Medicine 07/02/24 Karolyn Humphreys COMPOSITION TILE LAYER.POLE INCISOR OPERATOR [address] [facility] [place] [address] Production Statistical Clerk Family Medicine 07/02/24 Forestry Extension Specialist Relationship Specialty Start Date End Date Sánchez Tabares MD [address] [facility] [place] [address] PCP - General Family Medicine 09/23/21 Marco Antonio Dave [address] [place] [address] [facility] [address] [place] [phone] Rent And Housing Investigator Endocrinology 05/15/20 Nargis Collins APRN.POLE INCISOR OPERATOR [address] [place] [address] Production Statistical Clerk Family Medicine 07/02/24 Karolyn Humphreys APRN.POLE INCISOR OPERATOR [address] [facility] [place] [address] [facility] 07/02/24 Forestry Extension Specialist Relationship Specialty Start Date End Date Sánchez Tabares MD [address] [place], [place] [id number] PCP - General Family Medicine 09/23/21 Marco Antonio Dave [address] [place] [phone] Rent And Housing Investigator Endocrinology 05/15/20 Nargis Collins APRN.POLE INCISOR OPERATOR [address] [facility] [facility] [place] [address] [facility] 07/02/24 Karolyn Humphreys APRN.POLE INCISOR OPERATOR [address] [place], [place] [id number] [facility] 07/02/24 Goals (unrecognized section and content) Goals may be documented in a n alternate sectionGoals may be documented in an alternate sectionGoals may be documented in an alternate section FOR RECORDS PERTAINING TO PATIENTS WHO ARE OR HAVE BEEN ENROLLED IN A CHEMICAL DEPENDENCY/SUBSTANCEABUSE PROGRAM, SOME INFORMATION MAY BE OMITTED. This clinical summary was aggregated from multiple sources. Caution should be exercised in using it in the provision of clinical care. This summary normalizes information from multiple sources, and as a consequence, information in this document may materially change the coding, format and clinical context of patient data. In addition, data may be omitted in some cases. CLINICAL DECISIONS SHOULD BE BASED ON THE PRIMARY CLINICAL RECORDS. [facility]. provides no warranty or guarantee of the accuracy or completeness of information in this document.
[2025-01-11 07:33] LABS: Microalbumin,Random Urine < 12.0 mg/L (NO RANGE EST.); Microalbumin:Creatinine Ratio UNABLE TO CALCULATE mg/g CRE
[2025-01-11 07:49] LABS: ALB/GLOB Ratio 1.5 RATIO (0.9-2.4); AST(SGOT) 22 U/L (<=31); Alanine Aminotransfer ALT/SGPT 13 U/L (<=34); Albumin, Serum 3.9 g/dL (3.5-5.0); Alkaline Phosphatase 53 U/L (35-104); Anion Gap 10 (5-15); BUN 11 mg/dL (4-19); BUN/Creat Ratio 16.5 RATIO (10-20); Calcium,Total 9.5 mg/dL (7.6-11.0); Chloride 102 mmol/L (98-108); Cholesterol 150 mg/dL (<=200); Creatinine, Serum 0.69 mg/dL (0.70-1.20); EST Glomerular Filtration Rate 102 (>60); Globulin 2.6 g/dL (2.2-4.2); Glucose 126 mg/dL (70-99); High Density Lipoprotein 49 mg/dL; Low Density Lipoprotein Calc. 89 mg/dL; Protein, Total 6.5 g/dL (5.9-8.4); Sodium Level 140 mmol/L (133-145); Total Bilirubin 0.47 mg/dL (0.00-1.30); Triglycerides 62 mg/dL; Very Low Density Lipoprotein 12 mg/dL (5-40); Vitamin D,25 Hydroxy 53.4 ng/mL (30-100); cholesterol:hdl ratio screen 3.07
== END 2025-01-11 23:59 | disposition home or self-care (01) ==
LOC: LAB 06:31
PROVIDERS: PCP Family Medicine; Referring Provider Internal Medicine Endocrinology, Diabetes & Metabolism; Visit Provider Internal Medicine Endocrinology, Diabetes & Metabolism
DX: E10.9 Type 1 diabetes mellitus without complications (principal); Z96.41 Presence of insulin pump (external) (internal); E78.5 Hyperlipidemia, unspecified; E03.9 Hypothyroidism, unspecified; E55.9 Vitamin D deficiency, unspecified
CPT/HCPCS: 36415; 80053; 80061; 82043; 82306; 82570; 84439; 84443

== ENCOUNTER → 2025-01-30 | Outpatient (CLI) | payer OTHER, SELFPAY ==
--- NOTE | 2025-01-30 11:57 | BI_ITS ---
EXAM: SCRN MAMM (CAD)W/GREER BILAT DATE: 01/30/2025 CLINICAL HISTORY: F, Age 54 y/o , SCREENING TECHNIQUE: SCRN MAMM (CAD)W/GREER BILAT COMPARISON: Prior exam(s) dated 01/30/2024, 01/28/2023, 01/29/2022. FINDINGS: TISSUE DENSITY: The breasts are heterogeneously dense, which may obscure small masses. The mammogram demonstrates that the patient has dense breasts. Supplemental screening with whole breast ultrasound or MRI may be considered for further evaluation. Bilateral Breast Mammographic Findings: No significant masses, calcifications or other abnormalities are identified. BI/SCRN MAMM (CAD)W/GREER BILAT IMPRESSION: There is no mammographic evidence of malignancy. OVERALL FINAL ASSESSMENT BI-RADS 1: NEGATIVE. RECOMMEND ANNUAL MAMMOGRAPHIC SCREENING. RECOMMENDATION: Routine annual follow-up in 1 Year A letter with findings and recommendations will be mailed to the patient. Reading Location: [id number]
== END | disposition home or self-care (01) ==
LOC: OPBI 11:55
PROVIDERS: PCP Family Medicine; Referring Provider Nurse Practitioner Women's Health; Visit Provider Nurse Practitioner Women's Health
DX: Z12.31 Encounter for screening mammogram for malignant neoplasm of breast (principal)
CPT/HCPCS: 77063; 77067

== ENCOUNTER → 2025-04-03 | Outpatient (CLI) | payer OTHER, SELFPAY ==
--- NOTE | 2025-04-03 06:21 | CT_ITS ---
PROCEDURE: ABDOMEN/PELVIS WITH CONTRAST 04/03/2025 REASON FOR EXAM: WEIGHT LOSS, EPIGASTRIC/BACK PAIN 35 lb weight loss. Patient is diabetic. TECHNIQUE: Procedure Code: [id number] Modality: CT Procedure: Coronal and Sagittal reconstruction series were provided. CONTRAST: Isovue 370 VOLUME: 100 mL One or more dose reduction techniques were used (e.g., Automated exposure control, adjustment of the mA and/or kV according to patient size, use of iterative reconstruction technique. RADIATION DOSE SUMMARY: CTDlvol: 12.76 mGy DLP: 748.16 mGycm COMPARISON: None FINDINGS: Lung bases: The lung bases are clear. Liver: Normal size. No mass. Gallbladder: Small layering gallstones along the dependent portion of the gallbladder lumen. Spleen: Normal size. Pancreas: Diffuse fatty atrophy. Adrenals: Unremarkable Kidneys: Normal renal sizes. No hydronephrosis. Bladder: Unremarkable Reproductive Organs: Normal uterine size and contour. Ovaries are unremarkable. Bowel: Unremarkable Appendix: Unremarkable Lymph nodes: Unremarkable. Vasculature: The abdominal aorta and IVC are normal. Peritoneum / Retroperitoneum: Unremarkable Bones: Unremarkable CT/Abdomen/Pelvis WITH Contrast IMPRESSION: Small layering gallstones. Diffuse fatty atrophy of the pancreas. Reading Location: [facility]
--- OUTSIDE RECORDS SUMMARY | 2025-04-03 06:35 | XMS RPT_ITS | CCD ---
Author Organization [facility] Care Team Providers Care Water Valve Repairer Name Role Phone Marco Antonio Dave Unavailable [...] Bob Flores Primary Care Provider Alecia vailable Halevar TUG HAND.Nargis HOWELL Unavailable Suppan TUG HAND.LYNDA, Karolyn A Unavailable [phone] Suppan TUG HAND.LYNDA, Karolyn A Unavailable JUSTIN BURROWS Attending Unavailable DESHAWN BARON Referring Unavailable SÁNCHEZ TABARES Primary Care Unavailable SÁNCHEZ TABARES Primary Care Unavailable JUSTIN BURROWS Attending Unavailable DESHAWN BARON Referring Unavailable SÁNCHEZ TABARES Primary Care Unavailable SÁNCHEZ TABARES Attending Unavailable SÁNCHEZ TABARES Primary Care Unavailable NETTIE LYLES Attending Unavailable Antonieta Conklin Attending Provider Dr. Sánchez Tabares MD Primary Care Provider Dr. Sánchez Tabares MD Referring Provider David DOHERTYCAntonieta Referring Provider Dr. Chintan Ramirez MD Attending Provider Dr. Chintan Ramirez MD Referring Provider Dr. Sánchez Tabares MD Primary Care Provider Dr. Sánchez Tabares MD Referring Provider Haury CREDIT CONTROL MANAGER-C, Nettie Attending Provider Haury CREDIT CONTROL MANAGER-C, Nettie Referring Provider David CREDIT CONTROL MANAGER-C, Antonieta Attending Provider David, Antonieta Attending Unavailable Albino, Sánchez Referring Unavailable Albino, Sánchez Primary Care Unavailable James, Chintan Attending Unavailable Albino, Sánchez Referring Unavailable [place], Sánchez Primary Care Unavailable David, Antonieta Attending Unavailable [place], Sánchez Referring Unavailable David, Antoineta Attending Unavailable Albino, Sánchez Primary Care Unavailable Albino, Sánchez Referring Unavailable David, Antonieta Attending Unavailable David, Antonieta Referring Unavailable Albino, Sánchez Primary Care Unavailable Haury, Nettie Attending Unavailable [place], Sánchez Primary Care Unavailable Haury, Nettie Referring Unavailable Friend, Rambo Attending Unavailable Friend, Rambo Consulting Unavailable [place], Sánchez Referring Unavailable [place], Sánchez Primary Care Unavailable James, Chintan Referring Unavailable James, Chintan Attending Unavailable [place], Sánchez Primary Care Unavailable David, Antonieta Referring Unavailable David, Antonieta Attending Unavailable [place], Sánhcez Primary Care Unavailable David, Antonieta Referring Unavailable David, Antonieta Attending Unavailable Albino, Sánchez Primary Care Unavailable Friend, Rambo Attending Unavailable Albino, Sánchez Referring Unavailable Albino, Sánchez Primary Care Unavailable James, Chintan Attending Unavailable [place], Sánchez Primary Care Unavailable Albino, Sánchez Referring Unavailable Allergies Allergy Classification Reported Allergen(s) Allergy Type Date of Onset Reaction(s) Facility (20 sources) Apples; Translations: [APPLES] Propensity to adverse reactions 05-03-20 05 [facility] Work Phone: (20 sources) Lovastatin; Translations: [LOVASTATIN] Drug Allergy 05-11-20 05 Other: See Comments [facility] Comment on above: bad dreams (20 sources) Sulfamethoxazole / Trimethoprim; Translations: [SULFAMETHOXAZOLE-T RIMETHOPRIM] Drug Allergy 05-24-20 18 Diarrhea [facility] (16 sources) bananas [Other] Propensity to adverse reactions 05-03-20 05 [facility] Work Phone: (16 sources) environmental [Other] Propensity to adverse reactions 05-03-20 05 [facility] Work Phone: (20 sources) Banana Extract; Translations: [BANANA] Drug Allergy 02-25-20 21 Swelling [facility] (18 sources) Seasonal allergy; Translations: [SEASONAL ALLERGIES] Propensity to adverse reactions (disorder) 06-02-20 23 Itching [facility] Other [facility] (1 source) Banana Extract Drug Allergy 03-18-20 [facility] (1 source) Lovastatin Drug Allergy 03-18-20 [facility] Repository Medications Current Medications Medication Drug Class(es) Dates Sig (Normalized) Sig (Original) beet powder human N (4 sources) Start: 07-02-2024 beet powder human N Active PO July 02, 2024 1:00am Ca Carb-D3-Mag Na-Upi-Qyaz-Zn 300 mg-20 mcg- 25 mg-0.5 mg tablet (4 sources) Start: 07-02-2024 take 1 tablet by mouth once daily Ca Carb-D3-Mag Qf-Ebx-Iutn-Zn 300 mg-20 mcg- 25 mg-0.5 mg tablet Active 1 {tbl} PO daily July 02, 2024 1:00am cholestacar (4 sources) Start: 07-02-2024 cholestacar Active PO July 02, 2024 1:00am COMPOUNDED PRESCRIPTION (20 sources) COMPOUNDED PRESCRIPTION Ultimate eye support, with zeaxanthin Active COMPOUNDED PRESC RIPTION Ultimate eye support, with zeaxanthin 0 Active Comment on above: Ultimate eye support , with zeaxanthin cranberry fruit extract (CRANBERRY EXTRACT ORAL) (20 sources) cranberry fruit extract (CRANBERRY EXTRACT ORAL) Take by mouth. Active cranberry fruit extract (CRANBERRY EXTRACT ORAL) Take by mouth. 0 Active Comment on above: Take by mouth. ELDERBERRY FRUIT (4 sources) Start: 07-02-2024 Elderberry Fruit 350 mg capsule Active mg PO July 02, 2024 1:00am enalapril maleate 5 mg oral tablet (20 sources) Angiotensin Converting Enzyme Inhibitor Start: 02-16-2016 End: 12-18-2024 take 1 tablet by mouth once daily enalapril (VASOTEC) 5 mg tablet Take 1 tablet by mouth once daily. 90 tablet 3 02/16/2016 Active Start: 08-14-2013 End: 07-20-2017 take 10 mg by mouth once daily Enalapril Maleate Disco ntinued 10 mg PO DAILY August 14, 2013 1:00am July 20, 2017 9:06am Comment on above: Take 1 tablet by jacqueline th once daily. Ergocalciferol (20 sources) Provitamin D2 Compound Start: 05-03-2005 VITAMIN D 400 UNIT CAP 0 05/03/2005 Active Start: 05-03-2005 VITAMIN D 400 UNIT CAP ferrous fumarate/ascorbic ac id (LILLIAN-SEQUELS, IRON-VIT C, ORAL) (6 sources) ferrous fumarate /ascorbic acid (LILLIAN-SEQUELS, IRON-VIT C, ORAL) Take by mouth. Iron with Vitamin C Active FLAXSEED OIL (OMEGA 3 ORAL) (20 sources) FLAXSEED OIL (OM EGA 3 ORAL) Take by mouth as directed. Active FLAXSEED OIL (OM EGA 3 ORAL) Take by mouth as directed. 0 Active Comment on above: Take by mouth as dir ected. free range tommy peptides (4 sources) Start: 07-02-2024 free range tommy peptides Active PO July 02, 2024 1:00am fruitful antioxidants (4 sources) Start: 07-02-2024 fruitful antioxidants Active PO July 02, 2024 1:00am Glutathione (4 sources) Start: 07-02-2024 Glutathione 500 mg capsule Active mg PO July 02, 2024 1:00am glyciine 600 (4 sources) Start: 07-02-2024 glyciine 600 Active PO July 02, 2024 1:00am Green Foods complex (4 sources) Start: 07-02-2024 Green Foods complex Active PO July 02, 2024 1:00am greens blend amazing Grass (4 sources) Start: 07-02-2024 greens blend amazing Grass Active PO July 02, 2024 1:00am Healthy hairs, skin, nails (4 sources) Start: 07-02-2024 Healthy hairs, skin, nails Active PO July 02, 2024 1:00am insulin aspart, human 100 unt/ml injectable solution (20 sources) Insulin Analog Start: 02-01-2025 Insulin Aspart U-100 (Novolog U-100 Insulin Aspart) 100 unit/mL solution Active 65 U SC DAILY 60 3 February 01, 2025 4:12pm via insulin pump Start: 01-18-2025 End: 02-01-2025 Insulin Aspart U-100 (Novolo g U-100 Insulin Aspart) 100 unit/mL solution Discontinued 50 U SC DAILY 60 3 January 18, 2025 3:21pm February 01, 2025 4:12pm via insulin pump Start: 11-18-2020 End: 01-18-2025 Insulin Aspart U-100 (Novolo g U-100 Insulin Aspart) 100 unit/mL solution Discontinued 100 U SC DAILY 90 3 September 21, 2024 8:51am January 18, 2025 3:22pm via insulin pump Start: 11-08-2019 insulin aspart U-100 (NOVOLOG U-100 INSULIN ASPART) 100 unit/mL Indications: Diabetes mellitus type 1, controlled, without complications (HCC) use as directed with insulin pump up to 60 units daily 6 Vial 3 11/08/2019 Active Start: 09-25-2018 End: 11-18-2020 Insulin Aspart U-100 (Novolo g U-100 Insulin Aspart) 100 unit/mL solution Discontinued 0 SC daily 60 3 September 25, 2018 9:31am November 18, 2020 1:07pm Type 1 diabetes mellitus without complications uses 15U daily as background and bolus with meals in pump SC QDAY Start: 09-25-2018 End: 09-25-2018 Insulin Aspart U-100 (Novolo g U-100 Insulin Aspart) 100 unit/mL solution Discontinued 0 SC daily 60 3 September 25, 2018 9:26am September 25, 2018 9:31am Type 1 diabetes mellitus without complications uses 60U daily in pump SC QDAY Start: 12-14-2017 End: 09-25-2018 Insulin Aspart U-100 (Novolo g U-100 Insulin Aspart) 100 unit/mL solution Discontinued 0 SC daily 60 3 February 21, 2018 2:21pm September 25, 2018 9:28am Type 1 diabetes mellitus without complications uses 60U daily in pump SC QDAY Start: 07-20-2017 End: 12-14-2017 Insulin Aspart U-100 (Novolo g U-100 Insulin Aspart) 100 unit/mL solution Discontinued 0 SC daily July 20, 2017 1:00am December 14, 2017 10:42am Type 1 diabetes mellitus without complications uses 60U daily in pump SC QDAY Comment on above: use as directed with insulin pump up to 60 units daily levothyroxine sodium 0.125 mg oral tablet (20 sources) l-Thyroxine Start: 0 End: 5 take 1 tablet by mouth six times [...] 05/05/2020 11/26/2022 Discontinued Start: 09-21-2017 End: 09-24-2021 Levothyroxine 125 mcg capsul e Discontinued 0 PO .6 pills q week 90 3 July 12, 2018 5:01pm February 09, 2021 4:52pm Take one pill daily except, Do not take one on Tuesday Start: 09-21-2017 End: 09-21-2017 take 0.6 capsule by mouth every week Levothyroxine 125 mcg capsule Discontinued PO .6 pills q week 0 September 21, 2017 1:00am September 21, 2017 6:32pm Start: 08-14-2013 End: 09-21-2017 take 125 ug by mouth once daily Synthroid Discontinued 125 ug PO DAILY August 14, 2013 1:00am September 21, 2017 4:57pm Start: 08-14-2013 End: 09-21-2017 take 125 ug [...] Take 250 mg by mouth once daily. memory and brain (4 sources) Start: 07-02-20 memory and brain Active PO July 02, 2024 1:00am montelukast 10 mg oral tablet (20 sources) Leukotriene Receptor Antagonist Start: 08-14-19 End: 12-05-19 take 1 tablet by mouth once daily montelukast (SINGULAIR) 10 mg tablet Indications: Mild intermittent asthma without complication (HCC) Take 1 tablet by mouth once daily. 90 tablet 1 12/05/2024 Active Comment on above: Take 1 tablet by [facility] once daily. Multivitamin preparation (3 sources) Start: 12-14-19 take 1 tablet by mouth once daily Multivitamin Active 1 TABLET PO DAILY December 14, 2019 12:00am MULTIVITAMIN TAB (20 sources) Start: 05-03-20 MULTIVITAMIN TAB Take one(1) tablet daily. 0 05/03/2005 Active Comment on above: Take one(1) tablet d aily. Multivitamin tablet (4 sources) Start: 12-14-19 Multivitamin tablet Active 1 {tbl} PO DAILY December 14, 2019 12:00am nystatin [id number] unt/ml / triamcinolone acetonide 1 mg/ml topical cream (20 sources) Polyene Antifungal, Corticosteroid Start: 01-07-20 End: 06-08-20 nystatin-triamcinolon e (MYCOLOG II) cream Indications: Vulvovaginitis Apply 1 application to affected area twice daily as needed. 30 g 1 06/08/2022 Active Comment on above: Apply 1 application to affected area twice daily as needed. pantoprazole 40 mg delayed release oral tablet (20 sources) Proton Pump Inhibitor Start: 03-18-20 take 1 tablet by mouth twice daily Pantoprazole 40 mg tablet,delayed release (DR/EC) Active 40 mg PO TWICE A DAY 60 0 March 18, 2025 8:44am Start: 08-06-2020 End: 04-01-2025 take 1 tablet by mouth once daily before breakfast pantoprazole DR (PROTONIX) 40 mg tablet Take 1 tablet by mouth daily before breakfast. Take on empty stomach, 1/2 hr before meal. 90 tablet 3 04/01/2025 Active Start: 08-14-2013 End: 05-22-2018 take 20 mg by mouth once daily Protonix Discontinued 2 0 mg PO DAILY August 14, 2013 1:00am May 22, 2018 1:26pm Comment on above: Take 1 tablet by jacqueline th daily before breakfast. Take on empty stomach, 1/2 hr before meal. PC liver and brain (4 sources) Start: 024 PC liver and brain Active PO July 02, 2024 1:00am rosuvastatin calcium 5 mg oral tablet (20 sources) HMG-CoA Reductase Inhibitor Start: 016 End: 025 take 1 tablet by mouth once daily at bedtime rosuvastatin (CRESTOR) 5 mg tablet Indications: Pure hypercholesterolemia Take 1 tablet by mouth daily at bedtime. 90 tablet 3 02/16/2016 Active Start: 08-14-2013 End: 09-25-2018 take 5 mg by mouth once daily Crestor Discontinued 5 m g PO DAILY 90 3 December 14, 2017 4:25pm September 25, 2018 9:27am Type 1 diabetes mellitus without complications Comment on above: Take 1 tablet by jacqueline th daily at bedtime. UBIDECARENONE (COQ-10 ORAL) (20 sources) UBIDECARENONE (C OQ-10 ORAL) Take by mouth. Active UBIDECARENONE (C OQ-10 ORAL) Take by mouth. 0 Active Comment on above: Take by mouth. vitamin K2 MK-7 (4 sources) Start: 07-02-2024 vitamin K2 MK- 7 Active PO July 02, 2024 1:00am Completed/Discontinued Medications Medication Drug Class(es) Dates Sig (Normalized) Sig (Original) [id number] 200 actuat albuterol 0.09 mg/actuat metered dose inhaler (20 sources) beta2-Adrenergic Agonist Start: 08-07-2020 End: 11-01-2023 take 2 puff(s) by inhalation every four hours as needed albuterol HFA (PROAIR HFA) 90 mcg/actuation inhaler Inhale 2 Puffs as instructed every 4 hours as needed. 18 g 5 08/07/2020 11/01/2023 Discontinued Start: 07-20-2017 Albuterol Sulf ate 90 mcg/actuation HFA aerosol inhaler Active 2 NMA INHALATION Q4H as needed for Sob &/Or Wheezing July 20, 2017 1:00am Start: 07-20-2017 take 1 puff(s) by in halation every four hours Albuterol Sulfate Active 2 PUFF INHALATION Q4H July 20, 2017 1:00am Comment on above: Inhale 2 Puffs as in structed every 4 hours as needed. amoxicillin 500 mg / clavulanate 125 mg oral tablet (7 sources) Penicillin-class Antibacterial Start: 018 End: Amoxicillin-Pot Clavulanate (Augmentin) 500-125 mg tablet Discontinued 1 {tbl} PO TWICE A DAY August 24, 2017 1:00am July 31, 2018 5:06pm aspirin 81 mg oral tablet (1 source) Platelet Aggregation Inhibitor, Nonsteroidal Anti-inflammatory Drug Start: End: ASPIRIN 81 MG TAB Take one (1) tablet daily . 0 01/12/2006 09/23/2021 Discontinued cyclobenzaprine hydrochloride 10 mg oral tablet (20 sources) Muscle Relaxant Start: End: take 1 tablet by mouth twice daily as needed for muscle spasms Cyclobenzaprine 10 mg tablet Discontinued 10 mg PO TWICE A DAY as needed for muscle spasms January 27, 2024 3:30pm July 02, 2024 9:16am Start: 02-09-2021 End: 01-27-2024 Cyclobenzaprine 10 mg tablet Discontinued 10 NMA PO DAILY NEEDED as needed for muscle spasms February 09, 2021 12:00am January 27, 2024 3:31pm Start: 04-21-2020 take 1 tablet by jacqueline th three times daily as needed cyclobenzaprine (FLEXERIL) 10 mg tablet Indications: Cervical radiculopathy Take 1 tablet by mouth three times daily as needed. 30 tablet 4 04/21/2020 Active Comment on above: Take 1 tablet by jacqueline th three times daily as needed. ibuprofen 800 mg oral tablet (7 sources) Nonsteroidal Anti-inflammatory Drug Start: 0 End: 4 take 1 tablet by mouth three times daily as needed for pain Ibuprofen 800 MG tablet Discontinued 800 mg PO 3 TIMES DAILY NEEDED as needed for Pain Score 1-10/10 20 0 October 27, 2019 12:00am July 02, 2024 9:17am insulin, regular, human 100 unt/ml injectable solution (7 sources) Insulin Start: 4 End: 7 Insulin Regular Human 100 UNIT/ML solution Discontinued 0 U SC August 14, 2013 1:00am July 20, 2017 9:06am Start: 08-14-2013 End: 07-20-2017 Insulin Regular Human Discon tinued 0 UNIT SC August 14, 2013 1:00am July 20, 2017 9:06am raNITIdine 150 mg oral tablet (7 sources) Histamine-2 Receptor Antagonist Start: 05-22-2018 End: 07-31-2018 take 1 capsule by mouth once daily Ranitidine Hcl 150 mg capsule Discontinued 150 mg PO DAILY May 22, 2018 12:00am July 31, 2018 5:06pm Start: 05-22-2018 End: 07-31-2018 take 1 capsule by mouth once daily ranitidine 150 mg capsule Discontinued 150 MG PO DAILY May 22, 2018 12:00am July 31, 2018 5:06pm Problems Active Problems Problem Classification Problem Date Documented Date Episodic/Chronic Abdominal pain (9 sources) Epigastric pain; Translations: [Epigastric pain] Onset: 09-19-2024 07-02-2024 Episodic Acquired foot deformities (20 sources) Acquired [...] Chronic Conditions associated with dizziness or vertigo (7 sources) Vertigo; Translations: [Dizziness and giddiness] 08-14-2013 Episodic Diabetes mellitus without complication (20 sources) Type 1 diabetes mellitus without complication; Translations: [Type 1 diabetes mellitus without complications] Onset: 06-04-2016 09-23-2021 Chronic Comment on above: Dx : 1992Last exacer bation : DKA : never Hypoglycemic episode : 2003 ER visit : 2003 Dx : 1994 Disorders of lipid metabolism (20 sources) Hyperlipidemia; Translations: [Hyperlipidemia, unspecified] Onset: 02-12-2006 Resolved: 07-15-2014 02-19-2015 Chronic Esophageal disorders (20 sources) Gastroesophageal reflux disease; Translations: [Gastro-esophageal reflux disease without esophagitis] Onset: 09-19-2024 05-20-2005 Chronic Genitourinary symptoms and ill-defined conditions (20 sources) Incontinence; Translations: [Mixed incontinence] Onset: 06-24-2005 06-24-2005 Chronic Inflammatory diseases of female pelvic organs (1 source) Vulvovaginitis; Translations: [Acute vaginitis] Episodic Menopausal disorders (3 sources) Atrophic vaginitis; Translations: [Postmenopausal atrophic vaginitis] Onset: 01-09-2025 Chronic Nausea and vomiting (7 sources) Nausea and vomiting; Translations: [Nausea with [...] bilateral] 11-01-2023 Episodic Other female genital disorders (7 sources) Polyp of corpus uteri; Translations: [Polyp [...] arm injury] 09-15-2020 Episodic Other liver diseases (4 sources) Fatty (change of) liver, not elsewhere classified; Translations: [Metabolic dysfunction-associated steatotic liver disease (MASLD)] Onset: 10-02-2024 09-20-2024 Chronic Other liver diseases (4 sources) Steatosis of liver; Translations: [Fatty (change of) liver, not elsewhere classified] 09-20-2024 Chronic Other non-traumatic joint disorders (1 source) Chronic pain of right upper limb; Translations: [Pain in right shoulder] 09-15-2020 Episodic Other nutritional; endocrine; and metabolic disorders (20 sources) Obese class I; Translations: [Obesity, unspecified] Onset: 11-26-2022 Chronic Other nutritional; endocrine; and metabolic disorders (4 sources) Body mass index 25-29 - overweight 01-22-2025 Episodic Other nutritional; endocrine; and metabolic disorders (2 sources) Weight decreased; Translations: [Abnormal weight loss] 03-18-2025 Episodic Other nutritional; endocrine; and metabolic disorders (2 sources) Abnormal weight loss; Translations: [Abnormal weight loss] Onset: 03-18-2025 Episodic Other screening for suspected conditions (not mental disorders or infectious disease) (4 sources) Encounter for screening for malignant neoplasm of colon; Translations: [Patient encounter status] Onset: 06-02-2023 01-09-2025 Episodic Prolapse of female genital organs (20 sources) Midline cystocele; Translations: [Cystocele, midline] Onset: 03-08-2012 03-08-2012 Chronic Sprains and strains (7 sources) Strain of muscle of upper limb; Translations: [Strain of unspecified muscle, fascia and tendon at shoulder and upper arm level, left arm, initial encounter] 10-28-2019 Episodic Syncope (7 sources) Syncope; Translations: [Syncope and collapse] 08-14-2013 Episodic Thyroid disorders (20 sources) Acquired hypothyroidism; Translations: [Hypothyroidism, unspecified] Onset: 09-15-2015 Resolved: 09-15-2015 09-15-2015 Chronic Past or Other Problems Problem Classification Problem Date Documented Date Episodic/Chronic Diabetes mellitus with complications (14 sources) Type 1 diabetes mellitus; Translations: [Uncontrolled type 1 diabetes mellitus] Onset: 05-03-2005 Resolved: 01-28-2016 01-28-2016 Chronic Diabetes mellitus without complication (10 sources) Insulin pump present; Translations: [Presence of insulin pump (external) (internal)] Onset: 08-13-2024 12-17-2019 Episodic Other and unspecified benign neoplasm (15 sources) History of polyp of colon; Translations: [Personal history of colonic polyps] Onset: 06-02-2023 06-02-2023 Episodic Other connective tissue disease (20 sources) Tendinitis of right supraspinatus tendon; Translations: [Shoulder lesion, unspecified, right shoulder] Onset: 09-08-2009 08-11-2020 Episodic Other connective tissue disease (20 sources) Tendinitis of bilateral posterior tibialis muscles; Translations: [Posterior tibial tendinitis, right leg] Onset: 02-23-2021 02-23-2021 Episodic Other connective tissue disease (14 sources) Plantar fascial fibromatosis; Translations: [Plantar fascial fibromatosis] Onset: 01-28-2010 Resolved: 03-01-2017 03-01-2017 Episodic Other female genital disorders (14 sources) Postcoital bleeding; Translations: [Postcoital and contact bleeding] Onset: 05-23-2012 Resolved: 03-01-2017 03-01-2017 Chronic Spondylosis; intervertebral disc disorders; other back problems (20 sources) Cervical radiculopathy; Translations: [Radiculopathy, cervical region] Onset: 11-12-2019 11-12-2019 Episodic Unclassified (1 source) Patient encounter status 01-09-2025 Results Test Name Value Interpretation Reference Range Facility Gastroenterology Visit Repor ton 03-18-2025 Gastroenterology Visit Report [facility] [address] [place] [address] OFFICE VISIT Date of Service: 03/18/25 MR#: [id number] Acct: [id number] Name: EARLINE HERNANDEZ Rep #: [id number] : 1970 Provider: MILAGROS mata Age/Sex: 54/F Location: [place] Status: Signed Intake Vital Signs 09/20/24 08:05 01/18/25 14:36 03/18/25 08:12 Height 5 ft 5 in 5 ft 5 in 5 ft 5 in Weight: 163 lb 151 lb 6 oz BMI 27.1 25.2 BP 120/77 119/77 Blood Pressure Location Lt brachial Position Sitting Respiration 16 Pulse 97 85 Pulse Source Monitor Temp 94.5 F L Temp Source Temporal Pulse Oximetry (%) 97 98 Oxygen Delivery Method room air room air Intake Visit Reasons: 6 M FU Chief Complaint: 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 Pharmacy Required: No Accompanied by: Self Is patient in pain?: No Allergies banana Allergy (Severe, Verified 03/18/25 08:04) Anaphylaxis lovastatin Allergy (Verified 03/18/25 08:04) PT UNSURE OF REACTION Medications ???Medication ???Instructions ???Recorded ???Confirmed ???Type montelukast 10 mg tablet 10 mg PO QHS 08/14/13 03/18/25 His tory albuterol sulfate 90 mcg/actuation 2 puff inhalation Q4H PRN Sob / Or 07/20/17 03/18/25 History aerosol inhaler Wheezing multivitamin 1 tab PO DAILY 12/14/19 03/18/25 H istory Green Foods complex PO 07/02/24 03/18/25 History Healthy hairs, skin, nails PO 07/02/24 03/18/25 History PC liver and brain PO 07/02/24 03/18/25 History beet powder human N PO 07/02/24 03/18/25 History calcium 300 mg-D3 20 mcg-magnesium 1 tab PO QDAY 07/02/24 03/18/25 History 25 mg-coppr 0.5 rl-kipa-niws tablet cholestacar PO 07/02/24 03/18/25 History elderberry fruit 350 mg capsule mg PO 07/02/24 03/18/25 History free range tommy peptides PO 07/02/24 03/18/25 History fruitful antioxidants PO 07/02/24 03/18/25 History glutathione 500 mg capsule mg PO 07/02/24 03/18/25 History glyciine 600 PO 07/02/24 03/18/25 History greens blend amazing Grass PO 07/02/24 03/18/25 History memory and brain PO 07/02/24 03/18/25 History vitamin K2 MK-7 PO 07/02/24 03/18/25 History rosuvastatin 5 mg tablet 5 mg PO DAILY #90 tabs 09/14/24 Rx enalapril maleate 5 mg tablet 5 mg PO QHS #90 tabs 12/18/2402/23 Rx Novolog U-100 Insulin aspart 100 65 unit (0.65 mL) subcut DAILY #60 02/01/25 03/18/25 Rx unit/mL subcutaneous solution mL (insulin aspart U-100) levothyroxine 125 mcg tablet 125 mcg PO JOSEFAUWETHFRSA #72 tabs 0 02/07/25 03/18/25 Rx pantoprazole 40 mg tablet,delayed 40 mg PO BID #60 tabs 03/18/25 Rx release PFSH Medical History Overweight (BMI 25.0-29.9) GERD (gastroesophageal reflux disease) Steatosis, liver Post-menopausal [...] bicycling frequency: daily HPI HPI Chief Complaint: 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-up Details: OV 09/20/2024 54y/o female presents for follow-up post procedure. EGD performed 09/07/2024 revealed mild esophagitis, biopsies negative for Morton's and EoE. An ABD US revealed liver steatosis and multiple small gallstones. FibroScan was performed 07/24/2024 and revealed kPa 5.4/CAP 269 (F0- F1/S0), mild fibrosis with no liver fat. I recommend completion of labs and vaccination for Hepatitis A and B if Ab are nul. She reports resolution of epigastric burning pain and remains on pantoprazole 40mg daily. We have reviewed the AGA 10 Best Practice Guidelines for [facility]. She will follow-up in six months. EGD: 09/07/2024 biopsies consistent with mild esophagitis, negative for Morton's and EoE ABD US: 07/11/2024 liver steatos (more content not included)... Normal [facility] Breast imaging reportOrdered By: Maryse Gomez on 01-30-2025 Study report [facility] Imaging Services [address] [place] [address] SCRN MAMM (CAD)W/GREER BILAT MR#: [id number] Acct: [id number] Name: EARLINE HERNANDEZ Rep #: [id number] : 1970 F 54 From: Margot Gomez MD PCP: Dr. Sánchez Tabares MD Status: PILI CORDOVA Study:SCRN MAMM (CAD)W/GREER BILAT Date of Exa m: 01/30/25 Exam# [id number] Ordering Dr: Laura Lyles CREDIT CONTROL MANAGER-C EXAM: SCRN MAMM (CAD)W/GREER BILAT DATE: 01/30/2025 CLINICAL HISTORY: F, Age 54 y/o , SCREENING TECHNIQUE: SCRN MAMM (CAD)W/GREER BILAT COMPARISON: Prior exam(s) dated 01/30/2024, 01/28/2023, 01/29/2022. FINDINGS: TISSUE DENSITY: The breasts are heterogeneously dense, which may obscure small masses. The mammogram demonstrates that the patient has dense breasts. Supplemental screening with whole breast ultrasound or MRI may be considered for further evaluation. Bilateral Breast Mammographic Findings: No significant masses, calcifications or other abnormalities are identified. BI/SCRN MAMM (CAD)W/GREER BILAT IMPRESSION: There is no mammographic evidence of malignancy. OVERALL FINAL ASSESSMENT BI-RADS 1: NEGATIVE. RECOMMEND ANNUAL MAMMOGRAPHIC SCREENING. RECOMMENDATION: Routine annual follow-up in 1 Year A letter with findings and recommendations will be mailed to the patient. Reading Location: [id number] CC: CREDIT CONTROL MANAGERGiovanny Lyles; Dr. Sánchez Tabares MD ~ Pheresis Specialist: Signed [facility] SCRN MAMM (CAD)W/GREER BILATo n 01-30-2025 SCRN MAMM (CAD)W/GREER BILAT [facility] Imaging Services [address] [place] [address] SCRN MAMM (CAD)W/GREER BILAT MR#: [id number] Acct: [id number] Name: EARLINE HERNANDEZ Rep #: [id number] : 1970 F 54 From: Maryse Gomez MD PCP: Dr. Sánchez Tabares MD Status: REG CLI Study: SCRN MAMM (CAD)W/GREER BILAT Date of Exam: 04/18 Exam# [id number] Ordering Dr: Nettie Lyles CREDIT CONTROL MANAGER-C EXAM: SCRN MAMM (CAD)W/GREER BILAT DATE: 01/30/2025 CLINICAL HISTORY: F, Age 54 y/o , SCREENING TECHNIQUE: SCRN MAMM (CAD)W/GREER BILAT COMPARISON: Prior exam(s) dated 01/30/2024, 01/28/2023, 01/29/2022. FINDINGS: TISSUE DENSITY: The breasts are heterogeneously dense, which may obscure small masses. The mammogram demonstrates that the patient has dense breasts. Supplemental screening with whole breast ultrasound or MRI may be considered for further evaluation. Bilateral Breast Mammographic Findings: No significant masses, calcifications or other abnormalities are identified. BI/SCRN MAMM (CAD)W/GREER BILAT IMPRESSION: There is no mammographic evidence of malignancy. OVERALL FINAL ASSESSMENT BI-RADS 1: NEGATIVE. RECOMMEND ANNUAL MAMMOGRAPHIC SCREENING. RECOMMENDATION: Routine annual follow-up in 1 Year A letter with findings and recommendations will be mailed to the patient. Reading Location: [facility] CC: CREDIT CONTROL MANAGER-C Nettie Lyles; Dr. Sánchez Tabares MD Pheresis Specialist: Signed Normal [facility] Endocrinology Visit Reporton 01-18-2025 Endocrinology Visit Report [facility] [address] [place] [address]. 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 Pharmacy Required: No Accompanied by: Self Is patient in pain?: No Allergies banana Allergy (Severe, Verified 01/18/25 14:36) Anaphylaxis lovastatin Allergy (Verified 01/18/25 14:36) PT UNSURE OF REACTION Medications ???Medication ???Instructions ???Recorded ???Confirmed ???Type montelukast 10 mg tablet 10 mg PO QHS 08/14/13 01/18/25 His tory albuterol sulfate 90 mcg/actuation 2 puff inhalation Q4H PRN Sob / Or 07/20/17 01/18/25 History aerosol inhaler Wheezing multivitamin 1 tab PO DAILY 12/14/19 01/18/25 H istory pantoprazole 40 mg tablet,delayed 40 mg PO DAILY 02/09/21 01/18/25 History release Green Foods complex PO 07/02/24 01/18/25 History Healthy hairs, skin, nails PO 07/02/24 01/18/25 History PC liver and brain PO 07/02/24 01/18/25 History beet powder human N PO 07/02/24 01/18/25 History calcium 300 mg-D3 20 mcg-magnesium 1 tab PO QDAY 07/02/24 01/18/25 History 25 mg-coppr 0.5 se-ofvr-eubk tablet cholestacar PO 07/02/24 01/18/25 History elderberry fruit 350 mg capsule mg PO 07/02/24 01/18/25 History free range tommy peptides PO 07/02/24 01/18/25 History fruitful antioxidants PO 07/02/24 01/18/25 History glutathione 500 mg capsule mg PO 07/02/24 01/18/25 History glyciine 600 PO 07/02/24 01/18/25 History greens blend amazing Grass PO 07/02/24 01/18/25 History memory and brain PO 07/02/24 01/18/25 History vitamin K2 MK-7 PO 07/02/24 01/18/25 History levothyroxine 125 mcg tablet 125 mcg PO MOTUWETHFRSA 09/05/24 0 01/18/25 History rosuvastatin 5 mg tablet 5 mg PO DAILY #90 tabs 09/14/24 Rx enalapril maleate 5 mg tablet 5 mg PO QHS #90 tabs 12/18/2412/24 Rx Novolog U-100 Insulin aspart 100 50 unit (0.5 mL) subcut DAILY #60 01/18/25 01/18/25 Rx unit/mL subcutaneous solution mL (insulin aspart U-100) [facility] Medical History (Updated 01/22/25 @ 11:[address] Chintan Ramirez MD) Overweight (BMI 25.0-29.9) GERD (gastroesophageal reflux disease) Steatosis, liver Post-menopausal [...] office today for follow up. A1C is 6.4% She is using Medtronic 780G insulin pump with Guardian CGM and auto mode. Upload shows excellent control. She is taking a statin. She was diagnosed with fatty liver and she has lost weight. She is feeling well. ROS Const Constitutional: Positive for weight change; No fatigue, weakness or change in appetite Eyes Eyes: No change in vision ENT ENT: No hearing loss, nasal congestion or difficulty swallowing Cardio Cardiology: No chest pain at rest, chest pain with exertion or shortness of breath Musc Musculoskeletal: No numbness Neuro Neurology: No weakness, memory loss or numbness Psych Psychiatric: No change in appetite, No memory loss and No Thoughts of harming yourself/Others Resp Respiratory: No cough, chest (more content not included)... Normal [facility] HBA1C (OUTSIDE)on 01-18-2025 [facility] - Hematology and Cell countson 01-18-2025 HbA1c (Bld) [Mass fraction] 6.4 % High 4.2-6.3 [facility] Comment on above: Dr Ramirez Anion gap in Serum or Plasma Ordered By: Chintan Ramirez on 01-11-2025 Anion gap [Moles/Vol] 10 mmol/L 5-15 [facility] BUN/creatinine ratioOrdered By: Chintan Ramirez on 01-11-2025 Urea nitrogen/Creatinine [Mass ratio] 16.5 mg/mg - [facility] Bilirubin, totalOrdered By: Chintan Ramirez on 01-11-2025 Bilirubin [Mass/Vol] 0.47 mg/dL 0.00-1.30 [facility] Calculated very low density lipoprotein (VLDL) cholesterol measurementOrdered By: Chintan Ramirez on 01-11-2025 Calculated very low density lipoprotein (VLDL) cholesterol measurement 12 mg/dL 5-40 [facility] Carbon dioxide, total [Moles /volume] in Central venous bloodOrdered By: Chintan Ramirez on 01-11-2025 CO2 [Moles/Vol] 28.0 mmol/L 21.0-32.0 [facility] Chloride assayOrdered By: Bhargav Ramirez on 01-11-2025 Chloride [Moles/Vol] 102 mmol/L 98-108 [facility] Comprehensive Metabolic Prof ilon 01-11-2025 Albumin [Mass/Vol] 3.9 g/dL Normal 3.5-5.0 [facility] Comment on above: Performed By: #### L 502.0250, L506.1001, L500.4050, L501.9520, L506.0400, L500.4100 #### [facility] [address] [place], [address] Albumin/Globulin [Mass ratio] 1.5 {ratio} Normal 0.9-2.4 [facility] Comment on above: Performed By: #### L 502.0250, L506.1001, L500.4050, L501.9520, L506.0400, L500.4100 #### [facility] [address] [place], [address] ALK PHOS 53 U/L Normal 35-104 [facility] Comment on above: Performed By: #### L 502.0250, L506.1001, L500.4050, L501.9520, L506.0400, L500.4100 #### [facility] [address] [place], [address] ALT [Catalytic activity/Vol] 13 U/L Normal <=34 [facility] Comment on above: Performed By: #### L 502.0250, L506.1001, L500.4050, L501.9520, L506.0400, L500.4100 #### [facility] [address] [place], [address] AST [Catalytic activity/Vol] 22 U/L Normal <=31 [facility] Comment on above: Performed By: #### L 502.0250, L506.1001, L500.4050, L501.9520, L506.0400, L500.4100 #### [facility] [address] [place], [address] Bilirubin [Mass/Vol] 0.47 mg/dL Normal 0.00-1.30 [facility] Comment on above: Performed By: #### L 502.0250, L506.1001, L500.4050, L501.9520, L506.0400, L500.4100 #### [facility] [address] [place], [address] BUN/CRE 16.5 RATIO Normal 10-20 [facility] Comment on above: Performed By: #### L 502.0250, L506.1001, L500.4050, L501.9520, L506.0400, L500.4100 #### [facility] [address] [place], [address] Calcium [Mass/Vol] 9.5 mg/dL Normal 7.6-11.0 [facility] Comment on above: Performed By: #### L 502.0250, L506.1001, L500.4050, L501.9520, L506.0400, L500.4100 #### [facility] [address] [place], [address] Chloride [Moles/Vol] 102 mmol/L Normal 98-108 [facility] Comment on above: Performed By: #### L 502.0250, L506.1001, L500.4050, L501.9520, L506.0400, L500.4100 #### [facility] [address] [place], [address] CO2 [Moles/Vol] 28.0 mmol/L Normal 21.0-32.0 [facility] Comment on above: Performed By: #### L 502.0250, L506.1001, L500.4050, L501.9520, L506.0400, L500.4100 #### [facility] [address] [place], [address] Creatinine [Mass/Vol] 0.69 mg/dL Low 0.70-1.20 [facility] Comment on above: Performed By: #### L 502.0250, L506.1001, L500.4050, L501.9520, L506.0400, L500.4100 #### [facility] [address] [place], [address] GAP 10 Normal 5-15 [facility] Comment on above: Performed By: #### L 502.0250, L506.1001, L500.4050, L501.9520, L506.0400, L500.4100 #### [facility] [address] [place], [address] GFR/1.73 sq M.predicted among non-blacks MDRD (S/P/Bld) [Vol rate/Area] 102 mL/min/{1.73_m2} Normal >60 [facility] Comment on above: Result Comment: mL/m in/1.73m2 CKD-EPI Creatinine Equation (2020) Performed By: #### L 502.0250, L506.1001, L500.4050, L501.9520, L506.0400, L500.4100 #### [facility] [address] [place], [address] Globulin (S) [Mass/Vol] 2.6 g/dL Normal 2.2-4.2 [facility] Comment on above: Performed By: #### L 502.0250, L506.1001, L500.4050, L501.9520, L506.0400, L500.4100 #### [facility] [address] [place], [address] Glucose [Mass/Vol] 126 mg/dL High 70-99 [facility] Comment on above: Performed By: #### L 502.0250, L506.1001, L500.4050, L501.9520, L506.0400, L500.4100 #### [facility] [address] [place], [address] Potassium [Moles/Vol] 4.0 mmol/L Normal 3.3-5.1 [facility] Comment on above: Performed By: #### L 502.0250, L506.1001, L500.4050, L501.9520, L506.0400, L500.4100 #### [facility] [address] [place], [address] Sodium [Moles/Vol] 140 mmol/L Normal 133-145 [facility] Comment on above: Performed By: #### L 502.0250, L506.1001, L500.4050, L501.9520, L506.0400, L500.4100 #### [facility] [address] [place], [address] T PROT 6.5 g/dL Normal 5.9-8.4 [facility] Comment on above: Performed By: #### L 502.0250, L506.1001, L500.4050, L501.9520, L506.0400, L500.4100 #### [facility] [address] [place], [address] Urea nitrogen [Mass/Vol] 11 mg/dL Normal 4-19 [facility] Comment on above: Performed By: #### L 502.0250, L506.1001, L500.4050, L501.9520, L506.0400, L500.4100 #### [facility] [address] [place], [address] Glomerular filtration rate ( GFR) estimation/1.73 sq m using serum, plasma, or whole bOrdered By: Chintan Ramirez on 01-11-2025 GFR/1.73 sq M.predicted among non-blacks MDRD (S/P/Bld) [Vol rate/Area] 102 mL/min/{1.73_m2} >60 [facility] Comment on above: mL/min/1.73m2 CKD-EP I Creatinine Equation (2020) LDL calc ser/plasOrdered By: Chintan Ramirez on 01-11-2025 Cholesterol in LDL [Mass/Vol] 89 mg/dL [facility] Comment on above: Jvqwanlvsr=784-637 m g/dL & Higher Omrq=716 mg/dL or greater Laboratory - Chemistry and C hemistry - challengeOrdered By: Chintan Ramirez on 01-11-2025 AST [Catalytic activity/Vol] 22 U/L <32 [facility] Lipid Profileon 01-11-2025 CHOL:HDL 3.07 Normal [facility] Comment on above: Performed By: #### L 502.0250, L506.1001, L500.4050, L501.9520, L506.0400, L500.4100 #### [facility] [address] [place], [address] Cholesterol [Mass/Vol] 150 mg/dL Normal <=200 [facility] Comment on above: Result Comment: Chol esterol level, Desirable <200 mg/dL Borderline high cholesterol 200-239 mg/dL High cholesterol >=240 mg/dL Recommendations of the NCEP Adult Treatment Panel for the following risk-cutoff thresholds for the [place] population. Performed By: #### L 502.0250, L506.1001, L500.4050, L501.9520, L506.0400, L500.4100 #### [facility] [address] [place], [place], [id number] (951) Cholesterol in HDL [Mass/Vol] 49 mg/dL Normal [facility] Comment on above: Result Comment: [place] onal Cholesterol Education Program (NCEP) guidelines: <40 mg/dL: Low HDL-cholesterol (major risk factor for CHD) >= 60 mg/dL: High HDL-cholesterol (negative risk factor for CHD) HDL-cholesterol is affected by a number of factors, e.g. smoking, exercise, hormones, sex and age. Performed By: #### L 502.0250, L506.1001, L500.4050, L501.9520, L506.0400, L500.4100 #### [facility] [address] [place], [address] Cholesterol in LDL [Mass/Vol] 89 mg/dL Normal [facility] Comment on above: Result Comment: Bord ixfith=824-371 mg/dL Higher Qdac=439 mg/dL or greater Performed By: #### L 502.0250, L506.1001, L500.4050, L501.9520, L506.0400, L500.4100 #### [facility] [address] [place], [place], [id number] Cholesterol in VLDL [Mass/Vol] 12 mg/dL Normal 5-40 [facility] Comment on above: Performed By: #### L 502.0250, L506.1001, L500.4050, L501.9520, L506.0400, L500.4100 #### [facility] [address] [place], [address] Triglyceride [Mass/Vol] 62 mg/dL Normal [facility] Comment on above: Result Comment: The drugs N-Acetylcysteine and Metamizole may falsely depress this assay. Normal range: <150 mg/dL Borderline High: 150-199 mg/dL High: 200-499 mg/dL Very High: >500 mg/dL Performed By: #### L 502.0250, L506.1001, L500.4050, L501.9520, L506.0400, L500.4100 #### [facility] [address] [place], [address] Microalb:Creat Ratio,Random URon 01-11-2025 Creatinine [Mass/Vol] 96.80 mg/dL Normal 28.00-217.00 [facility] Comment on above: Performed By: #### L 502.0250, L506.1001, L500.4050, L501.9520, L506.0400, L500.4100 #### [facility] [address] [place], [place], [id number] MALB:CREAT UNABLE TO CALCULATE Normal [facility] Comment on above: Performed By: #### L 502.0250, L506.1001, L500.4050, L501.9520, L506.0400, L500.4100 #### [facility] [address] [place], [address] MICROALBUMIN,UR < 12.0 Normal NO RANGE EST. [facility] Comment on above: Performed By: #### L 502.0250, L506.1001, L500.4050, L501.9520, L506.0400, L500.4100 #### [facility] [address] [place], [place], [address] Microalbumin/creat ratio urO rdered By: Chintan Ramirez on 01-11-2025 Urine microalbumin/creatinine ratio measurement UNABLE TO CALCULATE mg/g CRE [facility] Potassium measurement (mass/ volume)Ordered By: Chintan Ramirez on 01-11-2025 Potassium (Unsp spec) [Mass/Vol] 4.0 mmol/L 3.3-5.1 [facility] Random urine creatinine delio urement (mass/volume)Ordered By: Chintan Ramirez on 01-11-2025 Creatinine Unsp time (U) [Mass/Vol] 96.80 mg/dL 28.00-217.00 [facility] Screening total cholesterol/ high density lipoprotein (HDL) cholesterol ratioOrdered By: Chintan Ramirez on 01-11-2025 Cholesterol.total/Chasity sterol in HDL [Mass ratio] 3.07 {ratio} [facility] Serum creatinine measurement (mass/volume)Ordered By: Chintan Ramirez on 01-11-2025 Creatinine [Mass/Vol] 0.69 mg/dL Low 0.70-1.20 [facility] Serum globulin measurementOr dered By: Chintan Ramirez on 01-11-2025 Globulin (S) [Mass/Vol] 2.6 g/dL 2.2-4.2 [facility] Serum glucose measurement (m ass/volume)Ordered By: Chintan Ramirez on 01-11-2025 Glucose [Mass/Vol] 126 mg/dL High 70-99 [facility] Serum or plasma alanine anthony otransferase (ALT) measurementOrdered By: Chintan Ramirez on 01-11-2025 ALT [Catalytic activity/Vol] 13 U/L <35 [facility] Serum or plasma albumin delio urement (mass/volume)Ordered By: Chintan Ramirez on 01-11-2025 Albumin [Mass/Vol] 3.9 g/dL 3.5-5.0 [facility] Serum or plasma albumin/glob ulin mass ratioOrdered By: Chintan Ramirez on 01-11-2025 Albumin/Globulin [Mass ratio] 1.5 {ratio} 0.9-2.4 [facility] Serum or plasma alkaline yue sphatase measurementOrdered By: Chintan Ramirez on 01-11-2025 ALP [Catalytic activity/Vol] 53 U/L 35-104 [facility] Serum or plasma calcium delio urement (mass/volume)Ordered By: Chintan Ramirez on 01-11-2025 Calcium [Mass/Vol] 9.5 mg/dL 7.6-11.0 [facility] Serum or plasma cholesterol in HDL measurement (mass/volume)Ordered By: Chintan Ramirez on 01-11-2025 Cholesterol in HDL [Mass/Vol] 49 mg/dL >40 [facility] Comment on above: National Cholesterol Education Program (NCEP) guidelines:<40 mg/dL: Low HDL-cholesterol (major risk factor for CHD)>= 60 mg/dL: High HDL-cholesterol (negative risk factor for CHD)HDL-cholesterol is affected by a number of factors, e.g. smoking, exercise, hormones, sex and age. Serum or plasma cholesterol measurement (mass/volume)Ordered By: Chintan Ramirez on 01-11-2025 Cholesterol [Mass/Vol] 150 mg/dL <201 [facility] Comment on above: Cholesterol level, D esirable <200 mg/dLBorderline high cholesterol 200-239 mg/dLHigh cholesterol >=240 mg/dLRecommendations of the NCEP Adult Treatment Panel for the following risk-cutoff thresholds for the [place] population. Serum or plasma urea nitroge n measurement (mass/volume)Ordered By: Chintan Ramirez on 01-11-2025 Urea nitrogen [Mass/Vol] 11 mg/dL 4-19 [facility] Sodium levelOrdered By: Chintan Ramirez on 01-11-2025 Sodium [Moles/Vol] 140 mmol/L 133-145 [facility] T4 Free Directon 01-11-2025 T4 FREE DIRECT 1.90 ng/dL High 0.76-1.46 [facility] Comment on above: Performed By: #### L 501.080 #### [facility] [address] [place], [place], [id number] T4 freeOrdered By: Chintan Ramirez on 01-11-2025 Free T4 [Mass/Vol] 1.90 ng/dL High 0.76-1.46 [facility] TSH DL <= 0.005 mIU/L QnOrde red By: Chintan Ramirez on 01-11-2025 TSH Qn 1.520 uIU/mL 0.300-4.200 [facility] Thyroid Stim Hormone (TSH)on 01-11-2025 TSH 1.520 uIU/mL Normal 0.300-4.200 [facility] Comment on above: Performed By: #### L 502.0250, L506.1001, L500.4050, L501.9520, L506.0400, L500.4100 #### [facility] [address] [place], [place], [id number] Total proteinOrdered By: Narendra Ramirez on 01-11-2025 Protein [Mass/Vol] 6.5 g/dL 5.9-8.4 [facility] Triglycerides measurementOrd ered By: Chintan Ramirez on 01-11-2025 Triglyceride [Mass/Vol] 62 mg/dL <199 [facility] Comment on above: The drugs N-Acetylcy steine and Metamizole may falsely depress this assay. Normal range: <150 mg/dLBorderline High: 150-199 mg/dLHigh: 200-499 mg/dLVery High: >500 mg/dL Urine albumin measurement wi th detection limit of 20 mg/L or less (mass/volume)Ordered By: Chintan Ramirez on 01-11-2025 Albumin DL <= 20 mg/L (U) [Mass/Vol] < 12.0 mg/L NO RANGE EST. [facility] Vitamin D,25 Hydroxyon 01-11 Vitamin D 25-OH 53.4 ng/mL Normal 30-100 [facility] Comment on above: Result Comment: Ilene min D Status Deficiency: <20 ng/mL (50nmol/L) Insufficiency: 20-30 ng/mL (50-75 nmol/L) Sufficiency: 30-100 ng/mL (75-250 nmol/L) Toxicity: >100 ng/mL (>250 nmol/L) Performed By: #### L 501.080 #### [facility] [address] [place], [address] CNOVon 01-09-2025 CNOV Office Visit (OBGYWM ) ALLIEEARLINE Clay ([id number]) 1970 F Date Time Provider Department 01/09/25 7:15 AM NETTIE LYLES During your visit today, we recorded the following information about you: Blood pressure Weight Height Last Period 120/60 75.3 kg 1.676 m 03/22/20 Nettie Lyles APRN.[facility] 01/09/2025 7:46 AM Signed Quill Layer offered: Patient declines. Patten is a 54 year old who presents for an annual gynecologic exam without complaints. Type 1 DM managed by chicken tender Dr. Ramirez. Postmenopausal: Yes. HRT use: No. [...] Multiple0 Live Births0 Comment: 1 vaginal delivery Purification Operator History LMP: 03/22/2020, Postmenopausal Age at Menarche: 10 Age at First : Age at Menopause: Purification Operator History Comments: Sexual Activity: Yes; Male Contraception: [...] VAG LOOP ELTRD BX CERVIX Early DILATION AND CURETTAGE DXAND/THER NONOBSTETRIC 02/26/2021 hysteroscopy DANDC EGD 07/20/2018 EGD W/O BRSH SPEC VARICIES INJ 09/07/2024 ESOPHAGOGASTRODUODENO SCOPY TRANSORAL DIAGNOSTIC EGD done 2 times Register My Info COVID-19 VACCINE, AGE 12+ YR (PURPLE TOP) [...] discussed with the Patient or Patient's Authorized Fan Engine Engineer. As applicable, any other physician, advance practice provider, medical student, or other health professional student that will be observing or involved in the sensitive examination for educational or training purposes was discussed with the Patient or Authorized Fan Engine Engineer. The Patient or Authorized Fan Engine Engineer has agreed to proceed with the sensitive examination. (Sensitive examination includes inspection and/or palpation of the breasts, pelvis, prostate and anorectal regions). EXAM: BP 120/60 Ht 5' 6 (1.68m) Wt 166 lb (75.3kg) LMP 03/22/2020 BMI 26.81 kg/(m2). GENERAL: pleasant, female in no apparent distress [...] external genitalia atrophic, normal [place]'s glands, urethra, [place]'s glands, no vulvar lesions, no cervical lesions, atrophic, good vaginal support, physiologic discharge present, normal appearing perineal body and perianal reg (more content not included)... Normal [facility] Hepatitis A AB, Totalon - HEPATITIS A,TOT Negative Normal Negative [facility] Comment on above: Result Comment: Comm ent: The HAV total antibody assay detects both IgG and IgM but does not differentiate between them. A negative result suggests susceptibility to infection. A positive result could be due to vaccination, previously resolved infection or active infection. Testing for HAV IgM should be performed if active HAV infection is suspected. [facility] offers profiles that will automatically reflex positive HAV total antibody results to IgM (e.g., panel #[id number] HAV Antibody w/ Rfx). Performed at: [address] [id number] [employer] Promoter: Lon Manzo PhD, Phone: [phone] Performed By: #### L 6559.6050, L500.4050, L100.0100, L3100.0300 #### [facility] [address] [place], [address] Hepatitis B Core Ab Totalon 09-21-2024 HEP B CORE,TOT Negative Normal Negative [facility] Comment on above: Performed By: #### L 3100.0460, L500.4050, L100.0100, L3100.0300 #### [facility] [address] [place], [address] CBC W/Diff, Automatedon 08-26 Absolute Neut Normal 2.0-7.7 [facility] Comment on above: Result Comment: PT R EFUSED AF Performed By: #### L 3100.0460, L500.4050, L100.0100, L3100.0300 #### [facility] [address] [place], [address] HCT Normal 37-47 [facility] Comment on above: Result Comment: PT R EFUSED AF Performed By: #### L 3100.0460, L500.4050, L100.0100, L3100.0300 #### [facility] [address] [place], [address] HGB Normal 12.0-15.0 [facility] Comment on above: Result Comment: PT R EFUSED AF Performed By: #### L 3100.0460, L500.4050, L100.0100, L3100.0300 #### [facility] [address] [place], [address] MCH Normal 27.0-32.0 [facility] Comment on above: Result Comment: PT R EFUSED AF Performed By: #### L 3100.0460, L500.4050, L100.0100, L3100.0300 #### [facility] [address] [place], [address] MCHC Normal 32-36 [facility] Comment on above: Result Comment: PT R EFUSED AF Performed By: #### L 3100.0460, L500.4050, L100.0100, L3100.0300 #### [facility] [address] [place], [address] MCV Normal 81-99 [facility] Comment on above: Result Comment: PT R EFUSED AF Performed By: #### L 3100.0460, L500.4050, L100.0100, L3100.0300 #### [facility] [address] [place], [address] NEUT% Normal 47-70 [facility] Comment on above: Result Comment: PT R EFUSED AF Performed By: #### L 3100.0460, L500.4050, L100.0100, L3100.0300 #### [facility] [address] [place], [address] PLT Normal 150-450 [facility] Comment on above: Result Comment: PT R EFUSED AF Performed By: #### L 3100.0460, L500.4050, L100.0100, L3100.0300 #### [facility] [address] [place], [address] RBC Normal 4.2-5.4 [facility] Comment on above: Result Comment: PT R EFUSED AF Performed By: #### L 3100.0460, L500.4050, L100.0100, L3100.0300 #### [facility] [address] [place], [address] RDW CV Normal 11.6-14.6 [facility] Comment on above: Result Comment: PT R EFUSED AF Performed By: #### L 3100.0460, L500.4050, L100.0100, L3100.0300 #### [facility] [address] [place], [address] RDW SD Normal 35.1-43.9 [facility] Comment on above: Result Comment: PT R EFUSED AF Performed By: #### L 3100.0460, L500.4050, L100.0100, L3100.0300 #### [facility] [address] [place], [address] WBC Normal 4.4-11.0 [facility] Comment on above: Result Comment: PT R EFUSED AF Performed By: #### L 3100.0460, L500.4050, L100.0100, L3100.0300 #### [facility] [address] [place], [address] Comprehensive Metabolic Prof ilon 09-20-2024 ALB Normal 3.5-5.0 [facility] Comment on above: Result Comment: PT R EFUSED AF Performed By: #### L 3100.0460, L500.4050, L100.0100, L3100.0300 #### [facility] [address] [place], [address] ALK PHOS Normal 35-104 [facility] Comment on above: Result Comment: PT R EFUSED AF Performed By: #### L 3100.0460, L500.4050, L100.0100, L3100.0300 #### [facility] [address] [place], [address] ALT Normal <=34 [facility] Comment on above: Result Comment: PT R EFUSED AF Performed By: #### L 3100.0460, L500.4050, L100.0100, L3100.0300 #### [facility] [address] [place], [address] Anion Gap Normal 5-15 [facility] Comment on above: Result Comment: PT R EFUSED AF Performed By: #### L 3100.0460, L500.4050, L100.0100, L3100.0300 #### [facility] [address] [place], [address] AST Normal <=31 [facility] Comment on above: Result Comment: PT R EFUSED AF Performed By: #### L 3100.0460, L500.4050, L100.0100, L3100.0300 #### [facility] [address] [place], [address] BUN Normal 4-19 [facility] Comment on above: Result Comment: PT R EFUSED AF Performed By: #### L 3100.0460, L500.4050, L100.0100, L3100.0300 #### [facility] [address] [place], [address] BUN/CRE Normal 10-20 [facility] Comment on above: Result Comment: PT R EFUSED AF Performed By: #### L 3100.0460, L500.4050, L100.0100, L3100.0300 #### [facility] [address] [place], [address] Calcium Normal 7.6-11.0 [facility] Comment on above: Result Comment: PT R EFUSED AF Performed By: #### L 3100.0460, L500.4050, L100.0100, L3100.0300 #### [facility] [address] [place], [address] Chloride Normal 96-108 [facility] Comment on above: Result Comment: PT R EFUSED AF Performed By: #### L 3100.0460, L500.4050, L100.0100, L3100.0300 #### [facility] [address] [place], [address] CO2 Normal 22.0-29.0 [facility] Comment on above: Result Comment: PT R EFUSED AF Performed By: #### L 3100.0460, L500.4050, L100.0100, L3100.0300 #### [facility] [address] [place], [address] CREAT,SERUM Normal 0.6-1.0 [facility] Comment on above: Result Comment: PT R EFUSED AF Performed By: #### L 3100.0460, L500.4050, L100.0100, L3100.0300 #### [facility] [address] [place], [address] eGFR Normal >60 [facility] Comment on above: Result Comment: PT R EFUSED AF Performed By: #### L 3100.0460, L500.4050, L100.0100, L3100.0300 #### [facility] [address] [place], [address] GLU Normal 70-99 [facility] Comment on above: Result Comment: PT R EFUSED AF Performed By: #### L 3100.0460, L500.4050, L100.0100, L3100.0300 #### [facility] [address] [place], [address] Potassium Normal 3.3-5.1 [facility] Comment on above: Result Comment: PT R EFUSED AF Performed By: #### L 3100.0460, L500.4050, L100.0100, L3100.0300 #### [facility] [address] [place], [address] Sodium Normal 133-145 [facility] Comment on above: Result Comment: PT R EFUSED AF Performed By: #### L 3100.0460, L500.4050, L100.0100, L3100.0300 #### [facility] [address] [place], [address] T BILI Normal 0.00-1.30 [facility] Comment on above: Result Comment: PT R EFUSED AF Performed By: #### L 3100.0460, L500.4050, L100.0100, L3100.0300 #### [facility] [address] [place], [address] T PROT Normal 5.9-8.4 [facility] Comment on above: Result Comment: PT R EFUSED AF Performed By: #### L 3100.0460, L500.4050, L100.0100, L3100.0300 #### [facility] [address] [place], [address] Gastroenterology Visit Repor ton 09-20-2024 Gastroenterology Visit Report [facility] [address] 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 Normal [facility] Serum hepatitis B virus core antibody detectionOrdered By: Antonieta Hernandez on 09-20-2024 HBV core Ab Ql (S) Negative Negative [facility] Bedside Glucoseon 09-07-2024 FINGERSTICK GLU 123 mg/dL High 74-106 [facility] Comment on above: Result Comment: JOCELINE SLATER OF PATIENT CARE PER NURSING PROTOCOL Performed By: #### L 501.080 #### [facility] [address] [facility] [place], [address] EGD Reporton 09-07-2024 EGD Report [facility] Medical Records Department [address] [place] [address] EGD Report MR#: [id number] Acct: [id number] Name: EARLINE HERNANDEZ Rep #: [id number] : 1970 54 From: Rambo Martin DO PCP: Dr. Sánchez Tabares MD Status:[facility] Patient Name: Earline Hernandez Procedure Date: [...] pathology results. Procedure Code(s): --- Professional --- 30056, Esophagogastroduodeno scopy, flexible, transoral; with biopsy, single or multiple CPT copyright 2021 [employer]. All rights reserved. The codes documented in this report are preliminary and upon healthcare economics manager review may be revised to meet current compliance requirements. Rambo Martin DO 09/07/2024 3:03:43 PM This report has been signed electronically. Number of Addenda: 0 Note Initiated On: 09/07/2024 2:48 PM 09/07/24 1504 Date Rambo Martin DO Cosigner Signature: Date (if indicated) CC: Dr. Sánchez Tabares MD; Rambo Martin DO Date Dictated: 09/07/24 1448 Date Transcribed: Pheresis Specialist: LANNY Signed Normal [facility] MR/POSTOP.ANEon 09-07-2024 MR/POSTOP.[facility] Medical Records Department [address] [place] [address] Anesthesia Postop Eval I 09/07/24 1502 MR#: [id number] Acct: [id number] Name: EARLINE HERNANDEZANETTE Rep #: [id number] : 1970 54 From: Nader Elizalde PCP: Dr. Sánchez Tabares MD Status:[facility] Y Race: C Location: [place] [address] Anesthesia: Postop Eval I Current Vital Signs [...] Anesthesia document: Postop Eval 1 completed: Yes 09/07/24 1503 Date Nader Ni Signature: Date CC: Signed Normal [facility] MR/ENLASAAS1dy 09-07-2024 [facility] Medical Records Department [address] [place] [address] Anesthesia Postop Eval II 09/07/248 MR#: [id number] Acct: [id number] Name: CATARINAMELANIEARLINE Rep #: [id number] : 1970 54 From: Nilson Puga MD PCP: Dr. Sánchez Tabares MD Status:[facility] Y Race: C Location: [place] Anesthesia Postop [...] Complications Anesthesia Complication: No 09/07/242128 Date Nilson Ni Signature: Date CC: Signed Normal [facility] Special Stain Group Ion 02- Special Stain Group I --- -------- Patient Age/Sex Location Account Attending Physician -------- VALERIE HERNANDEZMINESH CRISTINA 54/F EN [id number] Rambo Martin DO -------- Specimen: [id number] Received: 09/07/24 Status: SEVERINO Mick Num: [id number] Spec Type: EGD BIOPSY Subm Dr: Rambo [...] dysplasia. Negative for eosinophilic esophagitis. See comment. PW. 09/11/2024 COMMENT Alcian blue/PAS stain with matched [...] totally submitted in one cassette. 09/10/2024 TC:3 CPT:11418,86522 -------- Patient Age/Sex Location Account Attending Physician -------- EARLINE HERNANDEZ 54/F EN [id number] Rambo Martin, DO -------- Signed (signature on file) Dr. Madhuri Crum MD 09/11/24 1346 -------- Normal [facility] Comment on above: Performed By: #### L 501.080 #### [facility] [address] [place], [place], [address] Endocrinology Visit Reporton 08-13-2024 Endocrinology Visit Report [facility] [address] [place] [address] OFFICE VISIT Date of Service: 08/13/24 MR#: [id number] Acct: [id number] Name: EARLINE HERNANDEZ Rep #: [id number] : 1970 Provider: Raghavendra Corcoran Age/Sex: 54/F Location[place] [facility] Status: Signed Intake Vital Signs 08/09/23 16:02 [...] QDAY 07/02/24 08/13/24 History 25 mg-coppr 0.5 qn-lybh-tqus tablet cholestacar PO 07/02/24 08/13/24 History elderberry [...] Aller/Imm Allergy/Immunolog (more content not included)... Normal [facility] Abdomen Limitedon 07-11-2024 Abdomen Limited [facility] Imaging Services [address] [place], [place] [address] Abdomen Limited MR#: [id number] Acct: [id number] Name: EARLINE HERNANDEZ Rep #: [id number] : 1970 F 54 From: Ilir mccarthy MD PCP: Dr. Sánchez Tabares MD Status: REG CLI Study: Abdomen Limited Date of Exam: 07/11/24 Exam# [id number] Ordering Dr: Antonieta Hernandez CREDIT CONTROL MANAGER- C [id number] STUDY: ABDOMINAL ULTRASOUND - RIGHT UPPER QUADRANT [...] Electronically Signed: Ilir Lyon MD at 14:18 EST , CC: MILAGROS Hernandez; Dr. Sánchez Tabares MD Pheresis Specialist: Signed Normal [facility] CNOVon 07-09-2024 CNOV Office Visit (FAMPWS ) EARLINE HERNANDEZ ([id number]) 1970 F Date Time Provider Department 07/09/24 [...] like seen once a year. Saw Dr Veronica's office. Having reflux. Is getting a ruq [...] SCOPY TRANSORAL DIAGNOSTIC EGD done 2 times Register My Info COVID-19 VACCINE, AGE 12+ YR (PURPLE TOP) [...] 08/08/2023 Influenza Vaccine(1) due on 03/25/2024 Covid-19 Vaccine(2023- season) due on 03/25/2024 Diabetic Foot Exam [...] Head: N (more content not included)... Normal [facility] Gastroenterology Visit Repor ton 07-02-2024 Gastroenterology Visit Report [facility] [address] [place] [address] OFFICE VISIT Date of Service: 07/02/24 MR#: [id number] Acct: [id number] Name: EARLINE HERNANDEZ Rep #: [id number] : 1970 Provider: MILAGROS mata Age/Sex: 54/F Location: [place] Status: Signed Intake Vital Signs 01/27/24 15:24 07/02/24 08:13 Height 5 ft 5 in Weight: 198 lb 194 lb 6 oz BMI 32.9 BP 128/70 H 117/78 Blood Pressure Location Lt brachial Position Sitting Respiration 18 Pulse 95 88 Pulse Source Monitor Pulse Oximetry (%) 98 98 Oxygen Delivery Method room air Intake Visit Reasons: Gastroesophageal reflux disease (GERD) Chief Complaint: GERD 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 Last colonoscopy was 2022. [facility] Medical History Mixed hyperlipidemia Wears contact lenses Bite from insect TIA (transient ischemic attack) History of hiatal hernia Hives History of breast lump Thyroid disorder IBS (irritable bowel syndrome) Hypoglycemia Hyperlipidemia Breast lump UTI (urinary tract infection) Back problem GERD (gastroesophageal reflux disease) Diabetes type 1, controlled Asthma Seasonal allergies Surgical History H/O endoscopy H/O colonoscopy Family History (Updated 06/27/24 @ 13:53 by Martina Shay) Mother Cancer Father Diabetes Grandmother Arthritis [...] pain with (more content not included)... Normal [facility] CNTHERAPYon 02-24-2024 CNTHERAPY OT/PT/Speech Visit (PTWS) EARLINE HERNANDEZ ([id number]) 1970 F Date Time Provider Department 02/24/24 3:45 PM JUSTIN BURROWS PTWS Date Time Provider Department Center 02/24/2024 3:45 PM [id number], BRENT PTWS [place] Reason for Visit: PT Discharge [752] Primary [...] - VITAMIN D 400 UNIT CAP Normal [facility] CNTHERAPYon 02-07-2024 CNTHERAPY OT/PT/Speech Visit (PTWS) EARLINE HERNANDEZ ([id number]) 1970 F Date Time Provider Department 02/07/24 3:30 PM JUSTIN BURROWS PTDINAH Date Time Provider Department Center 02/07/2024 3:30 PM [id number], BRENT PTDINAH [facility] Reason for Visit: PT Discharge [752] Primary [...] - VITAMIN D 400 UNIT CAP Normal [facility] HBA1C (OUTSIDE)on 01-27-2024 HbA1c (Bld) [Mass fraction] 6.0 % [facility] MICROALBUMIN/CREATININE UR W RATIO (EXTERNAL)Ordered By: Karrie Munguia on 01-27-2024 Albumin/Creat Ratio not done [facility] Creatinine Urine 14.30 [facility] Microalbumin, Random urine [facility] Comment on above: Dr King Jay Panel InformationOrdered By: Karrie Munguia on 01-27-2024 [facility] 25(OH)D3 SerPl-mCncon 2023 25-hydroxyvitamin D3 [Mass/Vol] 52.8 ng/mL Normal 31.0-80.[address] [facility] Comment on above: Order Comment: Laci gandhi Type: BLOOD SPECIMEN Ordering Facility: [facility] Address: [address] [place] [address] Result Comment: Clas sification of 25 [place] Vitamin D status: Deficiency/Insufficiency: < or = 30 ng/ml. Sufficiency/Optimal Levels: 31-80 ng/mL Toxicity: > 100 ng/mL. Test performed by chemiluminescent immunoassay. Performed By: #### 1 989-3 #### [facility] CLIA [id number] [address] [place] [address] [place] CBC W Auto Differential pane l (Bld)on 01-21-2024 Basophils (Bld) [#/Vol] 0.04 10*3/uL Normal <0.[address] [facility] Comment on above: Order Comment: Laci gandhi Type: BLOOD SPECIMEN Ordering Facility: [facility] Address: [address] [place] [address] Performed By: #### 5 7021-8 #### [facility] CLIA [id number] [address] STATES OF [facility] Basophils/100 WBC (Bld) 0.9 % Normal [facility] Comment on above: Order Comment: Laci [facility] Type: BLOOD SPECIMEN Ordering Facility: [facility] Address: [address] [place] [address] Performed By: #### 5 7021-8 #### [facility] CLIA [id number] [address] [place] Differential cell count method Nom (Bld) Auto Normal [facility] Comment on above: Order Comment: Laci [facility] Type: BLOOD SPECIMEN Ordering Facility: [facility] Address: [address] [place] [address] Performed By: #### 5 7021-8 #### [facility] CLIA [id number] [address] [place] [address] [place] Eosinophils (Bld) [#/Vol] 0.12 10*3/uL Normal <0.[address] [facility] Comment on above: Order Comment: Speci men Type: BLOOD SPECIMEN Ordering Facility: [facility] Address: [address] [place] [address] Performed By: #### 5 7021-8 #### [facility] CLIA [id number] [address] [place] Eosinophils/100 WBC (Bld) 2.6 % Normal [facility] Comment on above: Order Comment: Speci men Type: BLOOD SPECIMEN Ordering Facility: [facility] Address: [address] [place] [address] Performed By: #### 5 7021-8 #### [facility] CLIA [id number] [address] Erythrocyte distribution width (RBC) [Ratio] 13.2 % Normal 11.5-15.[address] [facility] Comment on above: Order Comment: Speci men Type: BLOOD SPECIMEN Ordering Facility: [facility] Address: [address] [place] [address] Performed By: #### 5 7021-8 #### [facility] CLIA [id number] [address] [place] Hematocrit (Bld) [Volume fraction] 34.6 % Low 36.0-46.[address] [facility] Comment on above: Order Comment: Speci men Type: BLOOD SPECIMEN Ordering Facility: [facility] Address: [address] [place] [address] Performed By: #### 5 7021-8 #### [facility] CLIA [id number] [address] [place] Hemoglobin (Bld) [Mass/Vol] 11.6 g/dL Normal 11.5-15.[address] [facility] Comment on above: Order Comment: Speci men Type: BLOOD SPECIMEN Ordering Facility: [facility] Address: [address] [place] [address] Performed By: #### 5 7021-8 #### [facility] CLIA [id number] [address] [place] Immature granulocytes (Bld) [#/Vol] 10*3/uL Normal <0.[address] [facility] Comment on above: Order Comment: Speci men Type: BLOOD SPECIMEN Ordering Facility: [facility] Address: [address] [place] [address] Performed By: #### 5 7021-8 #### [facility] CLIA [id number] [address] Immature granulocytes/100 WBC (Bld) 0.2 % Normal [facility] Comment on above: Order Comment: Speci men Type: BLOOD SPECIMEN Ordering Facility: [facility] Address: [address] [place] [address] Performed By: #### 5 7021-8 #### [facility] CLIA [id number] [address] Lymphocytes (Bld) [#/Vol] 1.30 10*3/uL Normal 1.00-4.[address] [facility] Comment on above: Order Comment: Speci men Type: BLOOD SPECIMEN Ordering Facility: [facility] Address: [address] [place] [address] Performed By: #### 5 7021-8 #### [facility] CLIA [id number] [address] Lymphocytes/100 WBC (Bld) 28.4 % Normal [facility] Comment on above: Order Comment: Speci men Type: BLOOD SPECIMEN Ordering Facility: [facility] Address: [address] [place] [address] Performed By: #### 5 7021-8 #### [facility] CLIA [id number] [address] MCH (RBC) [Entitic mass] 29.2 pg Normal 26.0-34.[address] [facility] Comment on above: Order Comment: Speci men Type: BLOOD SPECIMEN Ordering Facility: [facility] Address: [address] [place] [address] Performed By: #### 5 7021-8 #### [facility] CLIA [id number] [address] MCHC (RBC) [Mass/Vol] 33.5 g/dL Normal 30.5-36.0 [facility] Comment on above: Order Comment: Speci men Type: BLOOD SPECIMEN Ordering Facility: [facility] Address: [address] [place] [address] Performed By: #### 5 7021-8 #### [facility] CLIA [id number] [address] [place] MCV (RBC) [Entitic vol] 87.2 fL Normal 80.0-100.0 [facility] Comment on above: Order Comment: Speci men Type: BLOOD SPECIMEN Ordering Facility: [facility] Address: [address] [place] [address] Performed By: #### 5 7021-8 #### [facility] CLIA [id number] [address] [place] [address] [place] Monocytes (Bld) [#/Vol] 0.64 10*3/uL Normal <0.[address] [facility] Comment on above: Order Comment: Speci men Type: BLOOD SPECIMEN Ordering Facility: [facility] Address: [address] [place] [address] Performed By: #### 5 7021-8 #### [facility] CLIA [id number] [address] Monocytes/100 WBC (Bld) 14.0 % Normal [facility] Comment on above: Order Comment: Speci men Type: BLOOD SPECIMEN Ordering Facility: [facility] Address: [address] [place] [address] Performed By: #### 5 7021-8 #### [facility] CLIA [id number] [address] [place] Neutrophils (Bld) [#/Vol] 2.46 10*3/uL Normal 1.45-7.[address] [facility] Comment on above: Order Comment: Speci men Type: BLOOD SPECIMEN Ordering Facility: [facility] Address: [address] [place] [address] Performed By: #### 5 7021-8 #### [facility] CLIA [id number] [address] [place] Neutrophils/100 WBC (Bld) 53.9 % Normal [facility] Comment on above: Order Comment: Speci men Type: BLOOD SPECIMEN Ordering Facility: [facility] Address: [address] [place] [address] Performed By: #### 5 7021-8 #### [facility] CLIA [id number] [address] [place] Nucleated RBC (Bld) [#/Vol] 10*3/uL Normal <0.[address] [facility] Comment on above: Order Comment: Speci men Type: BLOOD SPECIMEN Ordering Facility: [facility] Address: [address] [place] [address] Performed By: #### 5 7021-8 #### [facility] CLIA [id number] [address] Nucleated RBC/100 WBC (Bld) [Ratio] 0.0 /100 WBC Normal [facility] Comment on above: Order Comment: Speci men Type: BLOOD SPECIMEN Ordering Facility: [facility] Address: [address] [place] [address] Performed By: #### 5 7021-8 #### [facility] CLIA [id number] [address] Platelet mean volume (Bld) [Entitic vol] 11.2 fL Normal 9.0-12.[address] [facility] Comment on above: Order Comment: Speci men Type: BLOOD SPECIMEN Ordering Facility: [facility] Address: [address] [place] [address] Performed By: #### 5 7021-8 #### [facility] CLIA [id number] [address] Platelets (Bld) [#/Vol] 262 10*3/uL Normal 150-[address] [facility] Comment on above: Order Comment: Speci men Type: BLOOD SPECIMEN Ordering Facility: [facility] Address: [address] [place] [address] Performed By: #### 5 7021-8 #### [facility] CLIA [id number] [address] RBC (Bld) [#/Vol] 3.97 10*6/uL Normal 3.90-5.20 [facility] Comment on above: Order Comment: Speci men Type: BLOOD SPECIMEN Ordering Facility: [facility] Address: [address] [place] [address], [place] [address] Performed By: #### 5 7021-8 #### [facility] CLIA [id number] [address] [place] WBC (Bld) [#/Vol] 4.57 10*3/uL Normal 3.70-11.00 [facility] Comment on above: Order Comment: Speci men Type: BLOOD SPECIMEN Ordering Facility: [facility] Address: [address] [place] [address] Performed By: #### 5 7021-8 #### [facility] CLIA [id number] [address] Comprehensive metabolic 2000 panelon 01-21-2024 Albumin [Mass/Vol] 4.3 g/dL Normal 3.9-4.[address] [facility] Comment on above: Order Comment: Speci men Type: BLOOD SPECIMEN Ordering Facility: [facility] Address: [address] [place] [address] Performed By: #### 2 4323-8, 3016-3, 07126-1 #### [facility] CLIA [id number] [address] ALP [Catalytic activity/Vol] 69 U/L Normal 34-[address] [facility] Comment on above: Order Comment: Speci men Type: BLOOD SPECIMEN Ordering Facility: [facility] Address: [address] [place] [address] Performed By: #### 2 4323-8, 3016-3, 95681-9 #### [facility] CLIA [id number] [address] ALT [Catalytic activity/Vol] 15 U/L Normal 7-[address] [facility] Comment on above: Order Comment: Speci men Type: BLOOD SPECIMEN Ordering Facility: [facility] Address: [address] [place] [address] Performed By: #### 2 4323-8, 3016-3, 36017-5 #### [facility] CLIA [id number] [address] Anion gap [Moles/Vol] 7 mmol/L Low 8-15 [facility] Comment on above: Order Comment: Speci men Type: BLOOD SPECIMEN Ordering Facility: [facility] Address: [address] [facility], [place] [address] Performed By: #### 2 4323-8, 3016-3, 20740-2 #### [facility] CLIA [id number] [address] [place] [address] [place] AST [Catalytic activity/Vol] 21 U/L Normal 13-[address] [facility] Comment on above: Order Comment: Speci men Type: BLOOD SPECIMEN Ordering Facility: [facility] Address: [address] [facility], [place] [address] Performed By: #### 2 4323-8, 3016-3, 25241-7 #### [facility] CLIA [id number] [address] [place] [address] [place] Bilirubin [Mass/Vol] 0.3 mg/dL Normal 0.2-1.3 [facility] Comment on above: Order Comment: Speci men Type: BLOOD SPECIMEN Ordering Facility: [facility] Address: [address] [facility], [place] [address] Performed By: #### 2 4323-8, 3016-3, 98768-7 #### [facility] CLIA [id number] [address] [place] Calcium [Mass/Vol] 9.7 mg/dL Normal 8.5-10.[address] [facility] Comment on above: Order Comment: Speci men Type: BLOOD SPECIMEN Ordering Facility: [facility] Address: [address] [facility], [place] [address] Performed By: #### 2 4323-8, 3016-3, 89603-9 #### [facility] CLIA [id number] [address] [place] [address] [place] Chloride [Moles/Vol] 102 mmol/L Normal 98-107 [facility] Comment on above: Order Comment: Speci men Type: BLOOD SPECIMEN Ordering Facility: [facility] Address: [address] [facility], [place] [address] Performed By: #### 2 4323-8, 3016-3, 35941-5 #### [facility] CLIA [id number] [address] [place] [address] CO2 [Moles/Vol] 31 mmol/L High 22-[address] [facility] Comment on above: Order Comment: Laci gandhi Type: BLOOD SPECIMEN Ordering Facility: [facility] Address: [address] [place] [address] Performed By: #### 2 4323-8, 3016-3, 63704-9 #### [facility] CLIA [id number] [address] Creatinine [Mass/Vol] 0.83 mg/dL Normal 0.58-0.96 [facility] Comment on above: Order Comment: Speci men Type: BLOOD SPECIMEN Ordering Facility: [facility] Address: [address] [place] [address] Performed By: #### 2 4323-8, 3016-3, 51417-8 #### [facility] CLIA [id number] [address] Creatinine and Glomerular filtration rate.predicted panel (S/P/Bld) 83 mL/min/1.73m??? Normal >=[address] [facility] Comment on above: Order Comment: Laci gandhi Type: BLOOD SPECIMEN Ordering Facility: [facility] Address: [address] [place] [address] Result Comment: Marion mated Glomerular Filtration Rate [...] GFR. Performed By: #### 2 4323-8, 3016-3, 64104-6 #### [facility] CLIA [id number] [address] Glucose [Mass/Vol] 116 mg/dL High 74-[address] [facility] Comment on above: Order Comment: Speci hiram Type: BLOOD SPECIMEN Ordering Facility: [facility] Address: [address] [place] [address] Result Comment: The [place] Diabetes Association (ADA) provides guidance for cutoff [...] Standards of Medical Care in Diabetes 2016, [place] [employer]. Diabetes Care. 2016.39(Suppl 1). Performed By: #### 2 4323-8, 3016-3, 54025-9 #### [facility] CLIA [id number] [address] [place] [address] [place] Potassium [Moles/Vol] 4.8 mmol/L Normal 3.7-5.1 [facility] Comment on above: Order Comment: Laci gandhi Type: BLOOD SPECIMEN Ordering Facility: [facility] Address: [address] [place] [address] Performed By: #### 2 4323-8, 6-3, 21596-0 #### [facility] CLIA [id number] [address] [place] [address] [place] Protein [Mass/Vol] 6.6 g/dL Normal 6.3-8.[address] [facility] Comment on above: Order Comment: Laci gandhi Type: BLOOD SPECIMEN Ordering Facility: [facility] Address: [address] [place] [address] Performed By: #### 2 4323-8, 6-3, 18344-3 #### [facility] CLIA [id number] [address] [place] [address] [place] Sodium [Moles/Vol] 140 mmol/L Normal 136-[address] [facility] Comment on above: Order Comment: Laci gandhi Type: BLOOD SPECIMEN Ordering Facility: [facility] Address: [address] [place] [address] Performed By: #### 2 4323-8, 3016-3, 84779-3 #### [facility] CLIA [id number] [address] [place] [address] [place] Urea nitrogen [Mass/Vol] 17 mg/dL Normal 7-[address] [facility] Comment on above: Order Comment: Speci men Type: BLOOD SPECIMEN Ordering Facility: [facility] Address: [address] [place], [place] [address] Performed By: #### 2 4323-8, 3016-3, 23597-6 #### [facility] CLIA [id number] [address] [place] [address] [place] Creatinine Unsp time (U) [Ma ss/Vol]on 01-21-2024 Creatinine (U) [Mass/Vol] 48.4 mg/dL Normal 20.0-300.[address] [facility] Comment on above: Order Comment: Speci men Type: URINE SPECIMEN Ordering Facility: [facility] Address: [address] [place] [address] Performed By: #### 3 5674-1 #### [facility] CLIA [id number] [address] [place] [address] [place] Lipid 1996 panelon 4 Cholesterol [Mass/Vol] 152 mg/dL Normal <[address] [facility] Comment on above: Order Comment: Speci men Type: BLOOD SPECIMEN Ordering Facility: [facility] Address: [address] [place] [address], [place] [id number] Result Comment: <200 mg/dL, Desirable 200-239 mg/dL, Borderline high >239 mg/dL, High Performed By: #### 2 4323-8, 3016-3, 36387-5 #### [facility] CLIA [id number] [address] [place] [address] [place] Cholesterol in HDL [Mass/Vol] 56 mg/dL Normal >[address] [facility] Comment on above: Order Comment: Speci men Type: BLOOD SPECIMEN Ordering Facility: [facility] Address: [address] [place] [address] Result Comment: 40-5 9 mg/dL, Acceptable >59 mg/dL, High: Negative risk factor for coronary heart disease <40 mg/dL, Low: Positive risk factor for coronary heart disease Performed By: #### 2 4323-8, 3016-3, 46634-9 #### [facility] CLIA [id number] [address] Cholesterol in LDL [Mass/Vol] 84 mg/dL Normal <[address] [facility] Comment on above: Order Comment: Lexusi hiram Type: BLOOD SPECIMEN Ordering Facility: [facility] Address: [address] [place] [address] Result Comment: <100 mg/dL, Optimal 100-129 mg/dL, Near optimal/above optimal 130-159 mg/dL, Borderline high 160-189 mg/dL, High >189 mg/dL, Very high Secondary prevention optimal LDL Cholesterol levels are recommended to be < 70 mg/dL Performed By: #### 2 4323-8, 3016-3, 52046-7 #### [facility] CLIA [id number] [address] Cholesterol in LDL/Cholesterol in HDL [Mass ratio] 1.50 {ratio} Normal <2.[address] [facility] Comment on above: Order Comment: Laci hiram Type: BLOOD SPECIMEN Ordering Facility: [facility] Address: [address] [place] [address] Result Comment: Refe rence: 1. National Cholesterol Education Program ATP III Guideline At-A-Glance Quick Desk Reference: National Heart, Lung, and Blood [place]. National Institutes of Health. 2001: NIH Publication No. 01-3305. 2. An International Atherosclerosis Society position paper: global recommendations for the management of dyslipidemia: executive summary, Atherosclerosis. 2014: 232(2):410-413. Performed By: #### 2 4323-8, 3016-3, 42314-4 #### [facility] CLIA [id number] [address] Cholesterol in VLDL [Mass/Vol] 12 mg/dL Normal <[address] [facility] Comment on above: Order Comment: Lexusi hiram Type: BLOOD SPECIMEN Ordering Facility: [facility] Address: [address] [place] [address] Performed By: #### 2 4323-8, 3016-3, 11632-4 #### [facility] CLIA [id number] [address] Cholesterol non HDL [Mass/Vol] 96 mg/dL Normal <[address] [facility] Comment on above: Order Comment: Lexusedith gandhi Type: BLOOD SPECIMEN Ordering Facility: [facility] Address: [address] [place] [address] Result Comment: <130 mg/dL, Optimal 130-159 mg/dL, Near optimal/above optimal 160-189 mg/dL, Borderline high 190-219 mg/dL, High >219 mg/dL, Very high Secondary prevention optimal non HDL Cholesterol levels are recommended to be <100 mg/dL Performed By: #### 2 4323-8, 3016-3, 63393-2 #### [facility] CLIA [id number] [address] Cholesterol.total/Chasity sterol in HDL [Mass ratio] 2.71 {ratio} Normal <5.[address] [facility] Comment on above: Order Comment: Lexusedith gandhi Type: BLOOD SPECIMEN Ordering Facility: [facility] Address: [address] [place] [address] Performed By: #### 2 4323-8, 3016-3, 53402-5 #### [facility] CLIA [id number] [address] FASTING TIME 8 hrs Normal [facility] Comment on above: Order Comment: [facility]ith [facility] Type: BLOOD SPECIMEN Ordering Facility: [facility] Address: [address] [place] [address] Performed By: #### 2 4323-8, 3016-3, 40005-8 #### [facility] CLIA [id number] [address] Triglyceride [Mass/Vol] 59 mg/dL Normal <150 [facility] Comment on above: Order Comment: Lexusedith [facility] Type: BLOOD SPECIMEN Ordering Facility: [facility] Address: [address] [place] [address] Result Comment: <150 mg/dL, Normal 150-199 mg/dL, Borderline high 200-499 mg/dL, High >499 mg/dL, Very high Performed By: #### 2 4323-8, 3016-3, 66686-5 #### [facility] CLIA [id number] [address] [place] TSH SerPl-aCncon 01-21-2024 TSH Qn 2.200 m[IU]/L Normal 0.270-4.[address] [facility] Comment on above: Order Comment: Speci men Type: BLOOD SPECIMEN Ordering Facility: [facility] Address: [address] [place] [address], [place] [id number] Performed By: #### 2 4323-8, 3016-3, 17207-3 #### [facility] CLIA [id number] [address] [place] [address] [facility] ANES POSTPROC EVALon 023 ANES POSTPROC EVAL HNO ID: [id number] Author: Lawrence Saleh APRN.CRNA Service: Anesthesiology Author Type: Nurse Clothes Presser Type: Anesthesia Postprocedure Evaluation Filed: 06/02/2023 8:26 AM Note Text: POST ANESTHESIA EVALUATION NOTE : 1970 Procedure Summary Date: 06/02/23 Room / Location: SURGERY Anesthesia Start: 4 Anesthesia Stop: 824 Procedure: COLONOSCOPY SCREENING Diagnosis: History of colonic polyps History of colonic polyps Scheduled Providers: Dnaae Hernandez MD; Lawrence Saleh APRN.HIGHWAY TRAFFIC CONTROL TECHNICIAN Responsible Provider: Lawrence Saleh APRN.CRNA Anesthesia Type: MAC ASA Status: 3 Anesthesia [...] Anesthesia Observations No Documentation SIGNATURE: Lawrence Saleh APRN.HIGHWAY TRAFFIC CONTROL TECHNICIAN PATIENT NAME: Earline Hernandez DATE: June 02, 2023 TIME: 8:25 AM CSN: [id number] [facility] ANES PRE-OPon 06-02-2023 ANES PRE-OP HNO ID: [id number] Author: Delfino, Lawrence C, TUG HAND.HIGHWAY TRAFFIC CONTROL TECHNICIAN Service: Anesthesiology Author Type: Nurse Clothes Presser Type: Anesthesia Preprocedure Evaluation Filed: 06/02/2023 7:38 AM Note Text: ANESTHESIOLOGY DAY OF SURGERY NOTE : 1970 Procedure Information Date/Time: 06/02/23 0800 Scheduled providers: Danae Hernandez MD; Lawrence Saleh APRN.HIGHWAY TRAFFIC CONTROL TECHNICIAN Procedure: COLONOSCOPY SCREENING Location: LD SURGERY Estimated [...] and consent discussed: yes. Patient / Responsible Alliance Party agrees to proceed: yes Patient / Surrogate [...] 48 hours of Surgery/Procedure. SIGNATURE: Lawrence Saleh APRN.HIGHWAY TRAFFIC CONTROL TECHNICIAN PATIENT NAME: Earline Hernandez DATE: June 02, 2023 TIME: 7:37 AM CSN: [id number] [facility] BRIEF OP NOTon 06-02-2023 BRIEF OP NOT HNO ID: [id number] Author: Danae Hernandez MD Service: General Surgery Author Type: Physician Type: Brief Op Note Filed: 06/02/2023 8:23 AM Note Text: BRIEF OPERATIVE NOTE SURGERY DATE: 06/02/2023 Incision/Procedure Start Time: 08:00 cecal intubation time: 8:11 Incision Close/Procedure End Time: 8:20 Surgeon(s)/Procedural ist(s) and Cutting Room Supervisor(s): dora Procedures: Colonoscopy, screening high risk Anesthesia: MAC Findings: hemorrhoids Estimated Blood Loss: 0 ml Specimens: None Complications: None Closure Technique: na Preop Diagnosis: history of colon polyps, last colonoscopy 2017 withpolyp Postop Diagnosis: hemorrhoids SIGNATURE: Danae Hernandez MD PATIENT NAME: Earline Hernandez DATE: June 02, 2023 TIME: 8:21 AM Acct: [id number] Normal [facility] HISTORY PHYSICALon HISTORY PHYSICAL HNO ID: [id number] Author: Danae Hernandez MD Service: General Surgery [...] DILATION AND CURETTAGE DXAND/THER NONOBSTETRIC 02/26/2021 hysteroscopy [facility] EGD 07/20/2018 ESOPHAGOGASTRODUODENO SCOPY TRANSORAL DIAGNOSTIC EGD done 2 times Register My Info COVID-19 VACCINE, AGE 12+ YR (PURPLE TOP) [...] entered by the nurse and reviewed by ma Nursing Notes: Carla Montero LPN 05/11/2023 1:12 [...] OPERATIVE NOon 06-02-2023 OPERATIVE NO HNO ID: [id number] Author: Danae Hernandez MD Service: General Surgery Author Type: Physician Type: Operative Report Filed: 06/02/2023 6:13 PM Note Text: [facility] - Operative Report - [place] EARLINE HERNANDEZ : 1970 AGE: 53. SEX: F PATIENT TYPE: O HOSP SVC: GNS LOCATION: [facility] ATTENDING PHYSICIAN: Dnaae Hernandez MD CSN NUMBER: [id number] DATE OF SURGERY/PROCEDURE: 06/02/2023 INCISION/PROCEDURE START TIME: 8:00 AM INCISION CLOSE/PROCEDURE END TIME: 8:20 AM PREOPERATIVE DIAGNOSIS: History of colon polyps. POSTOPERATIVE DIAGNOSIS: Hemorrhoids. SURGEON: Danae Hernandez MD LIFE INSURANCE AGENT: No Additional Staff SURGERY/PROCEDURE: Colonoscopy. ANESTHESIA: Monitored anesthesia care. LOCATION: [facility]. INDICATIONS: The patient is a 53-year-old white [...] colonoscopy in 5 years. Danae Hernandez MD [id number] /[id number] Normal [facility] NURSING PROGon 05-18-2023 NURSING PROG HNO ID: [id number] Author: Sonia Mackey RN Service: ? Author Type: Registered Nurse Type: Nursing Progress Note Filed: 05/18/2023 2:25 PM Note Text: Pre-Procedure Checklist Earline Hernandez [phone] (home) 1970 53 year old Body mass index is 32.62 kg/m?. Wt 196lb, HT 5f5in Allergies: Apples Bactrim [Sulfametho* Diarrhea Bananas [Other] Environmental [Othe* Lovastatin Other: See Comments Comment:poor sleep, excessive dreaming Date of Procedure: 06/02/23 colonoscopy Smoke: No Alcohol: No Street Drugs: No Diabetic: Yes Insulin: Yes Problems with Anesthesia (Self or Family?) No Patient Transportation Driver: none Saw risk control field representative in the last 6 months? No Recent [...] [facility] Bas[facility] percentageOrdered B y: Shruthi Flores on 02-05-2023 Bilirubin [Mass/Vol] 0.30 mg/dL 0.20-1.00 [facility] Comment on above: For patients on eltr ombopag therapy, use of Dimension [place] TBIL is not recommended. Chloride [Moles/Vol] 104 mmol/L 98-107 [facility] Cholesterol [Mass/Vol] 142 mg/dL <200 [facility] Comment on above: <200 mg/dL Desirable 200-240 mg/dL Borderline >240 mg/dL High Risk Glucose [Mass/Vol] 69 mg/dL 74-106 [facility] Potassium [Moles/Vol] 3.6 mmol/L 3.5-5.1 [facility] Protein [Mass/Vol] 6.6 g/dL 6.4-8.2 [facility] Sodium [Moles/Vol] 139 mmol/L 136-145 [facility] Triglyceride [Mass/Vol] 24 mg/dL <199 [facility] Comment on above: The drugs N-Acetylcy steine and Metamizole may falsely depress this assay.Serum Triglycerides Reference Interval Normal <150 mg/dL Borderline high 150 - 199 mg/dL High 200 - 499 mg/dL Very High > or = 500 mg/dL Laboratory - Chemistry and C hemistry - challengeOrdered By: Shruthi Flores on 02-05-2023 ALP [Catalytic activity/Vol] 62 U/L 45-117 [facility] ALT [Catalytic activity/Vol] 19 U/L 13-56 [facility] CO2 [Moles/Vol] 32.0 mmol/L 21.0-32.0 [facility] Free T4 [Mass/Vol] 1.32 ng/dL 0.76-1.46 [facility] Globulin (S) [Mass/Vol] 3.3 g/dL 2.2-4.2 [facility] Urea nitrogen/Creatinine [Mass ratio] 14.8 mg/mg 10-20 [facility] MICROALBUMIN/CREATININE UR W RATIO (EXTERNAL)on 02-05-2023 Albumin/Creat Ratio [facility] Creatinine Urine 23.10 [facility] Microalbumin, Random urine [facility] No Panel InformationOrdered By: Shruthi Flores on 02-05-2023 Estimated GFR (MDRD) Amer 94 mL/min >60 [facility] Comment on above: GFR Calc Estimated GFR (MDRD) Non-Af Amer 78 mL/min >60 [facility] Comment on above: Non- GFR Calc Thyroid Stimulating Hormone (TSH) 2.11 uIU/mL 0.358-3.74 [facility] Urine Microalbumin/Creatinine Ratio TNP [facility] Comment on above: Test not performed Vitamin D 25-Hydroxy 69.8 ng/mL [facility] Comment on above: Vitamin D 25(OH) Sta tus Range Deficiency <20 ng/mL (50nmol/L) Insufficiency 20 - 30 ng/mL (50 - 75 nmol/L) Sufficiency 30 - 100 ng/mL (75 - 250 nmol/L) Toxicity >100 ng/mL (>250 nmol/L) Serum or plasma albumin delio urement (mass/volume)Ordered By: Shruthi Flores on 02-05-2023 Albumin [Mass/Vol] 3.3 g/dL 3.2-5.0 [facility] Serum or plasma albumin/glob ulin mass ratioOrdered By: Shruthi Flores on 02-05-2023 Albumin/Globulin [Mass ratio] 1.0 {ratio} 0.9-2.4 [facility] Serum or plasma calcium delio urement (mass/volume)Ordered By: Shruthi Flores on 02-05-2023 Calcium [Mass/Vol] 9.1 mg/dL 8.5-10.1 [facility] Serum or plasma cholesterol in HDL measurement (mass/volume)Ordered By: Shruthi Flores on 02-05-2023 Cholesterol in HDL [Mass/Vol] 59 mg/dL >40 [facility] Comment on above: The drugs N-Acetylcy steine and Metamizole may falsely depress this assay. Reference Range HDL <40 mg/dL Low HDL Cholesterol HDL >or= 60 mg/dL High HDL Cholesterol Serum or plasma cholesterol in VLDL measurement (mass/volume)Ordered By: Shruthi Flores on 02-05-2023 Cholesterol in VLDL [Mass/Vol] 5 mg/dL 5-40 [facility] Serum or plasma creatinine m easurement (mass/volume)Ordered By: Shruthi Flores on 02-05-2023 Creatinine [Mass/Vol] 0.81 mg/dL 0.55-1.02 [facility] Comment on above: The validity of the calculated GFR & GFRAA in patients over 70 years has not been determined. Clinical correlation is essential. Serum or plasma low density lipoprotein (LDL) cholesterol measurement (mass/volume)Ordered By: Shruthi Flores on 02-05-2023 Cholesterol in LDL [Mass/Vol] 78 mg/dL 0-130 [facility] Serum or plasma urea nitroge n measurement (mass/volume)Ordered By: Shruthi Flores on 02-05-2023 Urea nitrogen [Mass/Vol] 12 mg/dL 7-18 [facility] Thin prep Papanicolaou smear with manual screeningOrdered By: Shruthi Flores on 02-05-2023 Thin prep Papanicolaou smear with manual screening 19 U/L 15-37 [facility] Thin prep Papanicolaou smear with manual screening 3 5-15 [facility] Thin prep Papanicolaou smear with manual screening < 5.0 mg/L NO RANGE EST. [facility] Urine creatinine measurement (mass/volume)Ordered By: Shruthi Flores on 02-05-2023 Creatinine (U) [Mass/Vol] 23.10 mg/dL NO RANGE EST. [facility] Whole blood hemoglobin A1c/t otal hemoglobin ratio (mass fraction)Ordered By: Shruthi Flores on 02-05-2023 HbA1c (Bld) [Mass fraction] 6.6 % 3.8-5.6 [facility] Comment on above: Normal < 5.7 % Predi abetic 5.7 - 6.4 % Diabetic >or= 6.5 % Please note range changes. HBA1C (OUTSIDE)on 08-10-2022 HbA1c (Bld) [Mass fraction] 6.2 % [facility] ALBUMIN/CREAT RATIO (UACR) ( FOR REMOTE [facility] USE)on 01-26-2022 Creatinine (U) [Mass/Vol] 51.50 mg/dL 10 - 300 mg/dL [facility] [facility] Microalbumin, Random urine 5.0 [facility] HbA1c (Bld)on 01-26-2022 HbA1c (Bld) [Mass fraction] 6.1 % Abnormal 4 - 6 % [facility] LIPID PANEL (EXTERNAL)on Cholesterol [Mass/Vol] 165 mg/dL 0 - 200 MG/DL [facility] HDC-L 60 mg/dL Abnormal 41 mg/dL [facility] LDL Chol, calculated 92 MG/DL 130 MG/DL [facility] [place] Triglyceride [Mass/Vol] 64 mg/dL 149 mg/dL [facility] Basophil percentageon 2021 Bilirubin [Mass/Vol] 0.40 mg/dL 0.20-1.00 [facility] Work Phone: Comment on above: For patients on eltr ombopag therapy, use of Dimension [place] TBIL is not recommended. Chloride [Moles/Vol] 104 mmol/L 98-107 [facility] Work Phone: Cholesterol [Mass/Vol] 165 mg/dL <200 [facility] Work Phone: Comment on above: <200 mg/dL Desirable 200-240 mg/dL Borderline >240 mg/dL High Risk Glucose [Mass/Vol] 136 mg/dL 74-106 [facility] Work Phone: Comment on above: Fasting Glucose resu lt greater than or equal to 126 mg/dL suggests DIABETES MELLITUS per A.D.A. criteria. Potassium [Moles/Vol] 4.0 mmol/L 3.5-5.1 [facility] Work Phone: Protein [Mass/Vol] 6.8 g/dL 6.4-8.2 [facility] Work Phone: Sodium [Moles/Vol] 139 mmol/L 136-145 [facility] Work Phone: Triglyceride [Mass/Vol] 64 mg/dL <199 [facility] Work Phone: Comment on above: The drugs N-Acetylcy steine and Metamizole may falsely depress this assay.Serum Triglycerides Reference Interval Normal <150 mg/dL Borderline high 150 - 199 mg/dL High 200 - 499 mg/dL Very High > or = 500 mg/dL Laboratory - Chemistry and C hemistry - challengeon 01-23-2022 ALP [Catalytic activity/Vol] 53 U/L 45-117 [facility] Work Phone: ALT [Catalytic activity/Vol] 24 U/L 13-56 [facility] Work Phone: CO2 [Moles/Vol] 29.0 mmol/L 21.0-32.0 [facility] Work Phone: Globulin (S) [Mass/Vol] 3.3 g/dL 2.2-4.2 [facility] Work Phone: Urea nitrogen/Creatinine [Mass ratio] 14.0 mg/mg 10-20 [facility] Work Phone: No Panel Informationon 01-23 Estimated GFR (MDRD) Amer 99 mL/min >60 [facility] Work Phone: Comment on above: GFR Calc Estimated GFR (MDRD) Non-Af Amer 82 mL/min >60 [facility] Work Phone: Comment on above: Non- GFR Calc Thyroid Stimulating Hormone (TSH) 1.09 uIU/mL 0.358-3.74 [facility] Work Phone: Urine Microalbumin/Creatinine Ratio TNP [facility] Work Phone: Comment on above: Test not performed Vitamin D 25-Hydroxy 54.8 ng/mL [facility] Work Phone: Comment on above: Vitamin D 25(OH) Sta tus Range Deficiency <20 ng/mL (50nmol/L) Insufficiency 20 - 30 ng/mL (50 - 75 nmol/L) Sufficiency 30 - 100 ng/mL (75 - 250 nmol/L) Toxicity >100 ng/mL (>250 nmol/L) Serum or plasma albumin delio urement (mass/volume)on 01-23-2022 Albumin [Mass/Vol] 3.5 g/dL 3.2-5.0 [facility] Work Phone: Serum or plasma albumin/glob ulin mass ratioon 01-23-2022 Albumin/Globulin [Mass ratio] 1.1 {ratio} 0.9-2.4 [facility] Work Phone: Serum or plasma calcium delio urement (mass/volume)on 01-23-2022 Calcium [Mass/Vol] 9.2 mg/dL 8.5-10.1 [facility] Work Phone: Serum or plasma cholesterol in HDL measurement (mass/volume)on 01-23-2022 Cholesterol in HDL [Mass/Vol] 60 mg/dL >40 [facility] Work Phone: Comment on above: The drugs N-Acetylcy steine and Metamizole may falsely depress this assay. Reference Range HDL <40 mg/dL Low HDL Cholesterol HDL >or= 60 mg/dL High HDL Cholesterol Serum or plasma cholesterol in VLDL measurement (mass/volume)on 01-23-2022 Cholesterol in VLDL [Mass/Vol] 13 mg/dL 5-40 [facility] Work Phone: Serum or plasma creatinine m easurement (mass/volume)on 01-23-2022 Creatinine [Mass/Vol] 0.78 mg/dL 0.55-1.02 [facility] Work Phone: Comment on above: The validity of the calculated GFR & GFRAA in patients over 70 years has not been determined. Clinical correlation is essential. Serum or plasma low density lipoprotein (LDL) cholesterol measurement (mass/volume)on 01-23-2022 Cholesterol in LDL [Mass/Vol] 92 mg/dL 0-130 [facility] Work Phone: Serum or plasma urea nitroge n measurement (mass/volume)on 01-23-2022 Urea nitrogen [Mass/Vol] 11 mg/dL 7-18 [facility] Work Phone: Thin prep Papanicolaou smear with manual screeningon 01-23-2022 Thin prep Papanicolaou smear with manual screening 21 U/L 15-37 [facility] Work Phone: Thin prep Papanicolaou smear with manual screening 6 5-15 [facility] Work Phone: Thin prep Papanicolaou smear with manual screening < 5.0 mg/L NO RANGE EST. [facility] Work Phone: Urine creatinine measurement (mass/volume)on 01-23-2022 Creatinine (U) [Mass/Vol] 51.50 mg/dL NO RANGE EST. [facility] Work Phone: Whole blood hemoglobin A1c/t otal hemoglobin ratio (mass fraction)on 01-23-2022 HbA1c (Bld) [Mass fraction] 6.1 % 3.8-5.6 [facility] Work Phone: Comment on above: Normal < 5.7 % Predi abetic 5.7 - 6.4 % Diabetic >or= 6.5 % Please note range changes. HGB A1Con 08-10-2021 HbA1c (Bld) [Mass fraction] 6.1 % Abnormal 4 - 6 % [facility] XR Shoulder - right 3 Viewso n 09-15-2020 IMPRESSION: Minimal reactive changes of the AC joint, otherwise no significant bony process is identified. Pheresis Specialist: SKYLER Transcribe Date/Time: Sep 15 2020 7:09P Dictated by : QUYNH ARCE MD This examination was interpreted and the report reviewed and electronically signed by: QUYNH ARCE MD on Sep 15 2020 7:11PM [facility] DIVISION OF RADIOLOGY * * *Final Report* [...] space are preserved. DIVISION OF RADIOLOGY Provider, [facility] - 09/15/2020 * * *Final Report* [...] otherwise no significant bony process is identified. Pheresis Specialist: SKYLER Transcribe Date/Time: Sep 15 2020 7:09P Dictated by : QUYNH ARCE MD This examination was interpreted and the report reviewed and electronically signed by: QUYNH ARCE MD on Sep 15 2020 7:11PM EST [facility] Radiology Study observation (narrative) Archana Berman XR Shoulder - right 3 ViewsO rdered By: [facility] Provider on 09-15-2020 [facility] Hemoglobin A1Con 07-16-2019 HbA1c (Bld) [Mass fraction] 108 mg/dl Normal [facility] Comment on above: Performed By: #### L A1C #### [facility] [address] [place] [address] HbA1c (Bld) [Mass fraction] 5.4 % Normal 4.5-6.2 [facility] Comment on above: Performed By: #### L A1C #### [place] [address] Comprehensive Panelon 2018 Bilirubin [Mass/Vol] 0.4 mg/dL Normal 0.2-1.0 [facility] Comment on above: Performed By: #### P 14 #### [facility] [address] [place] [address] ALT [Catalytic activity/Vol] 24 U/L Normal 12-78 [facility] Comment on above: Performed By: #### P 14 #### [facility] [address] [place] [address] AST [Catalytic activity/Vol] 17 U/L Normal 15-37 [facility] Comment on above: Performed By: #### P 14 #### [facility] [address] [place] [address] ALP [Catalytic activity/Vol] 55 U/L Normal 45-117 [facility] Comment on above: Performed By: #### P 14 #### [facility] [address] [place] [address] Creatinine [Mass/Vol] 0.77 mg/dL Normal 0.51-0.95 [facility] Comment on above: Performed By: #### P 14 #### [place] [address] Protein [Mass/Vol] 6.4 g/dL Normal 6.4-8.2 [facility] Comment on above: Performed By: #### P 14 #### [facility] [address] [place], [place] [address] Glucose [Mass/Vol] 117 mg/dL High 70-99 [facility] Comment on above: Performed By: #### P 14 #### [facility] [address] [place], [place] [address] Albumin [Mass/Vol] 3.5 g/dL Normal 3.4-5.0 [facility] Comment on above: Performed By: #### P 14 #### [facility] [address] [place], [place] [address] Anion gap [Moles/Vol] 8 mmol/L Normal 8-16 [facility] Comment on above: Performed By: #### P 14 #### [facility] [address] [place], [place] [address] CO2 [Moles/Vol] 30 mmol/L Normal 21-32 [facility] Comment on above: Performed By: #### P 14 #### [facility] [address] [place], [place] [address] Urea nitrogen [Mass/Vol] 11 mg/dL Normal 7-18 [facility] Comment on above: Performed By: #### P 14 #### [facility] [address] [place], [place] [address] Calcium [Mass/Vol] 9.0 mg/dL Normal 8.5-10.1 [facility] Comment on above: Performed By: #### P 14 #### [facility] [address] [place], [place] [address] Chloride [Moles/Vol] 103 mmol/L Normal 98-107 [facility] Comment on above: Performed By: #### P 14 #### [facility] [address] [place], [place] [address] Potassium [Moles/Vol] 4.2 mmol/L Normal 3.5-5.1 [facility] Comment on above: Performed By: #### P 14 #### [facility] [address] [place], [place] [address] Sodium [Moles/Vol] 137 mmol/L Normal 136-145 [facility] Comment on above: Performed By: #### P 14 #### [facility] [address] [place] [address] Hemoglobin A1Con 03-09-2019 HbA1c (Bld) [Mass fraction] 140 mg/dl Normal [facility] Comment on above: Performed By: #### L A1C #### [facility] [address] [place] [address] HbA1c (Bld) [Mass fraction] 6.5 % High 4.5-6.2 [facility] Comment on above: Performed By: #### L A1C #### [facility] [address] [place] [address] Lipid Profileon 03-09-2019 Cholesterol [Mass/Vol] 152 mg/dL Normal 0-199 [facility] Comment on above: Performed By: #### L LIPD #### [facility] [address] [place] [address] Cholesterol in HDL [Mass/Vol] 60 mg/dL Normal >40 [facility] Comment on above: Performed By: #### L LIPD #### [facility] [address] [place] [address] Cholesterol in LDL [Mass/Vol] 85 mg/dL Normal 0-150 [facility] Comment on above: Performed By: #### L LIPD #### [facility] [address] [place] [address] Cholesterol.total/Chasity sterol in HDL [Mass ratio] 2.5 {ratio} Normal 1.8-5.3 [facility] Comment on above: Performed By: #### L LIPD #### [facility] [address] [place] [address] Triglyceride Blood 34 mg/dL Normal 0-149 [facility] Comment on above: Performed By: #### L LIPD #### [facility] [address] [place] [address] Risk Factor See Below Normal [facility] Comment on above: Result Comment: Card iac [...] #### [facility] [address] [place], [place] [address] MDRD GFRon 03-09-2019 GFR/1.73 sq M predicted among non-blacks MDRD (S/P/Bld) [Vol rate/Area] mL/min/{1.73_m2} Normal >60mL/min/1.7 3m2 [facility] Comment on above: Result Comment: If t he patient is , multiply the result by 1.210. Performed By: #### G FR #### [address] [address] Comprehensive Panelon 2018 ALP [Catalytic activity/Vol] 56 U/L Normal 46-116 [facility] Comment on above: Performed By: #### P 14 #### [facility] [address] [place], [place] [address] Bilirubin [Mass/Vol] 0.3 mg/dL Normal 0.2-1.0 [facility] Comment on above: Performed By: #### P 14 #### [facility] [address] [place], [place] [address] Protein [Mass/Vol] 6.9 g/dL Normal 6.4-8.2 [facility] Comment on above: Performed By: #### P 14 #### [facility] [address] [place], [place] [address] Creatinine [Mass/Vol] 0.62 mg/dL Normal 0.51-0.95 [facility] Comment on above: Performed By: #### P 14 #### [facility] [address] [place], [place] [address] ALT [Catalytic activity/Vol] 17 U/L Normal 12-78 [facility] Comment on above: Performed By: #### P 14 #### [facility] [address] [place], [place] [address] AST [Catalytic activity/Vol] 14 U/L Normal 9-37 [facility] Comment on above: Performed By: #### P 14 #### [facility] [address] [place], [place] [address] Albumin [Mass/Vol] 3.4 g/dL Normal 3.4-5.0 [facility] Comment on above: Performed By: #### P 14 #### [facility] [address] [place], [place] [address] Anion gap [Moles/Vol] 6 mmol/L Low 8-16 [facility] Comment on above: Performed By: #### P 14 #### [facility] [address] [place], [place] [address] CO2 [Moles/Vol] 32 mmol/L Normal 21-32 [facility] Comment on above: Performed By: #### P 14 #### [facility] [address] [place], [place] [address] Glucose [Mass/Vol] 72 mg/dL Normal 70-99 [facility] Comment on above: Performed By: #### P 14 #### [facility] [address] [place], [place] [address] Urea nitrogen [Mass/Vol] 7 mg/dL Normal 7-18 [facility] Comment on above: Performed By: #### P 14 #### [facility] [address] [place], [place] [address] Calcium [Mass/Vol] 8.9 mg/dL Normal 8.5-10.1 [facility] Comment on above: Performed By: #### P 14 #### [facility] [address] [place], [place] [address] Chloride [Moles/Vol] 103 mmol/L Normal 98-107 [facility] Comment on above: Performed By: #### P 14 #### [facility] [address] [place], [place] [address] Potassium [Moles/Vol] 3.6 mmol/L Normal 3.5-5.1 [facility] Comment on above: Performed By: #### P 14 #### [facility] [address] [place], [place] [address] Sodium [Moles/Vol] 137 mmol/L Normal 136-145 [facility] Comment on above: Performed By: #### P 14 #### [facility] [address] [place], [place] [address] Hemoglobin A1Con 09-15-2018 HbA1c (Bld) [Mass fraction] 148 mg/dl Normal [facility] Comment on above: Performed By: #### L A1C #### [facility] [address] [place], [place] [address] HbA1c (Bld) [Mass fraction] 6.8 % High 4.5-6.2 [facility] Comment on above: Performed By: #### L A1C #### [facility] [address] [place] [id number] MDRD GFRon 09-15-2018 GFR/1.73 sq M predicted among non-blacks MDRD (S/P/Bld) [Vol rate/Area] mL/min/{1.73_m2} Normal >60mL/min/1.7 3m2 [facility] Comment on above: Result Comment: If t he patient is , multiply the result by 1.210. Performed By: #### G FR #### [facility] [address] [place], [place] [address] Vital Signs Date Time Vital Sign Value Performing Clinician Maury pablo 03-18-2025 08:12-0400 Body height 165.[address] Sánchez Tabares MD Work Phone: [facility] 03-18-2025 08:12-0400 Body mass index (BMI) [Ratio] 25.2 kg/m2 Dr. Sánchez Tabares MD Work Phone: [facility] 03-18-2025 08:12-0400 Body temperature 94.5 [degF] Dr. Sánchez Tabares MD Work Phone: 7(000)098-561505 [place] [address] 03-18-2025 08:12-0400 Body weight 68.[address] Sánchez Tabares MD Work Phone: 2(604)993-005105 [place] [address] 03-18-2025 08:12-0400 Diastolic blood pressure 77 mm[Hg] Dr. Sánchez Tabares MD Work Phone: 9(894)279-554805 [place] [address] 03-18-2025 08:12-0400 Heart rate 85 /min Dr. Sánchez Taabres MD Work Phone: 0(160)528-286005 [place] [address] 03-18-2025 08:12-0400 Respiratory rate 16 /min Dr. Sánchez Tabares MD Work Phone: 5(391)754-633605 [place] [address] 03-18-2025 08:12-0400 SaO2% (BldA) [Mass fraction] 98 % Dr. Sánchez Tabares MD Work Phone: 2(444)308-190405 [place] [address] 03-18-2025 08:12-0400 Systolic blood pressure 119 mm[Hg] Dr. Sánchez Tabares MD Work Phone: 7(156)874-969005 [place] [address] 01-18-2025 14:36-0400 Body height 165.[address] Sánchez Tabares MD Work Phone: 5(605)828-863805 [place] [address] 01-18-2025 14:36-0400 Body mass index (BMI) [Ratio] 27.1 kg/m2 Dr. Sánchez Tabares MD Work Phone: 3(859)279-763505 [place] [address] 01-18-2025 14:36-0400 Body weight 73.[address] Sánchez Tabares MD Work Phone: 0(925)008-059905 [place] [address] 01-18-2025 14:36-0400 Diastolic blood pressure 77 mm[Hg] Dr. Sánchez Tabares MD Work Phone: 3(124)858-085405 [place] [address] 01-18-2025 14:36-0400 Heart rate 97 /min Dr. Sánchez Tabares MD Work Phone: 4(289)358-007905 [place] [address] 01-18-2025 14:36-0400 SaO2% (BldA) [Mass fraction] 97 % Dr. Sánchez Tabares MD Work Phone: 1(108)713-675327 [place] [address] 01-18-2025 14:36-0400 Systolic blood pressure 120 mm[Hg] Dr. Sánchez Tabares MD Work Phone: 0(558)820-330327 [place] [address] 01-09-2025 07:20-0400 Body height 167.6 cm Nettiewilliam Madrigalury [employer]UG HAND.INTERNAL COMBUSTION ENGINEER Work Phone: 6(236)035-362510 [place] [address] 01-09-2025 07:20-0400 Body mass index (BMI) [Ratio] 26.79 kg/m2 Nettie Haury [employer]UG [employer].INTERNAL COMBUSTION ENGINEER Work Phone: 2(889)991-423010 [place] [address] 01-09-2025 07:20-0400 Body weight 75.3 kg Nettie Haury [employer].INTERNAL COMBUSTION ENGINEER Work Phone: 4(393)987-527110 [place] [address] 01-09-2025 07:20-0400 Diastolic blood pressure 60 mm[Hg] Netite Haury [employer]UG HAND.INTERNAL COMBUSTION ENGINEER Work Phone: 8(343)449-147010 [place] [address] 01-09-2025 07:20-0400 Systolic blood pressure 120 mm[Hg] Nettie Haury [employer]UG HAND.INTERNAL COMBUSTION ENGINEER Work Phone: 0(416)117-735268 [place] [address] 09-20-2024 08:05-0500 Body height 165.[address] Sánchez Tabares MD Work Phone: 0(839)074-407205 [place] [address] 09-20-2024 08:05-0500 Body mass index (BMI) [Ratio] 32 kg/m2 Dr. Sánchez Tabares MD Work Phone: 7(894)265-513105 [place] [address] 09-20-2024 08:05-0500 Body weight 87.[address] Sánchez Tabares MD Work Phone: 9(670)252-750305 [place] [address] 09-20-2024 08:05-0500 Diastolic blood pressure 81 mm[Hg] Dr. Sánchez Tabares MD Work Phone: 3(527)262-403905 [place] [address] 09-20-2024 08:05-0500 Heart rate 81 /min Dr. Sánchez Tabares MD Work Phone: 6(975)540-175505 [place] [address] 09-20-2024 08:05-0500 Respiratory rate 16 /min Dr. Sánchez Tabares MD Work Phone: 9(047)575-276105 [place] [address] 09-20-2024 08:05-0500 SaO2% (BldA) [Mass fraction] 99 % Dr. Sánchez Tabares MD Work Phone: [facility] 09-20-2024 08:05-0500 Systolic blood pressure 126 mm[Hg] Dr. Sánchez Tabares MD Work Phone: [facility] 07-09-2024 19:48-0500 Body mass index (BMI) [Ratio] 32.45 kg/m2 Sánchez Tabares MD Work Phone: [facility] 07-09-2024 19:48-0500 Body weight 88.45 kg Sánchez Tabares MD Work Phone: [facility] 07-09-2024 19:48-0500 Diastolic blood pressure 72 mm[Hg] Sánchez Tabares MD Work Phone: [facility] 07-09-2024 19:48-0500 Heart rate 93 /min Sánchez Tabares MD Work Phone: [facility] 07-09-2024 19:48-0500 SaO2% (BldA) [Mass fraction] 100 % Sánchez Tabares MD Work Phone: [facility] 07-09-2024 19:48-0500 Systolic blood pressure 112 mm[Hg] Sánchez Tabares MD Work Phone: [facility] 11-01-2023 16:45-0400 Body weight 88.72 kg Sánchez Tabares MD Work Phone: [facility] 11-01-2023 16:45-0400 Diastolic blood pressure 78 mm[Hg] Sánchez Tabares MD Work Phone: [facility] 11-01-2023 16:45-0400 Heart rate 89 /min Sánchez Tabares MD Work Phone: [facility] 11-01-2023 16:45-0400 Respiratory rate 16 /min Sánchez Tabares MD Work Phone: [facility] 11-01-2023 16:45-0400 SaO2% (BldA) [Mass fraction] 100 % Sánchez Tabares MD Work Phone: [facility] 11-01-2023 16:45-0400 Systolic blood pressure 122 mm[Hg] Sánchez Tabares MD Work Phone: [facility] 11-26-2022 16:48-0400 Body weight 90.72 kg Sánchez Tabares MD Work Phone: [facility] 11-26-2022 16:48-0400 Diastolic blood pressure 72 mm[Hg] Sánchez Tabares MD Work Phone: [facility] 11-26-2022 16:48-0400 Heart rate 89 /min Sánchez Tabares MD Work Phone: [facility] 11-26-2022 16:48-0400 SaO2% (BldA) [Mass fraction] 98 % Sánchez Tabares MD Work Phone: [facility] 11-26-2022 16:48-0400 Systolic blood pressure 138 mm[Hg] Sánchez Tabares MD Work Phone: [facility] 06-02-2022 07:00-0500 Body weight 87.09 kg Shira Espinosa APRN.INTERNAL COMBUSTION ENGINEER Work Phone: [facility] 06-02-2022 07:00-0500 Diastolic blood pressure 68 mm[Hg] Shira Espinosa APRN.INTERNAL COMBUSTION ENGINEER Work Phone: [facility] 06-02-2022 07:00-0500 Systolic blood pressure 114 mm[Hg] Shira Espinosa APRN.INTERNAL COMBUSTION ENGINEER Work Phone: [facility] Encounters Encounter Date Encounter Type Care Provider Facility Start: 04-03-2025 ambulatory Antonieta Paniagua ty:[facility] Start: 04-01-2025 End: 04-01-2025 Refill Sánchez Tabares MD Work Phone: [facility] [place] Comment on above: Refill Request Start: 03-18-2025 End: 03-18-2025 Patient encounter procedure Antonieta LINARES -[facility] Work Phone: Start: 03-18-2025 End: 03-18-[address] Sánchez Tabares MD Work Phone: -[facility] Start: 01-30-2025 End: 01-30-[address] Sánchez Tabares MD Work Phone: -[facility] Start: 01-30-2025 End: 01-30-2025 Patient encounter procedure Nettie Lyles [employer] MANAGER-C -[facility] Work Phone: Start: 01-30-2025 End: 01-30-2025 ambulatory Nettie Lyles Facility:[facility] Start: 01-23-2025 End: 01-23-2025 Chart abstracting Sánchez Tabares MD Work Phone: [facility] [place] Start: 01-18-2025 End: 01-18-[address] Chintan Ramirez MD -[facility] Work Phone: Start: 01-18-2025 End: 01-18-[address] Sánchez Tabares MD Work Phone: -[facility] Start: 01-11-2025 End: 01-11-2025 ambulatory Nettie Lyles APRN.INTERNAL COMBUSTION ENGINEER Work Phone: OB/Gynecology Comment on above: Mammogram Start: 01-11-2025 End: 01-11-[address] Chintan Ramirez MD -Laboratory Work Phone: Start: 01-11-2025 End: 01-11-2025 ambulatory Chintan Ramirez Facility:[facility] Start: 01-09-2025 End: 01-09-2025 Patient encounter procedure Nettie Lyles APRN.INTERNAL COMBUSTION ENGINEER Work Phone: OB/Gynecology Comment on above: Encounter for gyneco logical examination (general) (routine) without abnormal findings (Primary Dx); Encounter for screening mammogram for breast cancer; Genitourinary syndrome of menopause Start: 01-09-2025 End: 01-09-2025 Patient encounter status Nettie Lyles APRN.INTERNAL COMBUSTION ENGINEER Work Phone: [facility] Start: 01-09-2025 End: 01-09-2025 ambulatory SÁNCHEZ TABARES Facility:[facility] Start: 01-09-2025 Encounter for gynecological examination (general) (routine) without abnormal findings NETTIE LYLES [facility] Start: 12-04-2024 End: 12-05-2024 Refill Karolyn Humphreys APRN.CNP Work Phone: [facility] Comment on above: Refill Request Start: 09-20-2024 End: 09-20-2024 Patient encounter procedure Antonieta LINARES -[facility] Work Phone: Start: 09-20-2024 End: 09-20-2024 ambulatory Antonieta Hernandez Facility:[facility] Start: 09-20-2024 End: 09-20-2024 ambulatory Antonieta Hernandez Facility:[facility] Start: 09-07-2024 ambulatory Rambolynne Martin Facility :[facility] Start: 09-07-2024 End: 09-07-2024 ambulatory [facility] Facility:[facility] Start: 08-13-2024 End: 08-13-2024 ambulatory Chintan Ramirez Facility:[facility] Start: 07-11-2024 End: 07-11-2024 ambulatory Antonieta Hernandez Facility:[facility] Start: 07-09-2024 End: 07-09-2024 Patient encounter procedure Sánchez Tabares MD [facility] Comment on above: Diabetes mellitus ty pe 1, controlled, without complications (HCC) (Primary Dx); Acquired hypothyroidism; Hyperlipidemia with target LDL less than 100; Mild intermittent asthma without complication Start: 07-09-2024 End: 07-09-2024 ambulatory SÁNCHEZ TABARES Facility:[facility] Start: 07-02-2024 End: 07-02-2024 ambulatory Antonieta Hernandez Facility:[facility] Start: 06-27-2024 End: 06-28-2024 Refill Sánchez Tabares MD Work Phone: [facility] Comment on above: Refill Request Start: 04-09-2024 End: 04-09-2024 Refill Sánchez Tabares MD [facility] Phone: [facility] Comment on above: Refill Request Start: 02-24-2024 End: 02-24-2024 ambulatory Justin Burrows PT Work Phone: [facility] Comment on above: Posterior tibialis t endinitis of both lower extremities (Primary Dx); Acquired hallux valgus of right foot; Acquired hammer toe Start: 02-07-2024 End: 02-07-2024 ambulatory Justinreshma Burrows PT Work Phone: [facility] Comment on above: Posterior tibialis t endinitis of both lower extremities (Primary Dx); Acquired hallux valgus of right foot; Acquired hammer toe Start: 01-30-2024 Chart abstracting Sánchez Tran MD Work Phone: [facility] Start: 01-21-2024 End: 01-21-2024 ambulatory SÁNCHEZ TABARES Facility[facility] Start: 01-17-2024 Get Medical Advice Shira ortega APRN.INTERNAL COMBUSTION ENGINEER Work Phone: OB/Gynecology Comment on above: Mammogram order Reorder a pair of or thotic inserts. Start: 11-01-2023 End: 11-01-2023 Patient encounter procedure Sánchez Tabares MD Work Phone: [facility] Comment on above: Hyperlipidemia with target LDL less than 100 (Primary Dx); Acquired hypothyroidism; Diabetes mellitus type 1, controlled, without complications (HCC); Obesity, Class I, BMI 30-34.9; Bilateral impacted cerumen Start: 06-14-2023 Refill Sánchez Tabares MD Work Phone: [facility] Comment on above: Refill Request Start: 06-02-2023 End: 06-02-2023 ambulatory DANAE MANDOChristine HERNANDEZ [facility] Start: 03-01-2023 End: 03-01-2023 Patient encounter procedure Deshawn Baron Work Phone: Podiatry Comment on above: Porokeratosis (Prima ry Dx); Diabetes mellitus type 1, controlled, without complications (HCC) Start: 02-06-2023 Chart abstracting Sánchez Tran MD Work Phone: [facility] Start: 02-05-2023 End: 02-05-2023 ambulatory [facility] Work Phone: Start: 02-05-2023 End: 02-05-2023 Patient encounter procedure [facility] Work Phone: Start: 01-28-2023 End: 01-28-2023 Patient encounter procedure [facility] Work Phone: Start: 01-17-2023 Telephone encounter Shira weiss APRN.INTERNAL COMBUSTION ENGINEER Work Phone: OB/Gynecology Comment on above: Orders Start: 11-26-2022 End: 11-26-2022 Patient encounter procedure Sánchez Tabares MD Work Phone: [facility] Comment on above: Diabetes mellitus ty pe 1, controlled, without complications (HCC) (Primary Dx); Acquired hypothyroidism; Anxiety with somatic features; Cervical radiculopathy; Hyperlipidemia with target LDL less than 100; Mild intermittent asthma without complication; Gastroesophageal reflux disease without esophagitis; Obesity, Class I, BMI 30-34.9 Start: 09-03-2022 Chart abstracting Sánchez Tran MD Work Phone: [facility] Start: 07-20-2022 Refill Sánchez Tabares MD Work Phone: [facility] Comment on above: Refill Request Start: 06-07-2022 ambulatory Shira Espinosa APRN.INTERNAL COMBUSTION ENGINEER Work Phone: OB/Gynecology Comment on above: Prescription Start: 06-02-2022 End: 06-02-2022 Patient encounter procedure Shira Espinosa APRN.INTERNAL COMBUSTION ENGINEER Work Phone: OB/Gynecology Comment on above: Vaginal burning (Kanwal sumaya Dx); Postmenopausal atrophic vaginitis Start: 05-26-2022 End: 05-26-2022 ambulatory Justin Burrows PT Work Phone: [facility] Comment on above: Posterior tibialis t endinitis of both lower extremities (Primary Dx); Acquired hallux valgus of right foot; Acquired hammer toe Start: 05-16-2022 ambulatory Justin Golias P T Work Phone: [facility] Comment on above: New orthotics Start: 05-14-2022 End: 05-14-2022 ambulatory Justin Golias PT Work Phone: [facility] Comment on above: Posterior [...] Start: 01-27-2022 End: 01-27-2022 Patient encounter procedure [facility] Start: 01-26-2022 Chart abstracting Sharita Lincoln MA [facility] [place] Start: 01-23-2022 End: 01-23-2022 Patient encounter procedure [facility], [facility] Start: 01-18-2022 Telephone encounter Shira weiss APRN.CNP Work Phone: OB/Gynecology Comment on above: Orders Start: 09-23-2021 Telephone encounter Sánchez Tabares MD Work Phone: [facility] [place] Comment on above: Patient Update Start: 09-15-2020 End: 09-15-2020 Subsequent hospital visit by physician [facility] Work Phone: Radiology Comment on above: Other injury of unsp ecified muscle, fascia and tendon at shoulder and upper arm level, unspecified arm, initial encounter [S46.999A] Procedures Date Procedure Procedure Detail Performing Clinician Start: 01-30-2025 Screening mammography Pavel Tabares MD Work Phone: Start: 01-18-2025 Hemoglobin A1c/Hemoglobin.total in Blood [facility] Provider Start: 01-11-2025 Vitamin D, 25-hydrox y measurement Dr. Sánchez Tabares MD Work Phone: Comment on above: Vitamin D StatusDefi ciency: <20 ng/mL (50nmol/L)Insufficiency: 20-30 ng/mL (50-75 nmol/L)Sufficiency: 30-100 ng/mL (75-250 nmol/L)Toxicity: >100 ng/mL (>250 nmol/L) Start: 09-20-2024 Hepatitis A virus an tibody, total measurement Dr. Sánchez Tabares MD Work Phone: Comment on above: Comment: The HAV tot al antibody assay detects both IgG andIgM but does not differentiate between them. A negativeresult suggests susceptibility to infection. A positiveresult could be due to vaccination, previously resolvedinfection or active infection. Testing for HAV IgM shouldbe performed if active HAV infection is suspected. [facility] profiles that will automatically reflex positive HAVtotal antibody results to IgM (e.g., panel #[id number] HAVAntibody w/ Rfx).Performed at: [place] [id number] Director: Lon Manzo PhD, Phone: [phone] Start: 01-27-2024 Hemoglobin A1c/Hemoglobin.total in Blood [facility] [...] Start: 01-23-2022 ALBUMIN/CREAT RATIO (UACR) (FOR REMOTE [facility] USE) [facility] Provider Start: 01-23-2022 Hemoglobin [...] Detail Author Start: 07-05-2031 Urine microalbumin profile [facility] Start: 06-02-2028 Screening for malign ant neoplasm of colon [facility] Start: 03-01-2026 Glaucoma screening Dilated Retinal E xam [facility] Start: 01-16-2026 HPV TESTING HPV TESTING [facility] Start: 01-16-2026 PAP TESTING PAP TESTING [facility] Start: 01-16-2026 Screening for malign ant neoplasm of cervix [facility] Start: 01-10-2026 End: 01-10-2026 Patient encounter procedure 01/10/2026 7:15 AM EDT Office Visit OB/Gynecology [address] [place], [place] [id number] Nettie Lyles APRN.INTERNAL COMBUSTION ENGINEER [address] [place] [address] Annual OB/Gynecology Comment on above: Annual Start: 07-20-2025 Hemoglobin A1c measurement HbA1C [facility] Start: 07-09-2025 Annual PCP Team Milk Treater joaquina Disease Visit Annual PCP Team Chronic Disease Visit [facility] Start: 03-25-2025 Influenza vaccination Influenza Vacc ine (#1) [facility] Start: 03-02-2025 Glaucoma screening Dilated Retinal E xam [facility] Start: 01-29-2025 Screening for malign ant neoplasm of breast Mammogram Screening [facility] Start: 01-26-2025 Hepatitis B screening Urine Albumin:Creatinine Ratio [facility] Start: 01-20-2025 Hepatitis B surface antibody level LDL Cholesterol [facility] Start: 10-31-2024 Annual PCP Team Milk Treater joaquina Disease Visit Annual PCP Team Chronic Disease Visit [facility] Start: 08-09-2024 Diabetic foot examination Diabetic Foot Exam [facility] Start: 07-29-2024 Hemoglobin A1c measurement HbA1C [facility] Start: 07-24-2024 Behavioral Health Screening Behavioral Health Screening [facility] Comment on above: Postponed from 07/25 (Declined at this time) Start: 07-09-2024 Depression Screening Depression Scre ening [facility] Comment on above: Postponed from 04/30 (Declined at this time) Start: 03-25-2024 Covid-19 Vaccine () Covid-19 Vaccine () [facility] Start: 03-25-2024 Influenza vaccination Influenza Vacc ine (#1) [facility] Start: 03-11-2024 Glaucoma screening Dilated Retinal E xam [facility] Start: 03-11-2024 Hepatitis C antibody , confirmatory test Dilated Retinal Exam [facility] Start: 02-06-2024 Hepatitis B screening URINE ALBUMIN:CREATININE RATIO [facility] Start: 02-01-2024 Mammography [facility] Start: 02-01-2024 Screening for malign ant neoplasm of breast Mammogram Screening [facility] Start: 01-21-2024 End: 01-21-2024 Results Only 01/21/2024 9:45 AM EDT Results Only [facility] [address] [place] [address] PT WILL BRING IN OUTSIDE LAB ORDERS [facility] Comment on above: PT WILL BRING IN OUT SIDE LAB ORDERS Start: 11-27-2023 ANNUAL PCP TEAM ADMISSION LIAISON JOAQUINA DISEASE VISIT ANNUAL PCP TEAM CHRONIC DISEASE VISIT [facility] Start: 11-27-2023 PNEUMOCOCCAL (2 - PCV) PNEUMOCOCCAL (2 - PCV) [facility] Comment on above: Postponed from 09/07 (Declined at this time) Start: 11-27-2023 Pneumococcal vaccination [facility] Comment on above: Postponed from 09/07 (Declined at this time) Start: 08-08-2023 Hemoglobin A1c measurement HbA1C [facility] Start: 08-08-2023 Hemoglobin A1c/Hemoglobin.total in Blood HBA1C [facility] Start: 07-24-2023 DEPRESSION ASSESSMENT DEPRESSION ASS ESSMENT [facility] Comment on above: Postponed from 07/25 (Declined at this time) Start: 07-20-2023 Colonoscopy COLONOSCOPY [facility] Start: 07-20-2023 COLORECTAL CANCER SCREENING COLORECTAL CANCER SCREENING [facility] Start: 03-25-2023 Influenza vaccination INFLUENZA (#1) [facility] Start: 03-02-2023 3 comp foot exam completed DIABETIC FOOT EXAM [facility] Start: 02-07-2023 Hemoglobin A1c/Hemoglobin.total in Blood HBA1C [facility] Start: 01-27-2023 Mammography MAMMOGRAM [facility] Start: 01-26-2023 Hepatitis C antibody , confirmatory test DILATED RETINAL EXAM [facility] Start: 01-23-2023 Hepatitis B screening URINE ALBUMIN:CREATININE RATIO [facility] Start: 09-23-2022 3 comp foot exam completed DIABETIC FOOT EXAM [facility] Start: 09-23-2022 Adult depression screening assessment DEPRESSION SCREENING [facility] Start: 09-23-2022 ANNUAL PCP TEAM ADMISSION LIAISON JOAQUINA DISEASE VISIT ANNUAL PCP TEAM CHRONIC DISEASE VISIT [facility] Start: 07-26-2022 Hemoglobin A1c/Hemoglobin.total in Blood HBA1C [facility] Start: 07-25-2022 DEPRESSION ASSESSMENT DEPRESSION ASS ESSMENT [facility] Start: 03-25-2022 Influenza vaccination INFLUENZA (#1) [facility] Start: 02-07-2022 Hemoglobin A1c/Hemoglobin.total in Blood HBA1C [facility] Start: 02-06-2022 Hepatitis C antibody , confirmatory test DILATED RETINAL EXAM [facility] Start: 02-05-2022 Hepatitis B screening URINE ALBUMIN:CREATININE RATIO [facility] Start: 02-05-2022 Hepatitis B surface antibody level LDL CHOLESTEROL [facility] Start: 01-27-2022 Mammography MAMMOGRAM [facility] Start: 09-22-2021 COVID-19 VACCINE (4 - Booster for Pfizer series) COVID-19 VACCINE (4 - Booster for Pfizer series) [facility] Start: 07-25-2021 DEPRESSION ASSESSMENT DEPRESSION ASS ESSMENT [facility] Start: 2013 COLOGUARD (FIT-DNA) COLOGUARD (FIT-D NA) [facility] Start: [address] COLONOGRAPHY [facility] Start: 2013 FECAL OCCULT BLOOD FECAL OCCULT BLOO D [facility] Start: 2013 Screening for malign ant neoplasm of colon [facility] Start: 2013 SIGMOIDOSCOPY SIGMOIDOSCOPY [facility] Start: 09-07-2005 PNEUMOCOCCAL (2 - PCV) PNEUMOCOCCAL (2 - PCV) [facility] Start: 09-07-2005 Pneumococcal vaccination Pneum ococcal Vaccine (2 of 2 - PCV) [facility] Start: 09-07-2005 Pneumococcal Vaccine : 50+ (2 of 2 - PCV) Pneumococcal Vaccine: 50+ (2 of 2 - PCV) [facility] Start: 1987 HEPATITIS B (1 of 3 - Risk 3-dose series) HEPATITIS B (1 of 3 - Risk 3-dose series) [facility] Start: 1986 Depression Screening Depression Scre ening [facility] Start: 1968 HEPATITIS B (1 of 3 - 3-dose series) HEPATITIS B (1 of 3 - 3-dose series) [facility] BACTERIAL VAGINOSIS AMPLIFICATION BACTERIAL VAGINOSIS AMPLIFICATION Lab Routine Vaginal burning Ordered: 06/02/2022 [facility] Work Phone: Comment on above: Ordered: 06/02/2022 ROXIE / TRICHOMONA S AMPLIFICATION ROXIE / TRICHOMONAS AMPLIFICATION Microbiology Routine Vaginal burning Ordered: 06/02/2022 [facility] Work Phone: Comment on above: Ordered: 06/02/2022 CT Abdomen and Pelvi s W contrast IV [facility] End: 02-08-2026 DBT Breast - bilateral screening SHIRA SCREENING W GREER Radiology Routine Encounter for gynecological examination (general) (routine) without abnormal findings 1 Occurrences starting 01/09/2025 until 02/08/2026 [facility] Work Phone: Comment on above: 1 Occurrences starti ng 01/09/2025 until 02/08/2026 Removal impacted cer umen irrigation/lvg unilat AMBULATORY EAR LAVAGE/IRRIGATION Procedures Routine Bilateral impacted cerumen Ordered: 11/01/2023 [facility] Work Phone: Comment on above: Ordered: 11/01/2023 [facility] Immunizations Immunization Date Immunization Notes Care Provider Josue cerrato 04-23-2024 COVID-19 vaccine, ag e 12+ yr (Register My Info [facility]) Sánchez Tabares MD Work Phone: [facility] 04-13-2024 influenza virus vacc ine, unspecified formulation Sánchez Tabares MD Work Phone: [facility] 04-09-2024 influenza, seasonal, injectable Sánchez Tabares MD Work Phone: [facility] 04-18-2023 Influenza, injectabl e, Madin [place] Canine Kidney, preservative free, quadrivalent Sánchez Tabares MD Work Phone: [facility] 04-18-2023 influenza virus vacc ine, unspecified formulation Sánchez Tabares MD Work Phone: [facility] 05-07-2022 Influenza, injectabl e, Madin [place] Canine Kidney, preservative free, quadrivalent Sánchez Tabares MD Work Phone: [facility] 07-05-2021 tetanus toxoid, redu denisse diphtheria toxoid, and acellular pertussis vaccine, adsorbed Sánchez Tabares MD Work Phone: [facility] Work Phone: 04-13-2021 influenza, injectabl e, quadrivalent, contains preservative Sánchez Tabares MD Work Phone: [facility] 04-13-2021 influenza, injectabl e, quadrivalent, preservative free Sánchez Tabares MD Work Phone: [facility] Work Phone: 10-23-2020 COVID-19 vaccine, ag e 12+ yr ([facility]) Sánchez Tabares MD Work Phone: [facility] Work Phone: 10-02-2020 COVID-19 vaccine, ag e 12+ yr ([facility] - [facility]) Sánchez Tabares MD Work Phone: [facility] 05-15-2020 zoster vaccine recombinant Sánchez Tabares MD Work Phone: [facility] 04-11-2020 influenza, injectabl e, quadrivalent, contains preservative Sánchez Tabares MD Work Phone: [facility] 04-11-2020 influenza, injectabl e, quadrivalent, preservative free Sánchez Tabares MD Work Phone: [facility] Work Phone: 03-14-2020 zoster vaccine recombinant Sánchez Tabares MD Work Phone: [facility] 04-06-2019 Influenza, injectabl e, Madin [place] Canine Kidney, preservative free, quadrivalent Sánchez Tabares MD Work Phone: [facility] Work Phone: 04-06-2019 influenza, seasonal, injectable Sánchez Tabares MD Work Phone: [facility] 04-20-2018 influenza, injectabl e, quadrivalent, preservative free Sánchez Tabares MD Work Phone: [facility] Work Phone: 04-20-2018 influenza, seasonal, injectable Sánchez Tabares MD Work Phone: [facility] 04-25-2017 influenza, injectabl e, quadrivalent, preservative free Sánchez Tabares MD Work Phone: [facility] Work Phone: 04-25-2017 influenza, seasonal, injectable Sánchez Tabares MD Work Phone: [facility] 04-06-2016 influenza, injectabl e, quadrivalent, preservative free Sánchez Tabares MD Work Phone: [facility] Work Phone: 04-06-2016 influenza, seasonal, injectable Sánchez Tabares MD Work Phone: [facility] 01-14-2016 hepatitis B immune globulin Sánchez Tabares MD Work Phone: [facility] 08-15-2015 hepatitis B immune globulin Sánchez Tabares MD Work Phone: [facility] 07-15-2015 hepatitis B immune globulin Sánchez Tabares MD Work Phone: [facility] 2015 influenza, injectabl e, quadrivalent, contains preservative Sánchez Tabares MD Work Phone: [facility] Work Phone: 2015 influenza, seasonal, injectable Deshawn Baron Work Phone: [facility] 05-02-2014 influenza, seasonal, injectable Sánchez Tabares MD Work Phone: [facility] Work Phone: 04-24-2013 Influenza virus vaccine W [facility] 04-24-2013 influenza, seasonal, injectable, preservative free Sánchez Tabares MD Work Phone: [facility] Work Phone: 04-19-2013 influenza virus vacc ine, unspecified formulation Sánchez Tabares MD Work Phone: [facility] 04-24-2011 influenza virus vacc ine, unspecified formulation Sánchez Tabares MD Work Phone: [facility] Work Phone: 12-30-2010 tetanus toxoid, redu denisse diphtheria toxoid, and acellular pertussis vaccine, adsorbed Sánchez Tabares MD Work Phone: [facility] Work Phone: 04-28-2010 influenza virus vacc ine, unspecified formulation Sánchez Tabares MD Work Phone: [facility] 05-28-2009 novel influenza-H1N1 -09, all formulations Sánchez Tabares MD Work Phone: [facility] Work Phone: 04-26-2009 influenza virus vacc ine, unspecified formulation Sánchez Tabares MD Work Phone: [facility] Work Phone: 06-08-2008 influenza virus vacc ine, unspecified formulation Sánchez Tabares MD Work Phone: [facility] Work Phone: 09-07-2004 pneumococcal polysaccharide vaccine, 23 valent Sánchez Tabares MD Work Phone: [facility] Work Phone: 09-07-[address] [facility] Work Phone: 09-07-2004 pneumococcal vaccine , unspecified formulation [facility] 06-24-2003 pneumococcal polysaccharide vaccine, 23 valent Sánchez Tabares MD Work Phone: [facility] Work Phone: 10-18-2000 diphtheria and tetan us toxoids, adsorbed for pediatric use Sánchez Tabares MD Work Phone: [facility] Work Phone: 11-16-1973 trivalent poliovirus vaccine, live, oral Sánchez Tabares MD Work Phone: [facility] 05-15-1970 diphtheria, tetanus toxoids and pertussis vaccine Sánchez Tabares MD Work Phone: [facility] 05-15-1970 trivalent poliovirus vaccine, live, oral Sánchez Tabares MD Work Phone: [facility] 11-16-1969 diphtheria, tetanus toxoids and pertussis vaccine Sánchez Tabares MD Work Phone: [facility] 1968 diphtheria, tetanus toxoids and pertussis vaccine Sánchez Tabares MD Work Phone: [facility] 1968 trivalent poliovirus vaccine, live, oral Sánchez Tabares MD Work Phone: [facility] 1968 trivalent poliovirus vaccine, live, oral Sánchez Tabares MD Work Phone: [facility] 1968 diphtheria, tetanus toxoids and pertussis vaccine Sánchez Tabares MD Work Phone: [facility] 1968 trivalent poliovirus vaccine, live, oral Sánchez Tabares MD Work Phone: [facility] Payers Date Payer Category Payer Unknown [id number] 2024 Self-pay [id number] 2022 Private Health Insurance [id number] 2019 Private Health Insurance AETNA A ETNA CHOICE POS II [id number] 2019-Present [phone] [address] [place] [address] POS [id number] 2019 Private Health Insurance [id number] Unknown [id number] Unknown [id number] Unknown [id number] Unknown [id number] Unknown [id number] Unknown [id number] Unknown [id number] Unknown [id number] Unknown [id number] Unknown [id number] Unknown [id number] Unknown [id number] Unknown [id number] Social History Date Type Detail Facility Start: 02-06-2013 End: 07-09-2024 Tobacco smoking status NHIS Ex-smoker [facility] End: 05-11-1999 History of tobacco use Current smoker [facility] Start: 09-23-2021 End: 01-09-2025 Alcohol intake Current non-drinker of alcohol (finding) [facility] Start: 08-22-2021 End: 11-26-2022 History SDOH Alcohol Frequency 1 [facility] Start: 08-22-2021 End: 11-26-2022 History SDOH Alcohol Std Drinks 98 [facility] Start: 08-22-2021 End: 11-26-2022 History SDOH Social Connections Phone 2 [facility] Start: 08-22-2021 End: 11-26-2022 History SDOH Social Connections Evangelical 3 [facility] Start: 08-22-2021 End: 11-26-2022 History SDOH Physical Activity DPW 7 [facility] Start: 08-22-2021 End: 11-26-2022 History SDOH Financial 5 [facility] Start: 04-19-2020 Education 17 [facility] Start: 1970 Sex Assigned At Not on file C [facility] Start: 08-16-2020 End: 03-12-2022 Exposure to SARS-CoV-2 (event) Not sure [facility] Start: 08-10-2021 End: 08-10-2022 Tobacco smoking status NHIS Unknown if ever smoked [facility] Start: 10-27-2019 Non-smoker [facility] Start: 1970 Sex Assigned At Female W [facility] End: 05-11-1999 History of tobacco use Cigarette Smoker [facility] Work Phone: Start: 02-06-2013 End: 07-09-2024 Tobacco use and exposure Smokeless tobacco non-user [facility] Work Phone: Start: 11-26-2022 History SDOH Alcohol Std Drinks 0 [facility] Start: 11-26-2022 End: 07-09-2024 History of Social function [facility] Start: 11-26-2022 End: 07-09-2024 Social connection and isolation panel [facility] Start: 06-25-2012 How often do you get together with friends or relatives? Patient refused [facility] Do you belong to any clubs or organizations such as christianity groups, unions, fraternal or athletic groups, or school groups? Yes [facility] Are you now , , , , never or living with a partner? [facility] How often to you hav e a drink containing alcohol? Never [facility] Do you feel stress - tense, restless, nervous, or anxious, or unable to sleep at night because your mind is troubled all the time - these days [OSQ] Only a little [facility] (I/We) worried wheth er (my/our) food would run out before (I/we) got money to buy more. Never true [facility] In the past 12 month s, was there a time when you were not able to pay the mortgage or rent on time? No [facility] Start: 08-14-2013 None [facility] Start: 08-14-2013 With Family [facility] Medical Equipment Procedure Code Equipment Code Equipment Origin al Text Equipment Identifier Dates one touch ultra test strips blue 50's test 8 times daily [id number] Start: 02-23-2016 Comment on above: one touch ultra test strips blue 50's test 8 times daily Functional Status Date Assessment Result Facility 02-19-2015 Are you deaf, or do you have serious difficulty hearing No 02/19/2015 2:24 PM EDT Jazmyn Nice LPN No [facility] 02-19-2015 Are you blind, or do you have serious difficulty seeing, even when wearing glasses No 02/19/2015 2:24 PM EDT Jazmyn Nice LPN No [facility] 02-19-2015 Do you have serious difficulty walking or climbing stairs No 02/19/2015 2:24 PM EDT Jazmyn Nice LPN No [facility] 02-19-2015 Do you have difficul ty dressing or bathing No 02/19/2015 2:24 PM EDT Jazmyn Nice LPN No [facility] 02-19-2015 Because of a physica l, mental, or emotional condition, do you have difficulty doing errands alone such as visiting a physician's office or shopping No 02/19/2015 2:24 PM VERNONT Jazmyn Nice LPN No [facility] Mental Status Date Assessment Result Facility 02-19-2015 Because of a physica l, mental, or emotional condition, do you have serious difficulty concentrating, remembering, or making decisions No 02/19/2015 2:24 PM EDJazmyn Mckenna LPN No [facility] Clinical Notes 05-23-2012 to 04-01-2025 Telephone Encounter - Enrrique Tompkins LPN - 04/01/2025 7:30 PM EDTTelephone Encounter - Enrrique Tompkins LPN - 04/01/2025 7:30 PM EDT Note Date & Type Note Facility 04-01-2025 Telephone encount er Note Prescription Refill Information The patient has [...] hr before meal. Enrrique Tompkins LPN April 01, 2025 7:30 PM [facility] 04-01-2025 Miscellaneous Notes Formattin g of this note is different from the original. Prescription Refill Information The patient has been [...] hr before meal. Enrrique Tompkins LPN April 01, 2025 7:30 PM documented in this encounter [facility] 03-18-2025 Progress note [facility] 01-18-2025 Evaluation note Diagnosis Onset Date Resolution Diabetes type 1, controlled chronic January 18, 2025 2:34pm Hypothyroid chronic January 18 2:34pm Mixed hyperlipidemia chronic January 18, 2025 2:34pm Overweight (BMI 25.0-29.9) chronic January 18, 2025 2:34pm Presence of insulin pump chronic January 18, 2025 2:34pm [facility] Work Phone: 1(342) 130-299106-27-2025 Evaluation note* Diagnosis Onset Date Resolution Status Admit Date Diabetes type 1, controlled chronic January 18, 2025 2:34pm Hypothyroid chronic January 18 2:34pm Mixed hyperlipidemia chronic January 18, 2025 2:34pm Overweight (BMI 25.0-29.9) chronic January 18, 2025 2:34pm Presence of insulin pump chronic January 18, 2025 2:34pm Epigastric pain acute March 182024 8:00am Weight loss acute March 18, 2025 8:00am [facility] Work Phone: 1(842) 640-981506-20-2025 Telephone encounter Note* Telephone Encounter - Triny Richard LPN - 01/11/2025 3:45 PM EDT Order to nettie to sign [facility]06-20-2025 Miscellaneous Notes* Telephone Encounter - Triny Richard LPN - 01/11/2025 3:45 PM EDT Order bhargav sheffield to sign documented in this encounterC[facility]06-18-2025 Instructions* Patient Instructions* Nettie Lyles APRN.INTERNAL COMBUSTION ENGINEER - 01/09/2025 7:34 AM EDT Images from the original note were not included. *Revaree is a NAMS recommended, leading selling vaginal insert for the relief of symptoms of vaginal atrophy and the confucianism of the vagina's epithelial lining and pH -- hormone free. In kouz-vw-xokt clinical trials, Revaree performed as well as estrogen creams in reducing symptoms of vaginal atrophy (dryness, itching, painful intercourse, and burning). The Revaree insert is convenient and notmessy and should be used 2 to 3 times a week. Revaree is professionally recommended, easily orderedby the patient, costs about $40 per month, and shipped directly to the patient's home. Revaree is aperfect choice for women who need relief and either cannot or do not want to use hormonal therapy for their vaginal atrophy symptoms. *Clairvee is the only oral probiotic that has been proven to target the vagina's microbiome, restoring lactobacilli, and thus reducing the recurrence of BV and yeast. Rigorous clinical trials show that Clairvee significantly reduces these annoying recurrences while balancing the vagina's microbiomeand pH. Clairvee should be taken orally each [...] Relizen is a great choice for women whostruggle with hot flashes and either cannot or do not want to use hormone therapy.\ Genitourinary syndrome of menopause, also known as atrophy, is caused by a decreased amount of estrogen, which can occur after menopause. Decreased estrogen results in the following: reduced blood flow to the vaginal tissues, thin/dry vaginal lining, decreased vaginal wall elasticity, and vaginal na rrowing. Vaginal corrales are flexible with a thick lining and have a healthy blood flow to the vaginal tissue in premenopausal patients. Genitourinary syndrome of menopause can cause pain with intercourse, dryness, irritation, itching, and even recurrent UTIs in some patients. This is a common condition in perimenopausal and menopausal women. Lubricants and moisturizers list The kgep-wco-hootliw vaginal moisturizer and lubricant products can be [...] in any drugstore or online. Also, many [employer] stores do carry high-quality lubricant products. VAGINAL [...] lube Replens Silky Smooth Pulse Aloe-ahh Wet [place] PATITO Premium Personal Lubricant PINK Silicone Lubricant SLIQUID Favim Pulse is a hands free personal lubricant warming dispenser and is sold with water or silicone basedlubricant pods that some women prefer for travel. LONG ACTING VAGINAL MOISTURIZERS: (For regular use inside vagina to maintain moisture) Long acting vaginal moisturizers should be used at least twice weekly on a regular basis. Many women find they need to use a moisturizer 3-5 times/week. In addition, it is important to not only applythe moisturizer inside the vagina, but also to apply to the vestibule (the external area surrounding the opening of the vagina). Women who are not sexually active often find that the regular use of along acting vaginal moisturizer makes them feel more comfortable. [place] beware: many lubricants arelabeled as moisturizers to make them more appealing [...] also be applied externally for comfort. [place] Aloe [place]: Many people are allergic to aloe, so keep this in mind with products like this that have aloe in it. Medicine Mama s V magic: Not much medical studies on this, but many patients swear by it, has oil, beeswax and honey in it- best used externally only. Calcium and Vitamin D Supplementation For more information:My [facility] Osteopenia Calcium Age Recommended Daily Allowance Age [...] adults engage in at least 150 to 300minutes per week of moderate-intensity activity or 75 minutes to 150 minutes per week of vigorous-intensity aerobic physical activity (or a combination of both). [place] [employer]ne[employer] (ACOG) and several other major osteoporosis guidelinegroups recommend screening for osteoporosis with Dual- energy X-ray Absorptiometry (DXA) in all postmenopausal documented in this encounterCleveland Clinic [facility]06-18-2025 NoteHNO ID: [id number] Author: NETTIE LYLES APRN.CNP Service: ? Author Type: Nurse Practitioner Type: Progress Notes Filed: 01/09/2025 07:46 Note Text: Quill Layer offered: Patient declinesElaina Patten is a 54 year old who presents for an annual gynecologic exam without complaints. Type 1 DM managed by chicken tender Dr. Ramirez. Postmenopausal: Yes. HRT use: No. [...] Multiple0 Live Births0 Comment: 1 vaginal delivery Purification Operator History LMP: 03/22/2020, Postmenopausal Age at Menarche: 10 Age at First : Age at Menopause: Purification Operator History Comments: Sexual Activity: Yes; Male Contraception: [...] VAG LOOP ELTRD BX CERVIX Early DILATION AND CURETTAGE DXAND/THER NONOBSTETRIC 02/26/2021 hysteroscopy DANDC EGD 07/20/2018 EGD W/O BRSH SPEC VARICIES INJ 09/07/2024 ESOPHAGOGASTRODUODENOSCOPY TRANSORAL DIAGNOSTIC EGD done 2 times Register My Info COVID-19 VACCINE, AGE 12+ YR (PURPLE TOP) [...] discussed with the Patient or Patient's Authorized Fan Engine Engineer. As applicable, any other physician, advance practice provider, medical student, or other health professional student that will be observing or involved in the sensitive examination for educational or training purposes was discussed with the Patient or Authorized Fan Engine Engineer. The Patient or Authorized Fan Engine Engineer has agreed to proceed with the sensitive examination. (Sensitive examination includes inspection and/or palpation of the breasts, pelvis, prostate and anorectal regions). EXAM: BP 120/60 Ht 5' 6 (1.68m) Wt 166 lb (75.3kg) LMP 03/22/2020 BMI 26.81 kg/(m2). GENERAL: pleasant, female in no apparent distress [...] external genitalia atrophic, normal Bartholin's glands, urethra, [place]'s glands, no vulvar lesions, no cervical lesions, atrophic, good vaginal support, physiologic discharge present, normal appearing perineal body and perianal region BIMANUAL: uterus normal size, shape and consistency, no adnexal masses, and non-tender RECTOVAGINAL: deferred. NEURO: alert and oriented x3,exam grossly non-focal EXTREMITIES: normal ASSESSMENT/PLAN: 1) Health maintenance: Pap/HPV up to date 2 (more content not included)...[facility] 01-09-2025 History of Present illness Narrative* Nettie Lyles APRN.[facility] - 01/09/2025 7:09 AM EDT Quill Layer offered: Patient declines. Earline is a 54 year old who presents for an annual gynecologic exam without complaints. Type 1 DM managed by chicken tender Dr. Ramirez. Postmenopausal: Yes. HRT use: No. [...] Multiple0 Live Births0 Comment: 1 vaginal delivery Purification Operator History LMP: 03/22/2020, Postmenopausal Age at Menarche: 10 Age at First : Age at Menopause: Purification Operator History Comments: Sexual Activity: Yes; Male Contraception: [...] ESOPHAGOGASTRODUODENOSCOPY TRANSORAL DIAGNOSTIC EGD done 2 times Register My Info COVID-19 VACCINE, AGE 12+ YR (PURPLE TOP) [...] discussed with the Patient or Patient's Authorized Fan Engine Engineer. As applicable, any other physician, advance practice provider, medical student, or other health professional student that will be observing or involved in the sensitive examination for educational or training purposes was discussed with the Patient or Authorized Fan Engine Engineer. The Patient or Authorized Fan Engine Engineer has agreed to proceed with the sensitive [...] external genitalia atrophic, normal Bartholin's glands, urethra, [place]'s glands, no vulvar lesions, no cervical lesions, [...] if not effective - Written info provided Nettie Lyles APRN.CNP documented in this encounterC[facility]05-14-2025 Telephone encounter Note * Telephone Encounter - Enrrique Tompkins LPN - 12/05/2024 11:05 AM EDT Prescription Refill Information The patient has been [...] Tompkins LPN December 05, 2024 11:05 AM [facility]05-14-2025 Miscellaneous Notes* Telephone Encounter - Enrrique Tompkins LPN - 12/05/2024 11:05 AM EDT Prescription Refill Information The patient has been [...] 05, 2024 11:05 AM documented in this encounterCleveland Clinic [facility]02-27-2025 Evaluation note* Diagnosis Onset Date Resolution Status Admit Date Epigastric pain acute September 20, 2024 7:59am Metabolic dysfunction-associated steatotic liver disease (MASLD) acute September 20, 2024 7:59am Diabetes mellitus type I chronic September 20, 2024 7:59am GERD (gastroesophageal reflu x disease) chronic September 20 025 7:59am Hypothyroid chronic August 7:59am Mixed hyperlipidemia chronic Febr ua2024 7:59am [facility] Work Phone: 1(699) 312-921502-27-2025 Evaluation note* Diagnosis Onset Date Resolution Status Admit Date Epigastric pain acute September 20, 2024 7:59am Diabetes mellitus type I chronic September 20, 2024 7:59am GERD (gastroesophageal reflu x disease) chronic September 20 025 7:59am Hypothyroid chronic August 7:59am Mixed hyperlipidemia chronic Febr uary 2024 7:59am Metabolic dysfunction-associated steatotic liver disease (MASLD) deleted September 20, 2024 7:59am [facility] Work Phone: 1(771) 282-989102-14-2025 [facility] Medical Records Department [address] [place] [address] History Physical Exam 09/07/24 1436 MR#: [id number] Acct: [id number] Name: EARLINE HERNANDEZ Rep #: [id number] : 1970 54 From: Rambo Martin DO PCP: Dr. Sánchez Tabares MD Status:[facility] Location: [place] [address] HPI - General General Date of Admission: [...] denies any heart, lung or kidney disease PFSH Medical History Post-menopausal History of echocardiogram Arthritis [...] 07/02/24 Unknown H istory 25 mg-coppr 0.5 az-ykwg-kysk tablet cholestacar PO 07/02/24 Unknown History elderberry [...] 16 16 Respiratory Pat (more content not included)...[facility] 07-09-2024 NoteHNO ID: [id number] Author: SÁNCHEZ TABARES MD Service: ? Author [...] ESOPHAGOGASTRODUODENOSCOPY TRANSORAL DIAGNOSTIC EGD done 2 times Register My Info COVID-19 VACCINE, AGE 12+ YR (PURPLE TOP) [...] non-tender. Bowel sounds no (more content not included)...[facility]12-16-2024 History of Present illness Narrative* Sánchez Tabares MD - 07/09/2024 7:36 PM EST Patient presents with: 6 Month Exam HPI: Patient presents today for office visit for follow up . Endo: Per Dr Ramirez. She watches her Vitamin D as well as her diabetes and thyroid. She is managing most of her issues. She would like seen once a year. Saw Dr Friend's office. Having reflux. Is getting a ruq [...] ESOPHAGOGASTRODUODENOSCOPY TRANSORAL DIAGNOSTIC EGD done 2 times Register My Info COVID-19 VACCINE, AGE 12+ YR (PURPLE TOP) [...] past medical history, surgical history, family history andsocial history today. REVIEW OF SYSTEMS All other [...] me in one year. documented in this encounterC[facility]12-05-2024 Telephone encounter Note * Telephone Encounter - Karolyn Humphreys APRN.CNP - 06/28/2024 5:44 PM EST The following approved medication requests have been transmitted electronically. Requested Prescriptions Pending Prescriptions Disp Refills montelukast (SINGULAIR) 10 mg tablet 90 tablet 1 Sig: Take 1 tablet by mouth once daily. Karolyn Humphreys APRN.CNP [facility]12-05-2024 Miscellaneous Notes* Telephone Encounter - Karolyn Humphreys APRN.CNP - 06/28/2024 5:44 PM EST The following approved medication requests have been transmitted electronically. Requested Prescriptions Pending Prescriptions Disp Refills montelukast (SINGULAIR) 10 mg tablet 90 tablet 1 Sig: Take 1 tablet by mouth once daily. Karolyn Humphreys APRN.CNP * Telephone Encounter - Karrie Munguia LPN - 06/28/2024 2:24 PM EST Prescription Refill Information The patient has been [...] Munguia LPN June 28, 2024 2:25 PM documented in this encounterC[facility]12-05-2024 Telephone encounter Note * Telephone Encounter - Karrie Munguia LPN - 06/28/2024 2:24 PM EST Prescription Refill Information The patient has been [...] Munguia LPN June 28, 2024 2:25 PM [facility]09-16-2024 Telephone encounter Note* Telephone Encounter - Enrrique Tompkins LPN - 04/09/2024 11:41 AM EDT Prescription Refill Information The patient has been [...] Tompkins LPN April 09, 2024 11:41 AM [facility]09-16-2024 Miscellaneous Notes* Telephone Encounter - Enrrique Tompkins LPN - 04/09/2024 11:41 AM EDT Prescription Refill Information The patient has been [...] 09, 2024 11:41 AM documented in this encounterCleveland [facility]08-02-2024 NoteHNO ID: [id number] Author: JUSTIN BURROWS PT Service: ? Author [...] Previous order number for old/original pair RX-A: #[id number] Previous order number for second pair RX-B: #[id number] Order number for most recent pair RX-A: #[id number] Justin Burrows PT No charge for timeSumma Health [facility]08-02-[facility] History of Present illness Narrative* Justin Burrows, PT - 02/24/2024 5:27 PM EDT Pt called and asked to have her [...] become less uncomfortable but is still uncomfortable. Therapistasked her to bring her old and new [...] toe. Therapist explained the options to patient andshe decided to keep the new pair instead of sending them back to re-position cutout. Pt understood and agreed with this plan Previous order number for old/original pair RX-A: #[id number] Previous order number for second pair RX-B: #[id number] Order number for most recent pair RX-A: #[id number] Justin Burrows PT No charge for time documented in this encounterCleveland Clinic [facility]07-16-2024 NoteHNO ID: [id number] Author: JUSTIN BURROWS PT Service: ? Author Type: Physical Therapist Type: Progress Notes Filed: 02/07/2024 16:19 Note Text: [facility] DME ISSUE NOTE Patient identified by name and date: Yes Subjective: Earline Hernandez is a 53 year old female seen today for fitting and pick remover of duplicate pair of custom foot orthotics. [...] Custom biomechanical foot orthotics with serial number: #[id number] were issued to patient. All specifications for custom foot orthotics can be found in orthotic evaluation visit note. Planned Interventions: Follow up as needed for brace fitting/issues. Billing:[facility]: Equipment: [id number] x2 pair of custom foot orthotics No charge for time. Total time: 13 minutes [place] [address]-16-2024 History of Present illness Narrative* Justin Burrows PT - 02/07/2024 4:13 PM EDT [facility] DME ISSUE NOTE Patient identified by name and date: Yes Subjective: Earline Hernandez is a 53 year old female seen today for fitting and pick remover of duplicate pair of custom foot orthotics. Equipment Owned: custom foot orthotics DME Delivery: Pt was educated on wear schedule and care of custom foot orthotics. Pt was educated on the option of having orthotics refurbished as needed in the future as long as shell is performing it's intended function well. Pt was educated on approximate cost of refurbishing orthotics and an approximate timeframe when this might be necessary. The fit [...] Custom biomechanical foot orthotics with serial number: #[id number] were issued to patient. All specifications for custom foot orthotics can be found in orthotic evaluation visit note. Planned Interventions: Follow up as needed for brace fitting/issues. Billing:[facility]: Equipment: [id number] x2 pair of custom foot orthotics No charge for time. Total time: 13 minutes Justin Burrows PT documented in this encounterCleveland Clinic [facility]06-25-2024 Telephone encounter Note * Telephone Encounter - Estrella Barbosa LPN - 01/17/2024 10:21 AM EDT Order sheet to provider for signature. Estrella Barbosa LPN [facility]06-25-2024 Miscellaneous Notes* Telephone Encounter - Estrella Barbosa LPN - 01/17/2024 10:21 AM EDT Order sheet to provider for signature. Estrella Barbosa LPN documented in this encounterCleveland Clinic [facility] Hospital04-10-2024 Nurse Note* Laverne Singh MA - 11/02/2023 7:56 AM EDT Ambulatory Ear Lavage Pre-treatment: No pre-treatment Treatment: Both ears Equipment and Irrigation solution and Volume used: Single use syringe with single use irrigation tip Water Return flow appearance: Brown Yellow Patient tolerated procedure: yes Tympanic membrane assessment: Tympanic membrane assessed by LIP pre and post procedure documented in this encounterCleveland Clinic [facility] Hospital04-09-2024 History of Present illness Narrative* Sánchez Tabares MD - 11/01/2023 4:49 PM EDT Patient presents with: Follow Up: Pressure is [...] January. Will likely be done her at [facility]. They will be checking her lipids and thyroid as well. Thyroid is doing well. Energy is good. Rare gerd. No issues with crestor. Breathing is doing well. Not using albuterol. Singulair is doing well. No chest pain or shortness of breath. Seeing [facility] for her shoulder. MEDICATIONS: Current Outpatient [...] ESOPHAGOGASTRODUODENOSCOPY TRANSORAL DIAGNOSTIC EGD done 2 times uShip-Vizerra COVID-19 VACCINE, AGE 12+ YR (PURPLE TOP) [...] past medical history, surgical history, family history andsocial history today. REVIEW OF SYSTEMS All other [...] - ICD9: 380.4, ICD10: H61.23 -irrigated by escalator constructor with warm tap water. Large amount of debris removed. Tms are clear afterward on visulization. Sánchez Tabares MD documented in this encounterCleveland Clinic [facility]11-21-2023 Miscellaneous Notes* Telephone Encounter - Karolyn Funez LPN - 06/14/2023 2:32 PM EST Patient has been identified by name and [...] you. Karolyn Funez LPN. documented in this encounterCleveland Clinic [facility]08-08-2023 Instructions* Patient Instructions* Deshawn Baron - 03/01/2023 1:22 PM EDT [...] it. Apply a bandage and wear a differentpair of shoes. Take Care of Your Toenails Cut toenails after bathing, when they are soft. Cut toenails straight across and smooth with a nail file. Avoid cutting into the corners of toes. Do not cut cuticles. If you have neuropathy (or decreased sensation in your feet) a wash oil cooler operator should always cut your toenails. Be Careful [...] make sure there are no foreign objects orrough areas. Avoid tight socks. Wear natural-fiber socks [...] Go to your health care provider or wash oil cooler operator to treat these conditions. documented in this encounterC[facility] History of Present illness Narrative* Deshawn Baron - 03/01/2023 1:12 PM EDT Images from the original note were [...] ESOPHAGOGASTRODUODENOSCOPY TRANSORAL DIAGNOSTIC EGD done 2 times Register My Info COVID-19 VACCINE, AGE 12+ YR (PURPLE TOP) [...] Objective: Patient presents to clinic ambulating in [place] Constitutional: Pt is a well developed 52 [...] toes when tested with the 5.07 SWM bilateral.Vibratory sensation is intact at the hallux bilateral. No Significant neurological defecits. Derm: Inspection and palpation performed. Nails 1-5 b/l are normal in length and thickness. Skin isof normal turgor and texture. Hyperkeratosis noted to b/l hallux. [place] present to left forefoot laterally. NO ulcerations, scars, verruca or other lesions noted. Ortho: Ankle joint DF is full with the knee extended and full with knee flexed. No pain or crepitusnoted. STJ, MTJ ROM are full and free of pain or crepitus. Muscle strength is 5/5 for dorsiflexors,plantarflexors, inverters, everters. Digital deformities include none. Assessment: (Q82.8) Porokeratosis (primary encounter diagnosis) (E10.9) Diabetes mellitus type 1, controlled, without complications ([facility]) Plan: 1. Patient was seen and evaluated. 2. Patient was instructed on the continued importance of diabetic foot care along with proper diet and keeping their blood sugar under control to prevent complications. Instructions given both oral and written. 3. Discussed lesion of left forefoot. Suspect porokeratosis although she did walk barefoot and havecat hair coming from foot recently. I debrided [...] offload area of pain. Deshawn Baron DPM * Shelley Jesus RN - 03/01/2023 12:57 PM EDT Patient presents with: Left Foot - Established Patient, Pain: Bottom of foot AMB ROOMING INTAKE FLOWSHEET DATA Pain Pain Level: 3 Pain Location: Foot-Left Description: Sore Duration Amount of Time: 2 Duration Units: Months Frequency: Intermittent Comments: pain comes and goes with no cause or intervention documented in this encounterC[facility]06-27-2023 Miscellaneous Notes* Telephone Encounter - Estrella Barbosa LPN - 01/18/2023 8:04 AM EDT Order faxed to [facility] and filed in CREDIT CONTROL MANAGER nurses station. Estrella Barbosa LPN * Telephone Encounter - Shira Espinosa APRN.CNP - 01/18/2023 6:58 AM EDT Order signed and given to nursing. Shira Espinosa APRN.CNP * Telephone Encounter - Luz Soto RN - 01/17/2023 11:59 AM EDT Patient requesting mammogram order be faxed to [facility]. Order to AG to sign. No need to call patient back once completed. Luz Soto RN documented in this encounterCleveland [facility]05-05-[facility]23 History of Present illness Narrative* Sánchez Tabares MD - 11/26/2022 4:54 PM EDT Patient presents with: Follow Up HPI: Patient [...] ESOPHAGOGASTRODUODENOSCOPY TRANSORAL DIAGNOSTIC EGD done 2 times Register My Info COVID-19 VACCINE, AGE 12+ YR (PURPLE TOP) [...] past medical history, surgical history, family history andsocial history today. REVIEW OF SYSTEMS All other reviewed and negative other than HPI. HEALTH MAINTENANCE: Reviewed health maintenance issues today and recommended the following in detail. HEPATITIS B(1 of 3 - 3-dose series) Never done PNEUMOCOCCAL(2 - PCV) due on 09/07/2005 LDL CHOLESTEROL - done via endo. DEPRESSION ASSESSMENT Never done DIABETIC FOOT EXAM -saw podiatry. 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 Will be getting colonoscopy end of [...] one year or prn documented in this encounterC[facility]12-27-2022 Miscellaneous Notes* Telephone Encounter - Keesha Clay RN - 07/20/2022 11:58 AM EST Last Office Visit: 09/23/2021 Future Office Visit: None Requested Prescriptions Pending Prescriptions Disp Refills montelukast (SINGULAIR) 10 mg tablet 90 tablet 3 Sig: Take 1 tablet by mouth once daily. Date of Last Labs: 01/23/2022 documented in this encounterC[facility]11-15-2022 Miscellaneous Notes* Telephone Encounter - Antonieta Lujan RN - 06/08/2022 9:55 AM EST RX pending Requested Prescriptions Pending Prescriptions Disp Refills nystatin-triamcinolone (MYCOLOG II) cream 30 g 1 Sig: Apply 1 application to affected area twice daily as needed. documented in this encounterCleveland [facility]11-09-2022 Instructions* Patient Instructions* Shira Espinosa APRN.CNP - 06/02/2022 7:35 AM EST Silicone based lubricant Replens, Revaree, vaginal estrogen - treatment options of vaginal atrophy documented in this encounterCleveland [facility]11-09-2022 History of Present illness Narrative* Shira Espinosa APRN.CNP - 06/02/2022 6:55 AM EST Quill Layer offered: Patient declines. Earline Hernandez is a [...] external genitalia normal, normal Bartholin's glands, urethra, [place]'s glands, no vulvar lesions, no cervical lesions, small amount clear discharge present, normal appearing perineal body andperianal region, + vaginal atrophy with loss of [...] results. Follow- up as needed. Shira Espinosa APRN.INTERNAL COMBUSTION ENGINEER Medical Decision Making: Problems: Low: Acute, uncomplicated illness or injury Data: Unique test(s) ordered: 2 Medical Decision Making Level: 3 - Low documented in this encounterCleveland [facility]11-02-2022 History of Present illness Narrative* Justin Burrows PT - 05/26/2022 7:18 PM EDT Pt arrived to have the fit of [...] orthotic on the new one and trim theexcess material from the lateral border of L [...] (timed/untimed) 20 Orthotic/Prosthetic Adjustment and Training (Subsequent) (21688): 1:1 time: 20 minutes (1 unit: 8-22 mins) Justin Burrows PT documented in this encounterCleveland [facility]10-21-2022 History of Present illness Narrative* Justin Burrows PT - 05/14/2022 3:17 PM EDT [facility] DME ISSUE NOTE Patient identified by name and date: Yes Subjective: Earline Hernandez is a 52 year old female seen today for fitting and pick remover of duplicate pair of custom foot orthotics [...] cost of refurbishing orthotics and an approximate timeframe when this might be necessary. The fit [...] Custom biomechanical foot orthotics with serial number: #[id number] were issued to patient and proof of receipt form signed by pt and therapist. All specifications for custom foot orthotics can be foundin orthotic evaluation visit note. Planned Interventions: Follow up as needed for brace fitting/issues. B[facility]: Orthotics Management and Training (91238): 1:1 time: 15 minutes (1 unit: 8-22 mins) Equipment: [id number] pair of custom foot orthotics Total time: 15 minutes Justin Burrows PT documented in this encounterCleveland [facility]08-19-2022 History of Present illness Narrative* Deshawn Baron - 03/12/2022 11:19 AM EDT FOLLOW UP PODIATRIC OFFICE VISIT Chief Complaint: [...] ESOPHAGOGASTRODUODENOSCOPY TRANSORAL DIAGNOSTIC EGD done 2 times Register My Info COVID-19 VACCINE, AGE 12+ YR (PURPLE TOP) [...] subtle. Continue with inserts. Deshawn Baron DPM * Samra Lofton LPN - 03/12/2022 11:05 AM EDT AMB ROOMING INTAKE FLOWSHEET DATA Risk Screening [...] Pain Samra Lofton LPN documented in this encounterCleveland [facility]06-27-2022 Miscellaneous Notes* Telephone Encounter - Luz Soto RN - 01/18/2022 3:32 PM EDT Patient called requesting mammogram order be faxed to [facility]. Order signed by AG and faxed. Luz Soto RN documented in this encounterCleveland Clinic [facility]02-22-2021 History of Present illness Narrative* Jennifer Robledo (Rt), Ayaz - 09/15/2020 4:50 PM EST Radiology Service Progress Note PATIENT NAME: Earline Hernandez DATE OF SERVICE: September 15, 2020 TIME: 5:06 PM PATIENT IDENTITY VERIFICATION COMPLETED USING TWO (2) IDENTIFIERS: Name and Date of confirmedby patient verbally. FALL SCREENING: Has the patient had 2 falls in the last year or 1 fall with injury or currently using an Ambulatory Assistive Device (Walker, Cane, Wheelchair, Crutches, etc.)? No PATIENT GENDER DATA: Female. status: : No status: NO. PATIENT RELEVANT IMPLANT DATA REVIEWED: Yes RADIOLOGY DEPARTMENT: General X-ray: Exam(s) Completed: Upper Extremity X- Ray(s): Shoulder, AP / TRUE AP / AXILLARY right : PERIPHERAL IV DATA: Not applicable SIGNED BY: RT Gosia September 15, 2020 5:06 PM documented in this encounterCleveland Clinic [facility]02-22-2021 Miscellaneous Notes* Result Encounter Note - Bob Patel III - 09/15/2020 4:50 PM EST Arias, Good news--there is not any evidence of significant arthritis in the shoulder region. This soft tissue injury should be improvable with PT. I wish you well. Bob Patel III MD documented in this encounterCleveland Clinic [facility]02-22-2021 Progress note* Result Encounter Note - Bob Paetl III - 09/15/2020 4:50 PM EST Arias, Good news--there is not any evidence of significant arthritis in the shoulder region. This soft tissue injury should be improvable with PT. I wish you well. Bob Patel III MD [facility] History of Past illness Narrative* Problem Noted Date Resolved Date Postcoital bleeding 05/23/2012 03/01/2017 Plantar fascial fibromatosis 01/28/201002/2017 PURE HYPERCHOLESTEROLEM 02/12/2006 07/15/20 14 Uncontrolled type 1 diabetes mellitus 05/03/2005 01/28/2016 Overview: * Type (07/25/1991): dx diabetes, KUMAR? (has marked FHx diabetes both sides). Oral agents x 1yr, then insulin. * Control hx (): HkA6m=1.5 (): QtN7k=5.8% (06/02/07): GyV8s=6.7% (): CkJ7f=4.7% (): WqU1w=8.3% (12/10/09): PsU5a=1.2% (05/25/10): YcC1u=9.3% * Eye hx (): exam Ervin Karg [...] <4 mcg/mg creat * Vascular hx (): tsdm=374, TG=53, HDL=45, dLDL=84 (): kbfn=928, TG=42, HDL=47, tRHU=123, CK=43 (05/25/10): yabf=613, TG=48, HDL=59, mGRN=265 Hypothyroidism 09/15/2015 Overview: Hypothyroidism documented as of this encounter (statuses as of 12/31/2021) [facility] of Past illness Narrative* Problem Noted Date Resolved Date Postcoital bleeding 05/23/2012 03/01/2017 Plantar fascial fibromatosis 01/28/201002/2017 PURE HYPERCHOLESTEROLEM 02/12/2006 07/15/20 14 Uncontrolled type 1 diabetes mellitus 05/03/2005 01/28/2016 Overview: * Type (07/25/1991): dx diabetes, KUMAR? (has marked FHx diabetes both sides). Oral agents x 1yr, then insulin. * Control hx (): VkA4o=7.5 (): QvU5q=3.8% (06/02/07): OmM4l=2.7% (): SqH5v=2.7% (): TjH5z=1.3% (12/10/09): ZpW4k=1.2% (05/25/10): NfI4u=5.3% * Eye hx (): exam Ervin Karg [...] <4 mcg/mg creat * Vascular hx (): wptx=309, TG=53, HDL=45, dLDL=84 (): qmli=257, TG=42, HDL=47, aWUQ=788, CK=43 (05/25/10): embt=663, TG=48, HDL=59, nQAK=872 Hypothyroidism 09/15/2015 Overview: Hypothyroidism documented as of this encounter (statuses as of 01/18/2022) [facility] of Past illness Narrative* Problem Noted Date Resolved Date Postcoital bleeding 05/23/2012 03/01/2017 Plantar fascial fibromatosis 01/28/201002/2017 PURE HYPERCHOLESTEROLEM 02/12/2006 07/15/20 14 Uncontrolled type 1 diabetes mellitus 05/03/2005 01/28/2016 Overview: * Type (07/25/1991): dx diabetes, KUMAR? (has marked FHx diabetes both sides). Oral agents x 1yr, then insulin. * Control hx (): IqM3n=6.5 (): XcO2z=7.8% (06/02/07): NjC6o=7.7% (): CyS1s=7.7% (): OdF2x=1.3% (12/10/09): VeY3l=9.2% (05/25/10): GnM4t=2.3% * Eye hx (): exam Ervin Karg OD, no diabetic hemorrhages noted on dilated fundus exam. () exam Ervin Karg OD, no DM changes. (): exam Ervin Kark OD, no DM changes (05/25/10): exam Ervin Frairek, OD, no DM changes * Neuro hx [...] <4 mcg/mg creat * Vascular hx (): kbrl=967, TG=53, HDL=45, dLDL=84 (): rbuu=005, TG=42, HDL=47, cEWD=323, CK=43 (05/25/10): cepn=003, TG=48, HDL=59, jZWW=936 Hypothyroidism 09/15/2015 Overview: Hypothyroidism documented as of this encounter (statuses as of 01/26/2022) [facility] of Past illness Narrative* Problem Noted Date Resolved Date Postcoital bleeding 05/23/2012 03/01/2017 Plantar fascial fibromatosis 01/28/201002/2017 PURE HYPERCHOLESTEROLEM 02/12/2006 07/15/20 14 Uncontrolled type 1 diabetes mellitus 05/03/2005 01/28/2016 Overview: * Type (07/25/1991): dx diabetes, KUMAR? (has marked FHx diabetes both sides). Oral agents x 1yr, then insulin. * Control hx (): BeU4b=6.5 (1/16/7): MuI1q=8.8% (06/02/07): AiB5s=7.7% (): UgZ7y=4.7% (): DlP9h=5.3% (12/10/09): GcQ3j=9.2% (05/25/10): OwL0p=5.3% * Eye hx (): exam Ervin Karg [...] <4 mcg/mg creat * Vascular hx (): cynr=018, TG=53, HDL=45, dLDL=84 (): qboh=698, TG=42, HDL=47, lTGB=640, CK=43 (05/25/10): qbjk=329, TG=48, HDL=59, vUKB=687 Hypothyroidism 09/15/2015 Overview: Hypothyroidism documented as of this encounter (statuses as of 03/12/2022) [facility] illness Narrative* Problem Noted Date Resolved Date Postcoital bleeding 05/23/2012 03/01/2017 Plantar fascial fibromatosis 01/28/201002/2017 PURE HYPERCHOLESTEROLEM 02/12/2006 07/15/20 14 Uncontrolled type 1 diabetes mellitus 05/03/2005 01/28/2016 Overview: * Type (07/25/1991): dx diabetes, KUMAR? (has marked FHx diabetes both sides). Oral agents x 1yr, then insulin. * Control hx (): EvY1o=2.5 (): VaK3a=8.8% (06/02/07): IpY7j=0.7% (): DqK4c=0.7% (): OwS9x=6.3% (12/10/09): EmD2r=2.2% (05/25/10): PcU1q=7.3% * Eye hx (): exam Ervin Karg [...] <4 mcg/mg creat * Vascular hx (): ssxl=996, TG=53, HDL=45, dLDL=84 (): nfew=129, TG=42, HDL=47, bRPB=840, CK=43 (05/25/10): ghnw=194, TG=48, HDL=59, rRXV=943 Hypothyroidism 09/15/2015 Overview: Hypothyroidism documented as of this encounter (statuses as of 05/14/2022) [facility] of [facility] illness Narrative* Problem Noted Date Resolved Date Postcoital bleeding 05/23/2012 03/01/2017 Plantar fascial fibromatosis 01/28/201002/2017 PURE HYPERCHOLESTEROLEM 02/12/2006 07/15/20 14 Uncontrolled type 1 diabetes mellitus 05/03/2005 01/28/2016 Overview: * Type (07/25/1991): dx diabetes, KUMAR? (has marked FHx diabetes both sides). Oral agents x 1yr, then insulin. * Control hx (): LsR0u=0.5 (): VeT4l=7.8% (06/02/07): UgI2j=9.7% (): ViE2n=5.7% (): XhB2c=2.3% (12/10/09): ErT2w=3.2% (05/25/10): MhD0o=5.3% * Eye hx (): exam Ervin Karg [...] <4 mcg/mg creat * Vascular hx (): zluw=032, TG=53, HDL=45, dLDL=84 (): cxym=107, TG=42, HDL=47, gMLX=569, CK=43 (05/25/10): jsmo=077, TG=48, HDL=59, sPCZ=708 Hypothyroidism 09/15/2015 Overview: Hypothyroidism documented as of this encounter (statuses as of 05/17/2022) [facility] Narrative* Problem Noted Date Resolved Date Postcoital bleeding 05/23/2012 03/01/2017 Plantar fascial fibromatosis 01/28/201002/2017 PURE HYPERCHOLESTEROLEM 02/12/2006 07/15/20 14 Uncontrolled type 1 diabetes mellitus 05/03/2005 01/28/2016 Overview: * Type (07/25/1991): dx diabetes, KUMAR? (has marked FHx diabetes both sides). Oral agents x 1yr, then insulin. * Control hx (): KeG0j=6.5 (): EbI1h=9.8% (06/02/07): IwD3v=6.7% (): PhA0k=3.7% (): FcU5g=2.3% (12/10/09): EyZ6g=1.2% (05/25/10): MgW4i=2.3% * Eye hx (): exam Ervin Karg [...] <4 mcg/mg creat * Vascular hx (): awyn=347, TG=53, HDL=45, dLDL=84 (): kqhz=729, TG=42, HDL=47, rCFC=728, CK=43 (05/25/10): ssfn=554, TG=48, HDL=59, eZNF=855 Hypothyroidism 09/15/2015 Overview: Hypothyroidism documented as of this encounter (statuses as of 05/26/2022) [facility] Narrative* Problem Noted Date Resolved Date Postcoital bleeding 05/23/2012 03/01/2017 Plantar fascial fibromatosis 01/28/201002/2017 PURE HYPERCHOLESTEROLEM 02/12/2006 07/15/20 14 Uncontrolled type 1 diabetes mellitus 05/03/2005 01/28/2016 Overview: * Type (07/25/1991): dx diabetes, KUMAR? (has marked FHx diabetes both sides). Oral agents x 1yr, then insulin. * Control hx (): RfO3j=5.5 (): WhF9d=5.8% (06/02/07): MfC1z=2.7% (): ZvS7k=3.7% (): PrI8u=4.3% (12/10/09): GdN3v=4.2% (05/25/10): FnX0n=4.3% * Eye hx (): exam Ervin Karg [...] <4 mcg/mg creat * Vascular hx (): uynt=599, TG=53, HDL=45, dLDL=84 (): edkm=842, TG=42, HDL=47, nPWU=227, CK=43 (05/25/10): nubl=720, TG=48, HDL=59, wAVC=583 Hypothyroidism 09/15/2015 Overview: Hypothyroidism documented as of this encounter (statuses as of 06/02/2022) [facility] Narrative* Problem Noted Date Resolved Date Postcoital bleeding 05/23/2012 03/01/2017 Plantar fascial fibromatosis 01/28/201002/2017 PURE HYPERCHOLESTEROLEM 02/12/2006 07/15/20 14 Uncontrolled type 1 diabetes mellitus 05/03/2005 01/28/2016 Overview: * Type (07/25/1991): dx diabetes, KUMAR? (has marked FHx diabetes both sides). Oral agents x 1yr, then insulin. * Control hx (): SbD3k=0.5 (): NdC9o=8.8% (06/02/07): AvJ0c=3.7% (): FyE4u=2.7% (): LpQ2m=8.3% (12/10/09): AcN8h=7.2% (05/25/10): BsR7i=6.3% * Eye hx (): exam Ervin Karg [...] <4 mcg/mg creat * Vascular hx (): etmr=612, TG=53, HDL=45, dLDL=84 (): gcsw=320, TG=42, HDL=47, vSRU=793, CK=43 (05/25/10): wbor=749, TG=48, HDL=59, sWAB=493 Hypothyroidism 09/15/2015 Overview: Hypothyroidism documented as of this encounter (statuses as of 06/08/2022) [facility] Narrative* Problem Noted Date Resolved Date Postcoital bleeding 05/23/2012 03/01/2017 Plantar fascial fibromatosis 01/28/201002/2017 PURE HYPERCHOLESTEROLEM 02/12/2006 07/15/20 14 Uncontrolled type 1 diabetes mellitus 05/03/2005 01/28/2016 Overview: * Type (07/25/1991): dx diabetes, KUMAR? (has marked FHx diabetes both sides). Oral agents x 1yr, then insulin. * Control hx (): SkA9m=5.5 (): EzW9j=9.8% (06/02/07): JwK1f=4.7% (): DoV3u=6.7% (): TaS0k=8.3% (12/10/09): ObL1l=7.2% (05/25/10): InE5v=2.3% * Eye hx (): exam Ervin Karg [...] <4 mcg/mg creat * Vascular hx (): oton=238, TG=53, HDL=45, dLDL=84 (): tfdw=225, TG=42, HDL=47, jLPS=648, CK=43 (05/25/10): pcbu=063, TG=48, HDL=59, xACI=426 Hypothyroidism 09/15/2015 Overview: Hypothyroidism documented as of this encounter (statuses as of 07/26/2022) [facility] Narrative* Problem Noted Date Resolved Date Postcoital bleeding 05/23/2012 03/01/2017 Plantar fascial fibromatosis 01/28/201002/2017 PURE HYPERCHOLESTEROLEM 02/12/2006 07/15/20 14 Uncontrolled type 1 diabetes mellitus 05/03/2005 01/28/2016 Overview: * Type (07/25/1991): dx diabetes, KUMAR? (has marked FHx diabetes both sides). Oral agents x 1yr, then insulin. * Control hx (): EeD6c=7.5 (): OxO4k=2.8% (06/02/07): EiE6p=7.7% (): RcD0s=3.7% (): XfY2k=7.3% (12/10/09): CyJ9d=7.2% (05/25/10): VmQ7d=5.3% * Eye hx (): exam Ervin Karg [...] <4 mcg/mg creat * Vascular hx (): irml=549, TG=53, HDL=45, dLDL=84 (): qkyh=244, TG=42, HDL=47, eCTE=019, CK=43 (05/25/10): smrw=341, TG=48, HDL=59, yJIS=604 Hypothyroidism 09/15/2015 Overview: Hypothyroidism documented as of this encounter (statuses as of 09/03/2022) [facility] Narrative* Problem Noted Date Resolved Date Postcoital bleeding 05/23/2012 03/01/2017 Plantar fascial fibromatosis 01/28/201002/2017 PURE HYPERCHOLESTEROLEM 02/12/2006 07/15/20 14 Uncontrolled type 1 diabetes mellitus 05/03/2005 01/28/2016 Overview: * Type (07/25/1991): dx diabetes, KUMAR? (has marked FHx diabetes both sides). Oral agents x 1yr, then insulin. * Control hx (): SiJ1t=8.5 (): QqW4u=2.8% (06/02/07): GvF0n=6.7% (): PyH7e=8.7% (): TiF0q=1.3% (12/10/09): UqU7f=8.2% (05/25/10): OpN7l=7.3% * Eye hx (): exam Ervin Karg [...] <4 mcg/mg creat * Vascular hx (): eyfq=329, TG=53, HDL=45, dLDL=84 (): uyqv=916, TG=42, HDL=47, mHXV=330, CK=43 (05/25/10): xbme=702, TG=48, HDL=59, oAYM=465 Hypothyroidism 09/15/2015 Overview: Hypothyroidism documented as of this encounter (statuses as of 11/27/2022) [facility] Narrative* Problem Noted Date Resolved Date Postcoital bleeding 05/23/2012 03/01/2017 Plantar fascial fibromatosis 01/28/201002/2017 PURE HYPERCHOLESTEROLEM 02/12/2006 07/15/20 14 Uncontrolled type 1 diabetes mellitus 05/03/2005 01/28/2016 Overview: * Type (07/25/1991): dx diabetes, KUMAR? (has marked FHx diabetes both sides). Oral agents x 1yr, then insulin. * Control hx (): NqZ0e=9.5 (): YqA2z=5.8% (06/02/07): YiW8l=9.7% (): BaD3w=5.7% (): JrE7a=0.3% (12/10/09): UoK3x=7.2% (05/25/10): KkE4t=6.3% * Eye hx (): exam Ervin Karg [...] <4 mcg/mg creat * Vascular hx (): shir=796, TG=53, HDL=45, dLDL=84 (): xemr=979, TG=42, HDL=47, lDCX=293, CK=43 (05/25/10): kzae=681, TG=48, HDL=59, uHHF=938 Hypothyroidism 09/15/2015 Overview: Hypothyroidism documented as of this encounter (statuses as of 01/18/2023) [facility] Narrative* Problem Noted Date Diagnosed Date Resolved Date Postcoital bleeding 05/23/2012 03/01/20 Plantar fascial fibromatosis 01/28/2010 03/01/2017 PURE HYPERCHOLESTEROLEM 02/12/200606/25 Uncontrolled type 1 diabetes mellitus 05/03/2005 01/28/2016 Overview: * Type (07/25/1991): dx diabetes, KUMAR? (has marked FHx diabetes both sides). Oral agents x 1yr, then insulin. * Control hx (): NfZ0f=1.5 (): EqY4g=0.8% (06/02/07): AwX9z=7.7% (): EkM1l=2.7% (): XyV3g=4.3% (12/10/09): VnI9s=2.2% (05/25/10): IjA8s=4.3% * Eye hx (): exam Ervin Karg [...] <4 mcg/mg creat * Vascular hx (): zjbf=680, TG=53, HDL=45, dLDL=84 (): jamo=916, TG=42, HDL=47, wOEV=521, CK=43 (05/25/10): opqq=950, TG=48, HDL=59, dQTQ=660 Hypothyroidism 09/15/2015 Overview: Hypothyroidism documented as of this encounter (statuses as of 02/06/2023) [facility] of Past illness Narrative* Problem Noted Date Diagnosed Date Resolved Date Postcoital bleeding 05/23/2012 03/01/20 17 Plantar fascial fibromatosis 01/28/2010 03/01/2017 PURE HYPERCHOLESTEROLEM 02/12/200606/25 Uncontrolled type 1 diabetes mellitus 05/03/2005 01/28/2016 Overview: * Type (07/25/1991): dx diabetes, KUMAR? (has marked FHx diabetes both sides). Oral agents x 1yr, then insulin. * Control hx (): CgI4n=1.5 (): UrT9n=3.8% (06/02/07): OsC4r=7.7% (): AbF6x=2.7% (): CnN5h=6.3% (12/10/09): SyC3e=5.2% (05/25/10): JiR0t=5.3% * Eye hx (): exam Ervin Karg [...] <4 mcg/mg creat * Vascular hx (): lxqd=207, TG=53, HDL=45, dLDL=84 (): qmqv=338, TG=42, HDL=47, nMZG=452, CK=43 (05/25/10): klzf=993, TG=48, HDL=59, cLZQ=927 Hypothyroidism 09/15/2015 Overview: Hypothyroidism documented as of this encounter (statuses as of 03/01/2023) [facility] of Past illness Narrative* Problem Noted Date Diagnosed Date Resolved Date Postcoital bleeding 05/23/2012 03/01/20 17 Plantar fascial fibromatosis 01/28/2010 03/01/2017 PURE HYPERCHOLESTEROLEM 02/12/200606/25 Uncontrolled type 1 diabetes mellitus 05/03/2005 01/28/2016 Overview: * Type (07/25/1991): dx diabetes, KUMAR? (has marked FHx diabetes both sides). Oral agents x 1yr, then insulin. * Control hx (): NxX5k=9.5 (): WtX0q=2.8% (06/02/07): NnR9v=6.7% (): NwO5k=9.7% (): PyE4t=2.3% (12/10/09): ChZ1b=3.2% (05/25/10): RvE9o=4.3% * Eye hx (): exam Ervin Karg [...] <4 mcg/mg creat * Vascular hx (): wykk=664, TG=53, HDL=45, dLDL=84 (): ihlr=222, TG=42, HDL=47, eCJY=397, CK=43 (05/25/10): vezw=154, TG=48, HDL=59, jPOG=748 Hypothyroidism 09/15/2015 Overview: Hypothyroidism documented as of this encounter (statuses as of 06/15/2023) [facility]10[facility] History of Past illness Narrative* Problem Noted Date Diagnosed Date Resolved Date Postcoital bleeding 05/23/2012 03/01/20 Plantar fascial fibromatosis 01/28/2010 03/01/2017 PURE HYPERCHOLESTEROLEM 02/12/200606/25 Uncontrolled type 1 diabetes mellitus 05/03/2005 01/28/2016 Overview: * Type (07/25/1991): dx diabetes, KUMAR? (has marked FHx diabetes both sides). Oral agents x 1yr, then insulin. * Control hx (): VaM7u=7.5 (): PoF6z=5.8% (06/02/07): MkQ2p=3.7% (): UnT4p=1.7% (): IrJ7f=0.3% (12/10/09): KnF5x=4.2% (05/25/10): PbZ6j=2.3% * Eye hx (): exam Ervin Karg [...] <4 mcg/mg creat * Vascular hx (): znef=939, TG=53, HDL=45, dLDL=84 (): rqeu=619, TG=42, HDL=47, zBDA=879, CK=43 (05/25/10): hikw=859, TG=48, HDL=59, lPIS=998 Hypothyroidism 09/15/2015 Overview: Hypothyroidism documented as of this encounter (statuses as of 11/02/2023) [facility] noteNo assessment information availableWSelect [facility] [place] Work Phone: Evaluation note* Diagnosis Tibialis posterior tendinitis, unspecified laterality- Primary Diabetes mellitus type 1, controlled, without complications (HCC) Type I (juvenile type) diabetes mellitus without mention of complication, not stated as uncontrolled Hammer toe, unspecified laterality Hallux valgus of left foot documented in this encounter [facility]* Diagnosis Posterior tibialis tendinitis of both lower extremities- Primary Acquired hallux valgus of right foot Hallux valgus (acquired) Acquired hammer toe Other hammer toe (acquired) documented [facility]* Diagnosis Posterior tibialis tendinitis of both lower extremities- Primary Acquired hallux valgus of right foot Hallux valgus (acquired) Acquired hammer toe Other hammer toe (acquired) documented [facility]* Diagnosis Vaginal burning- Primary Other specified symptom associated with female genital organs Postmenopausal atrophic vaginitis documented [facility]* Diagnosis Vulvovaginitis Vaginitis and vulvovaginitis, unspecified documented [facility] this encounter [facility]* Diagnosis Mild intermittent asthma without complication Unspecified asthma documented [facility]* Diagnosis Diabetes mellitus type 1, controlled, [...] 30-34.9 Obesity, unspecified documented [facility]* Diagnosis Porokeratosis- Primary Other specified congenital anomaly of skin Diabetes mellitus type 1, controlled, without complications (HCC) Type I (juvenile type) diabetes mellitus without mention of complication, not stated as uncontrolled [facility]* Diagnosis Mild intermittent asthma without complication Unspecified asthma [facility] Diagnosis Hyperlipidemia with target LDL less than 100- Primary Other and unspecified hyperlipidemia Acquired hypothyroidism Unspecified hypothyroidism Diabetes mellitus type 1, controlled, without complications (HCC) Type I (juvenile type) diabetes mellitus without mention of complication, not stated as uncontrolled Obesity, Class I, BMI 30-34.9 Obesity, unspecified Bilateral impacted cerumen Impacted cerumen [facility] Posterior tibialis tendinitis of both lower extremities- Primary Acquired hallux valgus of right foot Hallux valgus (acquired) Acquired hammer toe Other hammer toe (acquired) [facility] Diagnosis Other injury of unspecified muscle, fascia and tendon at shoulder and upper arm level, unspecified arm, initial encounter Chronic right shoulder pain Pain in joint, shoulder region [facility] Diagnosis Diabetes mellitus type 1, controlled, without complications (HCC)- Primary Type I (juvenile type) diabetes mellitus without mention of complication, not stated as uncontrolled Acquired hypothyroidism Unspecified hypothyroidism Hyperlipidemia with target LDL less than 100 Other and unspecified hyperlipidemia Mild intermittent asthma without complication Unspecified asthma [facility] Mild intermittent asthma without complication (HCC) Unspecified asthma [facility]* Diagnosis Encounter for gynecological examination (general) (routine) without abnormal findings- Primary Encounter for screening mammogram for breast cancer Genitourinary syndrome of menopause documented [facility] this encounter [facility] Author Antonieta Hernandez [facility] Note Date/Time March 18, 2025 9: 01am [facility] [address] [place] [address] OFFICE VISIT Date of Service: 03/18/25 MR#: [id number] Acct: [id number] Name: EARLINE HERNANDEZ p #: [phone] : 1970 Provider: MILAGROS Hernandez Age/Sex: 54/F Location: [facility] Status: Signed Intake Vital Signs 09/20/24 08:05 01/18/25 14:36 03/18/25 08:12 Height 5 ft 5 in 5 ft 5 in 5 ft 5 in Weight: 163 lb 151 lb 6 oz BMI 27.1 25.2 BP 120/77 119/77 Blood Pressure Location Lt brachial Position Sitting Respiration 16 Pulse 97 85 Pulse Source Monitor Temp 94.5 F L Temp Source Temporal Pulse Oximetry (%) 97 98 Oxygen Delivery Method room air room air Intake Visit Reasons: 6 M FU Chief Complaint: 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 Pharmacy Required: No Accompanied by: Self Is patient in pain?: No Allergies banana Allergy (Severe, Verified 03/18/25 08:04) Anaphylaxis lovastatin Allergy (Verified 03/18/25 08:04) PT UNSURE OF REACTION Medications ?Medication ?Instructions ?Recorded ?Confirmed ?Type montelukast 10 mg tablet 10 mg PO QHS 08/14/13 History albuterol sulfate 90 mcg/actuation 2 puff inhalation Q 4H PRN Sob &/Or 07/20/17 03/18/25 History aerosol inhaler Wheezing multivitamin 1 tab PO DAILY 12/14/1902/23 History Green Foods complex PO 07/02/24 03/18/25 History Healthy hairs, skin, nails PO 07/02/24 03/18/25 Histor y PC liver and brain PO 07/02/24 03/18/25 History beet powder human N PO 07/02/24 03/18/25 History calcium 300 mg-D3 20 mcg-magnesium 1 tab PO QDAY 07/0203/18/25 History 25 mg-coppr 0.5 oq-kwiu-xrix tablet cholestacar PO 07/02/24 03/18/25 History elderberry fruit 350 mg capsule mg PO 07/02/24 5 History free range tommy peptides PO 07/02/24 03/18/25 History fruitful antioxidants PO 07/02/24 03/18/25 History glutathione 500 mg capsule mg PO 07/02/24 03/18/25 His tory glyciine 600 PO 07/02/24 03/18/25 History greens blend amazing Grass PO 07/02/24 03/18/25 Histor y memory and brain PO 07/02/24 03/18/25 History vitamin K2 MK-7 PO 07/02/24 03/18/25 History rosuvastatin 5 mg tablet 5 mg PO DAILY #90 tabs 09/1403/18/25 Rx enalapril maleate 5 mg tablet 5 mg PO QHS #90 tabs 03/18/25 Rx Novolog U-100 Insulin aspart 100 65 unit (0.65 mL) sub cut DAILY #60 02/01/25 03/18/25 Rx unit/mL subcutaneous solution mL (insulin aspart U-100) levothyroxine 125 mcg tablet 125 mcg PO MOTUWETHFRSA # 72 tabs 02/07/25 03/18/25 Rx pantoprazole 40 mg tablet,delayed 40 mg PO BID #60 tab s 03/18/25 03/18/25 Rx release PFSH Medical History Overweight (BMI 25.0-29.9) GERD (gastroesophageal reflux disease) Steatosis, liver Post-menopausal [...] bicycling frequency: daily HPI HPI Chief Complaint: 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-up Details: OV 09/20/2024 54y/o female presents for follow-up post procedure. EGD performed 09/07/2024 revealed mild esophagitis, biopsies negative for Morton's and EoE. An ABD US revealed liver steatosis and multiple small gallstones. FibroScan was performed 07/24/2024 and revealed kPa 5.4/CAP 269 (F0-F1/S0), mild fibrosis with no liver fat. I recommend completion of labs and vaccination for Hepatitis A and B if Ab are nul. She reports resolution of epigastric burning pain and remains on pantoprazole 40mg daily. We have reviewed the AGA 10 Best Practice Guidelines for MASLD. She will follow-up in six months. EGD: 09/07/2024 biopsies consistent with mild esophagitis, negative for Morton'sand EoE ABD US: 07/11/2024 liver steatosis and multiple gallstones FibroScan: 07/24/2024 kPa 5.4/CAP 269 (F0-F1/S0), mild fibrosis with no liver fat - new guidelines WEIGHT: TODAY = 151 (down 31# in past 6 months) 09/20/2024 - 192lbs (BMI 32) - weight loss of 31lbs in the past 6 months - she reports she has made significant dietary changes - denies any nausea or dysphagia - denies any NSAIDS - constant dull epigastric/back heartburn x3 weeks, taking an antacid helps little bit - burning at the back of my esophagus - she has started to reduce energy drinks - she reports PO intake at times does exacerbate back of esophagus sensation, but not always - we have discussed this is not typical biliary colic - denies any palpitations, SOB - denies any cardiac history - denies any family h/o pancreatic CA - Colonoscopy at 48y/o revealed a polyp - Colonoscopy was negative per patient and reports recall 5 years ROS Const Constitutional: Positive for weight change (loss, intentional); No fatigue or fever(s) ENT ENT: No difficulty swallowing Gastro GI: Positive for heartburn; No abdominal pain, belching, bloating, change in bowel habits, change in stool character, coffee ground emesis, constipation, cramping, diarrhea, difficulty swallowing, feeling full early, excessive flatus, incontinent of stools, Vomiting blood/hematemesis, Blood in stool, loose stools, Black,tarry stools, nausea/dyspepsia, pain with swallowing, vomiting or other Musc Musculoskeletal: Positive for joint pain (shoulder), back pain and leg pain at night Skin Skin: No yellowing of the eye or itchy eyes Psych Psychiatric: No anxiety and No depression Endo Endocrine: Positive for weight change (loss, intentional); No fatigue Aller/Imm Allergy/Immunologic: No itchy eyes Paresh/Lymp Hematologic/Lymphatic: No easy bleeding or easy bruising Exam Const General: cooperative, healthy appearing, no acute distress and well developed Nutritional Appearance: average body habitus and well nourished Orientation: alert and oriented x3 HENMT Head: normocephalic Ears: hearing grossly normal bilaterally Mouth: moist mucous membranes Teeth and gingiva: dentition normal Eyes Conjunctivae: conjunctivae normal Sclera: sclerae normal Neck Neck: normal visual inspection, full ROM and trachea midline Resp Effort & Inspection: normal respiratory effort, able to speak in complete sentences and symmetric chest movement GI Inspection: normal to inspection Auscultation: normal bowel sounds Palpation: soft and no hepatosplenomegaly Rectal Exam: deferred Other: No tenderness on palpation. No pain elicited during examination. Skin General: no rashes or lesions noted and turgor normal Neuro General: patient alert and patient oriented x3 Cranial Nerves: other (CN's grossly intact, non-focal exam) Cognition: normal cognition Speech: speech normal Gait: normal gait Extrem General: normal to inspection (no edema noted) Psych Appearance: grossly normal and well kempt Affect: normal affect Attitude: cooperative Thought Process: normal Assessment and Plan Assessment and Plan (1) Epigastric pain: Status: Acute (2) Weight loss: Status: Acute Orders: Orders Abdomen/Pelvis WITH Contrast Today R10.13 - Epigastric pain, R63.4 - Abnormal weight loss Medications: Changed From pantoprazole 40 mg PO DAILY To pantoprazole 40 mg PO BID 60 tabs 0RF Plan 54-year-old female with a history of mild hepatic fibrosis, DM-I, and GERD presents for 6-month follow-up with atypical upper gastrointestinal symptoms described as a sensation of fullness, burning, and discomfort localized internally between epigastric region and mid back, which she refers to as the back of her esophagus. She denies classic heartburn, nausea, vomiting, dysphagia, NSAID use, palpitations, shortness of breath, or cardiac history. Family history is negative for pancreatic cancer. She remains on pantoprazole 40 mg daily. Of note, she has experienced a 31 pound weight loss over the past 6 months, which she attributes to dietary changes to promote weight loss; however, this degree of weight loss is unusual in a diabetic patient and warrants further evaluation. Prior EGD revealed mild esophagitis, and abdominal ultrasound demonstrated gallstones, though her current symptoms are not typical for biliary colic. Given her ongoing atypical symptoms and significant weight loss, further evaluation with a CT scan has been scheduled to exclude other etiologies including pancreaticobiliary pathology. She will increase pantoprazole 40 mg twice a day for the next 10 days and monitor symptoms. Patient Instructions: 1. Increase pantoprazole to 40mg BID for 10 days, if upper gastrointestinal symptoms do not resolve reduce back to once daily 2. Proceed with CT scan 3. FibroScan at [facility] June 2025, order faxed Plan Details Follow Up: 3 Months Coding Level of Care Code Off vis,est,level 4 Diagnoses Epigastric pain R10.13 Weight loss R63.4 Clinical Quality Measures Smoking Screening Smoking Status: Former smoker 03/18/25 0901 <Electronically signed by Antonieta LINARES> Date _ Antonieta LINARES Cosigner Signature: Date (if applicable) CC: ~ [facility] Work Phone: Reason for referral (narrative)No reason for referral information availableWSelect [facility] [place] Work Phone: Summary Purpose Family History Relationship Condition Age at Onset Recorded Date/T ashely mother Malignant neoplasm Unknown father Diabetes mellitus Unknown grandmother Arthritis Unknown Relationship Condition Age at Onset Recorded Date/T ashely mother Malignant neoplasm Unknown father Diabetes mellitus Unknown grandmother Arthritis Unknown aunt Malignant neoplasm of breast Unknown son Arthritis Unknown Epilepsy Unknown Attention deficit hy peractivity disorder (ADHD) Unknown Asperger disorder Unknown Advance Directives Documents on File Type Date Recorded 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 Advance Directive(s) 07/20/2018 6:35 AM Advance Directive(s) 05/24/2018 1:37 AM Advance Directive Response Recorded Date/ Time Advance Directives No August 14, 2013 2:09pm Living Will No February 24, 2021 3:17pm Power of Credit Rating Inspector No February 24 3:17pm Advance Directive Response Recorded Date/ Time Advance Directives No August 14, 2013 2:09pm Chief Complaint and Reason for Visit Chief Complaint SCREENING Chief Complaint Admit Date Test Result September 20, 2024 7:59am INT LABS January 11, 2025 6:30 am Reason for Visit Admit Date Epigastric pain September 20, 2024 7:59am Metabolic dysfunction-associ ated steatotic liver disease (MASLD) September 20, 2024 7:59am Diabetes mellitus type I September 20, 2024 7:59am GERD (gastroesophageal reflux disease) F ebruary 2024 7:59am Hypothyroid September 20, 2024 7:59am Mixed hyperlipidemia September 20, 2024 7:59am Chief Complaint Admit Date Test Result September 20, 2024 7:59am INT LABS January 11, 2025 6:30 am 6 M FU January 18, 2025 2:34 pm Reason for Visit Admit Date Epigastric pain September 20, 2024 7:59am Diabetes mellitus type I September 20, 2024 7:59am GERD (gastroesophageal reflux disease) F ebruary 2024 7:59am Hypothyroid September 20, 2024 7:59am Mixed hyperlipidemia September 20, 2024 7:59am Metabolic dysfunction-associ ated steatotic liver disease (MASLD) September 20, 2024 7:59am Chief Complaint Admit Date INT LABS January 11, 2025 6:30 am 6 M FU January 18, 2025 2:34 pm SCREENING January 30, 2025 11:55 am Reason for Visit Admit Date Diabetes type 1, controlled January 18, 2 025 2:34pm Hypothyroid January 18, 2025 2:34 pm Mixed hyperlipidemia January 18, 2025 2:3 4pm Overweight (BMI 25.0-29.9) January 18 2:34pm Presence of insulin pump January 18, 2025 2:34pm Chief Complaint Admit Date INT LABS January 11, 2025 6:30 am 6 M FU January 18, 2025 2:34 pm SCREENING January 30, 2025 11:55 am 6 M FU March 18, 2025 8: 00am Reason for Visit Admit Date Diabetes type 1, controlled January 18, 2 025 2:34pm Hypothyroid January 18, 2025 2:34 pm Mixed hyperlipidemia January 18, 2025 2:3 4pm Overweight (BMI 25.0-29.9) January 18 2:34pm Presence of insulin pump January 18, 2025 2:34pm Epigastric pain March 18, 2025 8: 00am Weight loss March 18, 2025 8: 00am Additional Source Comments INFORMATION SOURCE (unrecogn ized section and content) DATE CREATED AUTHOR 07/16/2019 [facility] DATE CREATED AUTHOR AUTHOR'S ORGANIZ ATION 06/03/2023 [facility] DATE CREATED AUTHOR AUTHOR'S ORGANIZ ATION 01/22/[address] [facility] DATE CREATED AUTHOR AUTHOR'S ORGANIZ ATION 01/12/2025 [facility] DATE CREATED AUTHOR AUTHOR'S ORGANIZ ATION 03/29/2025 [facility] Source Comments (unrecognize d section and content) In the event this informatio n is protected by the Federal Confidentiality of Alcohol and Drug Abuse Patient Records regulations: The Federal rules restrict any use of the information to criminally investigate or prosecute any alcohol or drug abuse patient.[facility] the event this information is protected by the Federal Confidentiality of Alcohol and Drug Abuse Patient Records regulations: The Federal rules restrict any use of the information to criminally investigate or prosecute any alcohol or drug abuse patient.[facility] HospitalIn the event this information is protected by the Federal Confidentiality of Alcohol and Drug Abuse Patient Records regulations: The Federal rules restrict any use of the information to criminally investigate or prosecute any alcohol or drug abuse patient.[facility] HospitalIn the event this information is protected by the Federal Confidentiality of Alcohol and Drug Abuse Patient Records regulations: The Federal rules restrict any use of the information to criminally investigate or prosecute any alcohol or drug abuse patient.[facility] HospitalIn the event this information is protected by the Federal Confidentiality of Alcohol and Drug Abuse Patient Records regulations: The Federal rules restrict any use of the information to criminally investigate or prosecute any alcohol or drug abuse patient.[facility] HospitalIn the event this information is protected by the Federal Confidentiality of Alcohol and Drug Abuse Patient Records regulations: The Federal rules restrict any use of the information to criminally investigate or prosecute any alcohol or drug abuse patient.[facility] HospitalIn the event this information is protected by the Federal Confidentiality of Alcohol and Drug Abuse Patient Records regulations: The Federal rules restrict any use of the information to criminally investigate or prosecute any alcohol or drug abuse patient.[facility] HospitalIn the event this information is protected by the Federal Confidentiality of Alcohol and Drug Abuse Patient Records regulations: The Federal rules restrict any use of the information to criminally investigate or prosecute any alcohol or drug abuse patient.[facility] HospitalIn the event this information is protected by the Federal Confidentiality of Alcohol and Drug Abuse Patient Records regulations: The Federal rules restrict any use of the information to criminally investigate or prosecute any alcohol or drug abuse patient.[facility] HospitalIn the event this information is protected by the Federal Confidentiality of Alcohol and Drug Abuse Patient Records regulations: The Federal rules restrict any use of the information to criminally investigate or prosecute any alcohol or drug abuse patient.[facility] HospitalIn the event this information is protected by the Federal Confidentiality of Alcohol and Drug Abuse Patient Records regulations: The Federal rules restrict any use of the information to criminally investigate or prosecute any alcohol or drug abuse patient.[facility] HospitalIn the event this information is protected by the Federal Confidentiality of Alcohol and Drug Abuse Patient Records regulations: The Federal rules restrict any use of the information to criminally investigate or prosecute any alcohol or drug abuse patient.[facility] Hospital[facility] the event this information is protected by the Federal Confidentiality of Alcohol and Drug Abuse Patient Records regulations: The Federal rules restrict any use of the information to criminally investigate or prosecute any alcohol or drug abuse patient.[facility] Hospital[facility] the event this information is protected by the Federal Confidentiality of Alcohol and Drug Abuse Patient Records regulations: The Federal rules restrict any use of the information to criminally investigate or prosecute any alcohol or drug abuse patient.[facility] HospitalIn the event this information is protected by the Federal Confidentiality of Alcohol and Drug Abuse Patient Records regulations: The Federal rules restrict any use of the information to criminally investigate or prosecute any alcohol or drug abuse patient.[facility] Hospital[facility] the event this information is protected by the Federal Confidentiality of Alcohol and Drug Abuse Patient Records regulations: The Federal rules restrict any use of the information to criminally investigate or prosecute any alcohol or drug abuse patient.[facility] Hospital[facility] the event this information is protected by the Federal Confidentiality of Alcohol and Drug Abuse Patient Records regulations: The Federal rules restrict any use of the information to criminally investigate or prosecute any alcohol or drug abuse patient.[facility] HospitalIn the event this information is protected by the Federal Confidentiality of Alcohol and Drug Abuse Patient Records regulations: The Federal rules restrict any use of the information to criminally investigate or prosecute any alcohol or drug abuse patient.[facility] HospitalIn the event this information is protected by the Federal Confidentiality of Alcohol and Drug Abuse Patient Records regulations: The Federal rules restrict any use of the information to criminally investigate or prosecute any alcohol or drug abuse patient.[facility] HospitalIn the event this information is protected by the Federal Confidentiality of Alcohol and Drug Abuse Patient Records regulations: The Federal rules restrict any use of the information to criminally investigate or prosecute any alcohol or drug abuse patient.[facility] HospitalIn the event this information is protected by the Federal Confidentiality of Alcohol and Drug Abuse Patient Records regulations: The Federal rules restrict any use of the information to criminally investigate or prosecute any alcohol or drug abuse patient.[facility] HospitalIn the event this information is protected by the Federal Confidentiality of Alcohol and Drug Abuse Patient Records regulations: The Federal rules restrict any use of the information to criminally investigate or prosecute any alcohol or drug abuse patient.[facility] HospitalIn the event this information is protected by the Federal Confidentiality of Alcohol and Drug Abuse Patient Records regulations: The Federal rules restrict any use of the information to criminally investigate or prosecute any alcohol or drug abuse patient.[facility] HospitalIn the event this information is protected by the Federal Confidentiality of Alcohol and Drug Abuse Patient Records regulations: The Federal rules restrict any use of the information to criminally investigate or prosecute any alcohol or drug abuse patient.[facility] HospitalIn the event this information is protected by the Federal Confidentiality of Alcohol and Drug Abuse Patient Records regulations: The Federal rules restrict any use of the information to criminally investigate or prosecute any alcohol or drug abuse patient.[facility] HospitalIn the event this information is protected by the Federal Confidentiality of Alcohol and Drug Abuse Patient Records regulations: The Federal rules restrict any use of the information to criminally investigate or prosecute any alcohol or drug abuse patient.[facility] Hospital[facility] the event this information is protected by the Federal Confidentiality of Alcohol and Drug Abuse Patient Records regulations: The Federal rules restrict any use of the information to criminally investigate or prosecute any alcohol or drug abuse patient.[facility] Hospital[facility] the event this information is protected by the Federal Confidentiality of Alcohol and Drug Abuse Patient Records regulations: The Federal rules restrict any use of the information to criminally investigate or prosecute any alcohol or drug abuse patient.[facility] Hospital[facility] the event this information is protected by the Federal Confidentiality of Alcohol and Drug Abuse Patient Records regulations: The Federal rules restrict any use of the information to criminally investigate or prosecute any alcohol or drug abuse patient.[facility] HospitalIn the event this information is protected by the Federal Confidentiality of Alcohol and Drug Abuse Patient Records regulations: The Federal rules restrict any use of the information to criminally investigate or prosecute any alcohol or drug abuse patient.[facility] Hospital[facility] the event this information is protected by the Federal Confidentiality of Alcohol and Drug Abuse Patient Records regulations: The Federal rules restrict any use of the information to criminally investigate or prosecute any alcohol or drug abuse patient.[facility] HospitalIn the event this information is protected by the Federal Confidentiality of Alcohol and Drug Abuse Patient Records regulations: The Federal rules restrict any use of the information to criminally investigate or prosecute any alcohol or drug abuse patient.[facility] Reason for Visit (unrecogniz ed section and [...] PT ORTHOTIC Deshawn Baron [address] [place] [address] Justin Burrows PT [address] [place] [address] Referral ID Status Reason Start Date Expiration Date V isits Requested Visits Authorized [id number] Authorized 04/09/2022 07/24/2022 120 117 Reason Comments [...] Refill Request 12/04/2024 Reason Comments Well Woman Reason Onset Date Comments Refill Request 04/01/2025 Care Teams (unrecognized sec tion and content) Water Valve Repairer Relationship Specialty Start Date End Date Sánchez Tabares MD [address] [place] [address] PCP - General Family Practice 09/23/21 Marco Antonio Dave [address] [facility] [address] [place] [address] Marshmallow Machine Worker Endocrinology 05/15/20 Water Valve Repairer Relationship Specialty Start Date End Date Sánchez Tabares MD [address] [place] [address] PCP - [facility] Practice 09/23/21 Marco Antonio Dave [address] [facility] [address] [place] [address] Marshmallow Machine Worker Endocrinology 05/15/20 Water Valve Repairer Relationship Specialty Start Date End Date Sánchez Tabares MD [address] [place] [address] PCP - [facility] 09/23/21 Marco Antonio Dave [address] [facility] [address] [place] [address] Marshmallow Machine Worker Endocrinology 05/15/20 Water Valve Repairer Relationship Specialty Start Date End Date Sánchez Tabares MD [address] [facility] [place] [address] PCP - General Family Medicine 09/23/21 Marco Antonio aDve [address] [facility] [address] [place] [address] Marshmallow Machine Worker Endocrinology 05/15/20 Water Valve Repairer Relationship Specialty Start Date End Date Sánchez Tabares MD [address] [facility] [place] [address] PCP - General Family Medicine 09/23/21 Marco Antonio Dave [address] [facility] [address] [place] [address] Marshmallow Machine Worker Endocrinology 05/15/20 Water Valve Repairer Relationship Specialty Start Date End Date Sánchez Tabares MD [address] [facility] [place] [address] PCP - General Family Medicine 09/23/21 Marco Antonio Dave [address] [facility] [address] [place] [address] Marshmallow Machine Worker Endocrinology 05/15/20 Water Valve Repairer Relationship Specialty Start Date End Date Sánchez Tabares MD [address] [facility] [place] [address] PCP - General Family Medicine 09/23/21 Marco Antonio Dave [address] [facility] [address] [place] [address] Marshmallow Machine Worker Endocrinology 05/15/20 Water Valve Repairer Relationship Specialty Start Date End Date Sánchez Tabares MD [address] [facility] [place] [address] PCP - General Family Medicine 09/23/21 Marco Antonio Dave [address] [facility] [address] [place] [address] Marshmallow Machine Worker Endocrinology 05/15/20 Water Valve Repairer Relationship Specialty Start Date End Date Sánchez Tabares MD [address] [facility] [place], [place] [address] PCP - General Family Medicine 09/23/21 Marco Antonio Dave [address] [facility] [address] [place] [address] Marshmallow Machine Worker Endocrinology 05/15/20 Water Valve Repairer Relationship Specialty Start Date End Date Sánchez Tabares MD [address] [facility] [place] [address] PCP - General Family Medicine 09/23/21 Marco Antonio Dave [address] [facility] [address] [place] [address] Marshmallow Machine Worker Endocrinology 05/15/20 Water Valve Repairer Relationship Specialty Start Date End Date Sánchez Tabares MD [address] [facility] [place], [place] [address] PCP - General Family Medicine 09/23/21 Marco Antonio Dave [address] [facility] [address] [place] [phone] Marshmallow Machine Worker Endocrinology 05/15/20 Team Status: Active Member Role Status Dates Dr. Bob Patel III, MD Family Provider Active Dr. Sánchez Tabares MD Primary Care Provider Active Team Status: Inactive Member Role Status Dates Dr. Sánchez Tabares MD Primary Care Provider Active Shira Espinosa NP, CREDIT CONTROL MANAGER-C Attending Provider, Referring Pro vider Active Team Status: Inactive Member Role Status Dates Dr. Sánchez Tabares MD Primary Care Provider Active Shruthi Flores NP-C Attending Provider, Referring Pr ovider Active Water Valve Repairer Relationship Specialty Start Date End Date Sánchez Tabares MD [address] [facility] [place], [place] [address] PCP - General Family Medicine 09/23/21 Marco Antonio Dave [address] [facility] [address] [place] [phone] Marshmallow Machine Worker Endocrinology 05/15/20 Water Valve Repairer Relationship Specialty Start Date End Date Sánchez Tabares MD [address] [place], [place] [address] PCP - General Family Medicine 09/23/21 Marco Antonio Dave [address] [facility] [address] [place] [phone] Marshmallow Machine Worker Endocrinology 05/15/20 Water Valve Repairer Relationship Specialty Start Date End Date Sánchez Tabares MD [address] [place] [address] PCP - General Family Medicine 09/23/21 Marco Antonio Dave [address] [facility] [address] [place] [phone] Marshmallow Machine Worker Endocrinology 05/15/20 Water Valve Repairer Relationship Specialty Start Date End Date Sánchez Tabares MD [address] [place] [address] PCP - General Family Medicine 09/23/21 Marco Antonio Dave [address] [facility] [address] [place] [phone] Marshmallow Machine Worker Endocrinology 05/15/20 Water Valve Repairer Relationship Specialty Start Date End Date Sánchez Tabares MD [address] [place], [place] [address] PCP - General Family Medicine 09/23/21 Marco Antonio Dave [address] [facility] [address] [place] [address] Marshmallow Machine Worker Endocrinology 05/15/20 Water Valve Repairer Relationship Specialty Start Date End Date Bob Patel III, MD NO [facility] PCP - General 05/18/02 06/15/21 Marco Antonio Dave [address] [facility] [address] [place] [address] Marshmallow Machine Worker Endocrinology 05/15/20 Water Valve Repairer Relationship Specialty Start Date End Date Sánchez Tabares MD [address] [facility] [place] [address] PCP - General Family Medicine 09/23/21 Marco Antonio Dave [address] [facility] [address] [place] [address] Marshmallow Machine Worker Endocrinology 05/15/20 Nargis Collins APRN.INTERNAL COMBUSTION ENGINEER [address] [place] [address] Metalizing Supervisor Family Medicine 07/02/24 Karolyn Humphreys APRN.INTERNAL COMBUSTION ENGINEER [address] [facility] [address] Metalizing Supervisor Family Medicine 07/02/24 Water Valve Repairer Relationship Specialty Start Date End Date Sánchez Tabares MD [address] [facility] [place] [address] PCP - General Family Medicine 09/23/21 Marco Antonio Dave [address] [facility] [place] [address] Marshmallow Machine Worker Endocrinology 05/15/20 Nargis Collins APRN.INTERNAL COMBUSTION ENGINEER [address] [place] [address] Metalizing Supervisor Family Medicine 07/02/24 Karolyn Humphreys APRN.INTERNAL COMBUSTION ENGINEER [address] [facility] [place] [address] Metalizing Supervisor Family Medicine 07/02/24 Water Valve Repairer Relationship Specialty Start Date End Date Sánchez Tabares MD [address] [facility] [place] [address] PCP - General Family Medicine 09/23/21 Marco Antonio Dave [address] [facility] [place] [address] Marshmallow Machine Worker Endocrinology 05/15/20 Nargis Collins APRN.INTERNAL COMBUSTION ENGINEER [address] [place] [address] [facility] 07/02/24 Karolyn Humphreys APRN.INTERNAL COMBUSTION ENGINEER [address] [place] [address] Metalizing [facility]St[facility] 07/02/24 Water Valve Repairer Relationship Specialty Start Date End Date Sánchez Tabares MD [address] [facility] [place] [address] PCP - General Family Medicine 09/23/21 Marco Antonio Dave [address] [facility] [place] [address] Marshmallow Machine Worker Endocrinology 05/15/20 Nargis Collins, TUG HAND.INTERNAL COMBUSTION ENGINEER [address] [facility] [place] [address] Formerly [facility] 07/02/24 Karolyn Humphreys TUG HAND.INTERNAL COMBUSTION ENGINEER [address] [facility] [place] [address] Formerly [facility] 07/02/24 Team Status: Active Member Role Status Dates Dr. Sánchez Tabares MD Primary Care Provider Active Team Status: Inactive Member Role Status Dates MILAGROS Boyle Attending Provider Active Start: September 20, 2024 End: September 20, 2024 Dr. Sánchez Tabares MD Primary Care Provider Active Start: September 20, 2024 End: September 20, 2024 Dr. Sánchez Tabares MD Referring Provider Active Start: September 20, 2024 End: September 20, 2024 Team Status: Inactive Member Role Status Dates Dr. Sánchez Tabares MD Primary Care Provider Active Start: September 20, 2024 End: September 20, 2024 MILAGROS Boyle Attending Provider Active Start: September 20, 2024 End: September 20, 2024 MILAGROS Boyle Referring Provider Active Start: September 20, 2024 End: September 20, 2024 Team Status: Inactive Member Role Status Dates Dr. Sánchez Tabares MD Primary Care Provider Active Start: January 11, 2025 End: January 11, 2025 Dr. Chintan Ramirez MD Attending Provider Active Sta rt: January 11, 2025 End: January 11, 2025 Dr. Chintan Ramirez MD Referring Provider Active Sta rt: January 11, 2025 End: January 11, 2025 Team Status: Active Member Role/Relationship Status Dates Dr. Sánchez Tabares MD Primary Care Provider Active Team Status: Inactive Member Role/Relationship Status Dates MILAGROS Boyle Attending Provider Active Start: September 20, 2024 End: September 20, 2024 Dr. Sánchez Tabares MD Primary Care Provider Active Start: September 20, 2024 End: September 20, 2024 Dr. Sánchez Tabares MD Referring Provider Active Start: September 20, 2024 End: September 20, 2024 Team Status: Inactive Member Role/Relationship Status Dates Dr. Sánchez Tabares MD Primary Care Provider Active Start: September 20, 2024 End: September 20, 2024 MILAGROS Boyle Attending Provider Active Start: September 20, 2024 End: September 20, 2024 MILAGROS Boyle Referring Provider Active Start: September 20, 2024 End: September 20, 2024 Team Status: Inactive Member Role/Relationship Status Dates Dr. Sánchez Tabares MD Primary Care Provider Active Start: January 11, 2025 End: January 11, 2025 Dr. Chintan Ramirez MD Attending Provider Active Sta rt: January 11, 2025 End: January 11, 2025 Dr. Chintan Ramirez MD Referring Provider Active Sta rt: January 11, 2025 End: January 11, 2025 Team Status: Inactive Member Role/Relationship Status Dates Dr. Sánchez Tabares MD Primary Care Provider Active Start: January 18, 2025 End: January 18, 2025 Dr. Sánchez Tabares MD Referring Provider Active Start: January 18, 2025 End: January 18, 2025 Dr. Chintan Ramirez MD Attending Provider Active Sta rt: January 18, 2025 End: January 18, 2025 Water Valve Repairer Relationship Specialty Start Date End Date Sánchez Tabares MD [address] [facility] [place] [place] [address] PCP - General Family Medicine 09/23/21 Marco Antonio Dave [address] [facility] [address] [place] [address] Marshmallow Machine Worker Endocrinology 05/15/20 Nargis Collins APRN.INTERNAL COMBUSTION ENGINEER [address] [facility], [place] [id number] Metalizing Supervisor Family Medicine 07/02/24 Karolyn Humphreys TUG HAND.INTERNAL COMBUSTION ENGINEER [address] [place], [place] [address] Metalizing Supervisor Family Medicine 07/02/24 Team Status: Inactive Member Role/Relationship Status Dates Dr. Sánchez Tabares MD Primary Care Provider Active Start: January 11, 2025 End: January 11, 2025 Dr. Chintan Ramirez MD Attending Provider Active Sta rt: January 11, 2025 End: January 11, 2025 Dr. Chintan Ramirez MD Referring Provider Active Sta rt: January 11, 2025 End: January 11, 2025 Team Status: Inactive Member Role/Relationship Status Dates Dr. Sánchez Tabares MD Primary Care Provider Active Start: January 18, 2025 End: January 18, 2025 Dr. Snáchez Tabares MD Referring Provider Active Start: January 18, 2025 End: January 18, 2025 Dr. Chintan Ramirez MD Attending Provider Active Sta rt: January 18, 2025 End: January 18, 2025 Team Status: Inactive Member Role/Relationship Status Dates Dr. Sánchez Tabares MD Primary Care Provider Active Start: January 30, 2025 End: January 30, 2025 MILAGROS Rosa Attending Provider Active Sta rt: January 30, 2025 End: January 30, 2025 MILAGROS Rosa Referring Provider Active Sta rt: January 30, 2025 End: January 30, 2025 Team Status: Inactive Member Role/Relationship Status Dates Dr. Sánchez Tabares MD Primary Care Provider Active Start: March 18, 2025 End: March 18, 2025 Dr. Sánchez Tabares MD Referring Provider Active Start: March 18, 2025 End: March 18, 2025 MILAGROS Boyle Attending Provider Active Start: March 18, 2025 End: March 18, 2025 Water Valve Repairer Relationship Specialty Start Date End Date Sánchez Tabares MD [address] [place], [place] [address] PCP - General Family Medicine 09/23/21 Marco Antonio Dave [address] [place] [address] Marshmallow Machine Worker Endocrinology 05/15/20 Nargis Collins APRN.INTERNAL COMBUSTION ENGINEER [address] [place], [place] [address] Formerly [facility] 07/02/24 Karolyn Humphreys APRN.INTERNAL COMBUSTION ENGINEER [address] [place], [place] [address] Formerly [facility] 07/02/24 Goals (unrecognized section and content) Goals [...] BE BASED ON THE PRIMARY CLINICAL RECORDS. [facility] [employer] [facility] provides no warranty or guarantee of the accuracy or completeness of information in this document.
[2025-04-03 14:00] LABS: CREATININE FINGERSTICK < 1.0 mg/dL (0.55-1.02); EGFR FINGERSTICK > 60.0000 mL/min (>60)
== END | disposition home or self-care (01) ==
LOC: CT 06:19
PROVIDERS: PCP Family Medicine; Referring Provider Nurse Practitioner Acute Care; Visit Provider Nurse Practitioner Acute Care
DX: R10.13 Epigastric pain (principal); R63.4 Abnormal weight loss
CPT/HCPCS: 74177; Q9967

== ENCOUNTER → 2025-04-12 | Outpatient (CLI) | payer OTHER, SELFPAY ==
--- OUTSIDE RECORDS SUMMARY | 2025-04-12 16:56 | XMS RPT_ITS | CCD ---
Author Organization [facility] Care Team Providers Care Senior Accountant Analyst Name Role Phone Marco Antonio Dvae Unavailable Sánchez Tabares MD Primary Care Provider DANAE HERNANDEZ Admitting Unavailable DANAE HERNANDEZ Attending Unavailable MACIEL MAE Referring Unavailable SÁNCHEZ TABARES Primary Care Unavailable Marco Antonio Dave Unavailable Sánchez Tabares MD Primary Care Provider Sánchez Tabares MD Primary Care Provider SÁNCHEZ TABARES Primary Care Unavailable CHINTAN RAMIREZ Referring Unavailable Amanda WOLF MD, Bob Flores Primary Care Provider Alecia vailable Halevar CIVIL LITIGATION ATTORNEY.Nargis HOWELL Unavailable Suppan CIVIL LITIGATION ATTORNEY.LYNDA, Karolyn A Unavailable [phone] Suppan CIVIL LITIGATION ATTORNEY.LYNDA, Karolyn A Unavailable JUSTIN BURROWS Attending Unavailable DESHAWN BARON Referring Unavailable SÁNCHEZ TABARES Primary Care Unavailable SÁNCHEZ TABARES Primary Care Unavailable JUSTIN BURROWS Attending Unavailable DESHAWN BARON Referring Unavailable SÁNCHEZ TABARES Primary Care Unavailable SÁNCHEZ TABARES Attending Unavailable SÁNCHEZ TABARES Primary Care Unavailable NETTIE LYLES Attending Unavailable David DOHERTYCAntonieta Attending Provider Dr. Sánchez Tabares MD Primary Care Provider Dr. Sánchez Tabares MD Referring Provider David ROSALES-CAntonieta Referring Provider Dr. Chintan Ramirez MD Attending Provider Dr. Chintan Ramirez MD Referring Provider Albino BERKOWITZ, Dr. Pozo Primary Care Provider Albino BERKOWITZ, Dr. Pozo Referring Provider Rafal BACKGROUND CHECK COORDINATOR-C, Nettie Attending Provider Haury BACKGROUND CHECK COORDINATOR-C, Nettie Referring Provider David BACKGROUND CHECK COORDINATOR-C, Antonieta Attending Provider Chintan Ramirez Attending Unavailable Montevallo, Sánchez Primary Care Unavailable Albino, Sánchez Referring Unavailable Montevallo, Sánchez Referring Unavailable Albino, Sánchez Primary Care Unavailable JamesChintan Attending Unavailable Montevallo, Sánchez Referring Unavailable Albino, Sánchez Primary Care Unavailable David, Antonieta Attending Unavailable Montevallo, Sánchez Referring Unavailable David, Antonieta Attending Unavailable Montevallo, Sánchez Primary Care Unavailable David, Antonieta Attending Unavailable David, Antonieta Referring Unavailable Haury, Nettie Attending Unavailable Haury, Nettie Referring Unavailable Albino, Sánchez Primary Care Unavailable Albino, Sánchez Referring Unavailable Albino, Sánchez Primary Care Unavailable Friend, Rambo Consulting Unavailable Friend, Rambo Attending Unavailable Albino, Sánchez Primary Care Unavailable David, Antonieta Attending Unavailable David, Antonieta Referring Unavailable James, Chintan Referring Unavailable Albino, Sánchez Primary Care Unavailable Chintan Ramirez Attending Unavailable Montevallo, Sánchez Primary Care Unavailable David, Antonieta Attending Unavailable David, Antonieta Referring Unavailable Albino, Sánchez Primary Care Unavailable Montevallo, Sánchez Referring Unavailable Friend, Rambo Attending Unavailable Albino, Sánchez Referring Unavailable Montevallo, Sánchez Primary Care Unavailable David, Antonieta Attending Unavailable Montevallo , Dr. Pozo Primary Care Physician Dr. Chintan Ramirez MD Attending Physician Rafal BACKGROUND CHECK COORDINATOR-C, Nettie Attending Physician David BACKGROUND CHECK COORDINATOR-C, Antonieta Attending Physician David BACKGROUND CHECK COORDINATOR-C, Antonieta Referring Provider Allergies Allergy Classification Reported Allergen(s) Allergy Type Date of Onset Reaction(s) Facility (20 sources) Apples; Translations: [APPLES] Propensity to adverse reactions 10-10-20 05 [facility] Work Phone: (20 sources) Lovastatin; Translations: [LOVASTATIN] Drug Allergy 05-11-20 05 Other: See Comments [facility] Comment on above: bad dreams (20 sources) Sulfamethoxazole / Trimethoprim; Translations: [SULFAMETHOXAZOLE-T RIMETHOPRIM] Drug Allergy 05-24-20 18 Diarrhea [facility] (16 sources) bananas [Other] Propensity to adverse reactions 05-03-20 05 [facility] Work Phone: (16 sources) environmental [Other] Propensity to adverse reactions 05-03-20 05 [facility] Work Phone: (20 sources) Banana Extract; Translations: [BANANA] Drug Allergy 02-25-20 21 Swelling [facility] (18 sources) Seasonal allergy; Translations: [SEASONAL ALLERGIES] Propensity to adverse reactions (disorder) 06-02-20 23 Itching [facility] Other [place] [facility] (1 source) Banana Extract Drug Allergy 03-18-20 [facility] Repository (1 source) Lovastatin Drug Allergy 03-18-20 [facility] Repository Medications Current Medications Medication Drug Class(es) Dates Sig (Normalized) Sig (Original) beet powder human N (5 sources) Start: 07-02-2024 Start: 07-02-2024 beet powder hu man N Active PO July 02, 2024 1:00am Ca Carb-D3-Mag Os-Hni-Nxqg-Z n 300 mg-20 mcg- 25 mg-0.5 mg tablet (5 sources) Start: 07-02-2024 take 1 tablet by jacqueline once daily Start: 07-02-2024 take 1 tablet by jacqueline th once daily Ca Carb-D3-Mag Ij-Kxl-Uzab-Zn 300 mg-20 mcg- 25 mg-0.5 mg tablet Active 1 {tbl} PO daily July 02, 2024 1:00am cholestacar (5 sources) Start: 07-02-2024 Start: 07-02-2024 cholestacar Ac tive PO July 02, 2024 1:00am COMPOUNDED PRESCRIPTION (20 sources) COMPOUNDED PRESC RIPTION [...] on above: Take by mouth. ELDERBERRY FRUIT (5 sources) Start: 07-02-2024 Start: 07-02-2024 Elderberry Fru it 350 mg capsule Active mg PO July 02, 2024 1:00am Ergocalciferol (20 sources) Provitamin D2 Compound Start: [...] as dir ected. free range tommy peptides (5 sources) Start: 07-02-2024 Start: 07-02-2024 free range col l peptides Active PO July 02, 2024 1:00am fruitful antioxidants (5 sources) Start: 07-02-2024 Start: 07-02-2024 fruitful antio xidants Active PO July 02, 2024 1:00am Glutathione (5 sources) Start: 07-02-2024 Start: 07-02-2024 Glutathione 50 0 mg capsule Active mg PO July 02, 2024 1:00am glyciine 600 (5 sources) Start: 07-02-2024 Start: 07-02-2024 glyciine 600 A ctive PO July 02, 2024 1:00am Green Foods complex (5 sources) Start: 07-02-2024 Start: 07-02-2024 Green Foods co mplex Active PO July 02, 2024 1:00am greens blend amazing Grass (5 sources) Start: 07-02-2024 Start: 07-02-2024 greens blend a mazing Grass Active PO July 02, 2024 1:00am Healthy hairs, skin, nails (5 sources) Start: 07-02-2024 Start: 07-02-2024 Healthy hairs, skin, nails Active PO July 02, 2024 1:00am insulin aspart, human 100 un t/ml injectable solution (20 sources) Insulin Analog Start: 02-01-2025 Start: 01-18-2025 End: 02-01-2025 Insulin Aspart U-100 (Novolo g U-100 Insulin Aspart) 100 unit/mL solution Discontinued 50 U SC DAILY 60 3 January 18, 2025 3:21pm February 01, 2025 4:12pm via insulin pump Start: 11-18-2020 End: 01-18-2025 Insulin Aspart U-100 (Novolo g U-100 Insulin Aspart) 100 unit/mL solution Discontinued 100 U SC DAILY 90 September 21, 2024 8:51am January 18, 2025 [...] insulin pump up to 60 units daily Magnesium (20 sources) take 1 tablet by mouth once daily Magnesium 250 mg tab Take 250 mg by mouth once daily. Active take 1 tablet by mouth once helena y Magnesium 250 mg tab Take 250 mg by mouth once daily. 0 Active Comment on above: Take 250 mg by mouth once daily. memory and brain (5 sources) Start: 07-02-2024 Start: 07-02-2024 memory and bra in Active PO July 02, 2024 1:00am montelukast 10 mg oral tablet (20 sources) Leukotriene Receptor Antagonist Start: 08-14-2013 End: 12-04-2024 take 1 tablet by mouth at bedtime Comment on above: Take 1 tablet by jacqueline once daily. Multivitamin preparation (3 sources) Start: 12-14-2019 take 1 tablet by mouth once daily Multivitamin Active 1 TABLET PO DAILY December 14, 2019 12:00am MULTIVITAMIN TAB (20 sources) Start: 05-03-2005 MULTIVITAMIN T AB Take one(1) tablet daily. 0 05/03/2005 Active Comment on above: Take one(1) tablet d aily. Multivitamin tablet (5 sources) Start: 12-14-2019 Start: 12-14-2019 Multivitamin t ablet Active 1 {tbl} PO DAILY December 14, 2019 12:00am nystatin [id number] unt/ml / triamcinolone acetonide 1 mg/ml topical cream (20 sources) Polyene Antifungal, Corticosteroid Start: 01-07-2020 End: 06-08-2022 nystatin-triamcinolone (MYCOLOG II) cream Indications: Vulvovaginitis Apply 1 application to affected area twice daily as needed. 30 g 1 06/08/2022 Active Comment on above: Apply 1 application to affected area twice daily as needed. pantoprazole 40 mg delayed release oral tablet (20 sources) Proton Pump Inhibitor Start: 03-18-2025 End: 04-10-2025 take 1 tablet by mouth twice daily Start: 08-06-2020 End: 04-01-2025 take 1 tablet by mouth once daily Pantoprazole 40 mg tablet,delayed release (DR/EC) Discontinued 40 mg PO DAILY February 09, 2021 12:00am March 18, 2025 8:45am Start: 08-14-2013 End: 05-22-2018 take 20 mg by mouth once daily Protonix Discontinued 2 0 mg PO DAILY August 14, 2013 1:00am May 22, 2018 1:26pm Comment on above: Take 1 tablet by jacqueline th daily before breakfast. Take on empty stomach, 1/2 hr before meal. PC liver and brain (5 sources) Start: 07-02-2024 Start: 07-02-2024 PC liver and b rain Active PO July 02, 2024 1:00am UBIDECARENONE (COQ-10 ORAL) (20 sources) UBIDECARENONE (C OQ-10 ORAL) Take by mouth. Active UBIDECARENONE (C OQ-10 ORAL) Take by mouth. 0 Active Comment on above: Take by mouth. vitamin K2 MK-7 (5 sources) Start: 07-02-2024 Start: 07-02-2024 vitamin K2 MK- 7 Active PO July 02, 2024 1:00am Completed/Discontinued Medications Medication Drug Class(es) Dates Sig (Normalized) Sig (Original) [id number] 200 actuat albuterol 0.09 mg/actuat metered dose inhaler (20 sources) beta2-Adrenergic Agonist Start: 08-07-2020 End: 11-01-2023 take 2 puff(s) by inhalation every four hours as needed albuterol HFA (PROAIR HFA) 90 mcg/actuation inhaler Inhale 2 Puffs as instructed every 4 hours as needed. 18 g 5 08/07/2020 11/01/2023 Discontinued Start: 07-20-2017 Start: 07-20-2017 take 1 puff(s) by in halation every four hours Albuterol Sulfate Active 2 PUFF INHALATION Q4H July 20, 2017 1:00am Comment on above: Inhale 2 Puffs as in structed every 4 hours as needed. amoxicillin 500 mg / clavulanate 125 mg oral tablet (8 sources) Penicillin-class Antibacterial Start: 018 End: Amoxicillin-Pot [...] (20 sources) Angiotensin Converting Enzyme Inhibitor Start: 6 End: 5 take 1 tablet by mouth at bedtime Enalapril Maleate 5 mg tablet Discontinued 5 mg PO AT BEDTIME 90 2 June 14, 2023 3:35pm January 27, 2024 3:49pm Start: 08-14-2013 End: 07-20-2017 take 10 mg by mouth once daily Enalapril Maleate Disco ntinued 10 mg PO DAILY August 14, 2013 1:00am July 20, 2017 9:06am Comment on above: Take 1 tablet by jacqueline th once daily. ibuprofen 800 mg oral tablet (8 sources) Nonsteroidal Anti-inflammatory Drug Start: 0 End: 4 take 1 tablet by mouth three times daily as needed for pain Ibuprofen 800 MG tablet Discontinued 800 mg PO 3 TIMES DAILY NEEDED as needed for Pain Score 20 0 October 27, 2019 12:00am July 02, 2024 9:17am insulin, regular, human 100 unt/ml injectable solution (8 sources) Insulin Start: 4 End: 7 Insulin Regular Human 100 UNIT/ML solution Discontinued 0 U SC August 14, 2013 1:00am July 20, 2017 9:06am Start: 08-14-2013 End: 07-20-2017 Insulin Regular Human Discon tinued 0 UNIT SC August 14, 2013 1:00am July 20, 2017 9:06am levothyroxine sodium 0.125 mg oral tablet (20 sources) l-Thyroxine Start: 05-26-2020 End: 02-07-2025 Levothyroxine 125 mcg tablet Discontinued 125 ug PO MOTUWETHFRSA 72 3 February 06, 2025 1:11pm February 07, 2025 10:25am Start: 05-05-2020 End: 11-26-2022 SYNTHROID 125 mcg [...] empty stomach. Fill as generic, not CHERELLE raNITIdine 150 mg oral tablet (8 sources) Histamine-2 Receptor Antagonist Start: 8 End: 9 take 1 capsule by mouth once daily Ranitidine Hcl 150 mg capsule Discontinued 150 mg PO DAILY May 22, 2018 12:00am July 31, 2018 5:06pm Start: 05-22-2018 End: 07-31-2018 take 1 capsule by mouth once daily ranitidine 150 mg capsule Discontinued 150 MG PO DAILY May 22, 2018 12:00am July 31, 2018 5:06pm rosuvastatin calcium 5 mg oral tablet (20 sources) HMG-CoA Reductase Inhibitor Start: 02-16-2016 End: 09-14-2024 take 1 tablet by mouth once daily Rosuvastatin 5 mg tablet Discontinued 5 mg PO DAILY 90 1 June 14, 2023 3:35pm August 09, 2023 5:32pm Start: 08-14-2013 End: 09-25-2018 take 5 mg by mouth once daily Crestor Discontinued 5 m g PO DAILY 90 December 14, 2017 4:25pm September 25, 2018 9:27am Type 1 diabetes mellitus without complications Comment on above: Take 1 tablet by jacqueline th daily at bedtime. Problems Active Problems Problem Classification Problem Date Documented Date Episodic/Chronic Abdominal pain (11 sources) Epigastric pain; Translations: [Epigastric pain] Onset: [...] Chronic Conditions associated with dizziness or vertigo (8 sources) Vertigo; Translations: [Dizziness and giddiness] 08-14-2013 Episodic Diabetes mellitus without complication (20 sources) Type 1 diabetes mellitus without complication; Translations: [Type 1 diabetes mellitus without complications] Onset: 06-04-2016 09-23-2021 Chronic Comment on above: Dx : 1992Last exacer bation : DKA : never Hypoglycemic episode : 2003 ER visit : 2003 Dx : 1992 Diabetes mellitus without complication (12 sources) Insulin pump present; Translations: [Presence of [...] vaginitis] Onset: 01-09-2025 Chronic Nausea and vomiting (8 sources) Nausea and vomiting; Translations: [Nausea with [...] bilateral] 11-01-2023 Episodic Other female genital disorders (8 sources) Polyp of corpus uteri; Translations: [Polyp [...] Onset: 10-02-2024 09-20-2024 Chronic Other liver diseases (5 sources) Steatosis of liver; Translations: [Fatty (change of) liver, not elsewhere classified] 09-20-2024 Chronic Other non-traumatic joint disorders (1 source) Chronic pain of right upper limb; Translations: [Pain in right shoulder] 09-15-2020 Episodic Other nutritional; endocrine; and metabolic disorders (20 sources) Obese class I; Translations: [Obesity, unspecified] Onset: 11-26-2022 Chronic Other nutritional; endocrine; and metabolic disorders (6 sources) Body mass index 25-29 - overweight 01-22-2025 Episodic Other nutritional; endocrine; and metabolic disorders (4 sources) Weight decreased; Translations: [Abnormal weight loss] [...] Onset: 03-08-2012 03-08-2012 Chronic Sprains and strains (8 sources) Strain of muscle of upper limb; Translations: [Strain of unspecified muscle, fascia and tendon at shoulder and upper arm level, left arm, initial encounter] 10-28-2019 Episodic Syncope (8 sources) Syncope; Translations: [Syncope and collapse] 08-14-2013 Episodic Thyroid disorders (20 sources) Acquired hypothyroidism; Translations: [Hypothyroidism, unspecified] Onset: 09-15-2015 Resolved: 09-15-2015 09-15-2015 Chronic Past or Other Problems Problem Classification Problem Date Documented Date Episodic/Chronic Diabetes mellitus with complications (14 sources) Type 1 diabetes mellitus; Translations: [Uncontrolled type 1 diabetes mellitus] Onset: 05-03-2005 Resolved: 01-28-2016 01-28-2016 Chronic Other and unspecified benign neoplasm (15 sources) [...] Test Name Value Interpretation Reference Range Facility Abdomen/Pelvis WITH Contrast on 04-03-2025 Abdomen/Pelvis WITH Contrast [facility] Imaging Services [address] [place] [address] [id number] Abdomen/Pelvis WITH Contrast MR#: [id number] Acct: [id number] Name: EARLINE HERNANDEZ Rep #: [id number] : 1970 F 54 From: Ilir mccarthy MD PCP: Dr. Sánchez Tabares MD Status: REG CLI Study: Abdomen/Pelvis WITH Contrast Date of Exam: 05/18 Exam# [id number] Ordering Dr: Antonieta Hernandez BACKGROUND CHECK COORDINATOR- C PROCEDURE: ABDOMEN/PELVIS WITH CONTRAST 04/03/2025 REASON FOR EXAM: WEIGHT LOSS, EPIGASTRIC/BACK PAIN 35 lb weight loss. Patient is diabetic. TECHNIQUE: Procedure Code: CTABDPELW Modality: CT Procedure: Coronal and Sagittal reconstruction series were provided. CONTRAST: Isovue 370 VOLUME: 100 mL One or more dose reduction techniques were used (e.g., Automated exposure control, adjustment of the mA and/or kV according to patient size, use of iterative reconstruction technique. RADIATION DOSE SUMMARY: CTDlvol: 12.76 mGy DLP: 748.16 mGycm COMPARISON: None FINDINGS: Lung bases: The lung bases are clear. Liver: Normal size. No mass. Gallbladder: Small layering gallstones along the dependent portion of the gallbladder lumen. Spleen: Normal size. Pancreas: Diffuse fatty atrophy. Adrenals: Unremarkable Kidneys: Normal renal sizes. No hydronephrosis. Bladder: Unremarkable Reproductive Organs: Normal uterine size and contour. Ovaries are unremarkable. Bowel: Unremarkable Appendix: Unremarkable Lymph nodes: Unremarkable. Vasculature: The abdominal aorta and IVC are normal. Peritoneum / Retroperitoneum: Unremarkable Bones: Unremarkable CT/Abdomen/Pelvis WITH Contrast IMPRESSION: Small layering gallstones. Diffuse fatty atrophy of the pancreas. Reading Location: [id number] CC: MILAGROS Hernandez; Dr. Sánchez Tabares MD District Wildlife Manager: Signed Normal [facility] CREATININE FINGERSTICKon CREATININE WB < 1.0 Normal 0.55-1.02 [facility] Comment on above: Performed By: #### L 3100.0300, L3100.0460, L500.4050, L100.0100 #### [facility] [address] [place], [address] EGFR WB > 60.0000 Normal >60 [facility] Comment on above: Performed By: #### L 3100.0300, L3100.0460, L500.4050, L100.0100 #### [facility] [address] [place], [address] EGFROrdered By: Antonieta jaime on 04-03-2025 GFR/1.73 sq M.predicted among non-blacks MDRD (S/P/Bld) [Vol rate/Area] mL/min/{1.73_m2} >60 [facility] Gastroenterology Visit Repor ton 03-18-2025 Gastroenterology Visit Report [facility] Gastroenterology [address] [place] [address] OFFICE VISIT Date of Service: 03/18/25 MR#: [id number] Acct: [id number] Name: EARLINE HERNANDEZ Rep #: [id number] : 1970 Provider: MILAGROS mata Age/Sex: 54/F Location: [facility] Status: Signed Intake Vital Signs 09/20/24 08:05 [...] M FU Chief Complaint: 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-up Stage Set Designer Required: No Accompanied by: Self Is patient [...] QDAY 07/02/24 03/18/25 History 25 mg-coppr 0.5 ly-ltwp-nuyg tablet cholestacar PO 07/02/24 03/18/25 History elderberry [...] 125 mcg tablet 125 mcg PO MOTUWETHFRSA #72 tabs 0 02/07/25 03/18/25 Rx pantoprazole 40 mg tablet,delayed 40 mg PO BID #60 tabs 03/18/25 [facility] Medical History Overweight (BMI 25.0-29.9) GERD (gastroesophageal [...] liver steatos (more content not included)... Normal [facility] Breast imaging reportOrdered By: Maryse Gomez on 01-30-2025 Study report [facility] Imaging Services [address] [place] [address] SCRN MAMM (CAD)W/GREER BILAT MR#: [id number] Acct: [id number] Name: EARLINE HERNANDEZ Rep #: [id number] : 1970 F 54 From: Margot Gomez MD PCP: Dr. Sánchez Tabares MD Status: REG C ART Study:SCRN MAMM (CAD)W/GREER BILAT Date of Exa m: 01/30/25 Exam# [id number] Ordering Dr: Laura Lyles BACKGROUND CHECK COORDINATOR-C EXAM: SCRN MAMM (CAD)W/GREER BILAT DATE: 01/30/2025 [...] to the patient. Reading Location: [facility] CC: BACKGROUND CHECK COORDINATOR-Nguyen Lyles; Dr. Sánchez Tabares MD ~ District Wildlife Manager: Signed [facility] SCRN MAMM (CAD)W/GREER BILATo n 01-30-2025 SCRN MAMM (CAD)W/GREER BILAT [facility] Imaging Services [address] [place] [address] [id number] SCRN MAMM (CAD)W/GREER BILAT MR#: [id number] Acct: [id number] Name: EARLINE HERNANDEZ Rep #: [id number] : 1970 F 54 From: Maryse Gomez MD PCP: Dr. Sánchez Tabares MD Status: [facility] Study: SCRN MAMM (CAD)W/GREER BILAT Date of Exam: 04/18 Exam# [id number] Ordering Dr: Nettie Lyles BACKGROUND CHECK COORDINATORDebraC EXAM: SCRN MAMM (CAD)W/GREER BILAT DATE: 01/30/2025 [...] to the patient. Reading Location: [facility] CC: MILAGROS Lyles; Dr. Sánchez Tabares MD District Wildlife Manager: Signed Normal [facility] Endocrinology Visit Reporton 01-18-2025 Endocrinology Visit Report [facility] [address] [place] [address] OFFICE VISIT Date of Service: 01/18/25 MR#: [id number] Acct: [id number] Name: EARLINE HERNANDEZ Rep #: [id number] : 1970 Provider: Raghavendra Corcoran Age/Sex: 54/F [place] [facility] [place]: Signed Intake Vital Signs 01/27/24 15:24 09/20/24 08:05 01/18/25 14:36 Height 5 ft 5 in 5 ft 5 in 5 ft 5 in Weight: 163 lb BMI 27.1 BP 120/77 Blood Pressure Location Lt brachial Position Sitting Pulse 97 Pulse Source Monitor Pulse Oximetry (%) 97 Oxygen Delivery Method room air Intake Visit Reasons: 6 M FU Chief Complaint: DM Stage Set Designer Required: No Accompanied by: Self Is patient [...] QDAY 07/02/24 01/18/25 History 25 mg-coppr 0.5 ql-fxqn-mctj tablet cholestacar PO 07/02/24 01/18/25 History elderberry [...] tablet 5 mg PO QHS #90 tabs 12/18/24 0602/15 Rx Novolog U-100 Insulin aspart 100 50 unit (0.5 mL) subcut DAILY #60 01/18/25 01/18/25 Rx unit/mL subcutaneous solution mL (insulin aspart U-100) PFSH Medical History (Updated 01/22/25 @ 11:01 by [...] cough, chest (more content not included)... Normal [facility] HBA1C (OUTSIDE)on 01-18-2025 [facility] - Hematology and Cell countson 01-18-2025 HbA1c (Bld) [Mass fraction] 6.4 % High 4.2-6.3 [facility] Comment on above: Dr Ramirez Anion gap in Serum or Plasma Ordered By: Chintan Ramirez on 01-11-2025 Anion gap [Moles/Vol] 10 mmol/L 12-06 [facility] BUN/creatinine ratioOrdered By: Chintan Ramirez on 01-11-2025 Urea nitrogen/Creatinine [Mass ratio] 16.5 mg/mg 05-13 [facility] Bilirubin, totalOrdered By: Chintan Ramirez on 01-11-2025 Bilirubin [Mass/Vol] 0.47 mg/dL 0.00-1.30 [facility] Calculated very low density lipoprotein (VLDL) cholesterol measurementOrdered By: Chintan Ramirez on 01-11-2025 Calculated very low density lipoprotein (VLDL) cholesterol measurement 12 mg/dL [facility] Carbon dioxide, total [Moles /volume] in Central venous bloodOrdered By: Chintan Ramirez on 01-11-2025 CO2 [Moles/Vol] 28.0 mmol/L 21.0-32.0 [facility] Chloride assayOrdered By: Bhargav Ramirez on 01-11-2025 Chloride [Moles/Vol] 102 mmol/L 98-108 [facility] Comprehensive Metabolic Prof ilon 01-11-2025 Albumin [Mass/Vol] 3.9 g/dL Normal 3.5-5.0 [facility] Comment on above: Performed By: #### L 502.0250, L506.1001, L500.4050, L501.9520, L506.0400, L500.4100 #### [facility] [address] [place], [address] Albumin/Globulin [Mass ratio] 1.5 {ratio} Normal 0.9-2.4 [facility] Comment on above: Performed By: #### L 502.0250, L506.1001, L500.4050, L501.9520, L506.0400, L500.4100 #### [facility] [address] [place], [address] ALK PHOS 53 U/L Normal 35-104 [facility] Comment on above: Performed By: #### L 502.0250, L506.1001, L500.4050, L501.9520, L506.0400, L500.4100 #### [facility] [address] [place], [address] ALT [Catalytic activity/Vol] 13 U/L Normal <=34 [facility] Comment on above: Performed By: #### L 502.0250, L506.1001, L500.4050, L501.9520, L506.0400, L500.4100 #### [facility] [address] [place], [address] AST [Catalytic activity/Vol] 22 U/L Normal <=31 [facility] Comment on above: Performed By: #### L 502.0250, L506.1001, L500.4050, L501.9520, L506.0400, L500.4100 #### [facility] [address] [place], [address] Bilirubin [Mass/Vol] 0.47 mg/dL Normal 0.00-1.30 [facility] Comment on above: Performed By: #### L 502.0250, L506.1001, L500.4050, L501.9520, L506.0400, L500.4100 #### [facility] [address] [place], [address] BUN/CRE 16.5 RATIO Normal 10-20 [facility] Comment on above: Performed By: #### L 502.0250, L506.1001, L500.4050, L501.9520, L506.0400, L500.4100 #### [facility] [address] [place], [address] Calcium [Mass/Vol] 9.5 mg/dL Normal 7.6-11.0 [facility] Comment on above: Performed By: #### L 502.0250, L506.1001, L500.4050, L501.9520, L506.0400, L500.4100 #### [facility] [address] [place], [address] Chloride [Moles/Vol] 102 mmol/L Normal 98-108 [facility] Comment on above: Performed By: #### L 502.0250, L506.1001, L500.4050, L501.9520, L506.0400, L500.4100 #### [facility] [address] [place], [address] CO2 [Moles/Vol] 28.0 mmol/L Normal 21.0-32.0 [facility] Comment on above: Performed By: #### L 502.0250, L506.1001, L500.4050, L501.9520, L506.0400, L500.4100 #### [facility] [address] [place], [address] Creatinine [Mass/Vol] 0.69 mg/dL Low 0.70-1.20 [facility] Comment on above: Performed By: #### L 502.0250, L506.1001, L500.4050, L501.9520, L506.0400, L500.4100 #### [facility] [address] [place], [address] GAP 10 Normal 5-15 [facility] Comment on above: Performed By: #### L 502.0250, L506.1001, L500.4050, L501.9520, L506.0400, L500.4100 #### [facility] [address] [place], [address] GFR/1.73 sq M.predicted among non-blacks MDRD (S/P/Bld) [Vol rate/Area] 102 mL/min/{1.73_m2} Normal >60 [facility] Comment on above: Result Comment: mL/m in/1.73m2 CKD-EPI Creatinine Equation (2020) Performed By: #### L 502.0250, L506.1001, L500.4050, L501.9520, L506.0400, L500.4100 #### [facility] [address] [place], [address] Globulin (S) [Mass/Vol] 2.6 g/dL Normal 2.2-4.2 [facility] Comment on above: Performed By: #### L 502.0250, L506.1001, L500.4050, L501.9520, L506.0400, L500.4100 #### [facility] [address] [place], [address] Glucose [Mass/Vol] 126 mg/dL High 70-99 [facility] Comment on above: Performed By: #### L 502.0250, L506.1001, L500.4050, L501.9520, L506.0400, L500.4100 #### [facility] [address] [place], [address] Potassium [Moles/Vol] 4.0 mmol/L Normal 3.3-5.1 [facility] Comment on above: Performed By: #### L 502.0250, L506.1001, L500.4050, L501.9520, L506.0400, L500.4100 #### [facility] [address] [place], [address] Sodium [Moles/Vol] 140 mmol/L Normal 133-145 [facility] Comment on above: Performed By: #### L 502.0250, L506.1001, L500.4050, L501.9520, L506.0400, L500.4100 #### [facility] [address] [place], [address] T PROT 6.5 g/dL Normal 5.9-8.4 [facility] Comment on above: Performed By: #### L 502.0250, L506.1001, L500.4050, L501.9520, L506.0400, L500.4100 #### [facility] [address] [place], [address] Urea nitrogen [Mass/Vol] 11 mg/dL Normal 4-19 [facility] Comment on above: Performed By: #### L 502.0250, L506.1001, L500.4050, L501.9520, L506.0400, L500.4100 #### [facility] [address] [place], [address] Glomerular filtration rate ( GFR) estimation/1.73 sq m using serum, plasma, or whole bOrdered By: Chintan Ramirez on 01-11-2025 GFR/1.73 sq M.predicted among non-blacks MDRD (S/P/Bld) [Vol rate/Area] 102 mL/min/{1.73_m2} >60 [facility] Comment on above: mL/min/1.73m2 CKD-EP I Creatinine Equation (2020) LDL calc ser/plasOrdered By: Chintan Ramirez on 01-11-2025 Cholesterol in LDL [Mass/Vol] 89 mg/dL [facility] Comment on above: Wckhewwzhp=129-607 m g/dL & Higher Oqyk=363 mg/dL or greater Laboratory - Chemistry and C hemistry - challengeOrdered By: Chintan Ramirez on 01-11-2025 AST [Catalytic activity/Vol] 22 U/L <32 [facility] Lipid Profileon 01-11-2025 CHOL:HDL 3.07 Normal [facility] Comment on above: Performed By: #### L 502.0250, L506.1001, L500.4050, L501.9520, L506.0400, L500.4100 #### [facility] [address] [place], [address] Cholesterol [Mass/Vol] 150 mg/dL Normal <=200 [facility] Comment on above: Result Comment: Chol esterol level, Desirable <200 mg/dL Borderline high cholesterol 200-239 mg/dL High cholesterol >=240 mg/dL Recommendations of the NCEP Adult Treatment Panel for the following risk-cutoff thresholds for the [place] population. Performed By: #### L 502.0250, L506.1001, L500.4050, L501.9520, L506.0400, L500.4100 #### [facility] [address] [place], [address] Cholesterol in HDL [Mass/Vol] 49 mg/dL Normal [facility] Comment on above: Result Comment: Tiara onal Cholesterol Education Program (NCEP) guidelines: <40 mg/dL: Low HDL-cholesterol (major risk factor for CHD) >= 60 mg/dL: High HDL-cholesterol (negative risk factor for CHD) HDL-cholesterol is affected by a number of factors, e.g. smoking, exercise, hormones, sex and age. Performed By: #### L 502.0250, L506.1001, L500.4050, L501.9520, L506.0400, L500.4100 #### [facility] [address] [place], [address] Cholesterol in LDL [Mass/Vol] 89 mg/dL Normal [facility] Comment on above: Result Comment: Bord mdmofk=973-934 mg/dL Higher Gcay=511 mg/dL or greater Performed By: #### L 502.0250, L506.1001, L500.4050, L501.9520, L506.0400, L500.4100 #### [facility] [address] [place], [address] Cholesterol in VLDL [Mass/Vol] 12 mg/dL Normal 5-40 [facility] Comment on above: Performed By: #### L 502.0250, L506.1001, L500.4050, L501.9520, L506.0400, L500.4100 #### [facility] [address] [place], [address] Triglyceride [Mass/Vol] 62 mg/dL Normal [facility] Comment on above: Result Comment: The drugs N-Acetylcysteine and Metamizole may falsely depress this assay. Normal range: <150 mg/dL Borderline High: 150-199 mg/dL High: 200-499 mg/dL Very High: >500 mg/dL Performed By: #### L 502.0250, L506.1001, L500.4050, L501.9520, L506.0400, L500.4100 #### [facility] [address] [place], [address] Microalb:Creat Ratio,Random URon 01-11-2025 Creatinine [Mass/Vol] 96.80 mg/dL Normal 28.00-217.00 [facility] Comment on above: Performed By: #### L 502.0250, L506.1001, L500.4050, L501.9520, L506.0400, L500.4100 #### [facility] [address] [place], [address] MALB:CREAT UNABLE TO CALCULATE Normal [facility] Comment on above: Performed By: #### L 502.0250, L506.1001, L500.4050, L501.9520, L506.0400, L500.4100 #### [facility] [address] [place], [address] MICROALBUMIN,UR < 12.0 Normal NO RANGE EST. [facility] Comment on above: Performed By: #### L 502.0250, L506.1001, L500.4050, L501.9520, L506.0400, L500.4100 #### [facility] [address] [place], [address] Microalbumin/creat ratio urO rdered By: Chintan Ramirez on 01-11-2025 Urine microalbumin/creatinine ratio measurement UNABLE TO CALCULATE mg/g CRE [facility] Potassium measurement (mass/ volume)Ordered By: Chintan Ramirez on 01-11-2025 Potassium (Unsp spec) [Mass/Vol] 4.0 mmol/L 3.3-5.1 [facility] Random urine creatinine delio urement (mass/volume)Ordered By: Chintan Ramirez on 01-11-2025 Creatinine Unsp time (U) [Mass/Vol] 96.80 mg/dL 28.00-217.00 [facility] Screening total cholesterol/ high density lipoprotein (HDL) cholesterol ratioOrdered By: Chintan Ramirez on 01-11-2025 Cholesterol.total/Chasity sterol in HDL [Mass ratio] 3.07 {ratio} [facility] Serum creatinine measurement (mass/volume)Ordered By: Chintan Ramirez on 01-11-2025 Creatinine [Mass/Vol] 0.69 mg/dL Low 0.70-1.20 [facility] Serum globulin measurementOr dered By: Chintan Ramirez on 01-11-2025 Globulin (S) [Mass/Vol] 2.6 g/dL 2.2-4.2 [facility] Serum glucose measurement (m ass/volume)Ordered By: Chintan Ramirez on 01-11-2025 Glucose [Mass/Vol] 126 mg/dL High 70-99 [facility] Serum or plasma alanine anthony otransferase (ALT) measurementOrdered By: Chintan Ramirez on 01-11-2025 ALT [Catalytic activity/Vol] 13 U/L <35 [facility] Serum or plasma albumin delio urement (mass/volume)Ordered By: Chintan Ramirez on 01-11-2025 Albumin [Mass/Vol] 3.9 g/dL 3.5-5.0 [facility] Serum or plasma albumin/glob ulin mass ratioOrdered By: Chintan Ramirez on 01-11-2025 Albumin/Globulin [Mass ratio] 1.5 {ratio} 0.9-2.4 [facility] Serum or plasma alkaline yue sphatase measurementOrdered By: Chintan Ramirez on 01-11-2025 ALP [Catalytic activity/Vol] 53 U/L 35-104 [facility] Serum or plasma calcium delio urement (mass/volume)Ordered By: Chintan Ramirez on 01-11-2025 Calcium [Mass/Vol] 9.5 mg/dL 7.6-11.0 [facility] Serum or plasma cholesterol in HDL measurement (mass/volume)Ordered By: Chintan Ramirez on 01-11-2025 Cholesterol in HDL [Mass/Vol] 49 mg/dL >40 [facility] Comment on above: National Cholesterol Education Program (NCEP) guidelines:<40 mg/dL: Low HDL-cholesterol (major risk factor for CHD)>= 60 mg/dL: High HDL-cholesterol (negative risk factor for CHD)HDL-cholesterol is affected by a number of factors, e.g. smoking, exercise, hormones, sex and age. Serum or plasma cholesterol measurement (mass/volume)Ordered By: Chintan Ramirez on 01-11-2025 Cholesterol [Mass/Vol] 150 mg/dL <201 [facility] Comment on above: Cholesterol level, D esirable <200 mg/dLBorderline high cholesterol 200-239 mg/dLHigh cholesterol >=240 mg/dLRecommendations of the NCEP Adult Treatment Panel for the following risk-cutoff thresholds for the [place] population. Serum or plasma urea nitroge n measurement (mass/volume)Ordered By: Chintan Ramirez on 01-11-2025 Urea nitrogen [Mass/Vol] 11 mg/dL 4-19 [facility] Sodium levelOrdered By: Chintan Ramirez on 01-11-2025 Sodium [Moles/Vol] 140 mmol/L 133-145 [facility] T4 Free Directon 01-11-2025 T4 FREE DIRECT 1.90 ng/dL High 0.76-1.46 [facility] Comment on above: Performed By: #### L 502.0250, L506.1001, L500.4050, L501.9520, L506.0400, L500.4100 #### [facility] [address] [place], [address] T4 freeOrdered By: Chintan Ramirez on 01-11-2025 Free T4 [Mass/Vol] 1.90 ng/dL High 0.76-1.46 [facility] TSH DL <= 0.005 mIU/L QnOrde red By: Chintan Ramirez on 01-11-2025 TSH Qn 1.520 uIU/mL 0.300-4.200 [facility] Thyroid Stim Hormone (TSH)on 01-11-2025 TSH 1.520 uIU/mL Normal 0.300-4.200 [facility] Comment on above: Performed By: #### L 502.0250, L506.1001, L500.4050, L501.9520, L506.0400, L500.4100 #### [facility] [address] [place], [place], [id number] Total proteinOrdered By: Narendra Ramirez on 01-11-2025 Protein [Mass/Vol] 6.5 g/dL 5.9-8.4 [facility] Triglycerides measurementOrd ered By: Chintan Ramirez on 01-11-2025 Triglyceride [Mass/Vol] 62 mg/dL <199 [facility] Comment on above: The drugs N-Acetylcy steine and Metamizole may falsely depress this assay. Normal range: <150 mg/dLBorderline High: 150-199 mg/dLHigh: 200-499 mg/dLVery High: >500 mg/dL Urine albumin measurement wi detection limit of 20 mg/L or less (mass/volume)Ordered By: Chintan Raimrez on 01-11-2025 Albumin DL <= 20 mg/L (U) [Mass/Vol] < 12.0 mg/L NO RANGE EST. [facility] Vitamin D,25 Hydroxyon 01-11 Vitamin D 25-OH 53.4 ng/mL Normal 30-100 [facility] Comment on above: Result Comment: Ilene min D Status Deficiency: <20 ng/mL (50nmol/L) Insufficiency: 20-30 ng/mL (50-75 nmol/L) Sufficiency: 30-100 ng/mL (75-250 nmol/L) Toxicity: >100 ng/mL (>250 nmol/L) Performed By: #### L 3100.0300, L3100.0460, L500.4050, L100.0100 #### [facility] [address] [place], [address] CNOVon 01-09-2025 CNOV Office Visit (OBGYWM ) EARLINE HERNANDEZ ([id number]) 1970 F Date Time Provider Department 01/09/25 7:15 AM NETTIE LYLES OBGYWM During your visit today, we recorded the following information about you: Blood pressure Weight Height Last Period 120/60 75.3 kg 1.676 m 03/22/20 Nettie Lyles APRN.[facility] 01/09/2025 7:46 AM Signed Batching Operator offered: Patient declinesElaina Patten is a 54 year old who presents for an annual gynecologic exam without complaints. Type 1 DM managed by stacking machine operator Dr. Ramirez. Postmenopausal: Yes. HRT use: No. 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 As applicable, any other physician, advance practice provider, medical student, or other health professional student that will be observing or involved in the sensitive examination for educational or training purposes was discussed with the Patient or Authorized Ladle Handler. The Patient or Authorized Ladle Handler has agreed to proceed with the sensitive [...] external genitalia atrophic, normal Bartholin's glands, urethra, [place]'s glands, no vulvar lesions, no cervical lesions, atrophic, good vaginal support, physiologic discharge present, normal appearing perineal body and perianal reg (more content not included)... Normal [facility] Hepatitis A AB, Totalon 08-26 HEPATITIS A,TOT Negative Normal Negative [facility] Comment on above: Result Comment: Comm ent: The HAV total antibody assay detects both IgG and IgM but does not differentiate between them. A negative result suggests susceptibility to infection. A positive result could be due to vaccination, previously resolved infection or active infection. Testing for HAV IgM should be performed if active HAV infection is suspected. [facility] offers profiles that will automatically reflex positive HAV total antibody results to IgM (e.g., panel #[id number] HAV Antibody w/ Rfx). Performed at: [address] [id number] Glove Stitcher: Lon Manzo PhD, Phone: [phone] Performed By: #### L 3100.0300, L3100.0460, L500.4050, L100.0100 #### [facility] [address] [place], [place], [id number] Hepatitis B Core Ab Totalon 09-21-2024 HEP B CORE,TOT Negative Normal Negative [facility] Comment on above: Performed By: #### L 3100.0300, L3100.0460, L500.4050, L100.0100 #### [facility] [address] [place], [address] CBC W/Diff, Automatedon 08-26 Absolute Neut Normal 2.0-7.7 [facility] Comment on above: Result Comment: PT R EFUSED AF Performed By: #### L 3100.0300, L3100.0460, L500.4050, L100.0100 #### [facility] [address] [place], [address] HCT Normal 37-47 [facility] Comment on above: Result Comment: PT R EFUSED AF Performed By: #### L 3100.0300, L3100.0460, L500.4050, L100.0100 #### [facility] [address] [place], [address] HGB Normal 12.0-15.0 [facility] Comment on above: Result Comment: PT R EFUSED AF Performed By: #### L 3100.0300, L3100.0460, L500.4050, L100.0100 #### [facility] [address] [place], [address] MCH Normal 27.0-32.0 [facility] Comment on above: Result Comment: PT R EFUSED AF Performed By: #### L 3100.0300, L3100.0460, L500.4050, L100.0100 #### [facility] [address] [place], [address] MCHC Normal 32-36 [facility] Comment on above: Result Comment: PT R EFUSED AF Performed By: #### L 3100.0300, L3100.0460, L500.4050, L100.0100 #### [facility] [address] [place], [address] MCV Normal 81-99 [facility] Comment on above: Result Comment: PT R EFUSED AF Performed By: #### L 3100.0300, L3100.0460, L500.4050, L100.0100 #### [facility] [address] [place], [address] NEUT% Normal 47-70 [facility] Comment on above: Result Comment: PT R EFUSED AF Performed By: #### L 3100.0300, L3100.0460, L500.4050, L100.0100 #### [facility] [address] [place], [address] PLT Normal 150-450 [facility] Comment on above: Result Comment: PT R EFUSED AF Performed By: #### L 3100.0300, L3100.0460, L500.4050, L100.0100 #### [facility] [address] [place], [address] RBC Normal 4.2-5.4 [facility] Comment on above: Result Comment: PT R EFUSED AF Performed By: #### L 3100.0300, L3100.0460, L500.4050, L100.0100 #### [facility] [address] [place], [address] RDW CV Normal 11.6-14.6 [facility] Comment on above: Result Comment: PT R EFUSED AF Performed By: #### L 3100.0300, L3100.0460, L500.4050, L100.0100 #### [facility] [address] [place], [address] RDW SD Normal 35.1-43.9 [facility] Comment on above: Result Comment: PT R EFUSED AF Performed By: #### L 3100.0300, L3100.0460, L500.4050, L100.0100 #### [facility] [address] [place], [address] WBC Normal 4.4-11.0 [facility] Comment on above: Result Comment: PT R EFUSED AF Performed By: #### L 3100.0300, L3100.0460, L500.4050, L100.0100 #### [facility] [address] [place], [address] Comprehensive Metabolic Prof karson 09-20-2024 ALB Normal 3.5-5.0 [facility] Comment on above: Result Comment: PT R EFUSED AF Performed By: #### L 3100.0300, L3100.0460, L500.4050, L100.0100 #### [facility] [address] [place], [address] ALK PHOS Normal 35-104 [facility] Comment on above: Result Comment: PT R EFUSED AF Performed By: #### L 3100.0300, L3100.0460, L500.4050, L100.0100 #### [facility] [address] [place], [address] ALT Normal <=34 [facility] Comment on above: Result Comment: PT R EFUSED AF Performed By: #### L 3100.0300, L3100.0460, L500.4050, L100.0100 #### [facility] [address] [place], [address] Anion Gap Normal 5-15 [facility] Comment on above: Result Comment: PT R EFUSED AF Performed By: #### L 3100.0300, L3100.0460, L500.4050, L100.0100 #### [facility] [address] [place], [address] AST Normal <=31 [facility] Comment on above: Result Comment: PT R EFUSED AF Performed By: #### L 3100.0300, L3100.0460, L500.4050, L100.0100 #### [facility] [address] [place], [address] BUN Normal 4-19 [facility] Comment on above: Result Comment: PT R EFUSED AF Performed By: #### L 3100.0300, L3100.0460, L500.4050, L100.0100 #### [facility] [address] [place], [address] BUN/CRE Normal 10-20 [facility] Comment on above: Result Comment: PT R EFUSED AF Performed By: #### L 3100.0300, L3100.0460, L500.4050, L100.0100 #### [facility] [address] [place], [address] Calcium Normal 7.6-11.0 [facility] Comment on above: Result Comment: PT R EFUSED AF Performed By: #### L 3100.0300, L3100.0460, L500.4050, L100.0100 #### [facility] [address] [place], [address] Chloride Normal 96-108 [facility] Comment on above: Result Comment: PT R EFUSED AF Performed By: #### L 3100.0300, L3100.0460, L500.4050, L100.0100 #### [facility] [address] [place], [address] CO2 Normal 22.0-29.0 [facility] Comment on above: Result Comment: PT R EFUSED AF Performed By: #### L 3100.0300, L3100.0460, L500.4050, L100.0100 #### [facility] [address] [place], [address] CREAT,SERUM Normal 0.6-1.0 [facility] Comment on above: Result Comment: PT R EFUSED AF Performed By: #### L 3100.0300, L3100.0460, L500.4050, L100.0100 #### [facility] [address] [place], [address] eGFR Normal >60 [facility] Comment on above: Result Comment: PT R EFUSED AF Performed By: #### L 3100.0300, L3100.0460, L500.4050, L100.0100 #### [facility] [address] [place], [address] GLU Normal 70-99 [facility] Comment on above: Result Comment: PT R EFUSED AF Performed By: #### L 3100.0300, L3100.0460, L500.4050, L100.0100 #### [facility] [address] [place], [address] Potassium Normal 3.3-5.1 [facility] Comment on above: Result Comment: PT R EFUSED AF Performed By: #### L 3100.0300, L3100.0460, L500.4050, L100.0100 #### [facility] [address] [place], [address] Sodium Normal 133-145 [facility] Comment on above: Result Comment: PT R EFUSED AF Performed By: #### L 3100.0300, L3100.0460, L500.4050, L100.0100 #### [facility] [address] [place], [address] T BILI Normal 0.00-1.30 [facility] Comment on above: Result Comment: PT R EFUSED AF Performed By: #### L 3100.0300, L3100.0460, L500.4050, L100.0100 #### [facility] [address] [place], [address] T PROT Normal 5.9-8.4 [facility] Comment on above: Result Comment: PT R EFUSED AF Performed By: #### L 3100.0300, L3100.0460, L500.4050, L100.0100 #### [facility] [address] [place], [address] Gastroenterology Visit Repor ton 09-20-2024 Gastroenterology Visit Report [facility] [address] [address] OFFICE VISIT Date of Service: 09/20/24 MR#: [id number] Acct: [id number] Name: EARLINE HERNANDEZ Rep #: [id number] : 1970 Provider: MILAGROS mata Age/Sex: 54/F [place] [facility] [place]: S[place] Intake Vital Signs 01/27/24 15:24 09/07/24 12:44 09/20/24 08:05 Height 5 ft 5 in 5 ft 5 in 5 ft 5 in Weight: 192 lb 6 oz BMI 32.0 BP 126/81 H Respiration 16 Pulse 81 Pulse Oximetry (%) 99 Oxygen Delivery Method room air Intake Visit Reasons: Test Result Chief Complaint: DM Stage Set Designer Required: No Is patient in pain?: No [...] QDAY 07/02/24 09/20/24 History 25 mg-coppr 0.5 rw-jvzf-gzlo tablet cholestacar PO 07/02/24 09/20/24 History elderberry [...] History (Updated 09/20/24 @ 08:32 by Antonieta Hernandez, BACKGROUND CHECK COORDINATOR-C) GERD (gastroesophageal reflux disease) Steatosis, liver Post-menopausal [...] FibroScan: 07/24/2024 (more content not included)... Normal [facility] Serum hepatitis B virus core antibody detectionOrdered By: Antonieta Hernandez on 09-20-2024 HBV core Ab Ql (S) Negative Negative [facility] Bedside Glucoseon 09-07-2024 FINGERSTICK GLU 123 mg/dL High 74-106 [facility] Comment on above: Result Comment: JOCELINE SLATER OF PATIENT CARE PER NURSING PROTOCOL Performed By: #### L 501.080 #### [facility] [address] [facility], [address] EGD Reporton 09-07-2024 EGD Report [facility] Medical Records Department [address] [facility] [address] [facility] [place] [address] EGD Report MR#: [id number] Acct: [id number] Name: EARLINE HERNANDEZ Rep #: [id number] : 1970 54 From: Rambo Friend DO PCP: Dr. Sánchez Tabares MD Status:REG [facility] Patient Name: Earline Hernandez Procedure Date: 09/07/2024 [...] pathology results. Procedure Code(s): --- Professional --- 25932, Esophagogastroduodeno scopy, flexible, transoral; with biopsy, single or multiple CPT copyright 2021 [employer]. All rights reserved. The codes documented in this report are preliminary and upon hcc coders review may be revised to meet current compliance requirements. Rambo Martin DO 09/07/2024 3:03:43 PM This report has been signed electronically. Number of Addenda: 0 Note Initiated On: 09/07/2024 2:48 PM 09/07/24 1504 Date Rambo Martin DO Cosigner Signature: Date (if indicated) CC: Dr. Sánchez Tabares MD; Rambo Martin DO Date Dictated: 09/07/24 1448 Date Transcribed: District Wildlife Manager: RF Signed [facility] MR/POSTOP.Elian 09-07-2024 MR/POSTOP.[facility] Medical Records Department [address] [place] [address] Anesthesia Postop Eval I 09/07/24 1502 MR#: [id number] Acct: [id number] Name: EARLINE HERNANDEZ Rep #: [id number] : 1970 54 From: Nader Elizalde PCP: Dr. Sánchez Tabares MD Status:REG SDC Y Race: C Location: [place] [address] Anesthesia: Postop Eval I Current Vital Signs [...] 1 completed: Yes 09/07/24 1503 Date Nader Jenkinsignmonica Signature: Date CC: Signed Normal [facility] MR/YOXGTESN1ra 09-07-2024 [facility] Medical Records Department [address] [place] [address] Anesthesia Postop Eval II 09/07/242127 MR#: [id number] Acct: [id number] Name: EARLINE HERNANDEZ Rep #: [id number] : 1970 54 From: Nilson Puga MD PCP: Dr. Sánchez Tabares MD Status:[facility] Y Race: C Location: EN Anesthesia Postop [...] Nilson Ni Signature: Date CC: Signed Normal [facility] Special Stain Group Ion - Special Stain Group I --- -------- Patient Age/Sex Location Account Attending Physician -------- EARLINE HERNANDEZ 54/F EN [id number] Rmabo Martin DO -------- Specimen: [id number] Received: 09/07/24 Status: SEVERINO Barton Num: [id number] Spec Type: EGD BIOPSY Subm Dr: DO MING Dailey OPERATION: EGD and biopsy PRE-OP DIAGNOSIS: Epigastric [...] totally submitted in one cassette. 09/10/2024 TC:3 [facility]:[id number] -------- Patient Age/Sex Location Account Attending Physician -------- CATARINAEARLINE POLO JONNIE 54/F EN [id number] Rambo Martin DO -------- Signed (signature on file) Dr. Madhuri Crum MD 09/11/24 1346 -------- Normal [facility] Comment on above: Performed By: #### L 3100.0300, L3100.0460, L500.4050, L100.0100 #### [facility] [address] [place], [place], [address] Endocrinology Visit Reporton 08-13-2024 Endocrinology Visit Report [facility] [address] [facility] [address] [facility] [place] [address] OFFICE VISIT Date of Service: 08/13/24 MR#: [id number] Acct: [id number] Name: ALLIEEARLINE Rep #: [id number] : 1970 Provider: Raghavendra Corcoran Age/Sex: 54/F [place] [facility] [place]: Signed Intake Vital Signs 08/09/23 16:02 [...] QDAY 07/02/24 08/13/24 History 25 mg-coppr 0.5 ph-vfsa-ugkz tablet cholestacar PO 07/02/24 08/13/24 History elderberry [...] Aller/Imm Allergy/Immunolog (more content not included)... Normal [facility] Abdomen Limitedon 07-11-2024 Abdomen Limited [facility] Imaging Services [address] [place] [address] Abdomen Limited MR#: [id number] Acct: [id number] Name: EARLINE HERNANDEZ Rep #: [id number] : 1970 F 54 From: Ilir mccarthy MD PCP: Dr. Sánchez Tabares MD Status: REG CLI Study: Abdomen Limited Date of Exam: 07/11/24 Exam# [id number] Ordering Dr: Antonieta Hernandez BACKGROUND CHECK COORDINATOR- C [id number] STUDY: ABDOMINAL ULTRASOUND - RIGHT UPPER QUADRANT [...] CC: MILAGROS Hernandez; Dr. Sánchez Tabares MD District Wildlife Manager: Signed [facility] Office Visit (FAMPWS ) EARLINE HERNANDEZ ([id number]) 1970 F Date Time Provider Department 07/09/24 7:40 PM SÁNCHEZ TABARES FAMPWS During your visit today, we recorded the [...] SCOPY TRANSORAL DIAGNOSTIC EGD done 2 times QVIVO COVID-19 VACCINE, AGE 12+ YR (PURPLE TOP) [...] Head: N (more content not included)... [facility] 07-02-2024 Gastroenterology Visit Report [facility] [address] [place] [address] OFFICE VISIT Date of Service: 07/02/24 MR#: [id number] Acct: [id number] Name: EARLINE HERNANDEZ Rep #: [id number] : 1970 Provider: MILAGROS mata Age/Sex: 54/F [place] [facility] [place]: Signed Intake Vital Signs 01/27/24 15:24 07/02/24 08:13 Height 5 ft 5 in Weight: 198 lb 194 lb 6 oz BMI 32.9 BP 128/70 H 117/78 Blood Pressure Location Lt brachial Position Sitting Respiration 18 Pulse 95 88 Pulse Source Monitor Pulse Oximetry (%) 98 98 Oxygen Delivery Method room air Intake Visit Reasons: Gastroesophageal reflux disease (GERD) Chief Complaint: GERD Stage Set Designer Required: No Is patient in pain?: No [...] QDAY 07/02/24 07/02/24 History 25 mg-coppr 0.5 yh-brds-mnvo tablet cholestacar PO 07/02/24 History elderberry fruit [...] she was 48. Last colonoscopy was 2022. [facility] Medical History Mixed hyperlipidemia Wears contact lenses [...] - negative - recall 5 years Colonoscopy/EGD 2018 - adenoma, negative for Morton's - epigastric [...] pain with (more content not included)... Normal [facility] CNTHERAPYon 02-24-2024 CNTHERAPY OT/PT/Speech Visit (PTWS) EARLINE HERNANDEZ ([id number]) 1970 F Date Time Provider Department 02/24/24 3:45 PM JUSTIN BURROWS PTDINAH Date Time Provider Department Center 02/24/2024 3:45 PM [id number], BRENT PTWS [facility] Reason for Visit: PT Discharge [752] Primary [...] - VITAMIN D 400 UNIT CAP Normal [facility] CNTHERAPYon 02-07-2024 CNTHERAPY OT/PT/Speech Visit (PTWS) EARLINE HERNANDEZ ([id number]) 1970 F Date Time Provider Department 02/07/24 3:30 PM JUSTIN BURROWS PTWS Date Time Provider Department Center 02/07/2024 3:30 PM [id number], BRENT PTWS Som Garcia Reason for Visit: [...] - VITAMIN D 400 UNIT CAP Normal [facility] HBA1C (OUTSIDE)on 01-27-2024 HbA1c (Bld) [Mass fraction] 6.0 % [facility] MICROALBUMIN/CREATININE UR W RATIO (EXTERNAL)Ordered By: Karrie Munguia on 01-27-2024 Albumin/Creat Ratio not done [facility] Creatinine Urine 14.30 [facility] Microalbumin, Random urine [facility] Comment on above: Dr King Jay Panel InformationOrdered By: Karrie Munguia on 01-27-2024 [facility] 25(OH)D3 SerPl-Karthikeyanon 2023 25-hydroxyvitamin D3 [Mass/Vol] 52.8 ng/mL Normal 31.0-80.0 [facility] Comment on above: Order Comment: Speci men Type: BLOOD SPECIMEN Ordering Facility: [facility] Address: [address] [facility], [place] [address] Result Comment: Clas sification of 25 [place] Vitamin D status: Deficiency/Insufficiency: < or = 30 ng/ml. Sufficiency/Optimal Levels: 31-80 ng/mL Toxicity: > 100 ng/mL. Test performed by chemiluminescent immunoassay. Performed By: #### 1 989-3 #### [facility] CLIA [id number] [address] [place] [address] [place] CBC W Auto Differential pane l (Bld)on 01-21-2024 Basophils (Bld) [#/Vol] 0.04 10*3/uL Normal <0.11 [facility] Comment on above: Order Comment: Speci men Type: BLOOD SPECIMEN Ordering Facility: [facility] Address: [address] [place] [address] Performed By: #### 5 7021-8 #### [facility] CLIA [id number] [address] [place] Basophils/100 WBC (Bld) 0.9 % Normal [facility] Comment on above: Order Comment: Speci men Type: BLOOD SPECIMEN Ordering Facility: [facility] Address: [address] [place] [address] Performed By: #### 5 7021-8 #### [facility] CLIA [id number] [address] Differential cell count method Nom (Bld) Auto Normal [facility] Comment on above: Order Comment: Speci men Type: BLOOD SPECIMEN Ordering Facility: [facility] Address: [address] [place] [address] Performed By: #### 5 7021-8 #### [facility] CLIA [id number] [address] [place] Eosinophils (Bld) [#/Vol] 0.12 10*3/uL Normal <0.46 [facility] Comment on above: Order Comment: Speci men Type: BLOOD SPECIMEN Ordering Facility: [facility] Address: [address] [place] [address] Performed By: #### 5 7021-8 #### [facility] CLIA [id number] [address] Eosinophils/100 WBC (Bld) 2.6 % Normal [facility] Comment on above: Order Comment: Speci men Type: BLOOD SPECIMEN Ordering Facility: [facility] Address: [address] [place] [address] Performed By: #### 5 7021-8 #### [facility] CLIA [id number] [address] Erythrocyte distribution width (RBC) [Ratio] 13.2 % Normal 11.5-15.0 [facility] Comment on above: Order Comment: Speci men Type: BLOOD SPECIMEN Ordering Facility: [facility] Address: [address] [place] [address] Performed By: #### 5 7021-8 #### [facility] CLIA [id number] [address] Hematocrit (Bld) [Volume fraction] 34.6 % Low 36.0-46.0 [facility] Comment on above: Order Comment: Speci men Type: BLOOD SPECIMEN Ordering Facility: [facility] Address: [address] [place] [address] Performed By: #### 5 7021-8 #### [facility] CLIA [id number] [address] Hemoglobin (Bld) [Mass/Vol] 11.6 g/dL Normal 11.5-15.5 [facility] Comment on above: Order Comment: Speci men Type: BLOOD SPECIMEN Ordering Facility: [facility] Address: [address] [place] [address] Performed By: #### 5 7021-8 #### [facility] CLIA [id number] [address] Immature granulocytes (Bld) [#/Vol] 10*3/uL Normal <0.10 [facility] Comment on above: Order Comment: Speci men Type: BLOOD SPECIMEN Ordering Facility: [facility] Address: [address] [place] [address] Performed By: #### 5 7021-8 #### [facility] CLIA [id number] [address] Immature granulocytes/100 WBC (Bld) 0.2 % Normal [facility] Comment on above: Order Comment: Speci men Type: BLOOD SPECIMEN Ordering Facility: [facility] Address: [address] [place] [address] Performed By: #### 5 7021-8 #### [facility] CLIA [id number] [address] [place] Lymphocytes (Bld) [#/Vol] 1.30 10*3/uL Normal 1.00-4.00 [facility] Comment on above: Order Comment: Speci men Type: BLOOD SPECIMEN Ordering Facility: [facility] Address: [address] [place] [address] Performed By: #### 5 7021-8 #### [facility] CLIA [id number] [address] Lymphocytes/100 WBC (Bld) 28.4 % Normal [facility] Comment on above: Order Comment: Speci men Type: BLOOD SPECIMEN Ordering Facility: [facility] Address: [address] [place] [address] Performed By: #### 5 7021-8 #### [facility] CLIA [id number] [address] MCH (RBC) [Entitic mass] 29.2 pg Normal 26.0-34.0 [facility] Comment on above: Order Comment: Speci men Type: BLOOD SPECIMEN Ordering Facility: [facility] Address: [address] [place] [address] Performed By: #### 5 7021-8 #### [facility] CLIA [id number] [address] MCHC (RBC) [Mass/Vol] 33.5 g/dL Normal 30.5-36.0 [facility] Comment on above: Order Comment: Speci men Type: BLOOD SPECIMEN Ordering Facility: [facility] Address: [address] [place] [address] Performed By: #### 5 7021-8 #### [facility] CLIA [id number] [address] MCV (RBC) [Entitic vol] 87.2 fL Normal 80.0-100.0 [facility] Comment on above: Order Comment: Speci men Type: BLOOD SPECIMEN Ordering Facility: [facility] Address: [address] [place] [address] Performed By: #### 5 7021-8 #### [facility] CLIA [id number] [address] [place] [address] [place] Monocytes (Bld) [#/Vol] 0.64 10*3/uL Normal <0.87 [facility] Comment on above: Order Comment: Speci men Type: BLOOD SPECIMEN Ordering Facility: [facility] Address: [address] [place] [address] Performed By: #### 5 7021-8 #### [facility] CLIA [id number] [address] Monocytes/100 WBC (Bld) 14.0 % Normal [facility] Comment on above: Order Comment: Speci men Type: BLOOD SPECIMEN Ordering Facility: [facility] Address: [address] [place] [address] Performed By: #### 5 7021-8 #### [facility] CLIA [id number] [address] [place] Neutrophils (Bld) [#/Vol] 2.46 10*3/uL Normal 1.45-7.50 [facility] Comment on above: Order Comment: Speci men Type: BLOOD SPECIMEN Ordering Facility: [facility] Address: [address] [place] [address] Performed By: #### 5 7021-8 #### [facility] CLIA [id number] [address] Neutrophils/100 WBC (Bld) 53.9 % Normal [facility] Comment on above: Order Comment: Speci men Type: BLOOD SPECIMEN Ordering Facility: [facility] Address: [address] [place] [address] Performed By: #### 5 7021-8 #### [facility] CLIA [id number] [address] [place] Nucleated RBC (Bld) [#/Vol] 10*3/uL Normal <0.01 [facility] Comment on above: Order Comment: Speci men Type: BLOOD SPECIMEN Ordering Facility: [facility] Address: [address] [place] [address] Performed By: #### 5 7021-8 #### [facility] CLIA [id number] [address] [place] Nucleated RBC/100 WBC (Bld) [Ratio] 0.0 /100 WBC Normal [facility] Comment on above: Order Comment: Speci men Type: BLOOD SPECIMEN Ordering Facility: [facility] Address: [address] [place] [address] Performed By: #### 5 7021-8 #### [facility] CLIA [id number] [address] [place] [address] [place] Platelet mean volume (Bld) [Entitic vol] 11.2 fL Normal 9.0-12.7 [facility] Comment on above: Order Comment: Speci men Type: BLOOD SPECIMEN Ordering Facility: [facility] Address: [address] [place] [address] Performed By: #### 5 7021-8 #### [facility] CLIA [id number] [address] [place] Platelets (Bld) [#/Vol] 262 10*3/uL Normal 150-400 [facility] Comment on above: Order Comment: Speci men Type: BLOOD SPECIMEN Ordering Facility: [facility] Address: [address] [place] [address] Performed By: #### 5 7021-8 #### [facility] CLIA [id number] [address] [place] RBC (Bld) [#/Vol] 3.97 10*6/uL Normal 3.90-5.20 [facility] Comment on above: Order Comment: Speci men Type: BLOOD SPECIMEN Ordering Facility: [facility] Address: [address] [place] [address] Performed By: #### 5 7021-8 #### [facility] CLIA [id number] [address] [place] WBC (Bld) [#/Vol] 4.57 10*3/uL Normal 3.70-11.00 [facility] Comment on above: Order Comment: Speci men Type: BLOOD SPECIMEN Ordering [facility] Address: [address] [place] [address] Performed By: #### 5 7021-8 #### [facility] CLIA [id number] [address] [place] [address] [place] Comprehensive metabolic 2000 panelon 01-21-2024 Albumin [Mass/Vol] 4.3 g/dL Normal 3.9-4.9 [facility] Comment on above: Order Comment: Speci men Type: BLOOD SPECIMEN Ordering Facility: [facility] Address: [address] [place] [address] Performed By: #### 2 4323-8, 3016-3, 90939-1 #### [facility] CLIA [id number] [address] [place] ALP [Catalytic activity/Vol] 69 U/L Normal 34-123 [facility] Comment on above: Order Comment: Speci men Type: BLOOD SPECIMEN Ordering Facility: [facility] Address: [address] [place] [address] Performed By: #### 2 4323-8, 6-3, 84649-4 #### [facility] CLIA [id number] [address] ALT [Catalytic activity/Vol] 15 U/L Normal 7-38 [facility] Comment on above: Order Comment: Speci men Type: BLOOD SPECIMEN Ordering Facility: [facility] Address: [address] [place] [address] Performed By: #### 2 4323-8, 6-3, 45051-6 #### [facility] CLIA [id number] [address] Anion gap [Moles/Vol] 7 mmol/L Low 8-15 [facility] Comment on above: Order Comment: Speci men Type: BLOOD SPECIMEN Ordering Facility: [facility] Address: [address] [place], [place] [address] Performed By: #### 2 4323-8, 3016-3, 75906-1 #### [facility] CLIA [id number] [address] AST [Catalytic activity/Vol] 21 U/L Normal 13-35 [facility] Comment on above: Order Comment: Speci men Type: BLOOD SPECIMEN Ordering Facility: [facility] Address: [address] [facility], [place] [address] Performed By: #### 2 4323-8, 3016-3, 54562-3 #### [facility] CLIA [id number] [address] [place] [address] [place] Bilirubin [Mass/Vol] 0.3 mg/dL Normal 0.2-1.[address] [facility] Comment on above: Order Comment: Speci men Type: BLOOD SPECIMEN Ordering Facility: [facility] Address: [address] [facility], [place] [address] Performed By: #### 2 4323-8, 6-3, 74107-3 #### [facility] CLIA [id number] [address] [place] Calcium [Mass/Vol] 9.7 mg/dL Normal 8.5-10.2 [facility] Comment on above: Order Comment: Speci men Type: BLOOD SPECIMEN Ordering Facility: [facility] Address: [address] [place] [address] Performed By: #### 2 4323-8, 3, 72494-0 #### [facility] CLIA [id number] [address] [place] [address] [place] Chloride [Moles/Vol] 102 mmol/L Normal 98-[address] [facility] Comment on above: Order Comment: Speci men Type: BLOOD SPECIMEN Ordering Facility: [facility] Address: [address] [place] [address] Performed By: #### 2 4323-8, 3, 35376-5 #### [facility] CLIA [id number] [address] [place] [address] [place] CO2 [Moles/Vol] 31 mmol/L High 22-30 [facility] Comment on above: Order Comment: Speci men Type: BLOOD SPECIMEN Ordering Facility: [facility] Address: [address] [place] [address] Performed By: #### 2 4323-8, 6-3, 02276-0 #### [facility] CLIA [id number] [address] [place] Creatinine [Mass/Vol] 0.83 mg/dL Normal 0.58-0.96 [facility] Comment on above: Order Comment: Laci gandhi Type: BLOOD SPECIMEN Ordering Facility[facility] Address: [address] [facility], [place] [address] Performed By: #### 2 4323-8, 3016-3, 25879-0 #### [facility] CLIA [id number] [address] OF [facility] Creatinine and Glomerular filtration rate.predicted panel (S/P/Bld) 83 mL/min/1.73m??? Normal >=60 [facility] Comment on above: Order Comment: Laci gandhi Type: BLOOD SPECIMEN Ordering Facility: [facility] Address: [address] [place] [address], [place] [address] Result Comment: Marion mated Glomerular Filtration Rate [...] GFR. Performed By: #### 2 4323-8, 3016-3, 24863-8 #### [facility] CLIA [id number] [address] [place] [address] [place] Glucose [Mass/Vol] 116 mg/dL High 74-99 [facility] Comment on above: Order Comment: Laci hiram Type: BLOOD SPECIMEN Ordering Facility: [facility] Address: [address] [place] [address] Result Comment: The [place] [employer] (ADA) provides guidance for cutoff [...] Standards of Medical Care in Diabetes 2016, [place] [employer]. Diabetes Care. 2016.39(Suppl 1). Performed By: #### 2 4323-8, 3016-3, 28366-9 #### [facility] CLIA [id number] [address] [place] Potassium [Moles/Vol] 4.8 mmol/L Normal 3.7-5.1 [facility] Comment on above: Order Comment: Speci men Type: BLOOD SPECIMEN Ordering Facility: [facility] Address: [address] [place] [address] Performed By: #### 2 4323-8, 3016-3, 06146-2 #### [facility] CLIA [id number] [address] [place] Protein [Mass/Vol] 6.6 g/dL Normal 6.3-8.0 [facility] Comment on above: Order Comment: Speci men Type: BLOOD SPECIMEN Ordering Facility: [facility] Address: [address] [place] [address] Performed By: #### 2 4323-8, 6-3, 21356-5 #### [facility] CLIA [id number] [address] Sodium [Moles/Vol] 140 mmol/L Normal 136-144 [facility] Comment on above: Order Comment: Speci men Type: BLOOD SPECIMEN Ordering Facility[facility] Address: [address] [place] [address] Performed By: #### 2 4323-8, 6-3, 26449-6 #### [facility] CLIA [id number] [address] STATES [facility] Urea nitrogen [Mass/Vol] 17 mg/dL Normal 7-21 [facility] Comment on above: Order Comment: Speci men Type: BLOOD SPECIMEN Ordering Facility[facility] Address: [address] [place] [address] Performed By: #### 2 4323-8, 3016-3, 69624-0 #### [facility] CLIA [id number] [address] [place] Creatinine Unsp time (U) [Ma ss/Vol]on 01-21-2024 Creatinine (U) [Mass/Vol] 48.4 mg/dL Normal 20.0-300.0 [facility] Comment on above: Order Comment: Laci gandhi Type: URINE SPECIMEN Ordering Facility[facility] Address: [address] [place] [address] Performed By: #### 3 5674-1 #### [facility] CLIA [id number] [address] [facility] [id number] [place] [address] [place] Lipid 1996 panelon 4 Cholesterol [Mass/Vol] 152 mg/dL Normal <200 [facility] Comment on above: Order Comment: Lexusedith gandhi Type: BLOOD SPECIMEN Ordering [facility] Address: [address] [place] [address] Result Comment: <200 mg/dL, Desirable 200-239 mg/dL, Borderline high >239 mg/dL, High Performed By: #### 2 4323-8, 3016-3, 25616-4 #### [facility] CLIA [id number] [address] Cholesterol in HDL [Mass/Vol] 56 mg/dL Normal >39 [facility] Comment on above: Order Comment: Lexusedith [facility] Type: BLOOD SPECIMEN Ordering Facility: [facility] Address: [address] [place] [address] Result Comment: 40-5 9 mg/dL, Acceptable >59 mg/dL, High: Negative risk factor for coronary heart disease <40 mg/dL, Low: Positive risk factor for coronary heart disease Performed By: #### 2 4323-8, 3016-3, 23264-8 #### [facility] CLIA [id number] [address] Cholesterol in LDL [Mass/Vol] 84 mg/dL Normal <100 [facility] Comment on above: Order Comment: Laci gandhi Type: BLOOD SPECIMEN Ordering Facility: [facility] Address: [address] [place], [place] [id number] Result Comment: <100 mg/dL, Optimal 100-129 mg/dL, Near optimal/above optimal 130-159 mg/dL, Borderline high 160-189 mg/dL, High >189 mg/dL, Very high Secondary prevention optimal LDL Cholesterol levels are recommended to be < 70 mg/dL Performed By: #### 2 4323-8, 6-3, 47722-7 #### [facility] CLIA [id number] [address] Cholesterol in LDL/Cholesterol in HDL [Mass ratio] 1.50 {ratio} Normal <2.54 [facility] Comment on above: Order Comment: Speci men Type: BLOOD SPECIMEN Ordering Facility: [facility] Address: [address] [place] [address] Result Comment: Robina ozuna: 1. National Cholesterol Education Program ATP III Guideline At-A-Glance Quick Desk Reference: National Heart, Lung, and Blood Coral. National Institutes of Health. 2001: NIH Publication No. 01-3305. 2. An International Atherosclerosis Society position paper: global recommendations for the management of dyslipidemia: executive summary, Atherosclerosis. 2014: 232(2):410-413. Performed By: #### 2 4323-8, 6-3, 24535-8 #### [facility] CLIA [id number] [address] Cholesterol in VLDL [Mass/Vol] 12 mg/dL Normal <30 [facility] Comment on above: Order Comment: Lexusi hiram Type: BLOOD SPECIMEN Ordering Facility: [facility] Address: [address] [place] [address] Performed By: #### 2 4323-8, 6-3, 13821-7 #### [facility] CLIA [id number] [address] Cholesterol non HDL [Mass/Vol] 96 mg/dL Normal <130 [facility] Comment on above: Order Comment: Lexusi men Type: BLOOD SPECIMEN Ordering Facility: [facility] Address: [address] [place] [address] Result Comment: <130 mg/dL, Optimal 130-159 mg/dL, Near optimal/above optimal 160-189 mg/dL, Borderline high 190-219 mg/dL, High >219 mg/dL, Very high Secondary prevention optimal non HDL Cholesterol levels are recommended to be <100 mg/dL Performed By: #### 2 4323-8, 3016-3, 56772-3 #### [facility] CLIA [id number] [address] Cholesterol.total/Chasity sterol in HDL [Mass ratio] 2.71 {ratio} Normal <5.10 [facility] Comment on above: Order Comment: Speci men Type: BLOOD SPECIMEN Ordering Facility: [facility] Address: [address] [place] [address] Performed By: #### 2 4323-8, 3016-3, 12062-3 #### [facility] CLIA [id number] [address] FASTING TIME 8 hrs Normal [facility] Comment on above: Order Comment: Speci men Type: BLOOD SPECIMEN Ordering Facility: [facility] Address: [address] [place] [address] Performed By: #### 2 4323-8, 3016-3, 77033-6 #### [facility] CLIA [id number] [address] Triglyceride [Mass/Vol] 59 mg/dL Normal <150 [facility] Comment on above: Order Comment: Speci men Type: BLOOD SPECIMEN Ordering Facility: [facility] Address: [address] [place] [address] Result Comment: <150 mg/dL, Normal 150-199 mg/dL, Borderline high 200-499 mg/dL, High >499 mg/dL, Very high Performed By: #### 2 4323-8, 3016-3, 76651-2 #### [facility] CLIA [id number] [address] TSH SerPl-aCncon 01-21-2024 TSH Qn 2.200 m[IU]/L Normal 0.270-4.200 [facility] Comment on above: Order Comment: Speci men Type: BLOOD SPECIMEN Ordering Facility: [facility] Address: [address] [place] [address] Performed By: #### 2 4323-8, 3016-3, 67328-4 #### [facility] CLIA [id number] [address] ANES POSTPROC EVALon 023 ANES POSTPROC EVAL HNO ID: [id number] Author: Lawrence Saleh APRN.PRINT PRODUCER Service: Anesthesiology Author Type: Nurse Mechanical Manufacturing Engineer Type: Anesthesia Postprocedure Evaluation Filed: 06/02/2023 8:26 AM Note Text: POST ANESTHESIA EVALUATION NOTE : 1970 Procedure Summary Date: 06/02/23 Room / Location: LD SURGERY Anesthesia Start: 0754 Anesthesia Stop: 08 Procedure: COLONOSCOPY SCREENING Diagnosis: History of colonic polyps History of colonic polyps Scheduled Providers: Danae Hernandez MD; Lawrence Saleh APRN.PRINT PRODUCER Responsible Provider: Lawrence Saleh APRN.PRINT PRODUCER Anesthesia Type: MAC ASA Status: 3 Anesthesia [...] Anesthesia Observations No Documentation SIGNATURE: Lawrence Saleh APRN.PRINT PRODUCER PATIENT NAME: Earline Hernandez DATE: June 02, 2023 TIME: 8:25 AM CSN: [id number] Normal [facility] ANES PRE-OPon 06-02-2023 ANES PRE-OP HNO ID: [id number] Author: Lawrence Saleh APRN.PRINT PRODUCER Service: Anesthesiology Author Type: Nurse Mechanical Manufacturing Engineer Type: Anesthesia Preprocedure Evaluation Filed: 06/02/2023 7:38 AM Note Text: ANESTHESIOLOGY DAY OF SURGERY NOTE : 1970 Procedure Information Date/Time: 06/02/23 0800 Scheduled providers: Danae Hernandez MD; Lawrence Saleh APRN.PRINT PRODUCER Procedure: COLONOSCOPY SCREENING Location: LD SURGERY Estimated [...] and consent discussed: yes. Patient / Responsible [employer] agrees to proceed: yes Patient / [...] 48 hours of Surgery/Procedure. SIGNATURE: Lawrence Saleh APRN.PRINT PRODUCER PATIENT NAME: Earline Hernandez DATE: June 02, 2023 TIME: 7:37 AM CSN: [id number] [facility] BRIEF OP NOTon 06-02-2023 BRIEF OP NOT HNO ID: [id number] Author: Danae Hernandez MD Service: General Surgery Author Type: Physician Type: Brief Op Note Filed: 06/02/2023 8:23 AM Note Text: BRIEF OPERATIVE NOTE SURGERY DATE: 06/02/2023 Incision/Procedure Start Time: 08:00 cecal intubation time: 8:11 Incision Close/Procedure End Time: 8:20 Surgeon(s)/Procedural ist(s) and Superintendent Car Construction(s): dora Procedures: Colonoscopy, screening high risk Anesthesia: MAC Findings: hemorrhoids Estimated Blood Loss: 0 ml Specimens: None Complications: None Closure Technique: na Preop Diagnosis: history of colon polyps, last colonoscopy 2017 withpolyp Postop Diagnosis: hemorrhoids SIGNATURE: Danae Hernandez MD PATIENT NAME: Earline Hernandez DATE: June 02, 2023 TIME: 8:21 AM Acct: [id number] Normal [facility] HISTORY PHYSICALon 3 HISTORY PHYSICAL HNO ID: [id number] Author: Danae Hernandez MD Service: General Surgery [...] SCOPY TRANSORAL DIAGNOSTIC EGD done 2 times QVIVO COVID-19 VACCINE, AGE 12+ YR (PURPLE TOP) [...] entered by the nurse and reviewed by az Nursing Notes: Carla Montero LPN 05/11/2023 1:12 [...] (more content not included)... Normal [facility] OPERATIVE NOon 06-02-2023 OPERATIVE NO HNO ID: [id number] Author: Danae Hernandez MD Service: General Surgery Author Type: Physician Type: Operative Report Filed: 06/02/2023 6:13 PM Note Text: [facility] - Operative Report - [place] EARLINE HERNANDEZ : 1970 AGE: 53. SEX: F PATIENT TYPE: O HOSP SVC: GNS LOCATION: [facility] ATTENDING PHYSICIAN: Danae Hernandez MD CSN NUMBER: [id number] DATE OF SURGERY/PROCEDURE: 06/02/2023 INCISION/PROCEDURE START TIME: 8:00 AM INCISION CLOSE/PROCEDURE END TIME: 8:20 AM PREOPERATIVE DIAGNOSIS: History of colon polyps. POSTOPERATIVE DIAGNOSIS: Hemorrhoids. SURGEON: Danae Hernandez MD LABEL CODER: No Additional Staff SURGERY/PROCEDURE: Colonoscopy. ANESTHESIA: Monitored anesthesia care. LOCATION: [facility]. INDICATIONS: The patient is a 53-year-old [...] colonoscopy in 5 years. Danae Hernandez MD LW:[id number] Normal [facility] NURSING PROGon 05-18-2023 NURSING PROG HNO ID: [id number] Author: Sonia Mackey, RN Service: ? Author Type: Registered Nurse Type: Nursing Progress Note Filed: 05/18/2023 2:25 PM Note Text: Pre-Procedure Checklist Earline Hernandez [phone] (home) 1970 53 year old Body mass index is 32.62 kg/m?. Wt 196lb, HT 5f5in Allergies: Apples Bactrim [Sulfametho* Diarrhea Bananas [Other] Environmental [Othe* Lovastatin Other: See Comments Comment:poor sleep, excessive dreaming Date of Procedure: 06/02/23 colonoscopy Smoke: No Alcohol: No Street Drugs: No Diabetic: Yes Insulin: Yes Problems with Anesthesia (Self or Family?) No Plastic Molding Operator: none Saw supervisor concrete stone fabricating in the last 6 months? No Recent EKG/Cardiac Testing: No Chest pain in the last 6 months (<6 months cardiac clearance needed): No History of: Heart Attack/Stroke/Blood Clot?: denies Shortness of Breath: No Asthma: Yes Inhalers: No Any Outstanding Consults?: No If yes, list: N/A Additional Notes: Patient has an insulin pump, spouse will be bringing patient to procedure. Normal [facility] Basophil percentageOrdered B y: Shruthi Flores on 02-05-2023 Bilirubin [Mass/Vol] 0.30 mg/dL 0.20-1.00 [facility] Comment on above: For patients on eltr ombopag therapy, use of Dimension Metz TBIL is not recommended. Chloride [Moles/Vol] 104 mmol/L 98-107 [facility] Cholesterol [Mass/Vol] 142 mg/dL <200 [facility] Comment on above: <200 mg/dL Desirable 200-240 mg/dL Borderline >240 mg/dL High Risk Glucose [Mass/Vol] 69 mg/dL 74-106 [facility] Potassium [Moles/Vol] 3.6 mmol/L 3.5-5.1 [facility] Protein [Mass/Vol] 6.6 g/dL 6.4-8.2 [facility] Sodium [Moles/Vol] 139 mmol/L 136-145 [facility] Triglyceride [Mass/Vol] 24 mg/dL <199 [facility] Comment on above: The drugs N-Acetylcy steine and Metamizole may falsely depress this assay.Serum Triglycerides Reference Interval Normal <150 mg/dL Borderline high 150 - 199 mg/dL High 200 - 499 mg/dL Very High > or = 500 mg/dL Laboratory - Chemistry and C hemistry - challengeOrdered By: Shruthi Flores on 02-05-2023 ALP [Catalytic activity/Vol] 62 U/L 45-117 [facility] ALT [Catalytic activity/Vol] 19 U/L 13-56 [facility] CO2 [Moles/Vol] 32.0 mmol/L 21.0-32.0 [facility] Free T4 [Mass/Vol] 1.32 ng/dL 0.76-1.46 [facility] Globulin (S) [Mass/Vol] 3.3 g/dL 2.2-4.2 [facility] Urea nitrogen/Creatinine [Mass ratio] 14.8 mg/mg 10-20 [facility] MICROALBUMIN/CREATININE UR W RATIO (EXTERNAL)on 02-05-2023 Albumin/Creat Ratio [facility] Creatinine Urine 23.10 [facility] Microalbumin, Random urine [facility] No Panel InformationOrdered By: Shruthi Flores on 02-05-2023 Estimated GFR (MDRD) Amer 94 mL/min >60 [facility] Comment on above: GFR Calc Estimated GFR (MDRD) Non-Af Amer 78 mL/min >60 [facility] Comment on above: Non- GFR Calc Thyroid Stimulating Hormone (TSH) 2.11 uIU/mL 0.358-3.74 [facility] Urine Microalbumin/Creatinine Ratio TNP [facility] Comment on above: Test not performed Vitamin D 25-Hydroxy 69.8 ng/mL [facility] Comment on above: Vitamin D 25(OH) Sta tus Range Deficiency <20 ng/mL (50nmol/L) Insufficiency 20 - 30 ng/mL (50 - 75 nmol/L) Sufficiency 30 - 100 ng/mL (75 - 250 nmol/L) Toxicity >100 ng/mL (>250 nmol/L) Serum or plasma albumin delio urement (mass/volume)Ordered By: Shruthi Flores on 02-05-2023 Albumin [Mass/Vol] 3.3 g/dL 3.2-5.0 [facility] Serum or plasma albumin/glob ulin mass ratioOrdered By: Shruthi Flores on 02-05-2023 Albumin/Globulin [Mass ratio] 1.0 {ratio} 0.9-2.4 [facility] Serum or plasma calcium delio urement (mass/volume)Ordered By: Shruthi Flores on 02-05-2023 Calcium [Mass/Vol] 9.1 mg/dL 8.5-10.1 [facility] Serum or plasma cholesterol in HDL measurement (mass/volume)Ordered By: Shruthi Flores on 02-05-2023 Cholesterol in HDL [Mass/Vol] 59 mg/dL >40 [facility] Comment on above: The drugs N-Acetylcy steine and Metamizole may falsely depress this assay. Reference Range HDL <40 mg/dL Low HDL Cholesterol HDL >or= 60 mg/dL High HDL Cholesterol Serum or plasma cholesterol in VLDL measurement (mass/volume)Ordered By: Shruthi Flores on 02-05-2023 Cholesterol in VLDL [Mass/Vol] 5 mg/dL 5-40 [facility] Serum or plasma creatinine m easurement (mass/volume)Ordered By: Shruthi Flores on 02-05-2023 Creatinine [Mass/Vol] 0.81 mg/dL 0.55-1.02 [facility] Comment on above: The validity of the calculated GFR & GFRAA in patients over 70 years has not been determined. Clinical correlation is essential. Serum or plasma low density lipoprotein (LDL) cholesterol measurement (mass/volume)Ordered By: Shruthi Flores on 02-05-2023 Cholesterol in LDL [Mass/Vol] 78 mg/dL 0-130 [facility] Serum or plasma urea nitroge n measurement (mass/volume)Ordered By: Shruthi Flores on 02-05-2023 Urea nitrogen [Mass/Vol] 12 mg/dL 7-18 [facility] Thin prep Papanicolaou smear with manual screeningOrdered By: Shruthi Flores on 02-05-2023 Thin prep Papanicolaou smear with manual screening 19 U/L 15-37 [facility] Thin prep Papanicolaou smear with manual screening 3 5-15 [facility] Thin prep Papanicolaou smear with manual screening < 5.0 mg/L NO RANGE EST. [facility] Urine creatinine measurement (mass/volume)Ordered By: Shruthi Flores on 02-05-2023 Creatinine (U) [Mass/Vol] 23.10 mg/dL NO RANGE EST. [facility] Whole blood hemoglobin A1c/t otal hemoglobin ratio (mass fraction)Ordered By: Shruthi Flores on 02-05-2023 HbA1c (Bld) [Mass fraction] 6.6 % 3.8-5.6 [facility] Comment on above: Normal < 5.7 % Predi abetic 5.7 - 6.4 % Diabetic >or= 6.5 % Please note range changes. HBA1C (OUTSIDE)on 08-10-2022 HbA1c (Bld) [Mass fraction] 6.2 % [facility] ALBUMIN/CREAT RATIO (UACR) ( FOR REMOTE [facility] USE)on 01-26-2022 Creatinine (U) [Mass/Vol] 51.50 mg/dL 10 - 300 mg/dL [facility] Microalbumin, Random urine 5.0 [facility] HbA1c (Bld)on 01-26-2022 HbA1c (Bld) [Mass fraction] 6.1 % Abnormal 4 - 6 % [facility] LIPID PANEL (EXTERNAL)on Cholesterol [Mass/Vol] 165 mg/dL 0 - 200 MG/DL [facility] HDC-L 60 mg/dL Abnormal 41 mg/dL [facility] LDL Chol, calculated 92 MG/DL 130 MG/DL [facility] Triglyceride [Mass/Vol] 64 mg/dL 149 mg/dL [facility] Basophil percentageon 2021 Bilirubin [Mass/Vol] 0.40 mg/dL 0.20-1.00 [facility] Work Phone: Comment on above: For patients on eltr ombopag therapy, use of Dimension Metz TBIL is not recommended. Chloride [Moles/Vol] 104 mmol/L 98-107 [facility] Work Phone: Cholesterol [Mass/Vol] 165 mg/dL <200 [facility] Work Phone: Comment on above: <200 mg/dL Desirable 200-240 mg/dL Borderline >240 mg/dL High Risk Glucose [Mass/Vol] 136 mg/dL 74-106 [facility] Work Phone: Comment on above: Fasting Glucose resu lt greater than or equal to 126 mg/dL suggests DIABETES MELLITUS per A.D.A. criteria. Potassium [Moles/Vol] 4.0 mmol/L 3.5-5.1 [facility] Work Phone: Protein [Mass/Vol] 6.8 g/dL 6.4-8.2 [facility] Work Phone: Sodium [Moles/Vol] 139 mmol/L 136-145 [facility] Work Phone: Triglyceride [Mass/Vol] 64 mg/dL <199 [facility] Work Phone: Comment on above: The drugs N-Acetylcy steine and Metamizole may falsely depress this assay.Serum Triglycerides Reference Interval Normal <150 mg/dL Borderline high 150 - 199 mg/dL High 200 - 499 mg/dL Very High > or = 500 mg/dL Laboratory - Chemistry and C hemistry - challengeon 01-23-2022 ALP [Catalytic activity/Vol] 53 U/L 45-117 [facility] Work Phone: ALT [Catalytic activity/Vol] 24 U/L 13-56 [facility] Work Phone: CO2 [Moles/Vol] 29.0 mmol/L 21.0-32.0 [facility] Work Phone: Globulin (S) [Mass/Vol] 3.3 g/dL 2.2-4.2 [facility] Work Phone: Urea nitrogen/Creatinine [Mass ratio] 14.0 mg/mg 10-20 [facility] Work Phone: No Panel Informationon 01-23 Estimated GFR (MDRD) Amer 99 mL/min >60 [facility] Work Phone: Comment on above: GFR Calc Estimated GFR (MDRD) Non-Af Amer 82 mL/min >60 [facility] Work Phone: Comment on above: Non- GFR Calc Thyroid Stimulating Hormone (TSH) 1.09 uIU/mL 0.358-3.74 [facility] Work Phone: Urine Microalbumin/Creatinine Ratio TNP [facility] Work Phone: Comment on above: Test not performed Vitamin D 25-Hydroxy 54.8 ng/mL [facility] Work Phone: Comment on above: Vitamin D 25(OH) Sta tus Range Deficiency <20 ng/mL (50nmol/L) Insufficiency 20 - 30 ng/mL (50 - 75 nmol/L) Sufficiency 30 - 100 ng/mL (75 - 250 nmol/L) Toxicity >100 ng/mL (>250 nmol/L) Serum or plasma albumin delio urement (mass/volume)on 01-23-2022 Albumin [Mass/Vol] 3.5 g/dL 3.2-5.0 [facility] Work Phone: Serum or plasma albumin/glob ulin mass ratioon 01-23-2022 Albumin/Globulin [Mass ratio] 1.1 {ratio} 0.9-2.4 [facility] Work Phone: Serum or plasma calcium delio urement (mass/volume)on 01-23-2022 Calcium [Mass/Vol] 9.2 mg/dL 8.5-10.1 [facility] Work Phone: Serum or plasma cholesterol in HDL measurement (mass/volume)on 01-23-2022 Cholesterol in HDL [Mass/Vol] 60 mg/dL >40 [facility] Work Phone: Comment on above: The drugs N-Acetylcy steine and Metamizole may falsely depress this assay. Reference Range HDL <40 mg/dL Low HDL Cholesterol HDL >or= 60 mg/dL High HDL Cholesterol Serum or plasma cholesterol in VLDL measurement (mass/volume)on 01-23-2022 Cholesterol in VLDL [Mass/Vol] 13 mg/dL 5-40 [facility] Work Phone: Serum or plasma creatinine m easurement (mass/volume)on 01-23-2022 Creatinine [Mass/Vol] 0.78 mg/dL 0.55-1.02 [facility] Work Phone: Comment on above: The validity of the calculated GFR & GFRAA in patients over 70 years has not been determined. Clinical correlation is essential. Serum or plasma low density lipoprotein (LDL) cholesterol measurement (mass/volume)on 01-23-2022 Cholesterol in LDL [Mass/Vol] 92 mg/dL 0-130 [facility] Work Phone: Serum or plasma urea nitroge n measurement (mass/volume)on 01-23-2022 Urea nitrogen [Mass/Vol] 11 mg/dL 7-18 [facility] Work Phone: Thin prep Papanicolaou smear with manual screeningon 01-23-2022 Thin prep Papanicolaou smear with manual screening 21 U/L 15-37 [facility] Work Phone: Thin prep Papanicolaou smear with manual screening 6 5-15 [facility] Work Phone: Thin prep Papanicolaou smear with manual screening < 5.0 mg/L NO RANGE EST. [facility] Work Phone: Urine creatinine measurement (mass/volume)on 01-23-2022 Creatinine (U) [Mass/Vol] 51.50 mg/dL NO RANGE EST. [facility] Work Phone: Whole blood hemoglobin A1c/t otal hemoglobin ratio (mass fraction)on 01-23-2022 HbA1c (Bld) [Mass fraction] 6.1 % 3.8-5.6 [facility] Work Phone: Comment on above: Normal < 5.7 % Predi abetic 5.7 - 6.4 % Diabetic >or= 6.5 % Please note range changes. HGB A1Con 08-10-2021 HbA1c (Bld) [Mass fraction] 6.1 % Abnormal 4 - 6 % [facility] XR Shoulder - right 3 Viewso n 09-15-2020 IMPRESSION: Minimal reactive changes of the AC joint, otherwise no significant bony process is identified. District Wildlife Manager: PSCB Transcribe Date/Time: Sep 15 2020 7:09P Dictated by : QUYNH ARCE MD This examination was interpreted and the report reviewed and electronically signed by: QUYNH ARCE MD on Sep 15 2020 7:11PM [facility] DIVISION OF RADIOLOGY * * *Final [...] space are preserved. DIVISION OF RADIOLOGY Provider, [facility] - 09/15/2020 * * *Final Report* * [...] otherwise no significant bony process is identified. District Wildlife Manager: PSCB Transcribe Date/Time: Sep 15 2020 7:09P Dictated by : QUYNH ARCE MD This examination was interpreted and the report reviewed and electronically signed by: QUYNH ARCE MD on Sep 15 2020 7:11PM [facility] Radiology Study observation (narrative) Archana Berman XR Shoulder - right 3 ViewsO rdered By: [facility] Provider on 09-15-2020 [facility] Hemoglobin A1Con 07-16-2019 HbA1c (Bld) [Mass fraction] 108 mg/dl Normal [facility] Comment on above: Performed By: #### L A1C #### [facility] [address] [place], [place] [address] HbA1c (Bld) [Mass fraction] 5.4 % Normal 4.5-6.2 [facility] Comment on above: Performed By: #### L A1C #### [facility] [address] [place], [place] [address] Comprehensive Panelon 2018 Bilirubin [Mass/Vol] 0.4 mg/dL Normal 0.2-1.0 [facility] Comment on above: Performed By: #### P 14 #### [facility] [address] [place], [place] [address] ALT [Catalytic activity/Vol] 24 U/L Normal 12-78 [facility] Comment on above: Performed By: #### P 14 #### [facility] [address] [place], [place] [address] AST [Catalytic activity/Vol] 17 U/L Normal 15-37 [facility] Comment on above: Performed By: #### P 14 #### [facility] [address] [place], [place] [address] ALP [Catalytic activity/Vol] 55 U/L Normal 45-117 [facility] Comment on above: Performed By: #### P 14 #### [facility] [address] [place], [place] [address] Creatinine [Mass/Vol] 0.77 mg/dL Normal 0.51-0.95 [facility] Comment on above: Performed By: #### P 14 #### [facility] [address] [place], [place] [address] Protein [Mass/Vol] 6.4 g/dL Normal 6.4-8.2 [facility] Comment on above: Performed By: #### P 14 #### [facility] [address] [place], [place] [address] Glucose [Mass/Vol] 117 mg/dL High 70-99 [facility] Comment on above: Performed By: #### P 14 #### [facility] [address] [place], [place] [address] Albumin [Mass/Vol] 3.5 g/dL Normal 3.4-5.0 [facility] Comment on above: Performed By: #### P 14 #### [facility] [address] [place], [place] [address] Anion gap [Moles/Vol] 8 mmol/L Normal 8-16 [facility] Comment on above: Performed By: #### P 14 #### [facility] [address] [place], [place] [address] CO2 [Moles/Vol] 30 mmol/L Normal 21-32 [facility] Comment on above: Performed By: #### P 14 #### [facility] [address] [place], [place] [address] Urea nitrogen [Mass/Vol] 11 mg/dL Normal 7-18 [facility] Comment on above: Performed By: #### P 14 #### [facility] [address] [place], [place] [address] Calcium [Mass/Vol] 9.0 mg/dL Normal 8.5-10.1 [facility] Comment on above: Performed By: #### P 14 #### [facility] [address] [place], [place] [address] Chloride [Moles/Vol] 103 mmol/L Normal 98-107 [facility] Comment on above: Performed By: #### P 14 #### [facility] [address] [place], [place] [address] Potassium [Moles/Vol] 4.2 mmol/L Normal 3.5-5.1 [facility] Comment on above: Performed By: #### P 14 #### [facility] [address] [place], [place] [address] Sodium [Moles/Vol] 137 mmol/L Normal 136-145 [facility] Comment on above: Performed By: #### P 14 #### [facility] [address] [place], [place] [address] Hemoglobin A1Con 03-09-2019 HbA1c (Bld) [Mass fraction] 140 mg/dl Normal [facility] Comment on above: Performed By: #### L A1C #### [facility] [address] [place], [place] [id number] HbA1c (Bld) [Mass fraction] 6.5 % High 4.5-6.2 [facility] Comment on above: Performed By: #### L A1C #### [facility] [address] [place], [place] [address] Lipid Profileon 03-09-2019 Cholesterol [Mass/Vol] 152 mg/dL Normal 0-199 [facility] Comment on above: Performed By: #### L LIPD #### [facility] [address] [place], [place] [address] Cholesterol in HDL [Mass/Vol] 60 mg/dL Normal >40 [facility] Comment on above: Performed By: #### L LIPD #### [facility] [address] [place], [place] [address] Cholesterol in LDL [Mass/Vol] 85 mg/dL Normal 0-150 [facility] Comment on above: Performed By: #### L LIPD #### [facility] [address] [place], [place] [address] Cholesterol.total/Chasity sterol in HDL [Mass ratio] 2.5 {ratio} Normal 1.8-5.3 [facility] Comment on above: Performed By: #### L LIPD #### [facility] [address] [place], [place] [address] Triglyceride Blood 34 mg/dL Normal 0-149 [facility] Comment on above: Performed By: #### L LIPD #### [facility] [address] [place], [place] [address] Risk Factor See Below Normal [facility] Comment on above: Result Comment: [...] By: #### L LIPD #### [facility] [address] [place] [address] MDRD GFRon 03-09-2019 GFR/1.73 sq M predicted among non-blacks MDRD (S/P/Bld) [Vol rate/Area] mL/min/{1.73_m2} Normal >60mL/min/1.7 3m2 [facility] Comment on above: Result Comment: If t he patient is , multiply the result by 1.210. Performed By: #### G FR #### [facility] [address] [place] [address] Comprehensive Panelon 2018 ALP [Catalytic activity/Vol] 56 U/L Normal 46-116 [facility] Comment on above: Performed By: #### P 14 #### [facility] [address] [place] [address] Bilirubin [Mass/Vol] 0.3 mg/dL Normal 0.2-1.0 [facility] Comment on above: Performed By: #### P 14 #### [facility] [address] [place] [address] Protein [Mass/Vol] 6.9 g/dL Normal 6.4-8.2 [facility] Comment on above: Performed By: #### P 14 #### [place] [address] Creatinine [Mass/Vol] 0.62 mg/dL Normal 0.51-0.95 [facility] Comment on above: Performed By: #### P 14 #### [facility] [address] [place] [address] ALT [Catalytic activity/Vol] 17 U/L Normal 12-78 [facility] Comment on above: Performed By: #### P 14 #### [facility] [address] [place], [place] [address] AST [Catalytic activity/Vol] 14 U/L Normal 9-37 [facility] Comment on above: Performed By: #### P 14 #### [facility] [address] [place], [place] [address] Albumin [Mass/Vol] 3.4 g/dL Normal 3.4-5.0 [facility] Comment on above: Performed By: #### P 14 #### [facility] [address] [place], [place] [address] Anion gap [Moles/Vol] 6 mmol/L Low 8-16 [facility] Comment on above: Performed By: #### P 14 #### [facility] [address] [place], [place] [address] CO2 [Moles/Vol] 32 mmol/L Normal 21-32 [facility] Comment on above: Performed By: #### P 14 #### [facility] [address] [place], [place] [address] Glucose [Mass/Vol] 72 mg/dL Normal 70-99 [facility] Comment on above: Performed By: #### P 14 #### [facility] [address] [place], [place] [address] Urea nitrogen [Mass/Vol] 7 mg/dL Normal 7-18 [facility] Comment on above: Performed By: #### P 14 #### [facility] [address] [place], [place] [address] Calcium [Mass/Vol] 8.9 mg/dL Normal 8.5-10.1 [facility] Comment on above: Performed By: #### P 14 #### [facility] [address] [place], [place] [address] Chloride [Moles/Vol] 103 mmol/L Normal 98-107 [facility] Comment on above: Performed By: #### P 14 #### [facility] [address] [place], [place] [address] Potassium [Moles/Vol] 3.6 mmol/L Normal 3.5-5.1 [facility] Comment on above: Performed By: #### P 14 #### [facility] [address] [place], [place] [address] Sodium [Moles/Vol] 137 mmol/L Normal 136-145 [facility] Comment on above: Performed By: #### P 14 #### [facility] [address] [place], [place] [address] Hemoglobin A1Con 09-15-2018 HbA1c (Bld) [Mass fraction] 148 mg/dl Normal [facility] Comment on above: Performed By: #### L A1C #### [facility] [address] [place], [place] [address] HbA1c (Bld) [Mass fraction] 6.8 % High 4.5-6.2 [facility] Comment on above: Performed By: #### L A1C #### [facility] [address] [place] [id number] MDRD GFRon 09-15-2018 GFR/1.73 sq M predicted among non-blacks MDRD (S/P/Bld) [Vol rate/Area] mL/min/{1.73_m2} Normal >60mL/min/1.7 3m2 [facility] Comment on above: Result Comment: If t he patient is , multiply the result by 1.210. Performed By: #### G FR #### [facility] [address] [place] [id number] Vital Signs Date Time Vital Sign Value Performing Clinician Maury pablo 03-18-2025 08:12-0400 Body height 165.[address] Sánchez Tabares MD Work Phone: [facility] 03-18-2025 08:12-0400 Body mass index (BMI) [Ratio] 25.2 kg/m2 Dr. Sánchez Tabares MD Work Phone: [facility] 03-18-2025 08:12-0400 Body temperature 94.5 [degF] Dr. Sánchez Tabares MD Work Phone: [facility] 03-18-2025 08:12-0400 Body weight 68.[address] Sánchez Tabares MD Work Phone: [facility] 03-18-2025 08:12-0400 Diastolic blood pressure 77 mm[Hg] Dr. Sánchez Tabares MD Work Phone: [facility] 03-18-2025 08:12-0400 Heart rate 85 /min Dr. Sánchez Tabares MD Work Phone: 3(322)913-928261 [place] [address] 03-18-2025 08:12-0400 Respiratory rate 16 /min Dr. Sánchez Tabares MD Work Phone: 3(132)343-727857 [place] [address] 03-18-2025 08:12-0400 SaO2% (BldA) [Mass fraction] 98 % Dr. Sánchez Tabares MD Work Phone: 5(023)911-962957 [place] [address] 03-18-2025 08:12-0400 Systolic blood pressure 119 mm[Hg] Dr. Sánchez Tabares MD Work Phone: 3(579)030-812057 [place] [address] 01-18-2025 14:36-0400 Body height 165.[address] Sánchez Tabares MD Work Phone: 7(078)662-772757 [place] [address] 01-18-2025 14:36-0400 Body mass index (BMI) [Ratio] 27.1 kg/m2 Dr. Sánchez Tabares MD Work Phone: 0(623)248-472057 [place] [address] 01-18-2025 14:36-0400 Body weight 73.[address] Sánchez Tabares MD Work Phone: 3(705)589-606457 [place] [address] 01-18-2025 14:36-0400 Diastolic blood pressure 77 mm[Hg] Dr. Sánchez Tabares MD Work Phone: 7(286)355-951957 [place] [address] 01-18-2025 14:36-0400 Heart rate 97 /min Dr. Sánchez Tabares MD Work Phone: 7(071)810-517957 [place] [address] 01-18-2025 14:36-0400 SaO2% (BldA) [Mass fraction] 97 % Dr. Sánchez Tabares MD Work Phone: 6(522)035-572057 [place] [address] 01-18-2025 14:36-0400 Systolic blood pressure 120 mm[Hg] Dr. Sánchez Tabares MD Work Phone: 2(979)843-393757 [place] [address] 01-09-2025 07:20-0400 Body height 167.6 cm Nettie Lyles APRN.CNP Work Phone: 2(245)333-621093 [place] [address] 01-09-2025 07:20-0400 Body mass index (BMI) [Ratio] 26.79 kg/m2 Nettie Haury CIVIL LITIGATION ATTORNEY.CASH PROCESSING SPECIALIST Work Phone: [facility] 01-09-2025 07:20-0400 Body weight 75.3 kg Nettie Lyles CIVIL LITIGATION ATTORNEY.CASH PROCESSING SPECIALIST Work Phone: [facility] 01-09-2025 07:20-0400 Diastolic blood pressure 60 mm[Hg] Nettie Lyles CIVIL LITIGATION ATTORNEY.CASH PROCESSING SPECIALIST Work Phone: [facility] 01-09-2025 07:20-0400 Systolic blood pressure 120 mm[Hg] Nettie Lyles CIVIL LITIGATION ATTORNEY.CASH PROCESSING SPECIALIST Work Phone: [facility] 09-20-2024 08:05-0500 Body height 165.[address] Sánchez Tabares MD Work Phone: 2(986)252-749161 [place] [address] 09-20-2024 08:05-0500 Body mass index (BMI) [Ratio] 32 kg/m2 Dr. Sánchez Tabares MD Work Phone: 6(600)133-640261 [place] [address] 09-20-2024 08:05-0500 Body weight 87.[address] Sánchez Tabares MD Work Phone: 5(057)702-807157 [place] [address] 09-20-2024 08:05-0500 Diastolic blood pressure 81 mm[Hg] Dr. Sánchez Tabares MD Work Phone: 6(244)782-733657 [place] [address] 09-20-2024 08:05-0500 Heart rate 81 /min Dr. Sánchez Tabares MD Work Phone: 4(384)083-825361 [place] [address] 09-20-2024 08:05-0500 Respiratory rate 16 /min Dr. Sánchez Tabares MD Work Phone: 9(104)834-645357 [place] [address] 09-20-2024 08:05-0500 SaO2% (BldA) [Mass fraction] 99 % Dr. Sánchez Tabares MD Work Phone: 0(626)727-020457 [place] [address] 09-20-2024 08:05-0500 Systolic blood pressure 126 mm[Hg] Dr. Sánchez Tabares MD Work Phone: 2(058)367-026857 [place] [address] 07-09-2024 19:48-0500 Body mass index (BMI) [Ratio] 32.45 kg/m2 Sánchez Tabares MD Work Phone: [facility] 07-09-2024 19:48-0500 Body weight 88.45 kg Sánchez Tabares MD Work Phone: [facility] 07-09-2024 19:48-0500 Diastolic blood pressure 72 mm[Hg] Sánchez Tabares MD Work Phone: [facility] 07-09-2024 19:48-0500 Heart rate 93 /min Sánchez Tabares MD Work Phone: [facility] 07-09-2024 19:48-0500 SaO2% (BldA) [Mass fraction] 100 % Sánchez Tabares MD Work Phone: [facility] 07-09-2024 19:48-0500 Systolic blood pressure 112 mm[Hg] Sánchez Tabares MD Work Phone: [facility] 11-01-2023 16:45-0400 Body weight 88.72 kg Sánchez Tabares MD Work Phone: [facility] 11-01-2023 16:45-0400 Diastolic blood pressure 78 mm[Hg] Sánchez Tabares MD Work Phone: [facility] 11-01-2023 16:45-0400 Heart rate 89 /min Sánchez Tabares MD Work Phone: [facility] 11-01-2023 16:45-0400 Respiratory rate 16 /min Sánchez Tabares MD Work Phone: [facility] 11-01-2023 16:45-0400 SaO2% (BldA) [Mass fraction] 100 % Sánchez Tabares MD Work Phone: [facility] 11-01-2023 16:45-0400 Systolic blood pressure 122 mm[Hg] Sánchez Tabares MD Work Phone: [facility] 11-26-2022 16:48-0400 Body weight 90.72 kg Sánchez Tabares MD Work Phone: [facility] 11-26-2022 16:48-0400 Diastolic blood pressure 72 mm[Hg] Sánchez Tabares MD Work Phone: [facility] 11-26-2022 16:48-0400 Heart rate 89 /min Sánchez Tabares MD Work Phone: [facility] 11-26-2022 16:48-0400 SaO2% (BldA) [Mass fraction] 98 % Sánchez Tabares MD Work Phone: [facility] 11-26-2022 16:48-0400 Systolic blood pressure 138 mm[Hg] Sánchez Tabares MD Work Phone: [facility] 06-02-2022 07:00-0500 Body weight 87.09 kg Shira Espinosa APRN.CASH PROCESSING SPECIALIST Work Phone: [facility] 06-02-2022 07:00-0500 Diastolic blood pressure 68 mm[Hg] Shira Espinosa APRN.CASH PROCESSING SPECIALIST Work Phone: [facility] 06-02-2022 07:00-0500 Systolic blood pressure 114 mm[Hg] Shira Espinosa APRN.CASH PROCESSING SPECIALIST Work Phone: [facility] Encounters Encounter Date Encounter Type Care Provider Facility Start: 04-03-2025 End: 04-03-2025 Patient encounter procedure Antonieta LINARES -Cat [facility] Work Phone: Start: 04-03-2025 End: 04-03-2025 ambulatory Sánchez Albino Facility:[facility] Start: 04-01-2025 End: 04-01-2025 Refill Sánchez Tabares MD Work Phone: [facility] Comment on above: Refill Request Start: 03-18-2025 End: 03-18-2025 Patient encounter procedure Antonieta LINARES -[facility] Work Phone: Start: 03-18-2025 End: 03-18-[address] Sánchez Tabares MD Work Phone: -[facility] Start: 01-30-2025 End: 01-30-[address] Sánchez Tabares MD Work Phone: -[facility] Start: 01-30-2025 End: 01-30-2025 Patient encounter procedure Nettie LINARES -[facility] Work Phone: Start: 01-30-2025 End: 01-30-2025 ambulatory Nettie Lyles Facility:[facility] Start: 01-23-2025 End: 01-23-2025 Chart abstracting Sánchez Tabares MD Work Phone: [facility] Start: 01-18-2025 End: 01-18-[address] Chintan Ramirez MD -[facility] Work Phone: Start: 01-18-2025 End: 01-18-[address] Sánchez Tabares MD Work Phone: -[facility] Start: 01-11-2025 End: 01-11-2025 ambulatory Nettie Lyles APRN.CASH PROCESSING SPECIALIST Work Phone: OB/Gynecology Comment on above: Mammogram Start: 01-11-2025 End: 01-11-[address] Chintan Ramirez MD -Laboratory Work Phone: Start: 01-11-2025 End: 01-11-2025 ambulatory Chintan Ramirez Facility:[facility] Start: 01-09-2025 End: 01-09-2025 Patient encounter procedure Nettie Lyles APRN.CASH PROCESSING SPECIALIST Work Phone: OB/Gynecology Comment on above: Encounter for gyneco logical examination (general) (routine) without abnormal findings (Primary Dx); Encounter for screening mammogram for breast cancer; Genitourinary syndrome of menopause Start: 01-09-2025 End: 01-09-2025 Patient encounter status Nettie Lyles APRN.CASH PROCESSING SPECIALIST Work Phone: [facility] Start: 01-09-2025 End: 01-09-2025 ambulatory SÁNCHEZ TABARES Facility:[facility] Start: 01-09-2025 Encounter for gynecological examination (general) (routine) without abnormal findings NETTIE LYLES [facility] Start: 12-04-2024 End: 12-05-2024 Refill Karolyn Humphreys APRN.CASH PROCESSING SPECIALIST Work Phone: [facility] Comment on above: Refill Request Start: 09-20-2024 End: 09-20-2024 Patient encounter procedure Antonieta LINARES -[facility] Work Phone: Start: 09-20-2024 End: 09-20-2024 ambulatory [facility] Facility[facility] Start: 09-20-2024 End: 09-20-2024 ambulatory [facility] Facility:[facility] Start: 09-07-2024 ambulatory [facility] Start: 09-07-2024 End: 09-07-2024 ambulatory [facility] Facility:[facility] Start: 08-13-2024 End: 08-13-2024 ambulatory [facility] Start: 07-11-2024 End: 07-11-2024 ambulatory [facility] Facility:[facility] Start: 07-09-2024 End: 07-09-2024 Patient encounter procedure Sánchez Tabares MD Work Phone: [facility] Comment on above: Diabetes mellitus ty pe 1, controlled, without complications (HCC) (Primary Dx); Acquired hypothyroidism; Hyperlipidemia with target LDL less than 100; Mild intermittent asthma without complication Start: 07-09-2024 End: 07-09-2024 ambulatory [facility] Facility:[facility] Start: 07-02-2024 End: 07-02-2024 ambulatory [facility] Start: 06-27-2024 End: 06-28-2024 Refill Sánchez Tabares MD Work Phone: [facility] Comment on above: Refill Request Start: 04-09-2024 End: 04-09-2024 Refill Sánchez Tabares MD Work Phone: [facility] Comment on above: Refill Request Start: 02-24-2024 End: 02-24-2024 ambulatory Justin [facility]ias PT [facility] Comment on above: Posterior tibialis t endinitis of both lower extremities (Primary Dx); Acquired hallux valgus of right foot; Acquired hammer toe Start: 02-07-2024 End: 02-07-2024 ambulatory Justin Golias PT Work Phone: [facility] Comment on above: Posterior tibialis t endinitis of both lower extremities (Primary Dx); Acquired hallux valgus of right foot; Acquired hammer toe Start: 01-30-2024 Chart abstracting Sánchez Tran MD Work Phone: [facility] Start: 01-21-2024 End: 01-21-2024 ambulatory SÁNCHEZ TABARES Facility:[facility] Start: 01-17-2024 Get Medical Advice Shira ortega APRN.CASH PROCESSING SPECIALIST Work Phone: OB/Gynecology Comment on above: Mammogram order Reorder a pair of or thotic inserts. Start: 11-01-2023 End: 11-01-2023 Patient encounter procedure Sánchez Tabares MD Work Phone: [facility] Comment on above: Hyperlipidemia with target LDL less than 100 (Primary Dx); Acquired hypothyroidism; Diabetes mellitus type 1, controlled, without complications (HCC); Obesity, Class I, BMI 30-34.9; Bilateral impacted cerumen Start: 06-14-2023 Refill Sánchez Tabares MD Work Phone: [facility] Comment on above: Refill Request Start: 06-02-2023 End: 06-02-2023 ambulatory DANAEMark GILMORE HERNANDEZ Facility[facility] Start: 03-01-2023 End: 03-01-2023 Patient encounter procedure Deshawn Baron Work Phone: Podiatry Comment on above: Porokeratosis (Prima ry Dx); Diabetes mellitus type 1, controlled, without complications (HCC) Start: 02-06-2023 Chart abstracting Sánchez Tran MD Work Phone: [facility] Start: 02-05-2023 End: 02-05-2023 ambulatory [facility] Work Phone: Start: 02-05-2023 End: 02-05-2023 Patient encounter procedure [facility]-Laboratory Work Phone: Start: 01-28-2023 End: 01-28-2023 Patient encounter procedure [facility]-Outpatient Breast [facility] Work Phone: Start: 01-17-2023 Telephone encounter Shira weiss APRN.CASH PROCESSING SPECIALIST Work Phone: OB/Gynecology Comment on above: Orders Start: 11-26-2022 End: 11-26-2022 Patient encounter procedure Sánchez Tabares MD Work Phone: [facility] Comment on above: Diabetes mellitus ty pe 1, controlled, without complications (HCC) (Primary Dx); Acquired hypothyroidism; Anxiety with somatic features; Cervical radiculopathy; Hyperlipidemia with target LDL less than 100; Mild intermittent asthma without complication; Gastroesophageal reflux disease without esophagitis; Obesity, Class I, BMI 30-34.9 Start: 09-03-2022 Chart abstracting Sánchez Tran MD Work Phone: [facility] Start: 07-20-2022 Refill Sánchez Tabares MD Work Phone: [facility] Comment on above: Refill Request Start: 06-07-2022 ambulatory Shira Espinosa APRN.CASH PROCESSING SPECIALIST Work Phone: OB/Gynecology Comment on above: Prescription Start: 06-02-2022 End: 06-02-2022 Patient encounter procedure Shira Espinosa APRN.CASH PROCESSING SPECIALIST Work Phone: OB/Gynecology Comment on above: Vaginal burning (Kanwal sumaya Dx); Postmenopausal atrophic vaginitis Start: 05-26-2022 End: 05-26-2022 ambulatory Justin Golias PT Work Phone: [facility] Comment on above: Posterior tibialis t endinitis of both lower extremities (Primary Dx); Acquired hallux valgus of right foot; Acquired hammer toe Start: 05-16-2022 ambulatory Justin Golias P T Work Phone: [facility] Comment on above: New orthotics Start: 05-14-2022 End: 05-14-2022 ambulatory Justin Golias PT Work Phone: [facility] Comment on above: Posterior [...] Start: 01-27-2022 End: 01-27-2022 Patient encounter procedure [facility] Start: 01-26-2022 Chart abstracting Sharita Lincoln MA [facility] Start: 01-23-2022 End: 01-23-2022 Patient encounter procedure [facility]-Radiology, [facility] Start: 01-18-2022 Telephone encounter Shira weiss APRN.CNP Work Phone: OB/Gynecology Comment on above: Orders Start: 09-23-2021 Telephone encounter Sánchez Tabares MD Work Phone: [facility] Comment on above: Patient Update Start: 09-15-2020 End: 09-15-2020 Subsequent hospital visit by physician [facility] Work Phone: Radiology Comment on above: Other injury of unsp ecified muscle, fascia and tendon at shoulder and upper arm level, unspecified arm, initial encounter [S46.999A] Procedures Date Procedure Procedure Detail Performing Clinician Start: 04-03-[address] Laura Tabares MD Work Phone: Start: 04-03-2025 Computed tomography of abdomen and pelvis with contrast Dr. Sánchez Tabares MD Work Phone: Start: 01-30-2025 Screening mammography Pavel Tabares MD [...] HAVtotal antibody results to IgM (e.g., panel #[id number] HAVAntibody w/ Rfx).Performed at: [address] [id number] Director: Lon Manzo PhD, Phone: [phone] Start: 01-27-2024 Hemoglobin A1c/Hemoglobin.total in Blood [facility] [...] Start: 01-23-2022 ALBUMIN/CREAT RATIO (UACR) (FOR REMOTE [facility]1983 USE) [facility] Provider Start: 01-23-2022 Hemoglobin A1c/Hemoglobin.total [...] Detail Author Start: 07-05-2031 Urine microalbumin profile [facility] Start: 06-02-2028 Screening for malign ant neoplasm of colon [facility] Start: 03-01-2026 Glaucoma screening Dilated Retinal E xam [facility] Start: 01-16-2026 HPV TESTING HPV TESTING [facility] Start: 01-16-2026 PAP TESTING PAP TESTING [facility] Start: 01-16-2026 Screening for malign ant neoplasm of cervix [facility] Start: 01-10-2026 End: 01-10-2026 Patient encounter procedure 01/10/2026 7:15 AM EDT Office Visit OB/Gynecology [address] [place], [place] [id number] Nettie Lyles APRN.CASH PROCESSING SPECIALIST [address] [place], [place] [phone] Annual OB/Gynecology Comment on above: Annual Start: 07-20-2025 Hemoglobin A1c measurement HbA1C [facility] Start: 07-09-2025 Annual PCP Team [employer] Worker joaquina Disease Visit Annual PCP Team Chronic Disease Visit [facility] Start: 03-25-2025 Influenza vaccination Influenza Vacc ine (#1) [facility] Start: 03-02-2025 Glaucoma screening Dilated Retinal E xam [facility] Start: 01-29-2025 Screening for malign ant neoplasm of breast Mammogram Screening [facility] Start: 01-26-2025 Hepatitis B screening Urine Albumin:Creatinine Ratio [facility] Start: 01-20-2025 Hepatitis B surface antibody level LDL Cholesterol [facility] Start: 10-31-2024 Annual PCP Team [employer] Systems Worker joaquina Disease Visit Annual PCP Team Chronic Disease Visit [facility] Start: 08-09-2024 Diabetic foot examination Diabetic Foot Exam [facility] Start: 07-29-2024 Hemoglobin A1c measurement HbA1C [facility] Start: 07-24-2024 Behavioral Health Screening Behavioral Health Screening [facility] Comment on above: Postponed from 07/25 (Declined at this time) Start: 07-09-2024 Depression Screening Depression Scre ening [facility] Comment on above: Postponed from 04/30 (Declined at this time) Start: 03-25-2024 Covid-19 Vaccine () Covid-19 Vaccine () [facility] Start: 03-25-2024 Influenza vaccination Influenza Vacc ine (#1) [facility] Start: 03-11-2024 Glaucoma screening Dilated Retinal E xam [facility] Start: 03-11-2024 Hepatitis C antibody , confirmatory test Dilated Retinal Exam [facility] Start: 02-06-2024 Hepatitis B screening URINE ALBUMIN:CREATININE RATIO [facility] Start: 02-01-2024 Mammography [facility] Start: 02-01-2024 Screening for malign ant neoplasm of breast Mammogram Screening [facility] Start: 01-21-2024 End: 01-21-2024 Results Only 01/21/2024 9:45 AM EDT Results Only [facility] [address] [place] [address] PT WILL BRING IN OUTSIDE LAB ORDERS [facility] Comment on above: PT WILL BRING IN OUT SIDE LAB ORDERS Start: 11-27-2023 ANNUAL PCP TEAM PHYSICAL THERAPY COORDINATOR JOAQUINA DISEASE VISIT ANNUAL PCP TEAM CHRONIC DISEASE VISIT [facility] Start: 11-27-2023 PNEUMOCOCCAL (2 - PCV) PNEUMOCOCCAL (2 - PCV) [facility] Comment on above: Postponed from 09/07 (Declined at this time) Start: 11-27-2023 Pneumococcal vaccination [facility] Comment on above: Postponed from 09/07 (Declined at this time) Start: 08-08-2023 Hemoglobin A1c measurement HbA1C [facility] Start: 08-08-2023 Hemoglobin A1c/Hemoglobin.total in Blood HBA1C [facility] Start: 07-24-2023 DEPRESSION ASSESSMENT DEPRESSION ASS ESSMENT [facility] Comment on above: Postponed from 07/25 (Declined at this time) Start: 07-20-2023 Colonoscopy COLONOSCOPY [facility] Start: 07-20-2023 COLORECTAL CANCER SCREENING COLORECTAL CANCER SCREENING [facility] Start: 03-25-2023 Influenza vaccination INFLUENZA (#1) [facility] Start: 03-02-2023 3 comp foot exam completed DIABETIC FOOT EXAM [facility] Start: 02-07-2023 Hemoglobin A1c/Hemoglobin.total in Blood HBA1C [facility] Start: 01-27-2023 Mammography MAMMOGRAM [facility] Start: 01-26-2023 Hepatitis C antibody , confirmatory test DILATED RETINAL EXAM [facility] Start: 01-23-2023 Hepatitis B screening URINE ALBUMIN:CREATININE RATIO [facility] Start: 09-23-2022 3 comp foot exam completed DIABETIC FOOT EXAM [facility] Start: 09-23-2022 Adult depression screening assessment DEPRESSION SCREENING [facility] Start: 09-23-2022 ANNUAL PCP TEAM PHYSICAL THERAPY COORDINATOR JOAQUINA DISEASE VISIT ANNUAL PCP TEAM CHRONIC DISEASE VISIT [facility] Start: 07-26-2022 Hemoglobin A1c/Hemoglobin.total in Blood HBA1C [facility] Start: 07-25-2022 [facility] Start: 03-25-2022 Influenza vaccination INFLUENZA (#1) [facility] Start: 02-07-2022 Hemoglobin A1c/Hemoglobin.total in Blood HBA1C [facility] Start: 02-06-2022 Hepatitis C antibody , confirmatory test DILATED RETINAL EXAM [facility] Start: 02-05-2022 Hepatitis B screening URINE ALBUMIN:CREATININE RATIO [facility] Start: 02-05-2022 Hepatitis B surface antibody level LDL CHOLESTEROL [facility] Start: 01-27-2022 Mammography MAMMOGRAM [facility] Start: 09-22-2021 COVID-19 VACCINE (4 - Booster for Pfizer series) COVID-19 VACCINE (4 - Booster for Pfizer series) [facility] Start: 07-25-2021 DEPRESSION ASSESSMENT DEPRESSION ASS ESSMENT [facility] Start: 2013 COLOGUARD (FIT-DNA) COLOGUARD (FIT-D NA) [facility] Start: [address] COLONOGRAPHY [facility] Start: 2013 FECAL OCCULT BLOOD FECAL OCCULT BLOO D [facility] Start: 2013 Screening for malign ant neoplasm of colon [facility] Start: 2013 SIGMOIDOSCOPY SIGMOIDOSCOPY [facility] Start: 09-07-2005 PNEUMOCOCCAL (2 - PCV) PNEUMOCOCCAL (2 - PCV) [facility] Start: 09-07-2005 Pneumococcal vaccination Pneum ococcal Vaccine (2 of 2 - PCV) [facility] Start: 09-07-2005 Pneumococcal Vaccine : 50+ (2 of 2 - PCV) Pneumococcal Vaccine: 50+ (2 of 2 - PCV) [facility] Start: 1987 HEPATITIS B (1 of 3 - Risk 3-dose series) HEPATITIS B (1 of 3 - Risk 3-dose series) [facility] Start: 1986 Depression Screening Depression Scre ening [facility] Start: 1968 HEPATITIS B (1 of 3 - 3-dose series) HEPATITIS B (1 of 3 - 3-dose series) [facility] BACTERIAL VAGINOSIS AMPLIFICATION BACTERIAL VAGINOSIS AMPLIFICATION Lab Routine Vaginal burning Ordered: 06/02/2022 [facility] Work Phone: Comment on above: Ordered: 06/02/2022 ROXIE / TRICHOMONA S AMPLIFICATION ROXIE / TRICHOMONAS AMPLIFICATION Microbiology Routine Vaginal burning Ordered: 06/02/2022 [facility] Work Phone: Comment on above: Ordered: 06/02/2022 CT Abdomen and Pelvi s W contrast IV [facility] End: 02-08-2026 DBT Breast - bilateral screening SHIRA SCREENING W GREER Radiology Routine Encounter for gynecological examination (general) (routine) without abnormal findings 1 Occurrences starting 01/09/2025 until 02/08/2026 [facility] Work Phone: Comment on above: 1 Occurrences starti ng 01/09/2025 until 02/08/2026 Removal impacted cer umen irrigation/lvg unilat AMBULATORY EAR LAVAGE/IRRIGATION Procedures Routine Bilateral impacted cerumen Ordered: 11/01/2023 [facility] Work Phone: Comment on above: Ordered: 11/01/2023 [facility] Immunizations Immunization Date Immunization Notes Care Provider Fa cility 04-23-2024 COVID-19 vaccine, ag e 12+ yr (QVIVO COMFORMERLY [facility]) Sánchez Tabares MD Work Phone: [facility] 04-13-2024 influenza virus vacc ine, unspecified formulation Sánchez Tabares MD Work Phone: [facility] 04-09-2024 influenza, seasonal, injectable Sánchez Tabares MD Work Phone: [facility] 04-18-2023 Influenza, injectabl e, Madin Elvira Canine Kidney, preservative free, quadrivalent Sánchez Tabares MD Work Phone: [facility] 04-18-2023 influenza virus vacc ine, unspecified formulation Sánchez Tabares MD Work Phone: [facility] 05-07-2022 Influenza, injectabl e, Madin [place] Canine Kidney, preservative free, quadrivalent Sánchez Tabares MD Work Phone: [facility] 07-05-2021 tetanus toxoid, redu denisse diphtheria toxoid, and acellular pertussis vaccine, adsorbed Sánchez Tabares MD Work Phone: [facility] Work Phone: 04-13-2021 influenza, injectabl e, quadrivalent, contains preservative Sánchez Tabares MD Work Phone: [facility] 04-13-2021 influenza, injectabl e, quadrivalent, preservative free Sánchez Tabares MD Work Phone: [facility] Work Phone: 10-23-2020 COVID-19 vaccine, ag e 12+ yr (PFIZER-BIONTECH - PURPLE TOP) Sánchez Tabares MD Work Phone: [facility] Work Phone: 10-02-2020 COVID-19 vaccine, ag e 12+ yr (PFIZER-BIONTECH - PURPLE TOP) Sánchez Tabares MD Work Phone: [facility] 05-15-2020 zoster vaccine recombinant Sánchez Tabares MD Work Phone: [facility] 04-11-2020 influenza, injectabl e, quadrivalent, contains preservative Sánchez Tabares MD Work Phone: [facility] 04-11-2020 influenza, injectabl e, quadrivalent, preservative free Sánchez Tabares MD Work Phone: [facility] Work Phone: 03-14-2020 zoster vaccine recombinant Sánchez Tabares MD Work Phone: [facility] 04-06-2019 Influenza, injectabl e, Madin [place] Canine Kidney, preservative free, quadrivalent Sánchez Tabares MD Work Phone: [facility] Work Phone: 04-06-2019 influenza, seasonal, injectable Sánchez Tabares MD Work Phone: [facility] 04-20-2018 influenza, injectabl e, quadrivalent, preservative free Sánchez Tabares MD Work Phone: [facility] Work Phone: 04-20-2018 influenza, seasonal, injectable Sánchez Tabares MD Work Phone: [facility] 04-25-2017 influenza, injectabl e, quadrivalent, preservative free Sánchez Tabares MD Work Phone: [facility] Work Phone: 04-25-2017 influenza, seasonal, injectable Sánchez Tabares MD Work Phone: [facility] 04-06-2016 influenza, injectabl e, quadrivalent, preservative free Sánchez Tabares MD Work Phone: [facility] Work Phone: 04-06-2016 influenza, seasonal, injectable Sánchez Tabares MD Work Phone: [facility] 01-14-2016 hepatitis B immune globulin Sánchez Tabares MD Work Phone: [facility] 08-15-2015 hepatitis B immune globulin Sánchez Tabares MD Work Phone: [facility] 07-15-2015 hepatitis B immune globulin Sánchez Tabares MD Work Phone: [facility] 2015 influenza, injectabl e, quadrivalent, contains preservative Sánchez Tabares MD Work Phone: [facility] Work Phone: 2015 influenza, seasonal, injectable Deshawn Baron Work Phone: [facility] 05-02-2014 influenza, seasonal, injectable Sánchez Tabares MD Work Phone: [facility] Work Phone: 04-24-2013 Influenza virus vaccine [facility] 04-24-2013 influenza, seasonal, injectable, preservative free Sánchez Tabares MD Work Phone: [facility] Work Phone: 04-19-2013 influenza virus vacc ine, unspecified formulation Sánchez Tabares MD Work Phone: [facility] 04-24-2011 influenza virus vacc ine, unspecified formulation Sánchez Tabares MD Work Phone: [facility] Work Phone: 12-30-2010 tetanus toxoid, redu denisse diphtheria toxoid, and acellular pertussis vaccine, adsorbed Sánchez Tabares MD Work Phone: [facility] Work Phone: 04-28-2010 influenza virus vacc ine, unspecified formulation Sánchez Tabares MD Work Phone: [facility] 05-28-2009 novel influenza-H1N1 -09, all formulations Sánchez Tabares MD Work Phone: [facility] Work Phone: 04-26-2009 influenza virus vacc ine, unspecified formulation Sánchez Tabares MD Work Phone: [facility] Work Phone: 06-08-2008 influenza virus vacc ine, unspecified formulation Sánchez Tabares MD Work Phone: [facility] Work Phone: 09-07-2004 pneumococcal polysaccharide vaccine, 23 valent Sánchez Tabares MD Work Phone: [facility] Work Phone: 09-07-2004 Pneumococcal Vaccine [facility] Work Phone: 09-07-2004 pneumococcal vaccine , unspecified formulation [facility] 06-24-2003 pneumococcal polysaccharide vaccine, 23 valent Sánchez Tabares MD Work Phone: [facility] Work Phone: 10-18-2000 diphtheria and tetan us toxoids, adsorbed for pediatric use Sánchez Tabares MD Work Phone: [facility] Work Phone: 11-16-1973 trivalent poliovirus vaccine, live, oral Sánchez Tabares MD Work Phone: [facility] 05-15-1970 diphtheria, tetanus toxoids and pertussis vaccine Sánchez Tabares MD Work Phone: [facility] 05-15-1970 trivalent poliovirus vaccine, live, oral Sánchez Tabares MD Work Phone: [facility] 11-16-1969 diphtheria, tetanus toxoids and pertussis vaccine Sánchez Tabares MD Work Phone: [facility] 1970 diphtheria, tetanus toxoids and pertussis vaccine Sánchez Tabares MD Work Phone: [facility] 1968 trivalent poliovirus vaccine, live, oral Sánchez Tabares MD Work Phone: [facility] 1968 trivalent poliovirus vaccine, live, oral Sánchez Tabares MD Work Phone: [facility] 1968 diphtheria, tetanus toxoids and pertussis vaccine Sánchez Tabares MD Work Phone: [facility] 1968 trivalent poliovirus vaccine, live, oral Sánchez Tabares MD Work Phone: [facility] Payers Date Payer Category Payer Unknown [id number] 2024 Self-pay [id number] 2022 Private Health Insurance [id number] 2019 Private Health Insurance [employer]ET[employer] A ETNA CHOICE POS II [id number] 2019-Present [phone] [address] [place] [address] POS [id number] 2019 Private Health Insurance [id number] Unknown [id number] Unknown [id number] Unknown [id number] Unknown [id number] Unknown [id number] Unknown [id number] Unknown [id number] Unknown [id number] Unknown [id number] Unknown [id number] Unknown [id number] Unknown [id number] Unknown [id number] Social History Date Type Detail Facility Start: 02-06-2013 End: 03-18-2025 Tobacco smoking status NHIS Ex-smoker [facility] End: 05-11-1999 History of tobacco use Current smoker [facility] Start: 09-23-2021 End: 01-09-2025 Alcohol intake Current non-drinker of alcohol (finding) [facility] Start: 08-22-2021 End: 11-26-2022 History SDOH Alcohol Frequency 1 [facility] Start: 08-22-2021 End: 11-26-2022 History SDOH Alcohol Std Drinks 98 [facility] Start: 08-22-2021 End: 11-26-2022 History SDOH Social Connections Phone 2 [facility] Start: 08-22-2021 End: 11-26-2022 History SDOH Social Connections [employer] 3 [facility] Start: 08-22-2021 End: 11-26-2022 History SDOH Physical Activity DPW 7 [facility] Start: 08-22-2021 End: 11-26-2022 History SDOH Financial 5 [facility] Start: 04-19-2020 Education 17 [facility] Start: 1970 Sex Assigned At Not on file [facility] Start: 08-16-2020 End: 03-12-2022 Exposure to SARS-CoV-2 (event) Not sure [facility] Start: 08-10-2021 End: 08-10-2022 Tobacco smoking status NHIS Unknown if ever smoked [facility] Start: 10-27-2019 Non-smoker [facility] Start: 1970 Sex Assigned At Female [facility] End: 05-11-1999 History of tobacco use Cigarette Smoker [facility] Work Phone: Start: 02-06-2013 End: 07-09-2024 Tobacco use and exposure Smokeless tobacco non-user [facility] Work Phone: Start: 11-26-2022 History SDOH Alcohol Std Drinks 0 [facility] Start: 11-26-2022 End: 07-09-2024 History of Social function [facility] Start: 11-26-2022 End: 07-09-2024 Social connection and isolation panel [facility] Start: 06-25-2012 How often do you get together with friends or relatives? Patient refused [facility] Do you belong to any clubs or organizations such as mormonism groups, unions, fraternal or athletic groups, or school groups? Yes [facility] Are you now , , , , never or living with a partner? [facility] How often to you hav e a drink containing alcohol? Never [facility] Do you feel stress - tense, restless, nervous, or anxious, or unable to sleep at night because your mind is troubled all the time - these days [OSQ] Only a little [facility] (I/We) worried raj er (my/our) food would run out before (I/we) got money to buy more. Never true [facility] In the past 12 month s, was there a time when you were not able to pay the mortgage or rent on time? No [facility] Start: 08-14-2013 None [facility] Start: 08-14-2013 With Family [facility] Medical Equipment Procedure Code Equipment Code Equipment Origin al Text Equipment Identifier Dates one touch ultra test strips blue 50's test 8 times daily [id number] Start: 02-23-2016 Comment on above: one touch ultra test strips blue 50's test 8 times daily Functional Status Date Assessment Result Facility 02-19-2015 Are you deaf, or do you have serious difficulty hearing No 02/19/2015 2:24 PM EDT Jazmyn Nice LPN No [facility] 02-19-2015 Are you blind, or do you have serious difficulty seeing, even when wearing glasses No 02/19/2015 2:24 PM EDT Jazmyn Nice LPN No [facility] 02-19-2015 Do you have serious difficulty walking or climbing stairs No 02/19/2015 2:24 PM EDT Jazmyn Nice LPN No [facility] 02-19-2015 Do you have difficul ty dressing or bathing No 02/19/2015 2:24 PM EDT Jazmyn Nice LPN No [facility] 02-19-2015 Because of a physica l, mental, or emotional condition, do you have difficulty doing errands alone such as visiting a physician's office or shopping No 02/19/2015 2:24 PM EDT Jazmyn Nice LPN No [facility] Mental Status Date Assessment Result Facility 02-19-2015 Because of a physica l, mental, or emotional condition, do you have serious difficulty concentrating, remembering, or making decisions No 02/19/2015 2:24 PM EDT Jazmyn Nice LPN No [facility] Clinical Notes 05-23-2012 to 04-03-2025 Telephone Encounter - Enrrique Tompkins LPN - 04/01/2025 7:30 PM EDTTelephone Encounter - Enrrique Tompkins LPN - 04/01/2025 7:30 PM EDT Note Date & Type Note Facility 04-03-2025 Radiology Diagnostic study note [facility] Imaging Services [address] [place], [place] [address] Abdomen/Pelvis WITH Contrast MR#: [id number] Acct: [id number] Name: EARLINE HERNANDEZ Rep #: [id number] : 1970 F 54 From: Radhames Lyon MD PCP: Dr. Sánchez Tabares MD Status: REG C LI Study:Abdomen/Pelvis WITH Contrast Date of Ex am: 04/03/25 Exam# [id number] Ordering Dr: Antonieta Hernandez PROCEDURE: ABDOMEN/PELVIS WITH CONTRAST 04/03/2025 REASON FOR EXAM: WEIGHT LOSS, EPIGASTRIC/BACK PAIN 35 lb weight loss. Patient is diabetic. TECHNIQUE: Procedure Code: [id number] Modality: CT Procedure: Coronal and Sagittal reconstruction series were provided. CONTRAST: Isovue 370 VOLUME: 100 mL One or more dose reduction techniques were used (e.g., Automated exposure control, adjustment of the mA and/or kV according to patient size, use of iterative reconstruction technique. RADIATION DOSE SUMMARY: CTDlvol: 12.76 mGy DLP: 748.16 mGycm COMPARISON: None FINDINGS: Lung bases: The lung bases are clear. Liver: Normal size. No mass. Gallbladder: Small layering gallstones along the dependent portion of the gallbladder lumen. Spleen: Normal size. Pancreas: Diffuse fatty atrophy. Adrenals: Unremarkable Kidneys: Normal renal sizes. No hydronephrosis. Bladder: Unremarkable Reproductive Organs: Normal uterine size and contour. Ovaries are unremarkable. Bowel: Unremarkable Appendix: Unremarkable Lymph nodes: Unremarkable. Vasculature: The abdominal aorta and IVC are normal. Peritoneum / Retroperitoneum: Unremarkable Bones: Unremarkable CT/Abdomen/Pelvis WITH Contrast IMPRESSION: Small layering gallstones. Diffuse fatty atrophy of the pancreas. Reading Location: [id number] CC: BACKGROUND CHECK COORDINATORGiovanny Hernandez; Dr. Sánchez Tabares MD ~ District Wildlife Manager: Signed [facility] 04-01-2025 Telephone encount er Note Prescription Refill [...] Tompkins LPN April 01, 2025 7:30 PM [facility] 04-01-2025 Miscellaneous Notes Formattin g of [...] 2025 7:30 PM documented in this encounter [facility] 03-18-2025 Progress note [facility] 01-18-2025 Evaluation note Diagnosis Onset Date Resolution Diabetes type 1, controlled chronic January 18, 2025 2:34pm Hypothyroid chronic January 18 2:34pm Mixed hyperlipidemia chronic January 18, 2025 2:34pm Overweight (BMI 25.0-29.9) chronic January 18, 2025 2:34pm Presence of insulin pump chronic January 18, 2025 2:34pm [facility] Work Phone: 1(853) 279-315506-27-2025 Evaluation note* Diagnosis Onset Date Resolution Status Admit Date Diabetes type 1, controlled chronic January 18, 2025 2:34pm Hypothyroid chronic January 18 2:34pm Mixed hyperlipidemia chronic January 18, 2025 2:34pm Overweight (BMI 25.0-29.9) chronic January 18, 2025 2:34pm Presence of insulin pump chronic January 18, 2025 2:34pm Epigastric pain acute March 182024 8:00am Weight loss acute March 18, 2025 8:00am [facility] Work Phone: 1(637) 210-404306-20-2025 Telephone encounter Note* Telephone Encounter - Triny Richard LPN - 01/11/2025 3:45 PM EDT Order to nettie to sign [facility]06-20-2025 Miscellaneous Notes* Telephone Encounter - Triny Richard LPN - 01/11/2025 3:45 PM EDT Order to nettie to sign [facility] Instructions* Patient Instructions* Nettie Lyles APRN.CASH PROCESSING SPECIALIST - 01/09/2025 7:34 AM EDT Images from the original note were not included. *Revaree is a NAMS recommended, leading selling vaginal insert for the relief of symptoms of vaginal atrophy and the cheondoism of the vagina's epithelial lining and pH -- hormone free. In nmyn-co-trvh clinical trials, Revaree performed as well as [...] menopausal women. Lubricants and moisturizers list The snsy-qtn-jagwxvd vaginal moisturizer and lubricant products can be [...] in any drugstore or online. Also, many [employer] stores do carry high-quality lubricant products. VAGINAL [...] lube Replens Silky Smooth Pulse Aloe-ahh Wet Rentz PATITO Premium Personal Lubricant PINK Silicone Lubricant [...] vaginal moisturizer makes them feel more comfortable. Spray Gun Repairer beware: many lubricants arelabeled as moisturizers to [...] also be applied externally for comfort. [place] Aloe [place]: Many people are allergic to aloe, so keep this in mind with products like this that have aloe in it. Medicine Mama s V magic: Not much medical studies on this, but many patients swear by it, has oil, beeswax and honey in it- best used externally only. Calcium and Vitamin D Supplementation For more information:My [facility] Osteopenia Calcium Age Recommended Daily Allowance [...] physical activity (or a combination of both). [employer] Gyne[employer] (ACOG) and several other major osteoporosis guidelinegroups recommend screening for osteoporosis with Dual- energy X-ray Absorptiometry (DXA) in all postmenopausal documented [facility]25 NoteHNO ID: [id number] Author: NETTIE LYLES APRN.CASH PROCESSING SPECIALIST Service: ? Author Type: Nurse Practitioner Type: Progress Notes Filed: 01/09/2025 07:46 Note Text: Batching Operator offered: Patient declines. Earline is a 54 year old who presents for an annual gynecologic exam without complaints. Type 1 DM managed by stacking machine operator Dr. Ramirez. Postmenopausal: Yes. HRT use: No. [...] Multiple0 Live Births0 Comment: 1 vaginal delivery Lawn Mower Sharpener History LMP: 03/22/2020, Postmenopausal Age at Menarche: 10 Age at First : Age at Menopause: Lawn Mower Sharpener History Comments: Sexual Activity: Yes; Male Contraception: [...] ESOPHAGOGASTRODUODENOSCOPY TRANSORAL DIAGNOSTIC EGD done 2 times QVIVO COVID-19 VACCINE, AGE 12+ YR (PURPLE TOP) [...] discussed with the Patient or Patient's Authorized Ladle Handler. As applicable, any other physician, advance practice provider, medical student, or other health professional student that will be observing or involved in the sensitive examination for educational or training purposes was discussed with the Patient or Authorized Ladle Handler. The Patient or Authorized Ladle Handler has agreed to proceed with the sensitive [...] external genitalia atrophic, normal Bartholin's glands, urethra, [place]'s glands, no vulvar lesions, no cervical lesions, atrophic, good vaginal support, physiologic discharge present, normal appearing perineal body and perianal region BIMANUAL: uterus normal size, shape and consistency, no adnexal masses, and non-tender RECTOVAGINAL: deferred. NEURO: alert and oriented x3,exam grossly non-focal EXTREMITIES: normal ASSESSMENT/PLAN: 1) Health maintenance: Pap/HPV up to date 2 (more content not included)...[facility] 01-09-2025 History of Present illness Narrative* Nettie Lyles, KORI.CASH PROCESSING SPECIALIST - 01/09/2025 7:09 AM EDT Batching Operator offered: Patient declines. Earline is a 54 year old who presents for an annual gynecologic exam without complaints. Type 1 DM managed by stacking machine operator Dr. Ramirez. Postmenopausal: Yes. HRT use: No. [...] Multiple0 Live Births0 Comment: 1 vaginal delivery Lawn Mower Sharpener History LMP: 03/22/2020, Postmenopausal Age at Menarche: 10 Age at First : Age at Menopause: Lawn Mower Sharpener History Comments: Sexual Activity: Yes; Male Contraception: [...] ESOPHAGOGASTRODUODENOSCOPY TRANSORAL DIAGNOSTIC EGD done 2 times QVIVO COVID-19 VACCINE, AGE 12+ YR (PURPLE TOP) [...] discussed with the Patient or Patient's Authorized Ladle Handler. As applicable, any other physician, advance practice provider, medical student, or other health professional student that will be observing or involved in the sensitive examination for educational or training purposes was discussed with the Patient or Authorized Ladle Handler. The Patient or Authorized Ladle Handler has agreed to proceed with the sensitive [...] external genitalia atrophic, normal [place]'s glands, urethra, [place]'s glands, no vulvar lesions, no cervical lesions, [...] effective - Written info provided Nettie Lyles APRN.LYNDA documented [facility] Telephone encounter Note * Telephone Encounter [...] Tompkins LPN December 05, 2024 11:05 AM [facility]-14[facility] Miscellaneous Notes* Telephone Encounter - Enrrique [...] 05, 2024 11:05 AM documented in this encounterGalion [facility] Hospital02-27-2025 Evaluation note* Diagnosis Onset Date Resolution Status Admit Date Epigastric pain acute September 20, 2024 7:59am Metabolic dysfunction-associated steatotic liver disease (MASLD) acute September 20, 2024 7:59am Diabetes mellitus type I chronic September 20, 2024 7:59am GERD (gastroesophageal reflu x disease) chronic September 20 025 7:59am Hypothyroid chronic August 7:59am Mixed hyperlipidemia chronic 2024 7:59am [facility] Work Phone: 1(473) 388-560502-27-2025 Evaluation note* Diagnosis Onset Date Resolution Status Admit Date Epigastric pain acute September 20, 2024 7:59am Diabetes mellitus type I chronic September 20, 2024 7:59am GERD (gastroesophageal reflu x disease) chronic September 20 025 7:59am Hypothyroid chronic August 7:59am Mixed hyperlipidemia chronic Febr uary 2024 7:59am Metabolic dysfunction-associated steatotic liver disease (MASLD) deleted September 20, 2024 7:59am [facility] Work Phone: 1(126) 316-444102-14-2025 [facility] Medical Records Department [address] [place] [address] History Physical Exam 09/07/24 1436 MR#: [id number] Acct: [id number] Name: EARLINE HERNANDEZ Rep #: [id number] : 1970 54 From: Rambo Friend PCP: Dr. Sánchez Tabares MD [place] [facility] [place] [address] HPI - General General Date of Admission: [...] 07/02/24 Unknown H istory 25 mg-coppr 0.5 qu-zyvc-cuif tablet cholestacar PO 07/02/24 Unknown History elderberry [...] 16 16 Respiratory Pat (more content not included)...[facility] 07-09-2024 NoteHNO ID: [id number] Author: SÁNCHEZ TABARES MD Service: ? Author [...] ESOPHAGOGASTRODUODENOSCOPY TRANSORAL DIAGNOSTIC EGD done 2 times QVIVO COVID-19 VACCINE, AGE 12+ YR (PURPLE TOP) [...] non-tender. Bowel sounds no (more content not included)...[facility]12-16-2024 History of Present illness Narrative* Sánchez Tabares [...] ESOPHAGOGASTRODUODENOSCOPY TRANSORAL DIAGNOSTIC EGD done 2 times QVIVO COVID-19 VACCINE, AGE 12+ YR (PURPLE TOP) [...] me in one year. documented in this encounterGalion [facility] Hospital12-05-2024 Telephone encounter Note * Telephone Encounter - Karolyn Humphreys APRN.CNP - 06/28/2024 5:44 PM EST The following approved medication requests have been transmitted electronically. Requested Prescriptions Pending Prescriptions Disp Refills montelukast (SINGULAIR) 10 mg tablet 90 tablet 1 Sig: Take 1 tablet by mouth once daily. Karolyn Humphreys APRN.CNP [facility]12-05-2024 Miscellaneous Notes* Telephone Encounter - Karolyn [...] 28, 2024 2:25 PM documented in this encounterGalion [facility] Hospital12-05-2024 Telephone encounter Note * Telephone Encounter [...] Munguia LPN June 28, 2024 2:25 PM [facility] Telephone encounter Note* Telephone Encounter - [...] Tompkins LPN April 09, 2024 11:41 AM [facility] Miscellaneous Notes* Telephone Encounter - Enrrique [...] 09, 2024 11:41 AM documented in this encounterGalion [facility] Hospital08-02-2024 NoteHNO ID: [id number] Author: JUSTIN BURROWS PT Service: ? Author [...] Previous order number for old/original pair RX-A: #[id number] Previous order number for second pair RX-B: #[id number] Order number for most recent pair RX-A: #[id number] Justin Burrows PT No charge for timeKind[facility] History of Present illness Narrative* Justin Burrows, [...] Previous order number for old/original pair RX-A: #[id number] Previous order number for second pair RX-B: #[id number] Order number for most recent pair RX-A: #[id number] Justin Burrows PT No charge for time documented in this encounterGalion [facility] Hospital07-16-2024 NoteHNO ID: [id number] Author: JUSTIN BURROWS PT Service: ? Author Type: Physical Therapist Type: Progress Notes Filed: 02/07/2024 16:19 Note Text: [facility] DME ISSUE NOTE Patient identified by name and date: Yes Subjective: Earline Hernandez is a 53 year old female seen today for fitting and picking crew supervisor of duplicate pair of custom foot orthotics. [...] Custom biomechanical foot orthotics with serial number: #[id number] were issued to patient. All specifications for custom foot orthotics can be found in orthotic evaluation visit note. Planned Interventions: Follow up as needed for brace fitting/issues. [facility]: Equipment: [id number] x2 pair of custom foot orthotics No charge for time. Total time: 13 minutes [facility] History of Present illness Narrative* Justin Burrows PT - 02/07/2024 4:13 PM EDT [facility] DME ISSUE NOTE Patient identified by name and date: Yes Subjective: Earline Hernandez is a 53 year old female seen today for fitting and picking crew supervisor of duplicate pair of custom foot orthotics. [...] Custom biomechanical foot orthotics with serial number: #[id number] were issued to patient. All specifications for custom foot orthotics can be found in orthotic evaluation visit note. Planned Interventions: Follow up as needed for brace fitting/issues. [facility]: Equipment: [id number] x2 pair of custom foot orthotics No charge for time. Total time: 13 minutes Justin Burrows PT documented in this encounterGalion Community Hospital06-25-2024 Telephone encounter Note * Telephone Encounter - Estrella Barbosa LPN - 01/17/2024 10:21 AM EDT Order sheet to provider for signature. Estrella Barbosa LPN [facility]06-25[facility] Miscellaneous Notes* Telephone Encounter - Estrella Barbosa LPN - 01/17/2024 10:21 AM EDT Order sheet to provider for signature. Estrella Barbosa LPN documented in this encounterGalion Community Hospital04-10-2024 Nurse Note* Laverne Singh MA - 11/02/2023 7:56 AM EDT Ambulatory Ear Lavage Pre-treatment: No pre-treatment Treatment: Both ears Equipment and Irrigation solution and Volume used: Single use syringe with single use irrigation tip Water Return flow appearance: Brown Yellow Patient tolerated procedure: yes Tympanic membrane assessment: Tympanic membrane assessed by LIP pre and post procedure documented in this encounterGalion Community Hospital04-09-2024 History of Present illness Narrative* Sánchez [...] January. Will likely be done her at [facility]. They will be checking her lipids [...] ESOPHAGOGASTRODUODENOSCOPY TRANSORAL DIAGNOSTIC EGD done 2 times QVIVO COVID-19 VACCINE, AGE 12+ YR (PURPLE TOP) [...] - ICD9: 380.4, ICD10: H61.23 -irrigated by separating machine operator with warm tap water. Large amount of debris removed. Tms are clear afterward on visulization. Sánchez Tabares MD documented in this encounterGalion [facility] Hospital11-21-2023 Miscellaneous Notes* Telephone Encounter - Karolyn [...] you. Karolyn Funez LPN. documented in this encounterGalion Community Hospital08-08-2023 Instructions* Patient Instructions* Deshawn Baron - [...] (or decreased sensation in your feet) a broomcorn grader should always cut your toenails. Be Careful [...] Go to your health care provider or broomcorn grader to treat these conditions. documented in this encounterGalion Community Hospital08-08-2023 History of Present illness Narrative* Deshawn [...] ESOPHAGOGASTRODUODENOSCOPY TRANSORAL DIAGNOSTIC EGD done 2 times QVIVO COVID-19 VACCINE, AGE 12+ YR (PURPLE TOP) [...] Objective: Patient presents to clinic ambulating in [place] Constitutional: Pt is a well developed 52 [...] and texture. Hyperkeratosis noted to b/l hallux. [place] present to left forefoot laterally. NO ulcerations, [...] type 1, controlled, without complications ([facility]) Plan: 1. Patient was seen and evaluated. [...] no cause or intervention documented in this encounterGalion Community Hospital06-27-2023 Miscellaneous Notes* Telephone Encounter - Estrella Barbosa LPN - 01/18/2023 8:04 AM EDT Order faxed to [facility] and filed in BACKGROUND CHECK COORDINATOR nurses station. Estrella Barbosa LPN * Telephone Encounter - Shira Espinosa APRN.CNP - 01/18/2023 6:58 AM EDT Order signed and given to nursing. Shira Espinosa APRN.CNP * Telephone Encounter - Luz Soto RN - 01/17/2023 11:59 AM EDT Patient requesting mammogram order be faxed to [facility]. Order to AG to sign. No need to call patient back once completed. Luz Soto RN documented in this encounterGalion Community Hospital05-05-2023 History of Present illness Narrative* Sánchez [...] ESOPHAGOGASTRODUODENOSCOPY TRANSORAL DIAGNOSTIC EGD done 2 times QVIVO COVID-19 VACCINE, AGE 12+ YR (PURPLE TOP) [...] Never done DIABETIC FOOT EXAM -saw podiatry. MAMMOGRAM-director market research ordered. Will be getting colonoscopy end of [...] year or prn documented in this encounterCleveland [id number] Miscellaneous Notes* Telephone Encounter - Keesha Clay RN - 07/20/2022 11:58 AM EST Last Office Visit: 09/23/2021 Future Office Visit: None Requested Prescriptions Pending Prescriptions Disp Refills montelukast (SINGULAIR) 10 mg tablet 90 tablet 3 Sig: Take 1 tablet by mouth once daily. Date of Last Labs: 01/23/2022 documented in this encounterGalion Community Hospital11-15-2022 Miscellaneous Notes* Telephone Encounter - Antonieta Lujan RN - 06/08/2022 9:55 AM EST RX pending Requested Prescriptions Pending Prescriptions Disp Refills nystatin-triamcinolone (MYCOLOG II) cream 30 g 1 Sig: Apply 1 application to affected area twice daily as needed. documented in this encounterGalion Community Hospital11-09-2022 Instructions* Patient Instructions* Shira Espinosa APRN.CNP - 06/02/2022 7:35 AM EST Silicone based lubricant Replens, [place], vaginal estrogen - treatment options of vaginal atrophy documented [facility] this [facility]11-09-2022 History of Present illness Narrative* Shira Espinosa APRN.CNP - 06/02/2022 6:55 AM EST Batching Operator offered: Patient declines. Earline Hernandez is a [...] external genitalia normal, normal Bartholin's glands, urethra, [place]'s glands, no vulvar lesions, no cervical lesions, [...] Level: 3 - Low documented in this encounterGalion [facility] Hospital11-02-2022 History of Present illness Narrative* Justin [...] (timed/untimed) 20 Orthotic/Prosthetic Adjustment and Training (Subsequent) (93534): 1:1 time: 20 minutes (1 unit: 8-22 mins) Justin Burrows PT documented in this encounterGalion Community Hospital10-21-2022 History of Present illness Narrative* Justin Burrows PT - 05/14/2022 3:17 PM EDT [facility] DME ISSUE NOTE Patient identified by name and date: Yes Subjective: Earline Hernandez is a 52 year old female seen today for fitting and picking crew supervisor of duplicate pair of custom foot orthotics [...] Custom biomechanical foot orthotics with serial number: #[id number] were issued to patient and proof of receipt form signed by pt and therapist. All specifications for custom foot orthotics can be foundin orthotic evaluation visit note. Planned Interventions: Follow up as needed for brace fitting/issues. [facility]: Orthotics Management and Training (48169): 1:1 time: 15 minutes (1 unit: 8-22 mins) Equipment: L3020 pair of custom foot orthotics Total time: 15 minutes Justin Burrows PT documented in this encounterGalion Community Hospital08-19-2022 History of Present illness Narrative* Deshawn [...] ESOPHAGOGASTRODUODENOSCOPY TRANSORAL DIAGNOSTIC EGD done 2 times QVIVO COVID-19 VACCINE, AGE 12+ YR (PURPLE TOP) [...] type 1, controlled, without complications ([facility] (M20.12) Hallux valgus of left foot PLAN: [...] Pain Samra Lofton LPN documented in this encounterGalion Community Hospital06-27-2022 Miscellaneous Notes* Telephone Encounter - Luz Soto RN - 01/18/2022 3:32 PM EDT Patient called requesting mammogram order be faxed to [facility]. Order signed by AG and faxed. Luz Soto RN documented in this encounterGalion Community Hospital02-22-2021 History of Present illness Narrative* Jennifer [...] 15, 2020 5:06 PM documented in this encounterGalion Community Hospital02-22-2021 Miscellaneous Notes* Result Encounter Note - Bob Patel III - 09/15/2020 4:50 PM EST Lester Bianchi--there is not any evidence of significant arthritis in the shoulder region. This soft tissue injury should be improvable with PT. I wish you well. Bob Patel III MD documented in this encounterGalion Community Hospital02-22-2021 Progress note* Result Encounter Note - Bob Patel III - 09/15/2020 4:50 PM EST Arias, Good news--there is not any evidence of significant arthritis in the shoulder region. This soft tissue injury should be improvable with PT. I wish you well. Bob Patel III MD [facility]10[facility] History of Past illness Narrative* Problem Noted Date Resolved Date Postcoital bleeding 05/23/2012 03/01/2017 Plantar fascial fibromatosis 01/28/201002/2017 PURE HYPERCHOLESTEROLEM 02/12/2006 07/15/20 14 Uncontrolled type 1 diabetes mellitus 05/03/2005 01/28/2016 Overview: * Type (07/25/1991): dx diabetes, KUMAR? (has marked FHx diabetes both sides). Oral agents x 1yr, then insulin. * Control hx (): TaZ4q=8.5 (): RuI3s=6.8% (06/02/07): HvG2q=8.7% (): YgX4t=8.7% (): FmW4d=8.3% (12/10/09): XnU1n=8.2% (05/25/10): NlU2y=1.3% * Eye hx (): exam Ervin Karg [...] <4 mcg/mg creat * Vascular hx (): tfhj=444, TG=53, HDL=45, dLDL=84 (): cdlx=380, TG=42, HDL=47, tNQU=254, CK=43 (05/25/10): gkir=068, TG=48, HDL=59, hUUM=530 Hypothyroidism 09/15/2015 Overview: Hypothyroidism documented as of this encounter (statuses as of 12/31/2021) [facility] of Past illness Narrative* Problem Noted Date Resolved Date Postcoital bleeding 05/23/2012 03/01/2017 Plantar fascial fibromatosis 01/28/201002/2017 PURE HYPERCHOLESTEROLEM 02/12/2006 07/15/20 14 Uncontrolled type 1 diabetes mellitus 05/03/2005 01/28/2016 Overview: * Type (07/25/1991): dx diabetes, KUMAR? (has marked FHx diabetes both sides). Oral agents x 1yr, then insulin. * Control hx (): GbZ8r=3.5 (): OqU2q=6.8% (06/02/07): EbM7v=5.7% (): AbM3q=9.7% (): TiH3n=9.3% (12/10/09): EeA9a=3.2% (05/25/10): AgT5m=2.3% * Eye hx (): exam Ervin Karg [...] <4 mcg/mg creat * Vascular hx (): ocdj=965, TG=53, HDL=45, dLDL=84 (): vxcc=464, TG=42, HDL=47, vZHV=112, CK=43 (05/25/10): rmke=703, TG=48, HDL=59, nLYE=066 Hypothyroidism 09/15/2015 Overview: Hypothyroidism documented as of this encounter (statuses as of 01/18/2022) [facility] of Past illness Narrative* Problem Noted Date Resolved Date Postcoital bleeding 05/23/2012 03/01/2017 Plantar fascial fibromatosis 01/28/201002/2017 PURE HYPERCHOLESTEROLEM 02/12/2006 07/15/20 14 Uncontrolled type 1 diabetes mellitus 05/03/2005 01/28/2016 Overview: * Type (07/25/1991): dx diabetes, KUMAR? (has marked FHx diabetes both sides). Oral agents x 1yr, then insulin. * Control hx (): ExW3i=9.5 (): ZrR8g=1.8% (06/02/07): FuG3h=6.7% (): NvZ2d=4.7% (): NrB0i=1.3% (12/10/09): JmO3j=1.2% (05/25/10): ZpR9f=0.3% * Eye hx (): exam Ervin Whiting [...] <4 mcg/mg creat * Vascular hx (): uurc=038, TG=53, HDL=45, dLDL=84 (): wxog=998, TG=42, HDL=47, sYUU=434, CK=43 (05/25/10): geal=666, TG=48, HDL=59, aBIY=439 Hypothyroidism 09/15/2015 Overview: Hypothyroidism documented as of this encounter (statuses as of 01/26/2022) [facility] of [facility] illness Narrative* Problem Noted Date Resolved Date Postcoital bleeding 05/23/2012 03/01/2017 Plantar fascial fibromatosis 01/28/201002/2017 PURE HYPERCHOLESTEROLEM 02/12/2006 07/15/20 14 Uncontrolled type 1 diabetes mellitus 05/03/2005 01/28/2016 Overview: * Type (07/25/1991): dx diabetes, KUMAR? (has marked FHx diabetes both sides). Oral agents x 1yr, then insulin. * Control hx (): FuZ3i=7.5 (): LeG0q=7.8% (06/02/07): VuY5v=7.7% (): CkA2t=9.7% (): XuP5a=6.3% (12/10/09): ZbK0z=5.2% (05/25/10): LrR4g=4.3% * Eye hx (): exam Ervin Karg [...] <4 mcg/mg creat * Vascular hx (): woqy=157, TG=53, HDL=45, dLDL=84 (): lmns=701, TG=42, HDL=47, yXMG=400, CK=43 (05/25/10): fugs=794, TG=48, HDL=59, jXSD=610 Hypothyroidism 09/15/2015 Overview: Hypothyroidism documented as of this encounter (statuses as of 03/12/2022) [facility] of [facility] illness Narrative* Problem Noted Date Resolved Date Postcoital bleeding 05/23/2012 03/01/2017 Plantar fascial fibromatosis 01/28/201002/2017 PURE HYPERCHOLESTEROLEM 02/12/2006 07/15/20 14 Uncontrolled type 1 diabetes mellitus 05/03/2005 01/28/2016 Overview: * Type (07/25/1991): dx diabetes, KUMAR? (has marked FHx diabetes both sides). Oral agents x 1yr, then insulin. * Control hx (): WmM6r=2.5 (): BrY8l=4.8% (06/02/07): JoZ5d=6.7% (): RkX6f=4.7% (): ZiF0x=0.3% (12/10/09): YlB9q=2.2% (05/25/10): HmA2h=1.3% * Eye hx (): exam Ervin Karg [...] <4 mcg/mg creat * Vascular hx (): ipix=405, TG=53, HDL=45, dLDL=84 (): cpwh=551, TG=42, HDL=47, pETX=354, CK=43 (05/25/10): dduf=062, TG=48, HDL=59, nPJC=397 Hypothyroidism 09/15/2015 Overview: Hypothyroidism documented as of this encounter (statuses as of 05/14/2022) [facility] illness Narrative* Problem Noted Date Resolved Date Postcoital bleeding 05/23/2012 03/01/2017 Plantar fascial fibromatosis 01/28/201002/2017 PURE HYPERCHOLESTEROLEM 02/12/2006 07/15/20 14 Uncontrolled type 1 diabetes mellitus 05/03/2005 01/28/2016 Overview: * Type (07/25/1991): dx diabetes, KUMAR? (has marked FHx diabetes both sides). Oral agents x 1yr, then insulin. * Control hx (): DsB6e=1.5 (): FqR1p=9.8% (06/02/07): JoZ7x=3.7% (): ZkN7e=8.7% (): LfU5k=5.3% (12/10/09): AsP8w=7.2% (05/25/10): BiW4d=2.3% * Eye hx (): exam Ervin Karg [...] <4 mcg/mg creat * Vascular hx (): yaor=091, TG=53, HDL=45, dLDL=84 (): vjsx=380, TG=42, HDL=47, zBAE=503, CK=43 (05/25/10): amjc=365, TG=48, HDL=59, vLLK=710 Hypothyroidism 09/15/2015 Overview: Hypothyroidism documented as of this encounter (statuses as of 05/17/2022) [facility] Narrative* Problem Noted Date Resolved Date Postcoital bleeding 05/23/2012 03/01/2017 Plantar fascial fibromatosis 01/28/201002/2017 PURE HYPERCHOLESTEROLEM 02/12/2006 07/15/20 14 Uncontrolled type 1 diabetes mellitus 05/03/2005 01/28/2016 Overview: * Type (07/25/1991): dx diabetes, KUMAR? (has marked FHx diabetes both sides). Oral agents x 1yr, then insulin. * Control hx (): SsT9h=1.5 (): SlB3f=5.8% (06/02/07): OkL0r=1.7% (): HwZ0v=8.7% (): ZwK3l=2.3% (12/10/09): WuY8o=4.2% (05/25/10): HdD8n=1.3% * Eye hx (): exam Ervin Karg [...] <4 mcg/mg creat * Vascular hx (): fpes=276, TG=53, HDL=45, dLDL=84 (): vqli=374, TG=42, HDL=47, sJJA=180, CK=43 (05/25/10): ajrf=482, TG=48, HDL=59, pGLY=202 Hypothyroidism 09/15/2015 Overview: Hypothyroidism documented as of this encounter (statuses as of 05/26/2022) [facility] Narrative* Problem Noted Date Resolved Date Postcoital bleeding 05/23/2012 03/01/2017 Plantar fascial fibromatosis 01/28/201002/2017 PURE HYPERCHOLESTEROLEM 02/12/2006 07/15/20 14 Uncontrolled type 1 diabetes mellitus 05/03/2005 01/28/2016 Overview: * Type (07/25/1991): dx diabetes, KUMAR? (has marked FHx diabetes both sides). Oral agents x 1yr, then insulin. * Control hx (): KuT0p=6.5 (): MwZ8s=9.8% (06/02/07): QvF9a=8.7% (): GoJ9n=6.7% (): XaT7v=4.3% (12/10/09): MvN4q=4.2% (05/25/10): DmY6n=3.3% * Eye hx (): exam Ervin Karg OD, no diabetic hemorrhages noted on dilated fundus exam. () exam Ervin Karg OD, no DM changes. (): exam Ervni Kark OD, no DM changes (05/25/10): exam [...] <4 mcg/mg creat * Vascular hx (): wffu=301, TG=53, HDL=45, dLDL=84 (): uipo=353, TG=42, HDL=47, lTSR=384, CK=43 (05/25/10): xrxv=176, TG=48, HDL=59, kQGA=476 Hypothyroidism 09/15/2015 Overview: Hypothyroidism documented as of this encounter (statuses as of 06/02/2022) [facility] Narrative* Problem Noted Date Resolved Date Postcoital bleeding 05/23/2012 03/01/2017 Plantar fascial fibromatosis 01/28/201002/2017 PURE HYPERCHOLESTEROLEM 02/12/2006 07/15/20 14 Uncontrolled type 1 diabetes mellitus 05/03/2005 01/28/2016 Overview: * Type (07/25/1991): dx diabetes, KUMAR? (has marked FHx diabetes both sides). Oral agents x 1yr, then insulin. * Control hx (): HgD2f=8.5 (): EvX1r=1.8% (06/02/07): TxA6f=2.7% (): DjS8v=4.7% (): SqZ0f=5.3% (12/10/09): ZdV9n=7.2% (05/25/10): LrX0i=5.3% * Eye hx (): exam Ervin Whiting [...] <4 mcg/mg creat * Vascular hx (): repq=709, TG=53, HDL=45, dLDL=84 (): ggrp=152, TG=42, HDL=47, hJMV=140, CK=43 (05/25/10): tirb=798, TG=48, HDL=59, aFFQ=821 Hypothyroidism 09/15/2015 Overview: Hypothyroidism documented as of this encounter (statuses as of 06/08/2022) [facility] Narrative* Problem Noted Date Resolved Date Postcoital bleeding 05/23/2012 03/01/2017 Plantar fascial fibromatosis 01/28/201002/2017 PURE HYPERCHOLESTEROLEM 02/12/2006 07/15/20 14 Uncontrolled type 1 diabetes mellitus 05/03/2005 01/28/2016 Overview: * Type (07/25/1991): dx diabetes, KUMAR? (has marked FHx diabetes both sides). Oral agents x 1yr, then insulin. * Control hx (): CdI3h=3.5 (): DeO2v=0.8% (06/02/07): WiB2k=3.7% (): ScY4k=6.7% (): SsF5a=6.3% (12/10/09): OvB3g=1.2% (05/25/10): VvB2c=7.3% * Eye hx (): exam Ervin Karg [...] <4 mcg/mg creat * Vascular hx (): xjwa=930, TG=53, HDL=45, dLDL=84 (): uvbq=280, TG=42, HDL=47, jNRK=667, CK=43 (05/25/10): sdcc=533, TG=48, HDL=59, kUNZ=765 Hypothyroidism 09/15/2015 Overview: Hypothyroidism documented as of this encounter (statuses as of 07/26/2022) [facility] illness Narrative* Problem Noted Date Resolved Date Postcoital bleeding 05/23/2012 03/01/2017 Plantar fascial fibromatosis 01/28/201002/2017 PURE HYPERCHOLESTEROLEM 02/12/2006 07/15/20 14 Uncontrolled type 1 diabetes mellitus 05/03/2005 01/28/2016 Overview: * Type (07/25/1991): dx diabetes, KUMAR? (has marked FHx diabetes both sides). Oral agents x 1yr, then insulin. * Control hx (): HcI3h=9.5 (): XsK8q=0.8% (06/02/07): TcY9k=8.7% (): MtN6f=4.7% (): OkD6x=9.3% (12/10/09): IcQ0r=7.2% (05/25/10): VaM8j=1.3% * Eye hx (): exam Ervin Karg [...] <4 mcg/mg creat * Vascular hx (): kvjk=719, TG=53, HDL=45, dLDL=84 (): mewe=092, TG=42, HDL=47, lLJS=293, CK=43 (05/25/10): wwpf=882, TG=48, HDL=59, hWOR=805 Hypothyroidism 09/15/2015 Overview: Hypothyroidism documented as of this encounter (statuses as of 09/03/2022) [facility] Narrative* Problem Noted Date Resolved Date Postcoital bleeding 05/23/2012 03/01/2017 Plantar fascial fibromatosis 01/28/201002/2017 PURE HYPERCHOLESTEROLEM 02/12/2006 07/15/20 14 Uncontrolled type 1 diabetes mellitus 05/03/2005 01/28/2016 Overview: * Type (07/25/1991): dx diabetes, KUMAR? (has marked FHx diabetes both sides). Oral agents x 1yr, then insulin. * Control hx (): YwA1d=4.5 (): BmC4f=5.8% (06/02/07): BuB2f=5.7% (): WwB3w=3.7% (): AoL3s=3.3% (12/10/09): VpQ1z=3.2% (05/25/10): HgH7b=5.3% * Eye hx (): exam Ervin Karg [...] <4 mcg/mg creat * Vascular hx (): zjrl=647, TG=53, HDL=45, dLDL=84 (): znaq=650, TG=42, HDL=47, bBQI=511, CK=43 (11/1/10): eosk=465, TG=48, HDL=59, mMND=967 Hypothyroidism 09/15/2015 Overview: Hypothyroidism documented as of this encounter (statuses as of 11/27/2022) [facility] History of Past illness Narrative* Problem Noted Date Resolved Date Postcoital bleeding 05/23/2012 03/01/2017 Plantar fascial fibromatosis 01/28/201002/2017 PURE HYPERCHOLESTEROLEM 02/12/2006 07/15/20 14 Uncontrolled type 1 diabetes mellitus 05/03/2005 01/28/2016 Overview: * Type (07/25/1991): dx diabetes, KUMAR? (has marked FHx diabetes both sides). Oral agents x 1yr, then insulin. * Control hx (): QaP6n=0.5 (): AtG7i=6.8% (06/02/07): NlA4y=8.7% (): HdS1z=9.7% (): SyU6v=3.3% (12/10/09): XhN7q=3.2% (05/25/10): GgM6v=8.3% * Eye hx (): exam Ervin Karg [...] <4 mcg/mg creat * Vascular hx (): chtw=440, TG=53, HDL=45, dLDL=84 (): pysz=861, TG=42, HDL=47, eWWC=742, CK=43 (05/25/10): tkiw=763, TG=48, HDL=59, iGKU=201 Hypothyroidism 09/15/2015 Overview: Hypothyroidism documented as of this encounter (statuses as of 01/18/2023) [facility] History of Past illness Narrative* Problem Noted Date Diagnosed Date Resolved Date Postcoital bleeding 05/23/2012 03/01/20 Plantar fascial fibromatosis 01/28/2010 03/01/2017 PURE HYPERCHOLESTEROLEM 02/12/200606/25 Uncontrolled type 1 diabetes mellitus 05/03/2005 01/28/2016 Overview: * Type (07/25/1991): dx diabetes, KUMAR? (has marked FHx diabetes both sides). Oral agents x 1yr, then insulin. * Control hx (): BfI5t=3.5 (): QoJ1t=1.8% (06/02/07): DvT7e=1.7% (): NkN1v=2.7% (): YnH6n=0.3% (12/10/09): WrW0l=3.2% (05/25/10): QqY2t=2.3% * Eye hx (): exam Ervin Karg [...] <4 mcg/mg creat * Vascular hx (): plxd=576, TG=53, HDL=45, dLDL=84 (): vryf=404, TG=42, HDL=47, gKIM=772, CK=43 (05/25/10): iufu=897, TG=48, HDL=59, cBOZ=696 Hypothyroidism 09/15/2015 Overview: Hypothyroidism documented as of this encounter (statuses as of 02/06/2023) [facility] History of Past illness Narrative* Problem Noted Date Diagnosed Date Resolved Date Postcoital bleeding 05/23/2012 03/01/20 17 Plantar fascial fibromatosis 01/28/2010 03/01/2017 PURE HYPERCHOLESTEROLEM 02/12/200606/25 Uncontrolled type 1 diabetes mellitus 05/03/2005 01/28/2016 Overview: * Type (07/25/1991): dx diabetes, KUMAR? (has marked FHx diabetes both sides). Oral agents x 1yr, then insulin. * Control hx (): KiF5g=3.5 (): AwQ1p=7.8% (06/02/07): PyH7v=8.7% (): MlT6d=0.7% (): AyR2i=7.3% (12/10/09): IbN7d=4.2% (05/25/10): IoM6q=7.3% * Eye hx (): exam Ervin Whiting [...] <4 mcg/mg creat * Vascular hx (): vkkp=219, TG=53, HDL=45, dLDL=84 (): lffn=015, TG=42, HDL=47, xXBV=989, CK=43 (05/25/10): iess=464, TG=48, HDL=59, fFBA=609 Hypothyroidism 09/15/2015 Overview: Hypothyroidism documented as of this encounter (statuses as of 03/01/2023) [facility] History of Past illness Narrative* Problem Noted Date Diagnosed Date Resolved Date Postcoital bleeding 05/23/2012 03/01/20 17 Plantar fascial fibromatosis 01/28/2010 03/01/2017 PURE HYPERCHOLESTEROLEM 02/12/200606/25 Uncontrolled type 1 diabetes mellitus 05/03/2005 01/28/2016 Overview: * Type (07/25/1991): dx diabetes, KUMAR? (has marked FHx diabetes both sides). Oral agents x 1yr, then insulin. * Control hx (): QxA5d=0.5 (): UzU8l=6.8% (06/02/07): StI7y=0.7% (): GlU1j=0.7% (): XvA2c=7.3% (12/10/09): QzP0m=6.2% (05/25/10): ExT6y=8.3% * Eye hx (): exam Ervin Karg [...] <4 mcg/mg creat * Vascular hx (): bvli=698, TG=53, HDL=45, dLDL=84 (): eojp=672, TG=42, HDL=47, rKMR=259, CK=43 (05/25/10): qxkl=019, TG=48, HDL=59, nOAZ=446 Hypothyroidism 09/15/2015 Overview: Hypothyroidism documented as of this encounter (statuses as of 06/15/2023) [facility] History of Past illness Narrative* Problem Noted Date Diagnosed Date Resolved Date Postcoital bleeding 05/23/2012 03/01/20 17 Plantar fascial fibromatosis 01/28/2010 03/01/2017 PURE HYPERCHOLESTEROLEM 02/12/200606/25 Uncontrolled type 1 diabetes mellitus 05/03/2005 01/28/2016 Overview: * Type (07/25/1991): dx diabetes, KUMAR? (has marked FHx diabetes both sides). Oral agents x 1yr, then insulin. * Control hx (): TgN4v=5.5 (): CvF1q=4.8% (06/02/07): VuD7i=8.7% (): JsU1o=8.7% (): JnL2z=6.3% (12/10/09): MlO9h=1.2% (05/25/10): RwX1p=9.3% * Eye hx (): exam Ervin Karg [...] <4 mcg/mg creat * Vascular hx (): gndo=728, TG=53, HDL=45, dLDL=84 (): lcru=990, TG=42, HDL=47, oKTF=297, CK=43 (05/25/10): ijtc=981, TG=48, HDL=59, gNBH=971 Hypothyroidism 09/15/2015 Overview: Hypothyroidism documented as of this encounter (statuses as of 11/02/2023) [facility] noteNo assessment information availableWAkron Children[facility] Work Phone: Evaluation note* Diagnosis Tibialis posterior tendinitis, unspecified laterality- Primary Diabetes mellitus type 1, controlled, without complications (HCC) Type I (juvenile type) diabetes mellitus without mention of complication, not stated as uncontrolled Hammer toe, unspecified laterality Hallux valgus of left foot documented in this encounter [facility] note* Diagnosis Posterior tibialis tendinitis of both lower extremities- Primary Acquired hallux valgus of right foot Hallux valgus (acquired) Acquired hammer toe Other hammer toe (acquired) documented in this encounter [facility] note* Diagnosis Posterior tibialis tendinitis of both lower extremities- Primary Acquired hallux valgus of right foot Hallux valgus (acquired) Acquired hammer toe Other hammer toe (acquired) documented in this encounter [facility] note* Diagnosis Vaginal burning- Primary Other specified symptom associated with female genital organs Postmenopausal atrophic vaginitis documented in this encounter [facility] note* Diagnosis Vulvovaginitis Vaginitis and vulvovaginitis, unspecified documented in this encounter [facility] note* Diagnosis Mild intermittent asthma without complication Unspecified asthma documented in this encounter [facility] note* Diagnosis Diabetes mellitus type 1, controlled, [...] 30-34.9 Obesity, unspecified documented in this encounter [facility] note* Diagnosis Porokeratosis- Primary Other specified congenital anomaly of skin Diabetes mellitus type 1, controlled, without complications (HCC) Type I (juvenile type) diabetes mellitus without mention of complication, not stated as uncontrolled documented in this encounter [facility] note* Diagnosis Mild intermittent asthma without complication Unspecified asthma documented in this encounter [facility] note* Diagnosis Hyperlipidemia with target LDL less than 100- Primary Other and unspecified hyperlipidemia Acquired hypothyroidism Unspecified hypothyroidism Diabetes mellitus type 1, controlled, without complications (HCC) Type I (juvenile type) diabetes mellitus without mention of complication, not stated as uncontrolled Obesity, Class I, BMI 30-34.9 Obesity, unspecified Bilateral impacted cerumen Impacted cerumen [facility] Diagnosis Posterior tibialis tendinitis of both lower extremities- Primary Acquired hallux valgus of right foot Hallux valgus (acquired) Acquired hammer toe Other hammer toe (acquired) [facility] Other injury of unspecified muscle, fascia and tendon at shoulder and upper arm level, unspecified arm, initial encounter Chronic right shoulder pain Pain in joint, shoulder region [facility] Diagnosis Diabetes mellitus type 1, controlled, without complications (HCC)- Primary Type I (juvenile type) diabetes mellitus without mention of complication, not stated as uncontrolled Acquired hypothyroidism Unspecified hypothyroidism Hyperlipidemia with target LDL less than 100 Other and unspecified hyperlipidemia Mild intermittent asthma without complication Unspecified asthma [facility] Diagnosis Mild intermittent asthma without complication (HCC) Unspecified asthma [facility] Diagnosis Encounter for gynecological examination (general) (routine) without abnormal findings- Primary Encounter for screening mammogram for breast cancer Genitourinary syndrome of menopause [facility] Author Antonieta Hernandez [facility] Note Date/Time March 18, 2025 9: 01am [facility] [address] [place] [address] OFFICE VISIT Date of Service: 03/18/25 MR#: [id number] Acct: [id number] Name: EARLINE HERNANDEZ p #: [phone] : 1970 Provider: MILAGROS Hernandez Age/Sex: 54/F [place] [facility] [place]: [place] Intake Vital Signs 09/20/24 08:05 [...] M FU Chief Complaint: 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-up 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 FibroScan at [facility] June 2025, order faxed Plan Details Follow Up: 3 Months Coding Level of Care Code Off vis,est,level 4 Diagnoses Epigastric pain R10.13 Weight loss R63.4 Clinical Quality Measures Smoking Screening Smoking Status: Former smoker 03/18/25 0901 <Electronically signed by Antonieta LINARES> Date _ Antonieta LINARES Cosigner Signature: Date (if applicable) CC: ~ [facility][1] Services Work Phone: Reason for referral (narrative)No reason for referral information availableWAkron Children's Hospital Work Phone: Summary Purpose Family History Relationship [...] Documents on File Type Date Recorded Patient Ladle Handler Expl anation Advance Directive(s) 07/20/2018 6:35 AM Advance Directive(s) 05/24/2018 1:37 AM Advance Directive Response Recorded Date/ Time Advance Directives No August 14, 2013 2:09pm Living Will No February 24, 2021 3:17pm Power of Supervising Broker No February 24 3:17pm Advance Directive Response [...] Weight loss March 18, 2025 8: 00am Chief Complaint Admit Date INT LABS January 11, 2025 6:30 am 6 M FU January 18, 2025 2:34 pm SCREENING January 30, 2025 11:55 am 6 M FU March 18, 2025 8: 00am EPIGASTRIC PAIN April 03, 2025 6:14am Additional Source Comments INFORMATION SOURCE (unrecogn ized section and content) DATE CREATED AUTHOR 07/16/2019 [facility] DATE CREATED AUTHOR AUTHOR'S ORGANIZ ATION 06/03/2023 [facility] DATE CREATED AUTHOR AUTHOR'S ORGANIZ ATION 01/22/2024 [facility] DATE CREATED AUTHOR AUTHOR'S ORGANIZ ATION 01/12/2025 [facility] DATE CREATED AUTHOR AUTHOR'S ORGANIZ ATION 04/05/2025 [facility] Source Comments (unrecognize d section and content) In the event this informatio n is protected by the Federal Confidentiality of Alcohol and Drug Abuse Patient Records regulations: The Federal rules restrict any use of the information to criminally investigate or prosecute any alcohol or drug abuse patient.[facility] the event this information is protected by the Federal Confidentiality of Alcohol and Drug Abuse Patient Records regulations: The Federal rules restrict any use of the information to criminally investigate or prosecute any alcohol or drug abuse patient.[facility] HospitalIn the event this information is protected by the Federal Confidentiality of Alcohol and Drug Abuse Patient Records regulations: The Federal rules restrict any use of the information to criminally investigate or prosecute any alcohol or drug abuse patient.[facility] HospitalIn the event this information is protected by the Federal Confidentiality of Alcohol and Drug Abuse Patient Records regulations: The Federal rules restrict any use of the information to criminally investigate or prosecute any alcohol or drug abuse patient.[facility] HospitalIn the event this information is protected by the Federal Confidentiality of Alcohol and Drug Abuse Patient Records regulations: The Federal rules restrict any use of the information to criminally investigate or prosecute any alcohol or drug abuse patient.[facility] HospitalIn the event this information is protected by the Federal Confidentiality of Alcohol and Drug Abuse Patient Records regulations: The Federal rules restrict any use of the information to criminally investigate or prosecute any alcohol or drug abuse patient.[facility] HospitalIn the event this information is protected by the Federal Confidentiality of Alcohol and Drug Abuse Patient Records regulations: The Federal rules restrict any use of the information to criminally investigate or prosecute any alcohol or drug abuse patient.[facility] HospitalIn the event this information is protected by the Federal Confidentiality of Alcohol and Drug Abuse Patient Records regulations: The Federal rules restrict any use of the information to criminally investigate or prosecute any alcohol or drug abuse patient.[facility] HospitalIn the event this information is protected by the Federal Confidentiality of Alcohol and Drug Abuse Patient Records regulations: The Federal rules restrict any use of the information to criminally investigate or prosecute any alcohol or drug abuse patient.[facility] HospitalIn the event this information is protected by the Federal Confidentiality of Alcohol and Drug Abuse Patient Records regulations: The Federal rules restrict any use of the information to criminally investigate or prosecute any alcohol or drug abuse patient.[facility] HospitalIn the event this information is protected by the Federal Confidentiality of Alcohol and Drug Abuse Patient Records regulations: The Federal rules restrict any use of the information to criminally investigate or prosecute any alcohol or drug abuse patient.[facility] HospitalIn the event this information is protected by the Federal Confidentiality of Alcohol and Drug Abuse Patient Records regulations: The Federal rules restrict any use of the information to criminally investigate or prosecute any alcohol or drug abuse patient.[facility] HospitalIn the event this information is protected by the Federal Confidentiality of Alcohol and Drug Abuse Patient Records regulations: The Federal rules restrict any use of the information to criminally investigate or prosecute any alcohol or drug abuse patient.[facility] HospitalIn the event this information is protected by the Federal Confidentiality of Alcohol and Drug Abuse Patient Records regulations: The Federal rules restrict any use of the information to criminally investigate or prosecute any alcohol or drug abuse patient.[facility] HospitalIn the event this information is protected by the Federal Confidentiality of Alcohol and Drug Abuse Patient Records regulations: The Federal rules restrict any use of the information to criminally investigate or prosecute any alcohol or drug abuse patient.[facility] HospitalIn the event this information is protected by the Federal Confidentiality of Alcohol and Drug Abuse Patient Records regulations: The Federal rules restrict any use of the information to criminally investigate or prosecute any alcohol or drug abuse patient.[facility] HospitalIn the event this information is protected by the Federal Confidentiality of Alcohol and Drug Abuse Patient Records regulations: The Federal rules restrict any use of the information to criminally investigate or prosecute any alcohol or drug abuse patient.[facility] HospitalIn the event this information is protected by the Federal Confidentiality of Alcohol and Drug Abuse Patient Records regulations: The Federal rules restrict any use of the information to criminally investigate or prosecute any alcohol or drug abuse patient.[facility] HospitalIn the event this information is protected by the Federal Confidentiality of Alcohol and Drug Abuse Patient Records regulations: The Federal rules restrict any use of the information to criminally investigate or prosecute any alcohol or drug abuse patient.[facility] HospitalIn the event this information is protected by the Federal Confidentiality of Alcohol and Drug Abuse Patient Records regulations: The Federal rules restrict any use of the information to criminally investigate or prosecute any alcohol or drug abuse patient.[facility] HospitalIn the event this information is protected by the Federal Confidentiality of Alcohol and Drug Abuse Patient Records regulations: The Federal rules restrict any use of the information to criminally investigate or prosecute any alcohol or drug abuse patient.[facility] HospitalIn the event this information is protected by the Federal Confidentiality of Alcohol and Drug Abuse Patient Records regulations: The Federal rules restrict any use of the information to criminally investigate or prosecute any alcohol or drug abuse patient.[facility] HospitalIn the event this information is protected by the Federal Confidentiality of Alcohol and Drug Abuse Patient Records regulations: The Federal rules restrict any use of the information to criminally investigate or prosecute any alcohol or drug abuse patient.[facility] HospitalIn the event this information is protected by the Federal Confidentiality of Alcohol and Drug Abuse Patient Records regulations: The Federal rules restrict any use of the information to criminally investigate or prosecute any alcohol or drug abuse patient.[facility] HospitalIn the event this information is protected by the Federal Confidentiality of Alcohol and Drug Abuse Patient Records regulations: The Federal rules restrict any use of the information to criminally investigate or prosecute any alcohol or drug abuse patient.[facility] HospitalIn the event this information is protected by the Federal Confidentiality of Alcohol and Drug Abuse Patient Records regulations: The Federal rules restrict any use of the information to criminally investigate or prosecute any alcohol or drug abuse patient.[facility] HospitalIn the event this information is protected by the Federal Confidentiality of Alcohol and Drug Abuse Patient Records regulations: The Federal rules restrict any use of the information to criminally investigate or prosecute any alcohol or drug abuse patient.[facility] HospitalIn the event this information is protected by the Federal Confidentiality of Alcohol and Drug Abuse Patient Records regulations: The Federal rules restrict any use of the information to criminally investigate or prosecute any alcohol or drug abuse patient.[facility] HospitalIn the event this information is protected by the Federal Confidentiality of Alcohol and Drug Abuse Patient Records regulations: The Federal rules restrict any use of the information to criminally investigate or prosecute any alcohol or drug abuse patient.[facility] HospitalIn the event this information is protected by the Federal Confidentiality of Alcohol and Drug Abuse Patient Records regulations: The Federal rules restrict any use of the information to criminally investigate or prosecute any alcohol or drug abuse patient.[facility] HospitalIn the event this information is protected by the Federal Confidentiality of Alcohol and Drug Abuse Patient Records regulations: The Federal rules restrict any use of the information to criminally investigate or prosecute any alcohol or drug abuse patient.[facility] HospitalIn the event this information is protected by the Federal Confidentiality of Alcohol and Drug Abuse Patient Records regulations: The Federal rules restrict any use of the information to criminally investigate or prosecute any alcohol or drug abuse patient.[facility] Reason for Visit (unrecogniz ed section [...] 15 MIN. NEW RS PT ORTHOTIC Deshawn Baorn [address] [place] [address] Justin Burrows PT [address] [place] [address] Referral ID Status Reason Start Date Expiration Date V isits Requested Visits Authorized [id number] Authorized 04/09/2022 07/24/2022 120 117 Reason Comments [...] Care Teams (unrecognized sec tion and content) Senior Accountant Analyst Relationship Specialty Start Date End Date Sánchez Tabares MD [address] [place], [place] [id number] PCP - General Family Practice 09/23/21 Marco Antonio Dave [address] [facility] [address] [place] [phone] Director Of Sports Medicine Endocrinology 05/15/20 Senior Accountant Analyst Relationship Specialty Start Date End Date Sánchez Tabares MD [address] [place], [place] [id number] PCP - General Family Practice 09/23/21 Marco Antonio Dave [address] [facility] [address] [place] [address] Director Of Sports Medicine Endocrinology 05/15/20 Senior Accountant Analyst Relationship Specialty Start Date End Date Sánchez Tabares MD [address] [place], [place] [id number] PCP - General Family Practice 09/23/21 Marco Antonio Dave [address] [facility] [address] [place] [phone] Director Of Sports Medicine Endocrinology 05/15/20 Senior Accountant Analyst Relationship Specialty Start Date End Date Sánchez Tabares MD [address] [facility] [place] [address] PCP - General Family Medicine 09/23/21 Marco Antonio Dave [address] [facility] [address] [place] [address] Director Of Sports Medicine Endocrinology 05/15/20 Senior Accountant Analyst Relationship Specialty Start Date End Date Sánchez Tabares MD [address] [facility] [place] [address] PCP - General Family Medicine 09/23/21 Marco Antonio Dave [address] [facility] [address] [place] [address] Director Of Sports Medicine Endocrinology 05/15/20 Senior Accountant Analyst Relationship Specialty Start Date End Date Sánchez Tabares MD [address] [place] [address] PCP - General Family Medicine 09/23/21 Marco Antonio Dave [address] [facility] [address] [place] [address] Director Of Sports Medicine Endocrinology 05/15/20 Senior Accountant Analyst Relationship Specialty Start Date End Date Sánchez Tabares MD [address] [facility] [address] PCP - General Family Medicine 09/23/21 Marco Antonio Dave [address] [facility] [address] [place] [address] Director Of Sports Medicine Endocrinology 05/15/20 Senior Accountant Analyst Relationship Specialty Start Date End Date Sánchez Tabares MD [address] [facility] [address] PCP - General Family Medicine 09/23/21 Marco Antonio Dave [address] [facility] [address] [place] [address] Director Of Sports Medicine Endocrinology 05/15/20 Senior Accountant Analyst Relationship Specialty Start Date End Date Sánchez Tabares MD [address] [facility] [address] PCP - General Family Medicine 09/23/21 Marco Antonio Dave [address] [facility] [address] [place] [address] Director Of Sports Medicine Endocrinology 05/15/20 Senior Accountant Analyst Relationship Specialty Start Date End Date Sánchez Tabares MD [address] [facility] [address] PCP - General Family Medicine 09/23/21 Marco Antonio Dave [address] [facility] [address] [place] [address] Director Of Sports Medicine Endocrinology 05/15/20 Senior Accountant Analyst Relationship Specialty Start Date End Date Sánchez Tabares MD [address] [place] [address] PCP - General Family Medicine 09/23/21 Marco Antonio Dave [address] [facility] [address] [place] [address] Director Of Sports Medicine Endocrinology 05/15/20 Team Status: Active Member Role Status Dates Dr. Bob Patel III, MD Family Provider Active Dr. Sánchez Tabares MD Primary Care Provider Active Team Status: Inactive Member Role Status Dates Dr. Sánchez Tabares MD Primary Care Provider Active Shira Espinosa NP, BACKGROUND CHECK COORDINATOR-C Attending Provider, Referring Pro vider Active Team Status: Inactive Member Role Status Dates Dr. Sánchez Tabares MD Primary Care Provider Active Shruthi Flores NP-C Attending Provider, Referring Pr ovider Active Senior Accountant Analyst Relationship Specialty Start Date End Date Sánchez Tabares MD [address] [facility], [place] [address] PCP - General Family Medicine 09/23/21 Marco Antonio Dave [address] [facility] [address] [place] [phone] Director Of Sports Medicine Endocrinology 05/15/20 Senior Accountant Analyst Relationship Specialty Start Date End Date Sánchez Tabares MD [address] [place], [place] [address] PCP - General Family Medicine 09/23/21 Marco Antonio Dave [address] [phone] Director Of Sports Medicine Endocrinology 05/15/20 Senior Accountant Analyst Relationship Specialty Start Date End Date Sánchez Tabares MD [address] [place], [place] [address] PCP - General Family Medicine 09/23/21 Marco Antonio Dave [address] [phone] Director Of Sports Medicine Endocrinology 05/15/20 Senior Accountant Analyst Relationship Specialty Start Date End Date Sánchez Tabares MD [address] [place], [place] [address] PCP - General Family Medicine 09/23/21 Marco Antonio Dave [address] [place] [address] [phone] Director Of Sports Medicine Endocrinology 05/15/20 Senior Accountant Analyst Relationship Specialty Start Date End Date Sánchez Tabares MD [address] [place] [address] PCP - General Family Medicine 09/23/21 Marco Antonio Dave [address] [facility] [address] [place] [phone] Director Of Sports Medicine Endocrinology 05/15/20 Senior Accountant Analyst Relationship Specialty Start Date End Date Bob Patel III, MD NO FORWARDING ADDRESS PCP - General 05/18/02 06/15/21 Marco Antonio Dave [address] [facility] [address] [place] [address] Director Of Sports Medicine Endocrinology 05/15/20 Senior Accountant Analyst Relationship Specialty Start Date End Date Sánchez Tabares MD [address] [facility] [place] [address] PCP - General Family Medicine 09/23/21 Marco Antonio Dave [address] [facility] [address] [place] [address] Director Of Sports Medicine Endocrinology 05/15/20 Nargis Collins, KORI.CASH PROCESSING SPECIALIST [address] [facility] [place] [address] Lift Supervisor Family Medicine 07/02/24 Karolyn Humphreys CIVIL LITIGATION ATTORNEY.CASH PROCESSING SPECIALIST [address] [facility] [place] [address] Lift Supervisor Family Medicine 07/02/24 Senior Accountant Analyst Relationship Specialty Start Date End Date Sánchez Tabares MD [address] [facility] [place] [address] PCP - General Family Medicine 09/23/21 Marco Antonio Dave [address] [facility] [address] [place] [address] Director Of Sports Medicine Endocrinology 05/15/20 Nargis Collins APRN.CASH PROCESSING SPECIALIST [address] [facility] [place] [address] Lift Supervisor Family [facility] 07/02/24 Karolyn Humphreys APRN.CASH PROCESSING SPECIALIST [address] [facility] [address] [facility] 07/[facility]/24 Senior Accountant Analyst Relationship Specialty Start Date End Date Sánchez Tabares MD [address] [facility] [address] PCP - General Family Medicine 09/23/21 Marco Antonio Dave [address] [place] [address] Director Of Sports Medicine Endocrinology 05/15/20 Nargis Collins APRN.CASH PROCESSING SPECIALIST [address] [facility] [place] [address] Lift Supervisor Family Medicine 07/02/24 Karolyn Humphreys APRN.CASH PROCESSING SPECIALIST [address] [facility] [address] [facility] 07/02/24 Senior Accountant Analyst Relationship Specialty Start Date End Date Sánchez Tabares MD [address] [facility] [address] PCP - General Family Medicine 09/23/21 Marco Antonio Dave [address] [facility] [address] [place] [phone] Director Of Sports Medicine Endocrinology 05/15/20 Nargis Collins, CIVIL LITIGATION ATTORNEY.CASH PROCESSING SPECIALIST [address] [place], [place] [address] [facility] 07/02/24 Karolyn Humphreys CIVIL LITIGATION ATTORNEY.CASH PROCESSING SPECIALIST [address] [place], [place] [address] [facility] 07/02/24 Team Status: Active Member Role Status [...] January 18, 2025 End: January 18, 2025 Senior Accountant Analyst Relationship Specialty Start Date End Date Sánchez Tabares MD [address] [facility], [place] [id number] PCP - General Family Medicine 09/23/21 Marco Antonio Dave [address] [place] [facility] [address] [place] [phone] Director Of Sports Medicine Endocrinology 05/15/20 Nargis Collins APRN.CASH PROCESSING SPECIALIST [address] [facility] [place] [address] Lift Supervisor Family Medicine 07/02/24 Karolyn Humphreys APRN.CASH PROCESSING SPECIALIST [address] [place] [address] Lift Supervisor Family Medicine 07/02/24 Team Status: Inactive [...] March 18, 2025 End: March 18, 2025 Senior Accountant Analyst Relationship Specialty Start Date End Date Sánchez Tabares MD [address] [place], [place] [id number] PCP - General Family Medicine 09/23/21 Marco Antonio Dave [address] [place] [address] Director Of Sports Medicine Endocrinology 05/15/20 Nargis Collins APRN.CASH PROCESSING SPECIALIST [address] [place], [place] [address] [facility] 07/02/24 Karolyn Humphreys APRN.CASH PROCESSING SPECIALIST [address] [place], [place] [address] [facility] 07/02/24 Team Status: Active Member Role/Relationship Status Dates Dr. Sánchez Tabares MD Primary care physician Active Team Status: Inactive Member Role/Relationship Status Dates Dr. Sánchez Tabares MD Primary care physician Active Start: January 11, 2025 End: January 11, 2025 Dr. Chintan Ramirez MD Attending physician Active St art: January 11, 2025 End: January 11, 2025 Dr. Chintan Ramirez MD Referring Provider Active Sta rt: January 11, 2025 End: January 11, 2025 Team Status: Inactive Member Role/Relationship Status Dates Dr. Sánchez Tabares MD Primary care physician Active Start: January 18, 2025 End: January 18, 2025 Dr. Sánchez Tabares MD Referring Provider Active Start: January 18, 2025 End: January 18, 2025 Dr. Chintan Ramirez MD Attending physician Active St art: January 18, 2025 End: January 18, 2025 Team Status: Inactive Member Role/Relationship Status Dates Dr. Sánchez Tabares MD Primary care physician Active Start: January 30, 2025 End: January 30, 2025 MILAGROS Rosa Attending physician Active St art: January 30, 2025 End: January 30, 2025 MILAGROS Rosa Referring Provider Active Sta rt: January 30, 2025 End: January 30, 2025 Team Status: Inactive Member Role/Relationship Status Dates Dr. Sánchez Tabares MD Primary care physician Active Start: March 18, 2025 End: March 18, 2025 Dr. Sánchez Tabares MD Referring Provider Active Start: March 18, 2025 End: March 18, 2025 MILAGROS Boyle Attending physician Active Start: March 18, 2025 End: March 18, 2025 Team Status: Inactive Member Role/Relationship Status Dates Dr. Sánchez Tabares MD Primary care physician Active Start: April 03, 2025 End: April 03, 2025 MILAGROS Boyle Attending physician Active Start: April 03, 2025 End: April 03, 2025 MILAGROS Boyle Referring Provider Active Start: April 03, 2025 End: April 03, 2025 Goals (unrecognized section and content) Goals may [...] BE BASED ON THE PRIMARY CLINICAL RECORDS. [email or web address] provides no warranty or guarantee of the accuracy or completeness of information in this document.
[2025-04-16 12:08] LABS: Pancreatic Elastase, Fecal 201 (>200)
== END | disposition home or self-care (01) ==
LOC: LABSPEC 16:47
PROVIDERS: PCP Family Medicine; Referring Provider Nurse Practitioner Acute Care; Visit Provider Nurse Practitioner Acute Care
DX: R10.13 Epigastric pain (principal); E10.9 Type 1 diabetes mellitus without complications; R63.4 Abnormal weight loss
CPT/HCPCS: 82653